=== PATIENT | female | born 1960 | race Caucasian/White ===

== ENCOUNTER 2021-08-19 09:02 | Inpatient (IN) | payer OTHER ==
[2021-08-19] MEDS ORDERED: NITROGLYCERIN SL TABS 0.4 MG TAB SUBLINGUAL STA (09:16)
[2021-08-19] MEDS ORDERED: ASPIRIN 81 MG PO STA (09:16)
[2021-08-19] MEDS ORDERED: SODIUM CHLORIDE 0.9% 500 ML 500 ML IV STA (09:16)
[2021-08-19] MEDS ORDERED: HEPARIN SODIUM 1,000 UN/ML (10ML VL) IV ONE ×2 (09:20→09:49)
--- NOTE | 2021-08-19 09:20 | ED ---
General Adult HPI - General Chief complaint: Chest Pain Stated complaint: Chest Pain,SOB Time Seen by Provider: 08/19/21 09:02 Source: patient, RN notes reviewed, old records reviewed Mode of arrival: ambulatory Limitations: no limitations - History of Present Illness Initial comments: This is a 61-year-old female who presents emergency Department complaining of chest pain for the last hour to an hour and a half. Patient states the pain radiates to both of her arms. Patient denies any diaphoretic episodes. Patient states she is somewhat short of breath. Patient denies any recent fever chills or cough. Patient denies lightheadedness or dizziness. Patient denies headache patient denies numbness weakness. Patient's abdominal pain. Patient denies nausea vomiting diarrhea. Patient denies ever having similar symptoms. - Related Data Allergies Allergy/AdvReac Type Severity Reaction Status Date / Time codeine Allergy Anaphylaxis Verified 08/19/21 09:07 morphine Allergy Rash/Hives Verified 08/19/21 09:07 Penicillins Allergy Anaphylaxis Verified 08/19/21 09:07 Review of Systems ROS Statement: Those systems with pertinent positive or pertinent negative responses have been documented in the HPI. ROS Other: All systems not noted in ROS Statement are negative. Past Medical History Past Medical History: No Reported History History of Any Multi-Drug Resistant Organisms: None Reported Past Surgical History: Hysterectomy Past Psychological History: No Psychological Hx Reported Smoking Status: Current every day smoker Past Alcohol Use History: Daily Past Drug Use History: None Reported General Exam - General Exam Comments Initial Comments: GENERAL: Patient is well-developed and well-nourished. Patient is nontoxic and well- hydrated and is in mild distress. ENT: Neck is soft and supple. No significant lymphadenopathy is noted. Oropharynx is clear. Moist mucous membranes. Neck has full range of motion without eliciting any pain. EYES: The sclera were anicteric and conjunctiva were pink and moist. Extraocular movements were intact and pupils were equal round and reactive to light. Eyelids were unremarkable. PULMONARY: Unlabored respirations. Good breath sounds bilaterally. No audible rales rhonchi or wheezing was noted. CARDIOVASCULAR: There is a regular rate and rhythm without any murmurs gallops or rubs. ABDOMEN: Soft and nontender with normal bowel sounds. SKIN: Skin is clear with no lesions or rashes and otherwise unremarkable. NEUROLOGIC: Patient is alert and oriented x3. Cranial nerves II through XII are grossly intact. Motor and sensory are also intact. Normal speech, volume and content. Symmetrical smile. MUSCULOSKELETAL: Normal extremities with adequate strength and full range of motion. LYMPHATICS: No significant lymphadenopathy is noted PSYCHIATRIC: Normal psychiatric evaluation. Limitations: no limitations Course Vital Signs 08/19/21 09:05 Temperature 97.5 F L Pulse Rate 95 Respiratory 20 Rate Blood Pressure 146/85 O2 Sat by Pulse 99 Oximetry Medical Decision Making - Medical Decision Making EKG shows sinus tachycardia at 100 bpm AZ interval 250 QRS is 89 QT interval 3:30 QTC is 395. Patient's EKG shows ST segment elevation II, III, and F aVF and ST segment depression 1 aVL as well as V2 and V3. STEMI was called overhead and I spoke with Dr. Reis I gave the patient nitroglycerin and aspirin and ordered a heparin bolus. I spoke with [facility] agreed to admit the patient admitted the patient I wrote basic orders. Critical Care Time Critical Care Time: Yes Total Critical Care Time: 30 Disposition Clinical Impression: ST elevation myocardial infarction (STEMI) Disposition: ADMITTED IP TO THIS HOSP Referrals: None,Stated [Primary Care Provider] - 1-2 days Time of Disposition: :
[2021-08-19] MEDS ORDERED: HEPARIN SODIUM 1,000 UN/ML (10ML VL) ONE (09:27)
--- NOTE | 2021-08-19 09:37 | XR ---
EXAMINATION TYPE: XR chest 1V portable DATE OF EXAM: 08/19/2021 COMPARISON: NONE HISTORY: Chest pain. TECHNIQUE: Single AP portable frontal upright view of the chest is obtained. FINDINGS: Mild reticular interstitial prominence bilaterally. There is no suspicious focal air space opacity, pleural effusion, or pneumothorax seen. Mild to moderate biapical pleural/parenchymal scar ring. The cardiac silhouette size is within normal limits. Overlying EKG leads are present. The oss eous structures are somewhat demineralized. IMPRESSION: Chronic changes without acute pulmonary process.
[2021-08-19 09:39] LABS: Basophils % (A) 0 %; Eosinophils # (A) 0.1 k/uL (0-0.7); Eosinophils % (A) 1 %; HCT 47.5 % (34.0-46.0); HGB 15.4 gm/dL (11.4-16.0); Lymphocytes # (A) 1.3 k/uL (1.0-4.8); Lymphocytes % (A) 8 %; MCH 32.7 pg (25.0-35.0); MCHC 32.5 g/dL (31.0-37.0); MCV 100.4 fL (80.0-100.0); Mean Platelet Volume 8.4; Monocytes # (A) 0.4 k/uL (0-1.0); Monocytes % (A) 2 %; Neutrophils # (A) 15.2 k/uL (1.3-7.7); Neutrophils % (A) 88 %; Platelet Count 387 k/uL (150-450); RBC 4.73 m/uL (3.80-5.40); RDW 12.6 % (11.5-15.5); WBC 17.3 k/uL (3.8-10.6)
[2021-08-19 09:41] LABS: ALT 18 U/L (4-34); AST 21 U/L (14-36); African American GFR (CKD) >90 (>60 ml/min/1.73 sqM); Albumin 4.4 g/dL (3.5-5.0); Alkaline Phosphatase 104 U/L (38-126); Anion Gap 12 mmol/L; Blood Urea Nitrogen 7 mg/dL (7-17); Calcium 9.2 mg/dL (8.4-10.2); Carbon Dioxide 21 mmol/L (22-30); Chloride 106 mmol/L (98-107); Glucose 174 mg/dL (74-99); Magnesium 1.8 mg/dL (1.6-2.3); Non-African American GFR(CKD) 89 (>60 ml/min/1.73 sqM); Potassium 4.2 mmol/L (3.5-5.1); Sodium 139 mmol/L (137-145); Total Bilirubin 0.3 mg/dL (0.2-1.3)
[2021-08-19] MEDS ORDERED: SODIUM CHLORIDE 0.9% 1,000 ML IV ONE (09:42)
[2021-08-19] MEDS ORDERED: MIDAZOLAM 2 MG/2 ML VIAL IV ONE (09:43)
[2021-08-19] MEDS ORDERED: VERAPAMIL SYRINGE (5 MG/10 ML) INTRAARTER ONE (09:44)
[2021-08-19] MEDS ORDERED: LIDOCAINE 1% INJ 10MG/ML (5 ML VIAL-PF) SQ ONE (09:44)
[2021-08-19 09:46] LABS: Prothrombin Time 10.5 sec (9.0-12.0)
[2021-08-19] MEDS ORDERED: CLOPIDOGREL 75 MG TAB ONE (09:49)
[2021-08-19] MEDS ORDERED: CLOPIDOGREL 75 MG TAB PO ONE (09:50)
[2021-08-19] MEDS ORDERED: fentaNYL (PF) 50 MCG/ML 2 ML AMP ONE (09:55)
[2021-08-19] MEDS ORDERED: fentaNYL (PF) 50 MCG/ML 2 ML AMP IV ONE (09:56)
[2021-08-19 09:59] LABS: Partial Thromboplastin Time 21.8 sec (22.0-30.0)
[2021-08-19] MEDS ORDERED: NITROGLYCERIN 1000MCG/10ML SYRINGE INTRACORON ONE (10:00)
[2021-08-19] MEDS ORDERED: METOPROLOL TARTRATE 5 MG/5 ML VIAL IVP ONE (10:03)
[2021-08-19] MEDS: METOPROLOL TARTRATE 5 MG/5 ML VIAL IVP ONE ×2 (10:04→10:11)
[2021-08-19] MEDS ORDERED: IOPAMIDOL-370 100ML BTL INJ ONE (10:10)
[2021-08-19] MEDS ORDERED: MAG HYDROX/AL HYDROX/SIMETH 30 ML CUP PO PRN (10:23)
[2021-08-19] MEDS ORDERED: RX INFO: IV CONTRAST WAS GIVEN 1 EACH MISC MISCELLANE PRN (10:23)
[2021-08-19] MEDS ORDERED: ATROPINE SULFATE 0.1 MG/ML 10ML SYRINGE IV PRN (10:23)
[2021-08-19] MEDS ORDERED: ZOLPIDEM 5 MG TAB PO PRN (10:23)
[2021-08-19] MEDS ORDERED: NITROGLYCERIN SL TABS 0.4 MG TAB SUBLINGUAL PRN (10:23)
[2021-08-19 10:35] LABS: Glucose,Whole Blood 102 mg/dL (70-110)
[2021-08-19] MEDS: SODIUM CHLORIDE 0.9% 1,000 ML in EMPTY BAG 1 BAG IV SCH ×2 (11:01→23:50)
--- NOTE | 2021-08-19 12:33 | CA ---
Transthoracic Echo Report Name: Janice Sue Age: 61 Gender: F : 1960 Exam Date: 08/19/2021 11:05 Exam Location: [facility] Ht (in): 61 Wt (lb): 115 Ordering Physician: Lacie Reis MD ([id number]) Attending/Referring Phys: [employer] Farzaneh Tapia RDCS Procedure CPT: Indications: Acute Inf STEMI RCA PCI Cardiac Hx: smoker Technical Quality: Good Contrast 1: Total Dose (mL): Contrast 2: Total Dose (mL): MEASUREMENTS (Male / Female) Normal Values 2D ECHO LV Diastolic Diameter PLAX 4.2 cm 4.2 - 5.9 / 3.9 - 5.3 cm LV Systolic Diameter PLAX 3.2 cm IVS Diastolic Thickness 0.9 cm 0.6 - 1.0 / 0.6 - 0.9 cm LVPW Diastolic Thickness 0.9 cm 0.6 - 1.0 / 0.6 - 0.9 cm LV Relative Wall Thickness 0.4 M-MODE Aortic Root Diameter MM 2.9 cm LA Systolic Diameter MM 1.5 cm LA Ao Ratio MM 0.5 MV E Point Septal Separation 1.4 cm AV Cusp Separation MM 1.7 cm DOPPLER AV Peak Velocity 106.0 cm/s AV Peak Gradient 4.5 mmHg MV Area PHT 3.6 cm??? MR Peak Velocity 210.7 cm/s MR Peak Gradient 17.8 mmHg Mitral E Point Velocity 62.1 cm/s Mitral A Point Velocity 54.0 cm/s Mitral E to A Ratio 1.1 MV Deceleration Time 213.6 ms TR Peak Velocity 135.3 cm/s TR Peak Gradient 7.3 mmHg Right Ventricular Systolic Press 12.3 mmHg FINDINGS Left Ventricle Left ventricular ejection fraction is estimated at 40-45 %. There is inferior and inferolateral hypokinesis. Left ventricular cavity size normal. Left ventricular wall thickness normal. Right Ventricle The right ventricle is normal in size and function. Right Atrium The right atrium is normal in size. Left Atrium The left atrium is normal in size. Mitral Valve Structurally normal mitral valve without significant stenosis or prolapse. There is mild mitral regurgitation. Aortic Valve Structurally normal aortic valve without significant sclerosis or stenosis. There is no aortic regurgitation. Tricuspid Valve Structurally normal tricuspid valve without significant stenosis. Pulmonary artery systolic pressure is normal. Mild tricuspid regurgitation. Pulmonic Valve Structurally normal pulmonic valve without significant stenosis. There is no pulmonic regurgitation. Pericardium Normal pericardium without effusion. Aorta Normal aortic root dimension. CONCLUSIONS 1. Moderately impaired left ventricle systolic function with segmental wall motion abnormality consistent with CAD 2. Mild mitral and tricuspid regurgitation 3. No pericardial effusion. Previewed by: Dr. Jayleen Mcadams MD (Electronically Signed) Final Date: 19 August 2021 12:32
[2021-08-19] MEDS: NICOTINE 21MG/24HR PATCH TRANSDERM SCH (13:00)
--- NOTE | 2021-08-19 19:04 | CONS ---
CONSULTATION This is a 61-year-old lady who smokes more than one and a half to two packs a day, came into the emergency room complaining of chest pressure. She had significant inferolateral ST elevation. She was diaphoretic, also. Pain started about two hours prior to arrival. She was hemodynamically stable. Her pain was classic for acute TX with ST elevation involving the inferior leads. I saw the patient and advised immediate cardiac catheterization, possible PCI. She complained of some lightheadedness, also. Last couple of days she has been having nondescript chest pressure which she seems to have ignored. She is hemodynamically stable but complains of chest pain. She was given nitroglycerin. Blood pressure is about 130 systolic. She is tachycardic. She will be taken to the candlemaking laborer promptly. PAST MEDICAL HISTORY: Remarkable for hysterectomy. No prescription medications. Does not have any previous history of diabetes, hypertension, hyperlipidemia. Patient smokes nearly two packs a day. No family history of CAD. PHYSICAL EXAMINATION: On examination, blood pressure is 130/80, pulse rate is about 110 per minute, regular. HEENT unremarkable. Fundus was not examined by me. Neck is supple. No JVD. I do not hear a carotid bruit. Heart exam reveals S1, S2 heard normally. No significant rub, murmur or gallop. Lungs reveal bilateral diminished air entry. Abdomen is soft, nontender. Lower extremities reveal normal pulses, no edema. Central nervous system grossly within normal limits. EKG revealed sinus mechanism with inferolateral ST elevation with reciprocal ST depression. IMPRESSION: 1. Acute inferior ST-elevation myocardial infarction. 2. Smoking and chronic obstructive pulmonary disease. RECOMMENDATIONS: I am recommending prompt cardiac cath and PCI and proceeded to the candlemaking laborer expeditiously. MMODL / IJN: [id number] /
--- NOTE | 2021-08-19 19:17 | CC ---
CARDIAC CATHETERIZATION REPORT DATE OF SERVICE: 08/19/2021. PROCEDURE: 1. Left heart catheterization and coronary angiography. 2. Percutaneous transluminal coronary angioplasty and stenting of a proximal RCA stenosis in the setting of acute inferior ST-elevation myocardial infarction with reperfusion accomplished in 52 minutes. Moderate conscious sedation time was 25 minutes. Patient was administered Versed. Oxygenation, hemodynamics and EKG were monitored closely. CLINICAL INFORMATION: Mrs. Janice Sue is a 61-year-old lady who came to the hospital with chest pain. She has history of smoking and had an inferior ST elevation. She was advised prompt cardiac catheterization. PROCEDURE NOTE: Under local anesthesia and strict aseptic precautions, a 6-Grenadian introducer was placed in the right radial artery. I started the procedure with a right Sarika type guide catheter, performed PCI of RCA, then performed coronary angiography. The same right catheter was used to check LV pressure, but LV gram was not performed. The patient tolerated procedure well. She received 600 mg of Plavix and also received a total of 4600 units of heparin, and the ACT was done 290. The sheath was taken out and TR band applied as per protocol and she was sent to the room in stable condition. CARDIAC CATHETERIZATION FINDINGS: RIGHT CORONARY ARTERY: Dominant vessel, has a proximal lesion of about 70% and at the junction of proximal middle one third there is a 95% lesion with thrombus and then the caliber improves and the blood flow is somewhat sluggish distally. It is a dominant vessel which gives off PDA and PLV that supplies a sizable amount of myocardium. The proximal RCA therefore is culprit lesion of 95% with thrombus. LEFT MAIN CORONARY ARTERY: This is a short patent vessel free of significant disease that immediately bifurcates into LAD and circumflex. Left main is free of significant disease. LEFT ANTERIOR DESCENDING CORONARY ARTERY: Good-caliber vessel extends along the anterior wall, gives off septal and diagonal branches. It gives off a good-sized diagonal branch in the mid portion that supplies a fair amount of myocardium. LAD after the giving of the diagonal branch becomes smaller, and the distal one fourth has diffuse disease of nearly 60% to 70%, but the vessel also tapers off. The proximal and mid LAD is free of significant disease, gives off good- sized diagonal branches. LEFT POSTERIOR CIRCUMFLEX CORONARY ARTERY: This is a nondominant vessel, fair in caliber, fair distribution. Minor irregularities of about 30% to 40%. No significant disease. Left ventriculogram was not performed. I checked LV pressures. The LV end-diastolic pressure was 11 mmHg without any gradient across aortic valve. FINAL IMPRESSION: This patient has a 95% proximal/mid RCA lesion which is a dominant vessel. Left main is free of significant disease. Distal LAD has diffuse disease. Circumflex is free of significant disease. Filling pressures are normal and no gradient across aortic valve. RECOMMENDATIONS: I advised PCI of RCA that was performed immediately. PERCUTANEOUS CORONARY INTERVENTION PROCEDURE DETAILS: I used a standard right Sarika catheter and a run-through wire. Predilatation was performed with a 3.0 caliber 20 mm Trek balloon. I then deployed a 23 mm long 3.5 caliber Xience stent at 12 atmospheres. Patient had chest pain and inferior ST elevation. Excellent angiographic result was achieved without complication. Results were discussed with the patient and his family and he was sent to the ICU in a stable condition. MMRODNEY / EDAN: [id number] / MTDRoberto
[2021-08-19] MEDS: METOPROLOL TARTRATE 25 MG TAB PO SCH (20:08)
[2021-08-19] MEDS: ATORVASTATIN 80 MG TAB PO SCH (20:08)
[2021-08-19] MEDS: HEPARIN SODIUM,PORCINE/PF 5,000 UNIT/0.5 ML SYRINGE SQ SCH (20:08)
--- NOTE | 2021-08-19 20:24 | P.HPIM ---
History of Present Illness H&P Date: 08/19/21 Chief Complaint: chest pain Patient is a 61-year-old female with a known history of ongoing nicotine addiction, daily alcohol use 3-4 beers daily presents to ER with the complaints of epigastric pain. Patient has been having epigastric pain for the past 3 to 5 days and she has been using antacids [id number] which seem to improve her symptoms but today her pain started again about 1and 1/2-hour prior to arrival to the ER which was not relieving and made her to call the EMS. Patient felt left upper extremity pain at the shoulder and was diaphoretic. Was also short of breath. No nausea or vomiting. No complaints of cough or sputum production. No fever no chills. Denied any recent illnesses. No dizziness or lightheadedness. No complaints of exertional dyspnea. Patient was noted to have inferior lateral SC with ST elevation in the [address] segment depression in aVL, V2 and V3. Patient was immediately taken to cardiac catheterization. She was given nitroglycerin sublingual and aspirin and heparin bolus in the ER. Patient was transferred to MICU postprocedure. Laboratory showed WBC 17.2 hemoglobin 15.4 and platelets 387 Sodium 139 potassium 4.2 chloride 106 bicarb is 21 BUN 17 creatinine 0.74 blood sugar 174 Troponin 0.012 and 18.1 liver enzymes are not elevated. Review of Systems Constitutional: Patient denies any fever or chills . No generalized weakness or weight loss. Abdomen: Patient denied nausea vomiting and diarrhea and abdominal pain. Cardiovascular: Patient denies any chest pain or short of breath no palpitations. Respiratory: patient denied any cough is from production. No shortness of breath Neurologic: Patient denied any numbness or tingling headache. Musculoskeletal: Patient denies any complaints of joint swelling or deformity. Skin: Negative Psychiatric: Negative Endocrine: No heat or cold intolerance. No recent weight gain. Genitourinary: No dysuria or hematuria. All other 14 point ROS negative except the above Past Medical History Past Medical History: No Reported History History of Any Multi-Drug Resistant Organisms: None Reported Past Surgical History: No Surgical Hx Reported, Hysterectomy Past Anesthesia/Blood Transfusion Reactions: No Reported Reaction Past Psychological History: No Psychological Hx Reported Smoking Status: Current every day smoker Past Alcohol Use History: Daily Additional Past Alcohol Use History / Comment(s): "3 beers or so every evening" Past Drug Use History: None Reported Additional Drug Use History / Comment(s): 1 pack/day since 1976 Medications and Allergies Home Medications Medication Instructions Recorded Confirmed Type Fluticasone Nasal [place] [Flonase 2 spray EA NOSTRIL DAILY 08/19/21 08/19/21 History Nasal [place]] Levocetirizine Dihydrochloride 5 mg PO DAILY 08/19/21 08/19/21 History [Xyzal] Allergies Allergy/AdvReac Type Severity Reaction Status Date / Time codeine Allergy Anaphylaxis Verified 08/19/21 09:43 morphine Allergy Rash/Hives Verified 08/19/21 09:43 Penicillins Allergy Anaphylaxis Verified 08/19/21 09:43 Physical Exam Vitals: Vital Signs Temp Pulse Resp BP Pulse Ox FiO2 08/19/21 11:00 98.5 F 81 14 132/82 96 98 08/19/21 10:40 87 21 140/83 98 08/19/21 09:25 94 18 126/74 100 08/19/21 09:20 94 18 130/87 99 08/19/21 09:15 98 18 125/84 99 08/19/21 09:10 96 20 133/81 100 08/19/21 09:05 97.5 F L 95 20 146/85 99 Intake and Output 08/18/21 08/19/21 08/19/21 22:59 06:59 14:59 Intake Total 400 Balance 400 Intake: IV 300 Oral 100 Other: Weight 52.163 kg PHYSICAL EXAMINATION: Patient is lying in the bed comfortably, no acute distress, awake alert and oriented.. HEENT: Normocephalic. Neck is supple. Pupils reactive. Nostrils clear. Oral cavity is moist. Neck reveals no JVD, carotid bruits, or thyromegaly. CHEST EXAMINATION: Trachea is central. Symmetrical expansion. Lung stewart clear to auscultation and percussion. CARDIAC: Normal S1, S2 with no gallops. No murmurs ABDOMEN: Soft. Bowel sounds normal. No organomegaly. No abdominal bruits. Extremities: reveal no edema. No clubbing or cyanosis Neurologically awake, alert, oriented x3 with well-coordinated movements. No focal deficits noted Skin: No rash or skin lesions. Psychiatric: Coperative. Nonsuicidal Musculoskeletal: No joint swelling or deformity. Normal range of motion. Results CBC & Chem 7: 08/19/21 09:10 08/19/21 09:10 Labs: Abnormal Lab Results - Last 24 Hours (Table) 08/19/21 08/19/21 08/19/21 Range/Units 09:10 09:10 09:10 WBC 17.3 H (3.8-10.6) k/uL Hct 47.5 H (34.0-46.0) % MCV 100.4 H (80.0-100.0) fL Neutrophils # 15.2 H (1.3-7.7) k/uL APTT 21.8 L (22.0-30.0) sec Carbon Dioxide 21 L (22-30) mmol/L Glucose 174 H (74-99) mg/dL Thrombosis Risk Factor Assmnt - DVT/VTE Prophylaxis DVT/VTE Prophylaxis: Pharmacologic Prophylaxis ordered - Choose All That Apply Any of the Below Risk Factors Present?: No Other Risk Factors: No Thrombosis Risk Factor Assessment Level: Very Low Risk Assessment and Plan Assessment: Acute inferior wall SC status postcardiac catheterization and stent placement Ongoing nicotine reduction with possible underlying COPD Daily alcohol use 3 to 4 beers Leukocytosis likely reactive. Follow-up repeat CBC tomorrow. No other signs of infection. DVT prophylaxis with heparin subcu Plan: Patient is status post cardiac catheterization and stent placement. Continue with aspirin, Plavix and atorvastatin. Started on metoprolol and lisinopril. Cardiology is on board. Continue with telemetry monitoring and follow-up closely in the ICU. Time with Patient: Greater than 30
[2021-08-20 06:11] LABS: Basophils % (A) 1 %; Eosinophils # (A) 0.1 k/uL (0-0.7); Eosinophils % (A) 1 %; HCT 39.5 % (34.0-46.0); HGB 12.5 gm/dL (11.4-16.0); Lymphocytes % (A) 15 %; MCHC 31.7 g/dL (31.0-37.0); Mean Platelet Volume 8.4; Monocytes # (A) 0.4 k/uL (0-1.0); Monocytes % (A) 6 %; Neutrophils # (A) 5.3 k/uL (1.3-7.7); Neutrophils % (A) 76 %; Platelet Count 281 k/uL (150-450); RBC 3.91 m/uL (3.80-5.40); RDW 12.4 % (11.5-15.5); WBC 6.9 k/uL (3.8-10.6)
[2021-08-20 06:25] LABS: African American GFR (CKD) >90 (>60 ml/min/1.73 sqM); Anion Gap 3 mmol/L; Blood Urea Nitrogen 4 mg/dL (7-17); Calcium 8.8 mg/dL (8.4-10.2); Carbon Dioxide 23 mmol/L (22-30); Chloride 111 mmol/L (98-107); Glucose 94 mg/dL (74-99); Non-African American GFR(CKD) >90 (>60 ml/min/1.73 sqM); Potassium 4.6 mmol/L (3.5-5.1); Sodium 137 mmol/L (137-145)
[2021-08-20] MEDS: SODIUM CHLORIDE 0.9% 1,000 ML in EMPTY BAG 1 BAG IV SCH (06:45)
[2021-08-20] MEDS ORDERED: ONDANSETRON 4 MG/2 ML VIAL IVP PRN (07:38)
[2021-08-20] MEDS: ASPIRIN 81 MG PO SCH (08:34)
[2021-08-20] MEDS: CLOPIDOGREL 75 MG TAB PO SCH (08:34)
[2021-08-20] MEDS: lisinopriL 5 MG TAB PO SCH (08:34)
[2021-08-20] MEDS: METOPROLOL TARTRATE 25 MG TAB PO SCH (08:34)
[2021-08-20] MEDS: HEPARIN SODIUM,PORCINE/PF 5,000 UNIT/0.5 ML SYRINGE SQ SCH ×2 (08:34→21:39)
[2021-08-20] MEDS: NICOTINE 21MG/24HR PATCH TRANSDERM SCH (08:34)
[2021-08-20] MEDS ORDERED: METOPROLOL TARTRATE 25 MG TAB PO STA (10:36)
[2021-08-20] MEDS: METOPROLOL TARTRATE 50 MG TAB PO SCH ×2 (10:36→21:39)
--- NOTE | 2021-08-20 11:51 | P.PN ---
Subjective Progress Note Date: 08/20/21 This is Cody Jeffrey NP, I'm dictating on behalf of Dr. Lopez's H&P and A&P. Patient was interviewed and examined. Patient is a pleasant 61-year-old female who initially presented to the hospital with STEMI. [facility] cardiac catheterization and today reports she's had no chest pain and no breathing issues. She is doing well from a cardiac standpoint, he may be transferred out of the ICU. GENERAL: Well-appearing, well-nourished and in no acute distress. NECK: Supple without JVD or thyromegaly. LUNGS: Breath sounds clear to auscultation bilaterally. Respiration equal and unlabored. No wheezes, rales or rhonchi. HEART: Regular rate and rhythm without murmurs, rubs or gallops. S1 and S2 heard. EXTREMITIES: Normal range of motion, no edema. No clubbing or cyanosis. Peripheral pulses intact and strong. VITALS: Temp 98.0, pulse 74, respirations 14, blood pressure 133/71, O2 saturation 95% on room air TELEMETRY: Normal sinus rhythm LABS: White count 6.9, hemoglobin 12.5, sodium 137, potassium 4.6, B1 4, creatinine 0.66, calcium 8.8, troponin today 6.570, trended down from previous. IMPRESSION: 1. Acute inferior ST elevation LA 2. COPD 3. Smoker PLAN: Continue current medications as ordered Patient may be transferred out of the ICU Increase metoprolol to 50 mg twice a day Further recommendations based on patient's clinical course Objective - Vital Signs Vital signs: Vital Signs Temp 98.0 F 08/20/21 11:01 Pulse 74 08/20/21 11:01 Resp 14 08/20/21 11:01 BP 133/71 08/20/21 11:01 Pulse Ox 95 08/20/21 11:01 FiO2 98 08/19/21 11:00 Intake & Output 08/19/21 08/20/21 08/20/21 18:59 06:59 18:59 Intake Total 1125 900 75 Output Total 800 Balance 325 900 75 Weight 52.163 kg 54 kg Intake: IV 300 825 75 Sodium Chloride 0.9% 1, 825 75 000 ml In Empty Bag 1 bag @ 75 mls/hr IV .[id number] REPLACED BY [facility] Rx#:[id number] Intake, IV Titration 525 75 Amount Sodium Chloride 0.9% 1, 525 75 000 ml In Empty Bag 1 bag @ 75 mls/hr IV .[id number] REPLACED BY [facility] Rx#:[id number] Oral 300 Output: Urine 800 Other: Voiding Method Toilet Toilet # Voids 1 0 1 - Labs CBC & Chem 7: 08/20/21 05:39 08/20/21 05:39 Labs: Abnormal Lab Results - Last 24 Hours (Table) 08/19/21 08/19/21 08/20/21 Range/Units 14:02 19:41 05:39 MCV (80.0-100.0) fL Chloride (98-107) mmol/L BUN (7-17) mg/dL Troponin I 18.100 H* 18.300 H* 6.570 H* (0.000-0.034) ng/mL 08/20/21 08/20/21 Range/Units 05:39 05:39 MCV 101.0 H (80.0-100.0) fL Chloride 111 H (98-107) mmol/L BUN 4 L (7-17) mg/dL Troponin I (0.000-0.034) ng/mL
[2021-08-20 12:56] VITALS: BMI 22.4
[2021-08-20] MEDS ORDERED: ACETAMINOPHEN TAB 325 MG TAB PO PRN (17:22)
[2021-08-20] MEDS: ATORVASTATIN 80 MG TAB PO SCH (21:39)
--- NOTE | 2021-08-20 22:09 | P.PN ---
Subjective Progress Note Date: 08/20/21 Patient is a 61-year-old female with a known history of ongoing nicotine addiction, daily alcohol use 3-4 beers daily presents to ER with the complaints of epigastric pain. Patient has been having epigastric pain for the past 3 to 5 days and she has been using antacids [id number] which seem to improve her symptoms but today her pain started again about 1and 1/2-hour prior to arrival to the ER which was not relieving and made her to call the EMS. Patient felt left upper extremity pain at the shoulder and was diaphoretic. Was also short of breath. No nausea or vomiting. No complaints of cough or sputum production. No fever no chills. Denied any recent illnesses. No dizziness or lighthe adedness. No complaints of exertional dyspnea. Patient was noted to have inferior lateral PA with ST elevation in the [address] segment depression in aVL, V2 and V3. Patient was immediately taken to cardiac catheterization. She was given nitroglycerin sublingual and aspirin and heparin bolus in the ER. Patient was transferred to MICU postprocedure. Laboratory showed WBC 17.2 hemoglobin 15.4 and platelets 387 Sodium 139 potassium 4.2 chloride 106 bicarb is 21 BUN 17 creatinine 0.74 blood sugar 174 Troponin 0.012 and 18.1 liver enzymes are not elevated. 08/20/2021 Patient is currently lying in the bed comfortably. Awake alert and oriented x3. Denied any complaints of chest pain or tightness. No shortness of breath. Blood pressure was 144/90 and pulse 98 respiration 22 and pulse ox 97% on room air this morning. Metoprolol dose was increased. Lab data showed WBC 6.9 hemoglobin 12.5 and platelets 281 Sodium 137 potassium 4.6 chloride 111 bicarb is 23 BUN 14 creatinine 0.66. Patient is being transferred to medical floor today. Current medications reviewed. Objective - Vital Signs Vital signs: Vital Signs Temp 98.0 F 08/20/21 11:01 Pulse 74 08/20/21 11:01 Resp 14 08/20/21 11:01 BP 133/71 08/20/21 11:01 Pulse Ox 95 08/20/21 11:01 FiO2 98 08/19/21 11:00 Intake & Output 08/19/21 08/20/21 08/20/21 18:59 06:59 18:59 Intake Total 1125 900 75 Output Total 800 Balance 325 900 75 Weight 52.163 kg 54 kg 54 kg Intake: IV 300 825 75 Sodium Chloride 0.9% 1, 825 75 000 ml In Empty Bag 1 bag @ 75 mls/hr IV .[id number] [facility] Rx#:[id number] Intake, IV Titration 525 75 Amount Sodium Chloride 0.9% 1, 525 75 000 ml In Empty Bag 1 bag @ 75 mls/hr IV .[id number] [facility] Rx#:[id number] Oral 300 Output: Urine 800 Other: Voiding Method Toilet Toilet # Voids 1 0 1 - Exam PHYSICAL EXAMINATION: Patient is lying in the bed comfortably, no acute distress, awake alert and oriented.. HEENT: Normocephalic. Neck is supple. Pupils reactive. Nostrils clear. Oral cavity is moist. Neck reveals no JVD, carotid bruits, or thyromegaly. CHEST EXAMINATION: Trachea is central. Symmetrical expansion. Lung stewart clear to auscultation and percussion. CARDIAC: Normal S1, S2 with no gallops. No murmurs ABDOMEN: Soft. Bowel sounds normal. No organomegaly. No abdominal bruits. Extremities: reveal no edema. No clubbing or cyanosis Neurologically awake, alert, oriented x3 with well-coordinated movements. No focal deficits noted Skin: No rash or skin lesions. Psychiatric: Coperative. Nonsuicidal Musculoskeletal: No joint swelling or deformity. Normal range of motion. - Labs CBC & Chem 7: 08/20/21 05:39 08/20/21 05:39 Labs: Abnormal Lab Results - Last 24 Hours (Table) 08/19/21 08/19/21 08/20/21 Range/Units 14:02 19:41 05:39 MCV (80.0-100.0) fL Chloride (98-107) mmol/L BUN (7-17) mg/dL Troponin I 18.100 H* 18.300 H* 6.570 H* (0.000-0.034) ng/mL 08/20/21 08/20/21 Range/Units 05:39 05:39 MCV 101.0 H (80.0-100.0) fL Chloride 111 H (98-107) mmol/L BUN 4 L (7-17) mg/dL Troponin I (0.000-0.034) ng/mL Assessment and Plan Assessment: Acute inferior wall PA status postcardiac catheterization and stent placement Ongoing nicotine reduction with possible underlying COPD Daily alcohol use 3 to 4 beers Leukocytosis likely reactive. Follow-up repeat CBC tomorrow. No other signs of infection. DVT prophylaxis with heparin subcu Plan: Patient is status post cardiac catheterization and stent placement. Continue with aspirin, Plavix and atorvastatin. Started on metoprolol and lisinopril. Cardiology is on board. Metoprolol dose increased. Patient is being transferred to medical floor today. Time with Patient: Greater than 30
[2021-08-21 07:51] VITALS: RESP 20
[2021-08-21] MEDS: ASPIRIN 81 MG PO SCH (08:18)
[2021-08-21] MEDS: METOPROLOL TARTRATE 50 MG TAB PO SCH (08:18)
[2021-08-21] MEDS: CLOPIDOGREL 75 MG TAB PO SCH (08:18)
[2021-08-21] MEDS: lisinopriL 5 MG TAB PO SCH (08:18)
[2021-08-21] MEDS: HEPARIN SODIUM,PORCINE/PF 5,000 UNIT/0.5 ML SYRINGE SQ SCH (08:19)
[2021-08-21] MEDS: NICOTINE 21MG/24HR PATCH TRANSDERM SCH (08:19)
[2021-08-21 11:29] VITALS: BP 116/72; PULSE 82; TEMP 97.7
--- NOTE | 2021-08-21 12:34 | P.PN ---
Subjective Progress Note Date: 08/21/21 The patient is a 61-year-old female who is currently admitted to the hospital with ST elevated myocardial infarction, who underwent stenting of the RCA with Dr. YISEL Reis on 08/19/2021. The patient tolerated her procedure well and medications have been maximized. She states she has been ambulating around her room with no shortness of breath or chest discomfort. She states she feels well and endorses a good energy level. She does have bruising along her right arm and procedure site. No hematoma. GENERAL: Well-appearing, well-nourished and in no acute distress. NECK: Supple without JVD or thyromegaly. LUNGS: Breath sounds clear to auscultation bilaterally. Respiration equal and unlabored. No wheezes, rales or rhonchi. HEART: Regular rate and rhythm without murmurs, rubs or gallops. S1 and S2 heard. EXTREMITIES: Normal range of motion, no edema. No clubbing or cyanosis. Peripheral pulses intact and strong. Bruising noted at procedure site VITALS: Blood pressure 116/72, pulse 82, respiratory rate 20, temp 97.7F, SpO2 98% on room air TELEMETRY: Sinus rhythm overnight. No significant ectopy. IMPRESSION: Acute inferior ST elevation myocardial infarction Status post stenting of the proximal RCA Current smoker History of COPD PLAN: No changes in her current medication regimen The patient may be discharged from the cardiac standpoint Follow-up with primary wax ball molder Dr. YISEL Reis in one week I am dictating on behalf of Dr Moy Lopez's history/physical and assessment/plan. Objective - Vital Signs Vital signs: Vital Signs Temp 97.7 F 08/21/21 11:28 Pulse 82 08/21/21 11:28 Resp 20 08/21/21 11:28 BP 116/72 08/21/21 11:28 Pulse Ox 98 08/21/21 11:28 FiO2 98 08/19/21 11:00 Intake & Output 08/20/21 08/21/21 08/21/21 18:59 06:59 18:59 Intake Total 75 300 Output Total 400 Balance 75 -400 300 Weight 54 kg Intake: IV 75 Sodium Chloride 0.9% 1, 75 000 ml In Empty Bag 1 bag @ 75 mls/hr IV .[id number] [facility] Rx#:[id number] Intake, IV Titration 0 Amount Sodium Chloride 0.9% 1, 0 000 ml In Empty Bag 1 bag @ 75 mls/hr IV .[id number] [facility] Rx#:[id number] Oral 300 Output: Urine 400 Other: Voiding Method Toilet Toilet # Voids 1 1 1 - Labs CBC & Chem 7: 08/20/21 05:39 08/20/21 05:39
== END 2021-08-21 14:48 | disposition home or self-care (01) | DRG 247 ==
LOC: EC 09:02 → 2SICU 09:23 → 3SCARD 08-20 10:50
PROVIDERS: ADMIT Hospitalist; ATTEND Hospitalist
PROC: B2111ZZ Fluoroscopy of Multiple Coronary Arteries using Low Osmolar Contrast (ICD-10-PCS; principal; 2021-08-19 13:55)
PROC: 4A023N7 Measurement of Cardiac Sampling and Pressure, Left Heart, Percutaneous Approach (ICD-10-PCS; principal; 2021-08-19 13:55)
PROC: 027034Z Dilation of Coronary Artery, One Artery with Drug-eluting Intraluminal Device, Percutaneous Approach (ICD-10-PCS; principal; 2021-08-19 13:55)
DX: I21.19 ST elevation (STEMI) myocardial infarction involving other coronary artery of inferior wall (principal); F17.210 Nicotine dependence, cigarettes, uncomplicated; I25.10 Atherosclerotic heart disease of native coronary artery without angina pectoris; J44.9 Chronic obstructive pulmonary disease, unspecified; D72.828 Other elevated white blood cell count; Z88.5 Allergy status to narcotic agent; Z88.0 Allergy status to penicillin; Z28.311 Partially vaccinated for COVID-19; Z28.21 Immunization not carried out because of patient refusal
CPT/HCPCS: 36415; 71045; 80048; 80053; 83735; 84484; 85025; 85610; 85730; 93005; 93306; 93458; 99285

== ENCOUNTER 2021-10-07 15:17 | Emergency (ER) | payer OTHER ==
[2021-10-07 15:51] VITALS: BP 150/39; PULSE 94; RESP 18; TEMP 97.5
--- NOTE | 2021-10-07 16:18 | XR ---
EXAMINATION TYPE: XR chest 2V DATE OF EXAM: 10/07/2021 COMPARISON: Chest x-ray August 19, 2021 HISTORY: Congestion. TECHNIQUE: Frontal and lateral views of the chest are obtained. FINDINGS: There r chronic emphysematous changes identified. There is suspicious 1.5 cm left lung nod ule over the posterior sixth rib which was obscured by overlying EKG leads on prior study. The cardi ac silhouette size is stable and within normal limits. Old healed fracture of the posterolateral righ t seventh rib noted. IMPRESSION: Chronic emphysematous change with moderate biapical parenchymal scarring. No acute pulmonary process. Suspect left upper lobe nodule. Follow-up chest CT is advised.
--- NOTE | 2021-10-07 18:26 | ED ---
SOB HPI - General Chief Complaint: Shortness of Breath Stated Complaint: Needs Xray-irregular labs Time Seen by Provider: 10/07/21 18:26 Source: patient Mode of arrival: ambulatory Limitations: no limitations - History of Present Illness Initial Comments: 61-year-old female past history of [place] presents emergency departments the cardiology office. Patient had a STEMI in August. Has been following with the cardiology office after her [place]. Today the patient had a routine echo. She was told that she had a fluid possibly around her heart or lungs and needed to come to the emergency room and 4 x-ray. I did review the patient's prescription which reports that the patient needed an outpatient x-ray with results sent to Dr. Reis. Patient was under the impression that she needed to come to the hospital right away. She admits that she has had exertional shortness of breath however this started before she had her heart attack. States it has been mildly better since her catheterization. She is a smoker. Denies history of COPD or asthma. No fevers, chills or cough. She denies any chest pain. No other alleviating, precipitating modifying factors - Related Data Home Medications Medication Instructions Recorded Confirmed Fluticasone Nasal [place] [Flonase 2 spray EA NOSTRIL DAILY 08/19/21 08/19/21 Nasal [place]] Previous Rx's Medication Instructions Recorded Aspirin 81 mg PO DAILY #30 tab 08/21/21 Atorvastatin [Lipitor] 80 mg PO HS #30 tab 08/21/21 Clopidogrel [Plavix] 75 mg PO DAILY #30 tab 08/21/21 Metoprolol Tartrate [Lopressor] 50 mg PO BID #60 tab 08/21/21 Nitroglycerin Sl Tabs [Nitrostat] 0.4 mg SUBLINGUAL Q5M PRN #30 tab 08/21/21 lisinopriL [Zestril] 5 mg PO DAILY #30 tab 08/21/21 Allergies Allergy/AdvReac Type Severity Reaction Status Date / Time codeine Allergy Anaphylaxis Verified 10/07/21 15:51 morphine Allergy Rash/Hives Verified 10/07/21 15:51 Penicillins Allergy Anaphylaxis Verified 10/07/21 15:51 Review of Systems ROS Statement: Those systems with pertinent positive or pertinent negative responses have been documented in the HPI. ROS Other: All systems not noted in ROS Statement are negative. Past Medical History Past Medical History: No Reported History History of Any Multi-Drug Resistant Organisms: None Reported Past Surgical History: No Surgical Hx Reported, Hysterectomy Past Anesthesia/Blood Transfusion Reactions: No Reported Reaction Past Psychological History: No Psychological Hx Reported Smoking Status: Current every day smoker Past Alcohol Use History: Daily Past Drug Use History: None Reported General Exam Limitations: no limitations General appearance: alert, in no apparent distress Head exam: Present: atraumatic, normocephalic, normal inspection Eye exam: Present: normal appearance, PERRL, EOMI. Absent: scleral icterus, conjunctival injection, periorbital swelling ENT exam: Present: normal exam, mucous membranes moist Neck exam: Present: normal inspection. Absent: tenderness, meningismus, lymphadenopathy Respiratory exam: Present: normal lung sounds bilaterally. Absent: respiratory distress, wheezes, rales, rhonchi, stridor Cardiovascular Exam: Present: regular rate, normal rhythm, normal heart sounds. Absent: systolic murmur, diastolic murmur, rubs, gallop, clicks GI/Abdominal exam: Present: soft, normal bowel sounds. Absent: distended, tenderness, guarding, rebound, rigid Extremities exam: Present: normal inspection, full ROM, normal capillary refill. Absent: tenderness, pedal edema, joint swelling, calf tenderness Back exam: Present: normal inspection Neurological exam: Present: alert, oriented X3, CN II-XII intact Psychiatric exam: Present: normal affect, normal mood Skin exam: Present: warm, dry, intact, normal color. Absent: rash Course Vital Signs 10/07/21 15:45 Temperature 97.5 F L Pulse Rate 94 Respiratory 18 Rate Blood Pressure 150/39 O2 Sat by Pulse 97 Oximetry Medical Decision Making - Medical Decision Making Upon arrival patient's was taken for x-ray from the emergency department. X-ray fails to demonstrate an acute process. There is chronic emphysematous change with moderate biapical parenchymal scarring. Left upper lobe nodule. I discussed these results with the patient. Did recommend CT of her chest as she does have a pulmonary nodule. Patient does allow me to perform this procedure which demonstrates a calcified granuloma of the left upper lobe. Small left lower lobe reticular infiltrates. Emphysema and mild pulmonary fibrosis with a normal heart with no pericardial effusion. I did complete an ultrasound at bedside of the patient's heart which demonstrates no pericardial effusion. These results are discussed the patient. She is eager to be discharged. I instructed that she needs to follow-up with her cardiology office within 2-4 days. The studies performed at the hospital will be available for the nursing service administrator to interpret. Return to the emergency room for any new or worsening symptoms. Patient was agreeable and discharged home in stable condition - EKG Data EKG Comments: EKG demonstrates sinus rhythm with a rate of 91. MO interval 138. QRS 75. QTC of 395. ST depression lead 3 [address]VF[address] No acute ST segment elevations Disposition Clinical Impression: Lung nodule, Dyspnea, Emphysema lung Disposition: HOME SELF-CARE Condition: Stable Instructions (If sedation given, give patient instructions): Emphysema (ED), Pulmonary Nodules (ED) Additional Instructions: Please follow-up up with your primary care doctor in 2-4 days. Follow up with Dr. Reis in regards to your Echo findings. Return for any new or worsening symptoms Is patient prescribed a controlled substance at d/c from ED?: No Referrals: Rell Arreola DO [Primary Care Provider] - 1-2 days Time of Disposition: 20:28
--- NOTE | 2021-10-07 19:50 | CT ---
EXAMINATION TYPE: CT chest wo con DATE OF EXAM: 10/07/2021 COMPARISON: None HISTORY: lung nodule, pericardial effusion. SOB CT DLP: 202 mGycm Automated exposure control for dose reduction was used. Images obtained from the thoracic inlet through the diaphragm with no contrast. There is pulmonary hyperinflation with flattening of the diaphragm. There is bullous pulmonary emphys sylwia. There is a 1.5 cm irregular nodular density that contains significant calcium in the posterior s egment of the left upper lobe near the major fissure. There is some mild reticular 1.5 cm infiltrate left paraspinal left lower lobe in the superior segment. There is no pleural effusion. Heart size is normal. No pericardial effusion. There are no hilar masses. No mediastinal adenopathy. The thoracic spine is intact. No compression fr acture. The sternum is intact. Upper abdominal soft tissues are intact. IMPRESSION: Left upper lobe calcifying nodule consistent with granuloma. Small left lower lobe reticular paraspin al infiltrate likely inflammatory or scarring. I see no suspicious pulmonary mass. Emphysema and mild pulmonary fibrosis. Normal heart.
== END 2021-10-07 20:49 | disposition home or self-care (01) ==
LOC: EC 15:17
DX: J43.9 Emphysema, unspecified (principal); R91.1 Solitary pulmonary nodule; F17.200 Nicotine dependence, unspecified, uncomplicated; Z88.5 Allergy status to narcotic agent; Z88.6 Allergy status to analgesic agent; Z88.0 Allergy status to penicillin
CPT/HCPCS: 71046; 71250; 99285

== ENCOUNTER → 2021-11-05 | Outpatient (CLI) | payer OTHER ==
--- NOTE | 2021-11-06 05:28 | MR ---
EXAMINATION TYPE: MR iac wo/w con DATE OF EXAM: 11/05/2021 COMPARISON: None HISTORY: Left ear, throat, and jaw pain, headaches. CONTRAST: Standard multiplanar, multisequence MRI departmental protocol images were obtained without contrast a nd with 4.5 mL intravenous Gadavist gadolinium contrast. Multiplanar multi echo imaging of the brain and posterior fossa performed without and subsequently wi th the IV contrast. Ventricles have fairly normal size. There is no mass effect nor midline shift. No sign of intracrania l hemorrhage. Diffusion images show no sign of an acute infarct. There are a few scattered white freddy er small high signal foci on the T2 and FLAIR images in both cerebral hemispheres. Total numbers prox imally 10 and these measure up to 4 mm. The brainstem is intact. No evidence of a posterior fossa mas s. The internal auditory canals appear normal. The acoustic nerve and vestibular nerve appear normal. Th e mastoid sinuses show normal signal pattern without evidence of inflammation. No evidence of cerebel lopontine angle mass. Corpus callosum appears normal. Sella turcica appears normal. No evidence of orbital mass. The contra st images show no pathologic enhancement. IMPRESSION: Negative MR scan of the brain and posterior fossa. I do not see a cause for left side ear pain.
== END | disposition home or self-care (01) ==
LOC: RADMRIMAIN 08:46
PROVIDERS: ATTEND Otolaryngology
DX: H92.02 Otalgia, left ear (principal)
CPT/HCPCS: 70553; A9585

== ENCOUNTER 2021-11-14 07:01 | Emergency (ER) | payer OTHER ==
[2021-11-14] MEDS ORDERED: KETOROLAC 15 MG/ML 1 ML VIAL IVP STA (07:42)
[2021-11-14] MEDS ORDERED: ONDANSETRON 4 MG/2 ML VIAL IVP STA (07:42)
[2021-11-14] MEDS ORDERED: SODIUM CHLORIDE 0.9% 1,000 ML IV ONE (07:42)
--- NOTE | 2021-11-14 08:19 | ED ---
General Adult HPI - General Chief complaint: Weakness Stated complaint: Headache, vomiting Time Seen by Provider: 11/14/21 07:08 Source: patient, RN notes reviewed, old records reviewed Mode of arrival: wheelchair Limitations: no limitations - History of Present Illness Initial comments: 61-year-old female presented for evaluation of headache. Patient has had multiple symptoms including headache, nausea, weight loss. She's had sore throat and difficulty swallowing. She scheduled for multiple outpatient tests including evaluation by ENT for the difficulty swallowing. She is a current smoker and has a prior history of EtOH. She states the headache has been present for about 6 months. She's had a 20 pound unintentional weight loss. No chest pain. No abdominal pain. Headache is both occipital and frontal. - Related Data Home Medications Medication Instructions Recorded Confirmed Fluticasone Nasal [place] [Flonase 2 spray EA NOSTRIL DAILY 08/19/21 08/19/21 Nasal [place]] Previous Rx's Medication Instructions Recorded Aspirin 81 mg PO DAILY #30 tab 08/21/21 Atorvastatin [Lipitor] 80 mg PO HS #30 tab 08/21/21 Clopidogrel [Plavix] 75 mg PO DAILY #30 tab 08/21/21 Metoprolol Tartrate [Lopressor] 50 mg PO BID #60 tab 08/21/21 Nitroglycerin Sl Tabs [Nitrostat] 0.4 mg SUBLINGUAL Q5M PRN #30 tab 08/21/21 lisinopriL [Zestril] 5 mg PO DAILY #30 tab 08/21/21 HYDROcodone/APAP 5-325MG [[place] 1 tab PO Q6HR PRN #12 tab 11/14/21 5-325] Ibuprofen [Motrin] 600 mg PO Q8HR PRN #24 tab 11/14/21 Ondansetron Odt [Zofran Odt] 4 mg PO Q8HR PRN #10 tab 11/14/21 Allergies Allergy/AdvReac Type Severity Reaction Status Date / Time codeine Allergy Anaphylaxis Verified 11/14/21 07:05 morphine Allergy Rash/Hives Verified 11/14/21 07:05 Penicillins Allergy Anaphylaxis Verified 11/14/21 07:05 Review of Systems ROS Statement: Those systems with pertinent positive or pertinent negative responses have been documented in the HPI. ROS Other: All systems not noted in ROS Statement are negative. Past Medical History Past Medical History: No Reported History History of Any Multi-Drug Resistant Organisms: None Reported Past Surgical History: No Surgical Hx Reported, Hysterectomy Past Anesthesia/Blood Transfusion Reactions: No Reported Reaction Past Psychological History: No Psychological Hx Reported Smoking Status: Current every day smoker Past Alcohol Use History: Daily Past Drug Use History: None Reported General Exam Limitations: no limitations General appearance: alert, in no apparent distress Head exam: Present: atraumatic, normocephalic Eye exam: Present: normal appearance, PERRL ENT exam: Present: mucous membranes dry Neck exam: Present: lymphadenopathy Respiratory exam: Present: normal lung sounds bilaterally. Absent: respiratory distress, wheezes Cardiovascular Exam: Present: normal rhythm, tachycardia GI/Abdominal exam: Present: soft. Absent: distended, tenderness, guarding Extremities exam: Present: normal inspection Neurological exam: Present: alert, oriented X3, CN II-XII intact. Absent: motor sensory deficit Skin exam: Present: warm, dry, intact Course Vital Signs 11/14/21 11/14/21 07:05 09:47 Temperature 98.1 F 98.2 F Pulse Rate 113 H 100 Respiratory 16 18 Rate Blood Pressure 123/77 147/76 O2 Sat by Pulse 94 L 97 Oximetry EKG Findings - EKG Comments: EKG Findings:: EKG: Sinus rhythm, low voltage, tremor artifact no ST segment elevation, rate of 97, [place] interval 141, QRS duration 81, QTC 411. Medical Decision Making - Medical Decision Making 61-year-old female presented with chronic headache and sore throat. Patient is currently receiving extensive workup for symptoms including neurology, primary care, and ENT. I did have concern for soft tissue mass given her symptoms, with weight loss. She has some lymphadenopathy on exam. CT soft tissue neck was ordered as well as CT brain. These studies were ordered without contrast because there is currently a contrast shortage. Patient had soft tissue mass in the left parapharyngeal space. There is no stridor on exam. Patient's given IV fluid. She has a thrombus cytosis, mild transaminitis, otherwise relatively stable laboratory testing. I did discuss case with Dr. Foster who is familiar with the patient. He has further workup scheduled for this patient. She will return with worsening or changing symptoms. - Lab Data Result diagrams: 11/14/21 08:10 11/14/21 08:10 Lab Results 11/14/21 11/14/21 Range/Units 08:10 08:10 WBC 10.4 (3.8-10.6) k/uL RBC 4.25 (3.80-5.40) m/uL Hgb 13.5 (11.4-16.0) gm/dL Hct 42.5 (34.0-46.0) % MCV 100.0 (80.0-100.0) fL MCH 31.8 (25.0-35.0) pg MCHC 31.8 (31.0-37.0) g/dL RDW 13.3 (11.5-15.5) % Plt Count 490 H (150-450) k/uL MPV 8.7 Neutrophils % 87 % Lymphocytes % 6 % Monocytes % 4 % Eosinophils % 1 % Basophils % 0 % Neutrophils # 9.1 H (1.3-7.7) k/uL Lymphocytes # 0.6 L (1.0-4.8) k/uL Monocytes # 0.5 (0-1.0) k/uL Eosinophils # 0.1 (0-0.7) k/uL Basophils # 0.0 (0-0.2) k/uL Hypochromasia Slight Sodium 134 L (137-145) mmol/L Potassium 4.6 (3.5-5.1) mmol/L Chloride 96 L (98-107) mmol/L Carbon Dioxide 22 (22-30) mmol/L Anion Gap 16 mmol/L BUN 6 L (7-17) mg/dL Creatinine 0.47 L (0.52-1.04) mg/dL Est GFR (CKD-EPI)AfAm >90 (>60 ml/min/1.73 sqM) Est GFR (CKD-EPI)NonAf >90 (>60 ml/min/1.73 sqM) Glucose 88 (74-99) mg/dL Calcium 9.1 (8.4-10.2) mg/dL Magnesium 1.8 (1.6-2.3) mg/dL Total Bilirubin 0.6 (0.2-1.3) mg/dL AST 60 H (14-36) U/L ALT 67 H (4-34) U/L Alkaline Phosphatase 516 H (38-126) U/L Total Protein 6.5 (6.3-8.2) g/dL Albumin 3.8 (3.5-5.0) g/dL Disposition Clinical Impression: Headache, Parapharyngeal space mass Disposition: HOME SELF-CARE Condition: Fair Instructions (If sedation given, give patient instructions): Acute Headache (DC), Soft Tissue Mass (ED) Additional Instructions: Please follow up closely with Dr. Foster. Please return with worsening or changing symptoms. Prescriptions: Ibuprofen [Motrin] 600 mg PO Q8HR PRN #24 tab PRN Reason: Pain HYDROcodone/APAP 5-325MG [[place] 5-325] 1 tab PO Q6HR PRN #12 tab PRN Reason: Pain Ondansetron Odt [Zofran Odt] 4 mg PO Q8HR PRN #10 tab PRN Reason: Vomiting Is patient prescribed a controlled substance at d/c from ED?: No Referrals: Rell Arreola DO [Primary Care Provider] - 1-2 days Aly Moise MD [STAFF PHYSICIAN] - 1-2 days Time of Disposition: 09:54
--- NOTE | 2021-11-14 08:50 | CT ---
EXAMINATION TYPE: CT brain wo con DATE OF EXAM: 11/14/2021 COMPARISON: None INDICATION: Headache, left side neck pain DLP: 1055.6 mGycm, Automated exposure control for dose reduction was used. CONTRAST: None CT of the brain is performed utilizing 3 mm thick sections through the posterior fossa and 3 mm thick sections through the remaining calvarium. Study is performed within 24 hours of arrival to the hosp ital. No abnormal hyperdensity is present to suggest an acute intracranial hemorrhage. No mass lesion is evident. No acute infarcts are evident. Ventricles and sulci are mildly prominent for the patient age. Paranasal sinuses and mastoid air cells within the [id number] are clear. IMPRESSIONS: 1. Minimal age related atrophy.
--- NOTE | 2021-11-14 08:58 | CT ---
EXAMINATION TYPE: CT soft tissue neck wo con DATE OF EXAM: 11/14/2021 COMPARISON: None HISTORY: Headache, left side neck pain CT DLP: 171 mGycm Automated exposure control for dose reduction was used. Contrast: None Technique: Axial images 3 mm thick sections. Reconstructed images in the coronal and sagittal planes. FINDINGS: There is some fullness on the left torus tubarius and effacement of some fossa Rosenmuller. Direct vi sualization is recommended. Cooker Soda spaces appear normal. There is fullness through the left parapharyngeal space. This measur es approximately 3.4 x 2.1 cm. Additional workup with contrast is recommended. The right parapharynge al space has a normal appearance Submandibular glands appear normal. Submental space is normal. Parotid glands appear symmetrical temp oromandibular junctions appear normal. Enlarged lymphadenopathy is not identified. IMPRESSION: 1. SOFT TISSUE MASS LEFT PARAPHARYNGEAL SPACE WITH EFFACEMENT OF THE LEFT FOSSA OF ROSENMULLER. ADDIT IONAL WORKUP WITH CONTRAST IS RECOMMENDED FOR BETTER DELINEATION.
[2021-11-14 09:05] LABS: Basophils % (A) 0 %; Eosinophils # (A) 0.1 k/uL (0-0.7); Eosinophils % (A) 1 %; HCT 42.5 % (34.0-46.0); HGB 13.5 gm/dL (11.4-16.0); Hypochromasia Slight; Lymphocytes # (A) 0.6 k/uL (1.0-4.8); Lymphocytes % (A) 6 %; MCH 31.8 pg (25.0-35.0); MCHC 31.8 g/dL (31.0-37.0); Mean Platelet Volume 8.7; Monocytes # (A) 0.5 k/uL (0-1.0); Monocytes % (A) 4 %; Neutrophils # (A) 9.1 k/uL (1.3-7.7); Neutrophils % (A) 87 %; Platelet Count 490 k/uL (150-450); RBC 4.25 m/uL (3.80-5.40); RDW 13.3 % (11.5-15.5); WBC 10.4 k/uL (3.8-10.6)
[2021-11-14 09:22] LABS: ALT 67 U/L (4-34); African American GFR (CKD) >90 (>60 ml/min/1.73 sqM); Albumin 3.8 g/dL (3.5-5.0); Anion Gap 16 mmol/L; Blood Urea Nitrogen 6 mg/dL (7-17); Calcium 9.1 mg/dL (8.4-10.2); Carbon Dioxide 22 mmol/L (22-30); Chloride 96 mmol/L (98-107); Glucose 88 mg/dL (74-99); Non-African American GFR(CKD) >90 (>60 ml/min/1.73 sqM); Sodium 134 mmol/L (137-145); Total Bilirubin 0.6 mg/dL (0.2-1.3); Total Protein 6.5 g/dL (6.3-8.2)
[2021-11-14 09:24] LABS: AST 60 U/L (14-36); Alkaline Phosphatase 516 U/L (38-126); Magnesium 1.8 mg/dL (1.6-2.3); Potassium 4.6 mmol/L (3.5-5.1)
[2021-11-14 09:48] VITALS: BP 147/76; PULSE 100; RESP 18; TEMP 98.2
== END 2021-11-14 10:31 | disposition home or self-care (01) ==
LOC: EC 07:01
DX: J39.0 Retropharyngeal and parapharyngeal abscess (principal); Z88.0 Allergy status to penicillin; Z88.6 Allergy status to analgesic agent; Z88.5 Allergy status to narcotic agent; F17.200 Nicotine dependence, unspecified, uncomplicated
CPT/HCPCS: 36415; 93005; 80053; 83735; 85025; 70490; 70450; 99284; 96374; 96375; 96361; J2405; J1885

== ENCOUNTER 2021-12-14 08:35 | Day surgery (SDC) | payer OTHER ==
[2021-12-08 15:23] VITALS: BMI 18.2
[~2021-12-14 08:35] MED LIST: CLINDAMYCIN 450 MG in DEXTROSE 5% IN WATER 50 ML IVPB PRN; DEXAMETHASONE SOD PHOSPHATE 4 MG/ML 1 ML VIAL IV ONE; DEXAMETHASONE SOD PHOSPHATE 4 MG/ML 1 ML VIAL IV PRN; FAMOTIDINE 20 MG/2 ML VIAL IV PRN; HYDROmorphone 0.5 MG/0.5 ML SYRINGE IVP PRN; LACTATED RINGERS 1,000 ML IV SCH; LIDOCAINE 1% (10MG/ML) FOR IV START INTRADERMA PRN; ONDANSETRON 4 MG/2 ML VIAL IVP ONE; ONDANSETRON 4 MG/2 ML VIAL IVP PRN
[2021-12-14] MEDS ORDERED: LACTATED RINGERS 1,000 ML IV ONE ×2 (09:20→11:01)
[2021-12-14] MEDS ORDERED: SUCCINYLCHOLINE CHLORIDE 200 MG/10 ML VIAL IV ONE (10:10)
[2021-12-14] MEDS ORDERED: PROPOFOL 10 MG/ML 20 ML VIAL IV ONE (10:10)
[2021-12-14] MEDS ORDERED: fentaNYL (PF) 50 MCG/ML 2 ML AMP ONE (10:10)
[2021-12-14] MEDS ORDERED: NEOSTIGMINE 1 MG/ML 10 ML VIAL ONE (10:10)
[2021-12-14] MEDS ORDERED: LIDOCAINE 2% INJ 20 MG/ML (2 ML VIAL) ONE (10:10)
[2021-12-14] MEDS ORDERED: ROCURONIUM 10 MG/ML (5 ML VIAL) IV ONE (10:10)
[2021-12-14] MEDS ORDERED: MIDAZOLAM 2 MG/2 ML VIAL ONE (10:10)
[2021-12-14] MEDS ORDERED: LIDOCAINE 4% LTA KIT (4 ML) TOPICAL ONE (10:10)
[2021-12-14] MEDS ORDERED: HYDROmorphone (PF) 1 MG/ML ONE (10:10)
[2021-12-14] MEDS ORDERED: GLYCOPYRROLATE 0.2 MG/ML 2 ML VIAL ONE (10:10)
[2021-12-14] MEDS ORDERED: PHENYLEPHRINE-0.9% NACL SYG 1,000 MCG/10 ML SYRINGE ONE (10:10)
--- NOTE | 2021-12-14 11:05 | P.OP ---
Date of Procedure: 12/14/21 Preoperative Diagnosis: Left lateral hypopharynx/base of tongue lesion Postoperative Diagnosis: Left tonsil mass Procedure(s) Performed: Flexible bronchoscopy Rigid esophagoscopy Direct laryngoscopy and direct laryngoscopy with biopsy left tonsil mass Anesthesia: JOSE Surgeon: Aly Moise Estimated Blood Loss (ml): 1 Pathology: other (Left lateral hypopharynx) Condition: stable Disposition: PACU Indications for Procedure: This 61-year-old white female who presented with left otalgia and was to have left hypopharynx/basal tongue lesion Operative Findings: Approximately 3 cm submucosal left tonsil mass which diffusely involved the left tonsil submucosally and was firm and fixed to the deep tissues Description of Procedure: The patient was brought operative suite and placed in a supine position. The patient underwent induction of general anesthesia with oral endotracheal intubation without difficulty. The patient was prepped and draped in usual aseptic fashion. Direct palpation of the oropharynx revealed the above-noted findings with a firm fixed mass in the left tonsillar fossa. Tooth guard was placed and rigid esophagoscopy was performed down to 35 cm from the upper incisors at the GE junction and then was withdrawn with no trauma noted. Flexible bronchoscopy was then performed around the endotracheal tube evaluating the distal trachea primary and down to the secondary bronchi without abnormalities noted. The bronchoscope was withdrawn. Direct laryngoscopy was performed with systematic evaluation of the base of tongue vallecula both piriform sinuses and post cricoid area. These areas all appeared unremarkable and the laryngoscope was withdrawn. The McIvor mouth gag was then placed for visualization of the oropharynx. The left tonsillar mass was readily palpated although again with submucosal. There were incision was made at the superior anterior left anterior tonsillar pillar to dissecting down to the mass which was then visualized and palpated and multiple biopsies taken and sent for permanent section. The hemostasis was then gained with suction cautery and was excellent. The patient was then allowed to emerge from general anesthesia having tolerated procedure well was extubated in the operating suite and transferred to postop recovery area in satisfactory condition.
[2021-12-14 11:13] VITALS: TEMP 97
[2021-12-14] MEDS ORDERED: oxyCODONE-APAP 7.5-325MG 1 EACH TAB ONE (12:39)
[2021-12-14 13:58] VITALS: BP 136/82; PULSE 85; RESP 17
== END 2021-12-14 14:00 | disposition home or self-care (01) ==
LOC: OR 08:35
PROVIDERS: ATTEND Otolaryngology
DX: J38.4 Edema of larynx (principal); K14.9 Disease of tongue, unspecified
CPT/HCPCS: 31535; J2250; J0330; J1100; J2710; J3010; J1170; J2370; J2704; J2001

== ENCOUNTER 2022-02-06 04:48 | Emergency (ER) | payer OTHER ==
[2022-02-06 05:05] VITALS: RESP 18
[2022-02-06] MEDS ORDERED: ONDANSETRON ODT 8 MG TAB.RAPDIS PO STA (05:06)
[2022-02-06] MEDS ORDERED: SODIUM CHLORIDE 0.9% 1,000 ML IV STA (05:06)
--- NOTE | 2022-02-06 05:15 | ED ---
Abdominal Pain HPI - General Source: patient Mode of arrival: wheelchair <Luis Frances - Last Filed: 02/06/22 06:52> <Raymond Henry - Last Filed: 02/06/22 13:23> - General Chief Complaint: Abdominal Pain Stated Complaint: Constipation, Possible Bowel Blockage Time Seen by Provider: 02/06/22 05:07 - Related Data Home Medications Medication Instructions Recorded Confirmed HYDROmorphone [Dilaudid] 4 mg PO Q4H PRN 02/02/22 02/06/22 Ondansetron Odt [Zofran Odt] 4 mg PO Q8H PRN 02/02/22 02/06/22 Previous Rx's Medication Instructions Recorded Aspirin 81 mg PO DAILY #30 tab 08/21/21 Atorvastatin [Lipitor] 80 mg PO HS #30 tab 08/21/21 Clopidogrel [Plavix] 75 mg PO DAILY #30 tab 08/21/21 Metoprolol Tartrate [Lopressor] 50 mg PO BID #60 tab 08/21/21 lisinopriL [Zestril] 5 mg PO DAILY #30 tab 08/21/21 Allergies Allergy/AdvReac Type Severity Reaction Status Date / Time morphine Allergy Itching Verified 02/06/22 07:53 Penicillins AdvReac Severe nausea/vomi Verified 02/06/22 07:53 ting codeine AdvReac Nausea & Verified 02/06/22 07:53 Vomiting & Diarrhea Review of Systems ROS Other: All systems not noted in ROS Statement are negative. <Luis Frances - Last Filed: 02/06/22 06:52> ROS Other: All systems not noted in ROS Statement are negative. <Raymond Henry - Last Filed: 02/06/22 13:23> ROS Statement: Those systems with pertinent positive or pertinent negative responses have been documented in the HPI. Past Medical History Past Medical History: Coronary Artery Disease (CAD), Cancer, Hyperlipidemia, Hypertension, Myocardial Infarction ([place]) Additional Past Medical History / Comment(s): hx stomach ulcer, tonsil cancer Last Myocardial Infarction Date:: 08/19/21 History of Any Multi-Drug Resistant Organisms: None Reported Past Surgical History: Heart Catheterization With Stent, Hysterectomy, Tubal Ligation Additional Past Surgical History / Comment(s): egd Past Anesthesia/Blood Transfusion Reactions: No Reported Reaction Date of Last Stent Placement:: 08/19/21 Past Psychological History: No Psychological Hx Reported Smoking Status: Current every day smoker Past Alcohol Use History: None Reported Past Drug Use History: Marijuana - Past Family History Mother Family Medical History: Cancer Additional Family Medical History / Comment(s): lung cancer Sister(s) Family Medical History: Cancer Additional Family Medical History / Comment(s): breast cancer <Luis Frances - Last Filed: 02/06/22 06:52> Course <Luis Frances - Last Filed: 02/06/22 06:52> Vital Signs 02/06/22 04:59 Temperature 97.8 F Pulse Rate 129 H Respiratory 18 Rate Blood Pressure 127/71 O2 Sat by Pulse 92 L Oximetry - Reevaluation(s) Reevaluation #4: 02/06/22 06:53 Differential Abdominal Pain Women: Appendicitis, Cholecystitis, diverticulosis, ischemic bowel, pancreatitis, hepatitis, UTI, gastroenteritis, AAA, incarcerated hernia, bowel obstruction, constipation, inflammatory bowel, hepatitis, peptic ulcer disease, splenic infarction, perforated viscus, vulvitis, ovarian torsion, PID, kidney stone, placenta abruption, this is not meant to be an all-inclusive list ( Luis Frances) Reevaluation #5: 02/06/22 06:53 Was pt. sent in by a medical professional or institution? @ -[by , PA, WIPING RAG WASHER, urgent care, hospital, or detention] Did you speak to anyone other than the patient for history? @ -[EMS, parent, family, police, friend?] Did you review nursing and triage notes? @ -[agree or disagree, why?] Were old charts reviewed? @ -[outside hosp., previous admissions, EMS record, old EKG, old radiological studies, urgent care reports/EKGs, detention records?] Differential Diagnosis? @ -[chest pain, altered mental status abdominal pain women, abdominal pain men, vaginal bleeding, weakness, fever, dyspnea, syncope, headache, dizziness, GI bleed, back pain, seizure] EKG interpreted by me (3pts min.)? @ -[none] X-rays interpreted by me (1pt min.)? @ -[none] CT interpreted by me (1pt min.)? @ -[none] U/S interpreted by me (1pt. min.)? @ -[none] What testing was considered but not performed? (CT, X-rays, U/S, labs)? Why? @ [CT, X-rays, U/S, labs? Why?] What meds were considered but not given? Why? @ -[none] Did you discuss the management of the patient with other professionals? @ -[professionals i.e. Dr, PA, WIPING RAG WASHER, Lab, RT, Psych Nurse, Radiation / Chemistry Technician, Fuel Yard Operator, Teacher, Acoustic Sensor Operator, caser shoe parts? Give summary] Did you reconcile home meds? @ -[none] Was smoking cessation discussed for >3mins.? @ -[none] Was critical care preformed (if so, how long)? @ -[none] Were there social determinants of health that impacted care today? How? (Homelessness, low income, unemployed, alcoholism, drug addiction, transportation, low edu. Level, literacy, decrease access to med. care, residential, rehab)? @ -[Homelessness, low income, unemployed, alcoholism, drug addiction, transportation, low edu. Level, literacy, decrease access to med. care, residential, rehab?] Was there de-escalation of care discussed even if they declined? (Discuss DNR or withdrawal of care, Hospice)? @ -[Discuss DNR or withdrawal of care, Hospice?] What co-morbidities impacted this encounter? (DM, HTN, Smoking, COPD, CAD, Cancer, CVA, Hep., AIDS, mental health diagnosis, sleep apnea, morbid obesity)? @ -[DM, HTN, Smoking, COPD, CAD, Cancer, CVA, Hep., AIDS, mental health diagnosis, sleep apnea, morbid obesity?] Was patient admitted / discharged? @ -[hospital course] Undiagnosed new problem with uncertain prognosis? @ -[none] Drug Therapy requiring intensive monitoring for toxicity (Heparin, Nitro, Insulin, Cardizem)? @ -[none] Were any procedures done? @ -[none] Diagnosis/symptom? @ -[default] Acute, or Chronic, or Acute on Chronic? @ -[default] Uncomplicated (without systemic symptoms) or Complicated (systemic symptoms)? @ -[default] Side effects of treatment? @ -[none] Exacerbation, Progression, or Severe Exacerbation] @ -[no] Poses a threat to life or bodily function? @ -[no] (Luis Frances) Medical Decision Making - Lab Data Result diagrams: 02/06/22 05:20 02/06/22 05:20 <Luis Frances - Last Filed: 02/06/22 06:52> - Lab Data Result diagrams: 02/06/22 05:20 02/06/22 05:20 <Raymond Henry - Last Filed: 02/06/22 13:23> - Medical Decision Making Patient care sign out to me by Dr. Brown. Patient has history of cancer. She takes Dilaudid. Patient likely having opiate related constipation. Computed tomography scan of the abdomen was signed out to me by previous physician showing fecal stasis and fecal impaction. Multiple enemas were attempted with no resolution of symptoms. Patient agreed to [place] disimpaction. Large hard stool was removed manually. Patient placed on the commode and had good bowel movement. Patient again observed in emergency department after procedure. She was reevaluated at 1:30 PM finally stable medical condition. Patient is agreeable to discharge. She is given some GoLYTELY to go home with. Her have a bowel movement. Advised follow-up with primary care doctor. Return precautions discussed. (Raymond Henry) - Lab Data Lab Results 02/06/22 02/06/22 02/06/22 Range/Units 05:20 05:20 05:20 WBC 16.6 H (3.8-10.6) k/uL RBC 4.00 (3.80-5.40) m/uL Hgb 12.3 (11.4-16.0) gm/dL Hct 38.3 (34.0-46.0) % MCV 95.7 (80.0-100.0) fL MCH 30.8 (25.0-35.0) pg MCHC 32.2 (31.0-37.0) g/dL RDW 12.7 (11.5-15.5) % Plt Count 708 H (150-450) k/uL MPV 8.7 Neutrophils % 82 % Lymphocytes % 8 % Monocytes % 6 % Eosinophils % 2 % Basophils % 0 % Neutrophils # 13.6 H (1.3-7.7) k/uL Lymphocytes # 1.3 (1.0-4.8) k/uL Monocytes # 1.0 (0-1.0) k/uL Eosinophils # 0.3 (0-0.7) k/uL Basophils # 0.0 (0-0.2) k/uL Hypochromasia Slight PT 9.8 (9.0-12.0) sec INR 0.9 (<1.2) APTT 22.5 (22.0-30.0) sec Sodium 139 (137-145) mmol/L Potassium 4.0 (3.5-5.1) mmol/L Chloride 100 (98-107) mmol/L Carbon Dioxide 29 (22-30) mmol/L Anion Gap 10 mmol/L BUN 8 (7-17) mg/dL Creatinine 0.36 L (0.52-1.04) mg/dL Est GFR (CKD-EPI)AfAm >90 (>60 ml/min/1.73 sqM) Est GFR (CKD-EPI)NonAf >90 (>60 ml/min/1.73 sqM) Glucose 124 H (74-99) mg/dL Lactic Ac Sepsis Rflx Plasma Lactic Acid Sammy (0.7-2.0) mmol/L Calcium 9.8 (8.4-10.2) mg/dL Total Bilirubin 0.6 (0.2-1.3) mg/dL AST 30 (14-36) U/L ALT 18 (4-34) U/L Alkaline Phosphatase 114 (38-126) U/L Total Protein 6.9 (6.3-8.2) g/dL Albumin 3.9 (3.5-5.0) g/dL Amylase 56 (30-110) U/L Lipase 198 (23-300) U/L 02/06/22 02/06/22 02/06/22 Range/Units 05:20 06:06 08:45 WBC (3.8-10.6) k/uL RBC (3.80-5.40) m/uL Hgb (11.4-16.0) gm/dL Hct (34.0-46.0) % MCV (80.0-100.0) fL MCH (25.0-35.0) pg MCHC (31.0-37.0) g/dL RDW (11.5-15.5) % Plt Count (150-450) k/uL MPV Neutrophils % % Lymphocytes % % Monocytes % % Eosinophils % % Basophils % % Neutrophils # (1.3-7.7) k/uL Lymphocytes # (1.0-4.8) k/uL Monocytes # (0-1.0) k/uL Eosinophils # (0-0.7) k/uL Basophils # (0-0.2) k/uL Hypochromasia PT (9.0-12.0) sec INR (<1.2) APTT (22.0-30.0) sec Sodium (137-145) mmol/L Potassium (3.5-5.1) mmol/L Chloride (98-107) mmol/L Carbon Dioxide (22-30) mmol/L Anion Gap mmol/L BUN (7-17) mg/dL Creatinine (0.52-1.04) mg/dL Est GFR (CKD-EPI)AfAm (>60 ml/min/1.73 sqM) Est GFR (CKD-EPI)NonAf (>60 ml/min/1.73 sqM) Glucose (74-99) mg/dL Lactic Ac Sepsis Rflx Y Plasma Lactic Acid Sammy 3.0 H* 0.7 (0.7-2.0) mmol/L Calcium (8.4-10.2) mg/dL Total Bilirubin (0.2-1.3) mg/dL AST (14-36) U/L ALT (4-34) U/L Alkaline Phosphatase (38-126) U/L Total Protein (6.3-8.2) g/dL Albumin (3.5-5.0) g/dL Amylase (30-110) U/L Lipase (23-300) U/L Disposition <Luis Frances - Last Filed: 02/06/22 06:52> Is patient prescribed a controlled substance at d/c from ED?: No Time of Disposition: 13:23 <Raymond Henry - Last Filed: 02/06/22 13:23> Clinical Impression: Constipation Disposition: HOME SELF-CARE Condition: Good Instructions (If sedation given, give patient instructions): Constipation (ED) Referrals: Rell Arreola DO [Primary Care Provider] - 1-2 days
[2022-02-06 05:34] LABS: Basophils % (A) 0 %; Eosinophils # (A) 0.3 k/uL (0-0.7); Eosinophils % (A) 2 %; HCT 38.3 % (34.0-46.0); HGB 12.3 gm/dL (11.4-16.0); Hypochromasia Slight; Lymphocytes # (A) 1.3 k/uL (1.0-4.8); Lymphocytes % (A) 8 %; MCH 30.8 pg (25.0-35.0); MCHC 32.2 g/dL (31.0-37.0); MCV 95.7 fL (80.0-100.0); Mean Platelet Volume 8.7; Monocytes % (A) 6 %; Neutrophils # (A) 13.6 k/uL (1.3-7.7); Neutrophils % (A) 82 %; Platelet Count 708 k/uL (150-450); RDW 12.7 % (11.5-15.5); WBC 16.6 k/uL (3.8-10.6)
[2022-02-06 05:50] LABS: ALT 18 U/L (4-34); AST 30 U/L (14-36); African American GFR (CKD) >90 (>60 ml/min/1.73 sqM); Albumin 3.9 g/dL (3.5-5.0); Alkaline Phosphatase 114 U/L (38-126); Amylase 56 U/L (30-110); Anion Gap 10 mmol/L; Blood Urea Nitrogen 8 mg/dL (7-17); Calcium 9.8 mg/dL (8.4-10.2); Carbon Dioxide 29 mmol/L (22-30); Chloride 100 mmol/L (98-107); Glucose 124 mg/dL (74-99); Lipase 198 U/L (23-300); Non-African American GFR(CKD) >90 (>60 ml/min/1.73 sqM); Sodium 139 mmol/L (137-145); Total Bilirubin 0.6 mg/dL (0.2-1.3); Total Protein 6.9 g/dL (6.3-8.2)
[2022-02-06 05:54] LABS: INR 0.9 (<1.2); Partial Thromboplastin Time 22.5 sec (22.0-30.0); Prothrombin Time 9.8 sec (9.0-12.0)
[2022-02-06] MEDS ORDERED: HYDROmorphone 0.5 MG/0.5 ML SYRINGE IVP STA (05:55)
--- NOTE | 2022-02-06 07:44 | CT ---
EXAMINATION TYPE: CT abdomen pelvis wo con DATE OF EXAM: 02/06/2022 HISTORY: Abdominal pain, constipation, possible bowel blockage CT DLP: 234 mGycm. Automated Exposure Control for Dose Reduction was Utilized. TECHNIQUE: CT scan of the abdomen and pelvis is performed without oral or IV contrast. COMPARISON: NONE FINDINGS: Within the limitations of a non-contrast study, the following observations are made. LUNG BASES: There is 3 mm peripheral right lower lung nodule axial image 6. LIVER/GB: Gallbladder has distended margins. Intraluminal hyperdense material could reflect gallbladd er sludge. No surrounding fluid or fat stranding. Common bile duct is minimally dilated to upper limi ts of normal. Perhaps mild left-sided intrahepatic delivery dilatation. Near 1.0 cm hypodense lesion right hepatic lobe axial image 19 favored benign thin-walled cyst. Similar lesion seen left hepatic d ome on axial image 9. PANCREAS: No significant abnormality is seen. SPLEEN: No significant abnormality is seen. ADRENALS: No significant abnormality is seen. KIDNEYS: No renal stones or hydronephrosis is seen bilaterally. Mild to moderate bladder distention w ithout intraluminal calculus BOWEL: Moderate to severe rectal fecal stasis or impaction otherwise no suspicious small or large bow el dilatation. Normal-appearing appendix incidentally noted. GENITAL ORGANS: Uterus surgically absent or markedly atrophic. Small to moderate amount of free fluid in the pelvis including the presacral space LYMPH NODES: No greater than 1cm abdominal or pelvic lymph nodes are appreciated. OSSEOUS STRUCTURES: No significant abnormality is seen. OTHER: Mild calcified plaque of the aorta extends into branch vessels. IMPRESSION: 1. Moderate to severe rectal fecal stasis or impaction. Overall no bowel obstruction noted. Nonspecif ic [id number] pelvic ill-defined fluid may be on basis of rectal fecal stasis. 2. Possible gallbladder sludge and prominent gallbladder, no convincing CT evidence for acute cholecy stitis. Correlate clinically.
--- NOTE | 2022-02-06 07:52 | CT ---
EXAMINATION TYPE: CT soft tissue neck wo/w con DATE OF EXAM: 02/06/2022 6:50 AM COMPARISON: Prior CT neck November 14, 2021 HISTORY: Cancer in neck CT DLP: 529.1 mGycm Automated exposure control for dose reduction was used. CONTRAST: CT scan of the neck is performed without and with IV Contrast, patient injected with 80 mL of Isovue 300. Axial images are obtained, coronal and sagittal reformatted images are reviewed. FINDINGS: Airway: Moderate to advanced emphysematous change of the visualized upper lungs is redemonstrated. Th ere are benign calcified nodules are granulomas in the bilateral upper lobes with [id number] sc attered scarring in the upper lungs redemonstrated. Parotid/submandibular glands: Asymmetric slightly elongated appearance to right submandibular gland redemonstrated presumed normal variant. Carotid/Vascular Structures: There is complete occlusion of the left internal carotid artery shortly after its origin near axial image 68 on current study. Current study does not include up to level of [place]. Osseous Structures: Slight scoliotic curvature redemonstrated Other: There is new dependent fluid in the right maxillary sinus and to lesser degree in the right sp henoid sinus. No moderate eccentric mucosal thickening in the anterior and inferior right maxillary s inus. Improved appearance of the large left soft tissue mass or neoplasm at the level of the oral pharyngea l airway with more lobulated appearance and now some air patency seen on axial image 64. Persistent a bnormal soft tissue remains present measuring roughly 2.7 x 1.2 cm axial image 64 near site of caroti d occlusion. IMPRESSION: Improvement in size of the left parapharyngeal space mass or neoplasm consistent with par tial positive treatment response is present. There is complete occlusion of the left internal carotid artery noted near this level however. There is new right acute maxillary and to lesser degree is rig ht-sided sphenoid sinusitis.
[2022-02-06] MEDS ORDERED: HYDROmorphone 1 MG/ML 1 ML SYRINGE IVP STA (09:26)
[2022-02-06] MEDS ORDERED: PEG 3350 (236 GM/BTL) + LYTES 4,000 ML BOTTLE PO ONE (13:21)
[2022-02-06 14:40] VITALS: BP 122/81; PULSE 76; TEMP 97.8
== END 2022-02-06 14:11 | disposition home or self-care (01) ==
LOC: EC 04:48
DX: K59.00 Constipation, unspecified (principal); I10 Essential (primary) hypertension; I25.10 Atherosclerotic heart disease of native coronary artery without angina pectoris; I25.2 Old myocardial infarction; F12.90 Cannabis use, unspecified, uncomplicated; F17.200 Nicotine dependence, unspecified, uncomplicated; Z88.0 Allergy status to penicillin; Z88.5 Allergy status to narcotic agent; Z79.899 Other long term (current) drug therapy
CPT/HCPCS: 99285; 96374; 96361; 36415; 80053; 82150; 83605; 83690; 85025; 85610; 85730; 70492; 74176; 96376; J1170 ×2; Q9967

== ENCOUNTER → 2022-02-17 | Outpatient (CLI) | payer OTHER ==
--- NOTE | 2022-02-19 12:10 | PE ---
EXAMINATION TYPE: PET CT fusion skull to thigh DATE OF EXAM: 02/17/2022 CLINICAL INDICATION:Female, 61 years old with history of C09.8; TECHNIQUE: Following the intravenous administration of 10.95 mCi of F-18 FDG, whole body images are performed from the skull base to the midthigh. Images are reviewed on the computer in the coronal, a xial, and sagittal planes. Reconstructed rotating images are created on independent workstation and reviewed on the computer. A non-contrast CT is performed in conjunction with the PET scan. Glucose level 108 mg/dL COMPARISON: CT 02/06/2022, PET/CT None, FINDINGS: Mediastinal SUV mean is 1.3. Hepatic parenchyma SUV mean is 204. SKULL BASE AND NECK: Left pharyngeal FDG activity max SUV 13.6 that extends superiorly towards the left temporal bone near the styloid process. This FDG activity does lie in a air-filled pocket that extends into the para-Ph aryngeal pharyngeal space laterally. Evaluation somewhat limited given lack of IV contrast. CHEST, MEDIASTINUM, AND HILAR REGION: No suspicious radiotracer activity. ABDOMEN AND PELVIS: No suspicious radiotracer activity. OSSEOUS STRUCTURES: No suspicious radiotracer activity. OTHER CT: Atherosclerosis of the arterial vasculature. Mild paranasal sinus disease. Large stool saadia en throughout the colon and bowel. No obstructive uropathy. Trace pericardial effusion. Atheroscleros is of the coronary arteries. Scattered pulmonary nodular densities some with calcification present,11 no suspicious FDG activity identified. IMPRESSION: Suspected treatment changes to the left oropharynx and left spaces of the neck with increased FDG act ivity lining the cavity gambino consistent with malignancy. No evidence for distant metastatic disease.
== END | disposition home or self-care (01) ==
LOC: RADPETMAIN 12:26
PROVIDERS: ATTEND Radiology Radiation Oncology
DX: C09.8 Malignant neoplasm of overlapping sites of tonsil (principal)
CPT/HCPCS: 78815; A9552

== ENCOUNTER 2022-02-28 12:16 | Day surgery (SDC) | payer OTHER ==
[~2022-02-28 12:16] MED LIST changes: +ACETAMINOPHEN TAB 500 MG TAB PO PRN; -CLINDAMYCIN 450 MG in DEXTROSE 5% IN WATER 50 ML IVPB PRN; -DEXAMETHASONE SOD PHOSPHATE 4 MG/ML 1 ML VIAL IV ONE; -DEXAMETHASONE SOD PHOSPHATE 4 MG/ML 1 ML VIAL IV PRN; -FAMOTIDINE 20 MG/2 ML VIAL IV PRN; +HEPARIN SODIUM,PORCINE/PF 5,000 UNIT/0.5 ML SYRINGE SQ PRN; -HYDROmorphone 0.5 MG/0.5 ML SYRINGE IVP PRN; -LACTATED RINGERS 1,000 ML IV SCH; -LIDOCAINE 1% (10MG/ML) FOR IV START INTRADERMA PRN; -ONDANSETRON 4 MG/2 ML VIAL IVP ONE; -ONDANSETRON 4 MG/2 ML VIAL IVP PRN; +Pre Op ABX Message 1 EACH MISC MISCELLANE ONE
[2022-02-28 12:54] VITALS: TEMP 97.3
[2022-02-28] MEDS ORDERED: LACTATED RINGERS 1,000 ML IV ONE (13:00)
[2022-02-28] MEDS ORDERED: ONDANSETRON 4 MG/2 ML VIAL IVP ONE ×2 (13:00→15:39)
[2022-02-28] MEDS ORDERED: HEPARIN SODIUM,PORCINE 5,000 UNIT/ML 1 ML VIAL SQ ONE (13:00)
--- NOTE | 2022-02-28 13:06 | P.GSHP ---
History of Present Illness H&P Date: 02/28/22 Chief Complaint: Tonsillar cancer 61-year-old female here today for Port-A-Cath placement and PEG tube placement. Patient initiating treatment with chemoradiation this . Patient with progressive weight loss. Some difficulty swallowing. Past Medical History Past Medical History: Coronary Artery Disease (CAD), Cancer, Hyperlipidemia, Hypertension, Myocardial Infarction ([place]) Additional Past Medical History / Comment(s): hx stomach ulcer, tonsil cancer Last Myocardial Infarction Date:: 08/19/21 History of Any Multi-Drug Resistant Organisms: None Reported Past Surgical History: Heart Catheterization With Stent, Hysterectomy, Tubal Ligation Additional Past Surgical History / Comment(s): egd Past Anesthesia/Blood Transfusion Reactions: No Reported Reaction Date of Last Stent Placement:: 08/19/21 Smoking Status: Current every day smoker - Past Family History Mother Family Medical History: Cancer Additional Family Medical History / Comment(s): lung cancer Sister(s) Family Medical History: Cancer Additional Family Medical History / Comment(s): breast cancer Medications and Allergies Home Medications Medication Instructions Recorded Confirmed Type Aspirin 81 mg PO DAILY #30 tab 08/21/21 02/28/22 Rx Atorvastatin [Lipitor] 80 mg PO HS #30 tab 08/21/21 02/28/22 Rx Clopidogrel [Plavix] 75 mg PO DAILY #30 tab 08/21/21 02/28/22 Rx HYDROmorphone [Dilaudid] 4 mg PO Q4H PRN 02/02/22 02/28/22 History Ondansetron Odt [Zofran Odt] 4 mg PO Q8H PRN 02/02/22 02/28/22 History Morphine Sulfate [Morphine Sulfate 15 mg PO BID PRN 02/23/22 02/28/22 History ER] Metoprolol Tartrate [Lopressor] 50 mg PO BID 02/28/22 02/28/22 History Allergies Allergy/AdvReac Type Severity Reaction Status Date / Time morphine Allergy Itching Verified 02/28/22 12:45 Penicillins AdvReac Severe nausea/vomi Verified 02/28/22 12:45 ting codeine AdvReac Nausea & Verified 02/28/22 12:45 Vomiting & Diarrhea Surgical - Exam Vital Signs Temp Pulse Resp BP Pulse Ox 97.3 F L 110 H 15 153/88 97 02/28/22 12:52 02/28/22 12:52 02/28/22 12:52 02/28/22 12:52 02/28/22 12:52 Physical exam: General: Somewhat malnourished appearing HEENT: Normocephalic, sclerae nonicteric Abdomen: Nontender, nondistended Extremities: No edema Neuro: Alert and oriented Assessment and Plan (1) Head and neck cancer Narrative/Plan: Will proceed with Port-A-Cath placement and EGD with PEG tube placement at this time. Risks of bleeding, infection, bowel injury, leak, abscess, DVT, pneumothorax, catheter malfunction, anesthesia related complications were discussed. The patient understands and wishes to proceed. Current Visit: Yes Status: Acute Code(s): C76.0 - MALIGNANT NEOPLASM OF HEAD, FACE AND NECK SNOMED Code(s): 682343798
[2022-02-28] MEDS ORDERED: ONDANSETRON 4 MG/2 ML VIAL ONE (13:11)
[2022-02-28] MEDS ORDERED: LIDOCAINE 1% INJ 10MG/ML (10 ML MDV) SQ ONE ×2 (13:59→14:39)
[2022-02-28] MEDS ORDERED: PHENYLEPHRINE-0.9% NACL SYG 1,000 MCG/10 ML SYRINGE ONE (14:15)
[2022-02-28] MEDS ORDERED: SUCCINYLCHOLINE CHLORIDE 200 MG/10 ML VIAL IV ONE (14:15)
[2022-02-28] MEDS ORDERED: MIDAZOLAM 2 MG/2 ML VIAL ONE (14:15)
[2022-02-28] MEDS ORDERED: LIDOCAINE 2% INJ 20 MG/ML (2 ML VIAL) ONE (14:15)
[2022-02-28] MEDS ORDERED: fentaNYL (PF) 50 MCG/ML 2 ML AMP ONE (14:15)
[2022-02-28] MEDS ORDERED: PROPOFOL 10 MG/ML 20 ML VIAL IV ONE (14:15)
[2022-02-28] MEDS ORDERED: NALOXONE 0.4 MG/ML 1 ML VIAL IV PRN (15:29)
[2022-02-28] MEDS ORDERED: HYDROmorphone 1 MG/ML 1 ML SYRINGE IVP PRN (15:29)
--- NOTE | 2022-02-28 15:33 | P.OP ---
Date of Procedure: 02/28/22 Procedure(s) Performed: PREOPERATIVE DIAGNOSIS: Tonsillar cancer POSTOPERATIVE DIAGNOSIS: Same PROCEDURE: Port-A-Cath placement with fluoroscopic and ultrasound guidance, EGD with PEG tube placement SURGEON: Martin EBL: Minimal ANESTHESIA: Gen. COMPLICATIONS: None OPERATIVE PROCEDURE: Patient was brought and placed on the operative table in the supine position. The patient was placed under general per anesthesia that time. The chest and neck were prepped and draped in usual sterile fashion. The ultrasound probe was used to identify the location of the right internal jugular vein. The skin was localized with lidocaine. The Seldinger needle was advanced into the IJ under ultrasound guidance. The wire was advanced through the needle under fluoroscopic guidance into the superior vena cava. A port pocket was created in the right infraclavicular location. The catheter was tunneled from the wire entrance site to the port pocket. The port was then connected to the catheter. The dilator introducer was threaded over the guidewire. The guidewire and dilator were then removed. The catheter was advanced through the introducer and introducer was then removed. The tip was seen to be in the right atrial junction via fluoroscopy. A picture of the radiograph showing the tip at the radial digital junction was taken. Port was flushed with both saline and a Hep-Lock solution. There was good flow both in and out of the port. The port was sutured in underlying tissues using 3-0 silk sutures. The subcutaneous tissues were reapproximated using 3-0 Vicryl sutures and the skin at both locations using 4-0 Monocryl sutures. Skin glue and sterile dressings then applied. The eye the Olympus gastroscope was inserted into the oropharynx and passed under direct visualization to the region of the duodenum. No obstruction was seen. The pylorus was widely patent. The stomach was carefully inspected. The stomach was fully insufflated with air. The abdominal wall was inspected. The light was seen shining through the abdominal wall in the left upper quadrant. This site was chosen for PEG tube placement. The area was prepped in the usual sterile fashion. This area was then localized with lidocaine. No air was evident when aspirating while advancing the localizing needle into the stomach until the stomach was reached. A small vertical incision was made using the scalpel. The Seldinger needle was advanced into the lumen of the stomach the wire was advanced. The wire was grasped with an endoscopic snare. The wire was pulled through the oropharynx. The catheter was then threaded over the guidewire and the guidewire and catheter were pulled anteriorly until the hub of the PEG tube catheter was seated against the anterior wall the stomach. The circular bolster was applied and tightened down. The endoscope was then readvanced into the stomach. There was no evidence of any bleeding and there was appropriate tightness on the bolster. The catheter was cut appropriately. The dual port feeding adapter was applied. DISPOSITION: Stable to recovery room
[2022-02-28] MEDS ORDERED: fentaNYL (PF) 50 MCG/ML 2 ML AMP IV PRN (15:39)
[2022-02-28] MEDS ORDERED: SCOPOLAMINE 1 MG/72 HR PATCH TRANSDERM ONE (15:39)
[2022-02-28] MEDS ORDERED: LACTATED RINGERS 1,000 ML IV SCH (15:39)
[2022-02-28] MEDS ORDERED: MIDAZOLAM 2 MG/2 ML VIAL IV PRN (15:39)
[2022-02-28] MEDS ORDERED: DEXAMETHASONE SOD PHOSPHATE 4 MG/ML 1 ML VIAL IV ONE (15:39)
[2022-02-28] MEDS ORDERED: HYDROmorphone 0.5 MG/0.5 ML SYRINGE IVP ONE ×2 (15:49→16:26)
--- NOTE | 2022-02-28 16:00 | FL ---
EXAMINATION TYPE: FL guided central line placement DATE OF EXAM: 02/28/2022 FLUOROSCOPY Fluoroscopy time of 1 seconds was used during Port-A-Cath placement. 1 image/s document/s the proced ure.
--- NOTE | 2022-02-28 16:33 | XR ---
EXAMINATION TYPE: XR chest 1V confirm line [facility] DATE OF EXAM: 02/28/2022 4:07 PM COMPARISON: Chest radiographs from 10/07/2021 TECHNIQUE: XR chest 1V confirm line [facility] Portable AP radiograph of the chest. CLINICAL INDICATION:Female, 61 years old with history of Check line placement; FINDINGS: Lungs/Pleura: There is flattening of the diaphragm with increased lucency of the lungs. No evidence o f pneumothorax, pleural effusion or focal consolidation. Pulmonary vascularity: Unremarkable. Heart/mediastinum: Cardiomediastinal silhouette is unremarkable. Musculoskeletal: No acute osseous pathology. Lines/Tubes: [id number] projecting over the right hemithorax with distal tip projecting over the superior vena cava. IMPRESSION: 1. Right [id number] with tip in the superior vena cava cavoatrial junction 2. No acute cardiopulmonary disease process. 3. COPD changes.
[2022-02-28 16:53] VITALS: RESP 16
[2022-02-28 17:12] VITALS: BP 140/80; PULSE 87
== END 2022-02-28 17:27 | disposition home or self-care (01) ==
LOC: ORWHC2ENDO 12:16
PROVIDERS: ATTEND Surgery
DX: C09.9 Malignant neoplasm of tonsil, unspecified (principal); C76.0 Malignant neoplasm of head, face and neck; I25.10 Atherosclerotic heart disease of native coronary artery without angina pectoris; I25.2 Old myocardial infarction; I10 Essential (primary) hypertension; E78.5 Hyperlipidemia, unspecified; Z87.19 Personal history of other diseases of the digestive system; Z95.5 Presence of coronary angioplasty implant and graft; Z98.51 Tubal ligation status; Z98.890 Other specified postprocedural states; F17.200 Nicotine dependence, unspecified, uncomplicated; F12.20 Cannabis dependence, uncomplicated; Z80.1 Family history of malignant neoplasm of trachea, bronchus and lung; Z80.3 Family history of malignant neoplasm of breast; Z79.83 Long term (current) use of bisphosphonates; Z79.82 Long term (current) use of aspirin; Z79.02 Long term (current) use of antithrombotics/antiplatelets; Z79.811 Long term (current) use of aromatase inhibitors; Z79.891 Long term (current) use of opiate analgesic; Z88.0 Allergy status to penicillin; Z88.5 Allergy status to narcotic agent
CPT/HCPCS: 36561; 43246; 76937; 77001; J1644; J0690; J2405; J1642; J2001; J1170

== ENCOUNTER → 2022-06-30 | Outpatient (CLI) | payer OTHER ==
--- NOTE | 2022-07-01 20:53 | PE ---
EXAMINATION TYPE: PET CT fusion skull to thigh DATE OF EXAM: 06/30/2022 CLINICAL INDICATION:Female, 62 years old with history of C09.8; TECHNIQUE: Following the intravenous administration of 10.04 mCi of F-18 FDG, whole body images are performed from the skull base to the midthigh. Images are reviewed on the computer in the coronal, axial, and sagittal planes. Reconstructed rotating images are created on independent workstation and reviewed on the computer. A non-contrast CT is performed in conjunction with the PET scan. Glucose level 102 mg/dL COMPARISON: CT 02/06/2022, PET/CT 02/17/2022, FINDINGS: Mediastinal SUV mean is 1.2. Hepatic parenchyma SUV mean is 1.5. SKULL BASE AND NECK: * Left pharyngeal FDG activity max SUV 11.1, previously 13.6 that extends superiorly towards the lef t temporal bone near the styloid process. This FDG activity does lie in a air-filled pocket that exte nds into the para-Pharyngeal space laterally. Evaluation somewhat limited given lack of IV contrast. * There is a new area along the right mucosa max SUV 7.4 not seen on prior the level of the oral pha rynx. * Additionally there is mild extension more inferiorly max SUV 6.8. * FDG activity now seen extending inferiorly in the surgical bed into the superior mediastinum felt to be extending along the common carotid artery. Max SUV 7.1. * FDG activity is seen around the tracheostomy cannula max SUV 5.3. CHEST, MEDIASTINUM, AND HILAR REGION: No suspicious radiotracer activity. Calcification along the lef t major fissure has ordered a minimum parenchyma next SUV 0.4 ABDOMEN AND PELVIS: * Mild PEG tube FDG activity suggestive of inflammation. * Focal abnormal FDG activity within the right posterior back muscles max SUV 5.6. Not seen on prior . Corresponds with OSSEOUS STRUCTURES: No suspicious radiotracer activity. OTHER CT: Atherosclerosis of the arterial vasculature. PEG tube with tip in appropriate position. Tra cheostomy cannula terminating above the vale. Mild paranasal sinus disease. Large stool burden thro ughout the colon and bowel. No obstructive uropathy. Trace pericardial effusion. Atherosclerosis of t he coronary arteries. Scattered pulmonary nodular densities some with calcification present,11 no cynthia picious FDG activity identified. IMPRESSION: 1. Overall the areas of FDG activity have slightly increased lung mucosa with persistent posttreatme nt changes with extensive FDG avid tissue lining the previous surgery cavity. Overall metabolic activ ity has decreased slightly lining the surgical bed. There is a new area of slightly right of midline in the oropharynx mucosa as well as an area more inferior medially concerning for progression. 2. FDG activity along the left carotid system into the superior mediastinum/aortic arch. Correlate f or vasculitis. 3. Mild inflammation around the tracheostomy cannula and PEG tube. 4. Indeterminate single focus of FDG activity within the right iliocostalis muscle at the level of t he right kidney. Attention on follow-up imaging.
== END | disposition home or self-care (01) ==
LOC: RADPETMAIN 11:43
PROVIDERS: ATTEND Otolaryngology
DX: C09.8 Malignant neoplasm of overlapping sites of tonsil (principal)
CPT/HCPCS: 78815; A9552

== ENCOUNTER → 2022-07-05 | Outpatient (CLI) | payer OTHER ==
--- NOTE | 2022-07-07 10:46 | MR ---
EXAMINATION TYPE: MR neck wo/w con DATE OF EXAM: 07/05/2022 COMPARISON: 06/30/2022 PET scan HISTORY: Tonsil Cancer CONTRAST: Performed utilizing 4.5 mL intravenous Gadavist gadolinium contrast. TECHNIQUE: Multiplanar, multiecho imaging on a 3.0 Iliana magnet is performed through the neck. FINDINGS: Left vocal cord appears flattened compared to the right. Correlate for left vocal cord paralysis. There is mild fullness within the fossa of Rosenmuller on the left compared to the right. This area d oes not appear abnormal on the PET scan. Torus tubarius appear symmetrical. The car changer spaces nic ear normal. Postsurgical changes in the left tonsillar pillar. In the posterior lateral cavity wall there is some slight increased signal on T2-weighted sequences. This area may correspond with the PET/CT. A discre te abnormality on the T1 weighted sequence is not identified. There is diffuse enhancement throughout the postsurgical site on the T1 postcontrast imaging without a discrete abnormality. Hyperintensity just posterior to the surgical cavity which appears similar in signal does not have a corresponding a marci of increased signal on PET. This second area potentially could be a thrombosed left jugular vein. There is some soft tissue density which is nearly isointense with muscle left inferior tonsillar pill ar (deep to the sternocleidomastoid muscle. This area corresponds to hyperintensity on PET/CT. This may be contiguous with the small posterolateral area of uptake discussed above in the postsurgical be d. There is some soft tissue fullness in the pretracheal space which appears to be just posterior to the expected region of the uvula. This may be within the posterior right soft palate. This area measure s 1.3 cm AP by 1.1 cm transverse and appears to correspond to the focal area of uptake on the PET/CT. Example image series 601 image 31. This area is hypointense on T1 and T2-weighted sequences but may have some diffuse enhancement within the periphery. Note is made of the hypointensity within the posterior left upper lung field. This appears to correla te with a large calcification left upper lung field. Series 501 image 3. Tracheostomy site is identified. There is likely fluid within the bilateral mastoid air cells. Correlate for chronic bilateral mastoid itis. IMPRESSIONS: 1. Recurrence suspected at the inferior surgical margin of the left tonsillar pillar. This may have s ome extension into the right prevertebral space near the level of the soft palate. Soft tissue on MRI appears to correspond to the PET CT areas of uptake.
== END | disposition home or self-care (01) ==
LOC: RADMRIMAIN 20:45
PROVIDERS: ATTEND Otolaryngology
DX: C09.9 Malignant neoplasm of tonsil, unspecified (principal)
CPT/HCPCS: 70543; A9585

== ENCOUNTER 2022-08-15 00:43 | Observation (INO) | payer OTHER ==
[2022-08-15] MEDS ORDERED: TRANEXAMIC 1,000 MG/100ML-NACL 1,000 MG in SALINE 1 100ML.BAG IV STA (00:57)
[2022-08-15] MEDS ORDERED: SODIUM CHLORIDE 0.9% 1,000 ML IV STA (00:57)
[2022-08-15] MEDS ORDERED: ONDANSETRON 4 MG/2 ML VIAL IVP STA (00:58)
[2022-08-15 01:09] LABS: Anisocytosis Slight; Basophils % (A) 0 %; Eosinophils # (A) 0.2 k/uL (0-0.7); Eosinophils % (A) 2 %; HCT 40.3 % (34.0-46.0); HGB 12.2 gm/dL (11.4-16.0); Hypochromasia Moderate; Lymphocytes # (A) 1.4 k/uL (1.0-4.8); Lymphocytes % (A) 13 %; MCH 25.3 pg (25.0-35.0); MCHC 30.2 g/dL (31.0-37.0); MCV 83.8 fL (80.0-100.0); Mean Platelet Volume 8.2; Monocytes # (A) 0.6 k/uL (0-1.0); Monocytes % (A) 6 %; Neutrophils # (A) 8.3 k/uL (1.3-7.7); Neutrophils % (A) 76 %; Platelet Count 512 k/uL (150-450); RBC 4.81 m/uL (3.80-5.40); RDW 16.9 % (11.5-15.5); WBC 10.9 k/uL (3.8-10.6)
[2022-08-15] MEDS ORDERED: METOCLOPRAMIDE 5 MG/ML 2 ML VIAL IVP STA (01:16)
[2022-08-15 01:21] LABS: ALT 22 U/L (4-34); AST 25 U/L (14-36); African American GFR (CKD) >90 (>60 ml/min/1.73 sqM); Albumin 4.1 g/dL (3.5-5.0); Alkaline Phosphatase 112 U/L (38-126); Anion Gap 18 mmol/L; Blood Urea Nitrogen 21 mg/dL (7-17); Calcium 9.8 mg/dL (8.4-10.2); Carbon Dioxide 27 mmol/L (22-30); Chloride 92 mmol/L (98-107); Glucose 112 mg/dL (74-99); Non-African American GFR(CKD) >90 (>60 ml/min/1.73 sqM); Potassium 4.5 mmol/L (3.5-5.1); Sodium 137 mmol/L (137-145); Total Bilirubin 0.3 mg/dL (0.2-1.3); Total Protein 7.4 g/dL (6.3-8.2)
[2022-08-15 01:28] LABS: INR 0.9 (<1.2); Partial Thromboplastin Time 22.1 sec (22.0-30.0); Prothrombin Time 9.5 sec (9.0-12.0)
[2022-08-15] MEDS ORDERED: NALOXONE 0.4 MG/ML 1 ML VIAL IV PRN (02:57)
--- NOTE | 2022-08-15 02:57 | ED ---
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 Was evaluated earlier today at [facility] where ENT saw her, and CT imaging was done. ENT did a bronchoscopy via trach and showed no obvious source of bleed. They believe bleed was from the granulation tissue on the inferior aspect of the stoma. Silver nitrate was applied and bleeding stopped. Patient originally presented earlier today because bleeding was ongoing for 4 days. It got worse today which is why she presented. She is on aspirin and Plavix. CT angiogram revealed no obvious source of bleed or findings other than the known left ICA occlusion. She was discharged home but returns here this evening due to recurrence of the bleed. Is receiving cancer treatment with Dr. Camejo. Presents over concern for bleeding from her trach site. Denies shortness of breath. He endorses coughing some blood. Versus bleeding from the inferior aspect of the trach site. Denies chest pain or abdominal pain. Endorses mild nausea. - Related Data Home Medications Medication Instructions Recorded Confirmed HYDROmorphone [Dilaudid] 4 mg PO Q4H PRN 02/02/22 04/03/22 Morphine Sulfate [Morphine Sulfate 15 mg PO BID PRN 02/23/22 04/03/22 ER] Metoprolol Tartrate [Lopressor] 50 mg PO BID 02/28/22 04/03/22 Atorvastatin [Lipitor] 80 mg PO HS 04/03/22 04/03/22 Fluconazole [Diflucan] 100 mg PO DAILY PRN 04/03/22 04/03/22 Ondansetron Odt [Zofran Odt] 8 mg PO TID PRN 04/03/22 04/03/22 Previous Rx's Medication Instructions Recorded Aspirin 81 mg PO DAILY #30 tab 08/21/21 Clopidogrel [Plavix] 75 mg PO DAILY #30 tab 08/21/21 Allergies Allergy/AdvReac Type Severity Reaction Status Date / Time morphine Allergy Itching Verified 04/03/22 12:22 Penicillins AdvReac Severe nausea/vomi Verified 04/03/22 12:22 ting codeine AdvReac Nausea & Verified 04/03/22 12:22 Vomiting & Diarrhea Review of Systems ROS Statement: Those systems with pertinent positive or pertinent negative responses have been documented in the HPI. Review of Systems: CONST: Denies fever EYES: Denies blurry vision ENT: Endorses trach site bleeding C/V: Denies Chest pain RESP: Denies shortness of breath GI: Denies abdominal pain : Denies dysuria SKIN: Denies rash. MSK: Denies joint pain. NEURO: Denies headache ROS Other: All systems not noted in ROS Statement are negative. Past Medical History Past Medical History: Coronary Artery Disease (CAD), Cancer, Hyperlipidemia, Hypertension, Myocardial Infarction ([place]) Additional Past Medical History / Comment(s): hx stomach ulcer, tonsil cancer Last Myocardial Infarction Date:: 08/19/21 History of Any Multi-Drug Resistant Organisms: None Reported Past Surgical History: Heart Catheterization With Stent, Hysterectomy, Tubal Ligation Additional Past Surgical History / Comment(s): egd Past Anesthesia/Blood Transfusion Reactions: No Reported Reaction Date of Last Stent Placement:: 08/19/21 Past Psychological History: No Psychological Hx Reported Smoking Status: Current every day smoker Past Alcohol Use History: Unable to Obtain Past Drug Use History: Unable to Obtain - Past Family History Mother Family Medical History: Cancer Additional Family Medical History / Comment(s): lung cancer Sister(s) Family Medical History: Cancer Additional Family Medical History / Comment(s): breast cancer General Exam - General Exam Comments Initial Comments: General: Appears in mild to moderate distress. HEAD: Normal with no signs of head trauma. EYES: PERRLA, EOMI, conjunctiva normal, no discharge. ENT: Hard of hearing. Bleeding from the inferior aspect of the trach site. Appears to be admitted granulation tissue on the inferior aspect of this tracheostomy stoma. There is some blood inside the tube but I do believe this is all secondary to bleeding at the stoma. No intraoral bleeding. No epistaxis. Still tolerating secretions. No hypoxia. RESPIRATORY: Clear breath sounds bilaterally. No wheezes, rales, or rhonchi. No hypoxia. C/V: Tachycardic with regular rhythm. S1 and S2 auscultated. Peripheral pulses 2+ intact throughout. ABD: Abd is soft, nontender, nondistended. PEG tube in place. EXT: Normal range of motion, no obvious deformity SKIN: No rashes or lesions observed on exposed skin. NEURO: Alert and oriented 4. Limitations: no limitations Course Vital Signs 08/15/22 08/15/22 08/15/22 00:49 01:53 04:48 Pulse Rate 134 H 107 H Respiratory 26 H 16 18 Rate Blood Pressure 128/105 144/81 O2 Sat by Pulse 95 91 L 95 Oximetry Medical Decision Making - Medical Decision Making Was pt. sent in by a medical professional or institution (, [place], [employer], urgent care, hospital, or long term...) When possible be specific @ -No Did you speak to anyone other than the patient for history (EMS, parent, family, police, friend...)? What history was obtained from this source @ -Spoke with patient's who aided in patient's history as the patient does have a difficult time speaking secondary to trach. This documentation was placed on the patient's chart. Did you review nursing and triage notes (agree or disagree)? Why? @ -I reviewed and agree with nursing and triage notes Were old charts reviewed (outside hosp., previous admission, EMS record, old EKG, old radiological studies, urgent care reports/EKG's, long term records)? Report findings @ -Viewed ENT note as well as CT angiogram of the chest read from [facility] which were faxed over. Differential Diagnosis (chest pain, altered mental status, abdominal pain women, abdominal pain men, vaginal bleeding, weakness, fever, dyspnea, syncope, headache, dizziness, GI bleed, back pain, seizure, CVA, palpatations, mental health, musculoskeletal)? @ -Tracheostomy bleeding, trach site complication, hemoptysis, this list is not all inclusive. EKG interpreted by me (3pts min.). @ -As above X-rays interpreted by me (1pt min.). @ -Chest x-ray shows no obvious acute cardiopulmonary process. Trach appears in place. CT interpreted by me (1pt min.). @ -None done U/S interpreted by me (1pt. min.). @ -None done What testing was considered but not performed or refused? (CT, X-rays, U/S, labs)? Why? @ -None What meds were considered but not given or refused? Why? @ -None Did you discuss the management of the patient with other professionals (professionals i.e. , ALIYA, [employer], lab, RT, psych nurse, oncology social work, websphere commerce developer, teacher, natural resource officer, manager case)? Give summary @ -I spoke with the admitting team Elissa of [facility] who accepted the patient. I spoke with [employer] Jonatan of pulmonology who agreed to consult and will evaluate the patient. I spoke with Dr. Miner and [facility] who evaluated the patient earlier today with the resident who was able to tell me their workup and what they found and was able to fax the over the ENT report as well as the CT angiogram read. Final discharge was that the bleeding was likely from the regulation tissue on the inferior aspect of the stoma Was smoking cessation discussed for >3mins.? @ -No Was critical care preformed (if so, how long)? @ -Yes, 42 minutes. Were there social determinants of health that impacted care today? How? (Homelessness, low income, unemployed, alcoholism, drug addiction, transportation, low edu. Level, literacy, decrease access to med. care, residential, rehab)? @ -No Was there de-escalation of care discussed even if they declined (Discuss DNR or withdrawal of care, Hospice)? DNR status @ -No What co-morbidities impacted this encounter? (DM, HTN, Smoking, COPD, CAD, Cancer, CVA, ARF, Chemo, Hep., AIDS, mental health diagnosis, sleep apnea, morbid obesity)? @ -Tracheostomy, head and neck cancer Was patient admitted / discharged? Hospital course, mention meds given and route, prescriptions, significant lab abnormalities, going to OR and other pertinent info. @ -Based on the patient's presentation physical exam, presents as a reevaluation for tracheostomy site bleeding. Appears to be bleeding from the stoma. I immediately applied silver nitrate cautery to the site and bleeding did improve. Gradually patient's hemoptysis improved as well. We suctioned trach. Vital signs within acceptable limits and she is tolerant secretions. She was nauseous and was given antibiotics. Given IV TXA due to the bleeding as well as 1 L fluid bolus. We did obtain basic labs which revealed a normal hemoglobin. Coags are within except for limits. Otherwise unremarkable. Vital signs within acceptable limits. I was able to obtain a peripheral [facility] after speaking with the ER physician that took care of her down there, Dr. miner. I reevaluated the patient, and she is feeling improved. Hemoptysis is stopped. She will be admitted to the hospital as this is the second visit for identical complaints for further monitoring. She was in agreement with this plan. I spoke with the admitting team, Jenae OWENS accepted the patient. I also notified [employer] Jonatan of pulmonology consult and he was in agreement with the plan. Undiagnosed new problem with uncertain prognosis? @ -No Drug Therapy requiring intensive monitoring for toxicity (Heparin, Nitro, Insulin, Cardizem)? @ -No Were any procedures done? @ -No Diagnosis/symptom? @ -Tracheostomy complication, tracheostomy bleed Acute, or Chronic, or Acute on Chronic? @ -Acute Uncomplicated (without systemic symptoms) or Complicated (systemic symptoms)? @ -Complicated Side effects of treatment? @ -No Exacerbation, Progression, or Severe Exacerbation? @ -No Poses a threat to life or bodily function? How? (Chest pain, [place], [place], pneumonia, PE, COPD, DKA, ARF, appy, cholecystitis, CVA, Diverticulitis, Homicidal, Suicidal, threat to staff... and all critical care pts) @ -Yes - Lab Data Result diagrams: 08/15/22 00:58 08/15/22 00:58 Lab Results 08/15/22 08/15/22 08/15/22 Range/Units 00:53 00:58 00:58 WBC 10.9 H (3.8-10.6) k/uL RBC 4.81 (3.80-5.40) m/uL Hgb 12.2 (11.4-16.0) gm/dL Hct 40.3 (34.0-46.0) % MCV 83.8 (80.0-100.0) fL MCH 25.3 (25.0-35.0) pg MCHC 30.2 L (31.0-37.0) g/dL RDW 16.9 H (11.5-15.5) % Plt Count 512 H (150-450) k/uL MPV 8.2 Neutrophils % 76 % Lymphocytes % 13 % Monocytes % 6 % Eosinophils % 2 % Basophils % 0 % Neutrophils # 8.3 H (1.3-7.7) k/uL Lymphocytes # 1.4 (1.0-4.8) k/uL Monocytes # 0.6 (0-1.0) k/uL Eosinophils # 0.2 (0-0.7) k/uL Basophils # 0.0 (0-0.2) k/uL Hypochromasia Moderate Anisocytosis Slight PT 9.5 (9.0-12.0) sec INR 0.9 (<1.2) APTT 22.1 (22.0-30.0) sec Sodium (137-145) mmol/L Potassium (3.5-5.1) mmol/L Chloride (98-107) mmol/L Carbon Dioxide (22-30) mmol/L Anion Gap mmol/L BUN (7-17) mg/dL Creatinine (0.52-1.04) mg/dL Est GFR (CKD-EPI)AfAm (>60 ml/min/1.73 sqM) Est GFR (CKD-EPI)NonAf (>60 ml/min/1.73 sqM) Glucose (74-99) mg/dL Calcium (8.4-10.2) mg/dL Total Bilirubin (0.2-1.3) mg/dL AST (14-36) U/L ALT (4-34) U/L Alkaline Phosphatase (38-126) U/L Total Protein (6.3-8.2) g/dL Albumin (3.5-5.0) g/dL Blood Type A Positive Blood Type Recheck A Pos Bld Type Recheck Status No Antibody Screen NEGATIVE Spec Expiration Date 08/18/2022235208/15/22 Range/Units 00:58 WBC (3.8-10.6) k/uL RBC (3.80-5.40) m/uL Hgb (11.4-16.0) gm/dL Hct (34.0-46.0) % MCV (80.0-100.0) fL MCH (25.0-35.0) pg MCHC (31.0-37.0) g/dL RDW (11.5-15.5) % Plt Count (150-450) k/uL MPV Neutrophils % % Lymphocytes % % Monocytes % % Eosinophils % % Basophils % % Neutrophils # (1.3-7.7) k/uL Lymphocytes # (1.0-4.8) k/uL Monocytes # (0-1.0) k/uL Eosinophils # (0-0.7) k/uL Basophils # (0-0.2) k/uL Hypochromasia Anisocytosis PT (9.0-12.0) sec INR (<1.2) APTT (22.0-30.0) sec Sodium 137 (137-145) mmol/L Potassium 4.5 (3.5-5.1) mmol/L Chloride 92 L (98-107) mmol/L Carbon Dioxide 27 (22-30) mmol/L Anion Gap 18 mmol/L BUN 21 H (7-17) mg/dL Creatinine 0.44 L (0.52-1.04) mg/dL Est GFR (CKD-EPI)AfAm >90 (>60 ml/min/1.73 sqM) Est GFR (CKD-EPI)NonAf >90 (>60 ml/min/1.73 sqM) Glucose 112 H (74-99) mg/dL Calcium 9.8 (8.4-10.2) mg/dL Total Bilirubin 0.3 (0.2-1.3) mg/dL AST 25 (14-36) U/L ALT 22 (4-34) U/L Alkaline Phosphatase 112 (38-126) U/L Total Protein 7.4 (6.3-8.2) g/dL Albumin 4.1 (3.5-5.0) g/dL Blood Type Blood Type Recheck Bld Type Recheck Status Antibody Screen Spec Expiration Date - EKG Data -: EKG Interpreted by Me EKG Comments: 12-lead Electrocardiogram Interpretation Note EKG was reviewed and interpreted by myself. 12-lead ECG performed at 0103 is interpreted by me as revealing sinus tachycardia at a rate of 123 beats per minute. [place] is normal. [place] intervals 83 ms, QRS duration is 62 ms, QTc is 3 did 57 ms.. There were no ST or T wave abnormalities to suggest myocardial ischemia or injury. R wave progression across the precordium was satisfactory. By my interpretation this EKG is non-diagnostic for acute ischemia. Disposition Clinical Impression: Tracheostomy hemorrhage, Tracheostomy complication Disposition: ADMITTED IP TO THIS [facility] Condition: Serious Time of Disposition: 02:42
[2022-08-15] MEDS: SODIUM CHLORIDE 0.9% 1,000 ML IV SCH ×2 (03:18→16:17)
--- NOTE | 2022-08-15 05:17 | XR ---
EXAM: XR Chest, 1 View CLINICAL HISTORY: ITS.REASON XR Reason: dyspnea TECHNIQUE: Frontal view of the chest. COMPARISON: 02/28/2022 FINDINGS: Lungs: No consolidation. No overt edema. Pleural space: No pleural effusion. No pneumothorax. Heart: Unremarkable. No cardiomegaly. Tubes, lines and devices: Port-A-Cath in place. Tracheostomy cannula is appropriately positioned. IMPRESSION: No acute findings in the chest.
--- NOTE | 2022-08-15 07:58 | P.CNPUL ---
History of Present Illness Consult date: 08/15/22 Requesting physician: Yoel Ray Reason for consult: other (Tracheostomy site bleeding) Chief complaint: Tracheostomy site bleeding, worsening over the last 24 hours. History of present illness: I am seeing this patient in new consultation today 08/15/2022 for acute bleeding of the tracheostomy. 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 Patient's oncologist Dr. Camejo. Her established ENT is Dr. Morton. The patient has undergone chemo and radiation treatments. Currently on Opdivo q 2 weeks, and was suppose to receive a treatment today. The patient reports tracheostomy site bleeding starting approximately 4 days ago. Patient was reportedly evaluated yesterday during the day by her established ENT at [facility]. Patient did undergo laryngoscopy at outside facility, no active bleeding found. Patient also had tracheostomy tube exchange at that time. It was believed that the bleeding was from the stoma site, and controlled with silver nitrate cautery. The patient was sent home, and according to the patient's , the bleeding significantly worsened. Patient presents to the emergency room early this morning reporting significantly worsening tracheostomy site bleeding and hemoptysis. In the emergency department, topical silver nitrate cautery was applied. A dose of TXA was also given. There was successful hemostasis. The patient is on aspirin and Plavix on an outpatient basis. Patient is currently lying in bed, on a 2 L nasal cannula, in no acute distress. No significant hemoptysis or bleeding on my evaluation. There is dried blood around the tracheostomy site gauze. Chest x-ray showed no cardiopulmonary process. CBC shows a WBC count of of 10.9, hemoglobin 12.2, hematocrit 40.3, platelets 512. Coagulation profile was normal. BMP was unremarkable. Normal s mp is infusing at 75 mL per hour. Vital signs are stable. Patient is to be admitted to the cardiac stepdown unit once bed available. Review of Systems REVIEW OF SYSTEMS: CONSTITUTIONAL: Admits weight loss since cancer diagnosis. EYES: Denies change in vision. EARS, NOSE, MOUTH, THROAT: Denies headaches, denies sore throat. CARDIOVASCULAR: Denies chest pain, palpitations or syncopal episodes. RESPIRATORY: Denies shortness of breath, cough, congestion. Admits hemoptysis.. GASTROINTESTINAL: Denies change in appetite, abdominal pain, nausea and vomiting, or diarrhea GENITOURINARY: Denies hematuria, denies infections. MUSKULOSKELETAL: Denies pain, denies swelling. INTEGUMENTARY: Denies rash, denies eczema. NEUROLOGICAL: Denies recent memory loss, no recent seizure activity. PSYCHIATRIC: Denies anxiety, denies depression. HEMATOLOGIC/LYMPHATIC: Denies anemia, denies enlarged lymph node Past Medical History Past Medical History: Coronary Artery Disease (CAD), Cancer, Hyperlipidemia, Hypertension, Myocardial Infarction ([place]) Additional Past Medical History / Comment(s): hx stomach ulcer, tonsil cancer Last Myocardial Infarction Date:: 08/19/21 History of Any Multi-Drug Resistant Organisms: None Reported Past Surgical History: Heart Catheterization With Stent, Hysterectomy, Tubal L igation Additional Past Surgical History / Comment(s): egd Past Anesthesia/Blood Transfusion Reactions: No Reported Reaction Date of Last Stent Placement:: 08/19/21 Past Psychological History: No Psychological Hx Reported Smoking Status: Current every day smoker Past Alcohol Use History: Unable to Obtain Past Drug Use History: Unable to Obtain - Past Family History Mother Family Medical History: Cancer Additional Family Medical History / Comment(s): lung cancer Sister(s) Family Medical History: Cancer Additional Family Medical History / Comment(s): breast cancer Medications and Allergies Home Medications Medication Instructions Recorded Confirmed Type Ondansetron Odt [Zofran Odt] 8 mg PO TID PRN 04/03/22 08/15/22 History Metoprolol Succinate [Kapspargo 100 mg PEG/G-TUBE DAILY 08/15/22 08/15/22 History Sprinkle] Morphine 20mg/5ml 10 - 20 mg PEG/G-TUBE Q3H PRN 08/15/22 08/15/22 History fentaNYL 100MCG/HR PATCH 1 patch TRANSDERM Q72H 08/15/22 08/15/22 History [Duragesic 100MCG/HR] Allergies Allergy/AdvReac Type Severity Reaction Status Date / Time morphine Allergy Itching Verified 08/15/22 07:46 Penicillins AdvReac Severe nausea/vomi Verified 08/15/22 07:46 ting codeine AdvReac Nausea & Verified 08/15/22 07:46 Vomiting & Diarrhea Physical Exam Vitals: Vital Signs Pulse Resp BP Pulse Ox 08/15/22 04:48 18 95 08/15/22 01:53 107 H 16 144/81 91 L 08/15/22 00:49 134 H 26 H 128/105 95 Intake and Output 08/14/22 08/14/22 08/15/22 14:59 22:59 06:59 Other: Weight 40.823 kg GENERAL EXAM: Alert, 62-year-old white female, comfortable in no apparent distress. HEAD: Normocephalic and atraumatic EYES: Normal reaction of pupils, equal size. NOSE: Clear with pink turbinates. No epistaxis. OROPHARYX: without obvious bleeding NECK: There is a tracheostomy, no current active stomal bleeding. There is old blood at the inferior stomal site. CHEST: No chest wall deformity. LUNGS: Equal air entry with no crackles, wheeze, rhonchi or dullness. On 2 L/m nasal cannula but has tracheostomy. No conversational dyspnea or accessory muscle use.. CVS: S1 and S2 normal with no audible murmur, regular rhythm. No extra heart sounds ABDOMEN: PEG tube in place. No hepatosplenomegaly, active bowel sounds, no guarding or rigidity. SPINE: No scoliosis or deformity SKIN: No rashes CENTRAL NERVOUS SYSTEM: No focal deficits, tone is normal in all 4 extremities. EXTREMITIES: There is no peripheral edema, clubbing, or cyanosis. Peripheral pulses are intact. Results - Laboratory Findings CBC and BMP: 08/15/22 00:58 08/15/22 00:58 PT/INR, D-dimer PT 9.5 sec (9.0-12.0) 08/15/22 00:58 INR 0.9 (<1.2) 08/15/22 00:58 Abnormal lab findings: Abnormal Labs 08/15/22 07 00:58 00:58 WBC 10.9 H MCHC 30.2 L RDW 16.9 H Plt Count 512 H Neutrophils # 8.3 H Chloride 92 L BUN 21 H Creatinine 0.44 L Glucose 112 H - Diagnostic Findings Chest x-ray: image reviewed Assessment and Plan Assessment: Acute bleeding likely from the tracheostomy stoma site, status post cautery with silver nitrate. Patient was also given a dose of TXA. No current active bleeding on my evaluation. Patient did undergo laryngoscopy at outside facility yesterday, no active bleeding found. Patient also had tracheostomy tube exchange at that time. It was believed that the bleeding was from the stoma site, and controlled with silver nitrate cautery at that time Acute hypoxemic respiratory failure, secondary to above History of tonsillar squamous cell carcinoma status post tracheostomy and PEG tube insertion. Recent PET scan on 06/30/2022 showed several areas of slightly increased FDG activity. There was a new area slightly right of midline in the oropharynx mucosa as well as an area more inferior/medial concerning for progression. Currently on Opdivo teatments. History of left carotid artery erosion in March, Benign essential hypertension Hyperlipidemia Coronary artery disease with prior PCI and stenting Chronic nicotine dependence Plan: Patient's medications, labs, chest x-ray reviewed Patient was treated with silver nitrate cautery and a dose of TXA No active bleeding on my evaluation Switch patient to be humidified trach collar Consult oncology We will continue to follow I have personally seen and examined the patient, performed the documentation and the assessment and plan as written. Number of minutes spent on the visit:20 This is a joint evaluation that was done along with practitioner. This evaluation was done in more than 30 minutes. The patient was seen and examined. The patient has no active bleeding from her tracheostomy site. The patient is a IV tracheostomy tube in place. She had difficulties with speech. She is able to communicate. She is having increased respiratory secretions and the patient will have sputum sample from Gram stain and culture. No fever. No chills. No respiratory distress. She is receiving enteral feeding for nutritional support. We'll continue to follow. No need for antibiotic coverage. Chest x-ray was clear. Will monitor this patient in the hospital for another 24 hours for any bleeding complications. Time with Patient: Greater than 30
[2022-08-15] MEDS: ONDANSETRON 4 MG/2 ML VIAL IVP PRN ×2 (08:50→18:46)
[2022-08-15] MEDS: MORPHINE SULFATE 2 MG/ML SYRINGE IVP PRN ×4 (08:56→23:00)
--- NOTE | 2022-08-15 13:21 | P.HPIM ---
History of Present Illness H&P Date: 08/15/22 History of present illness; patient is 62-year-old lady with past medical history significant for tonsillar squamous cell carcinoma of the left carotid artery erosion, status post tracheostomy and PEG tube placement who presented The ER because of bleeding from the trach site. Patient initially went to [facility], with similar complaint at which time ENT evaluated her and CT imaging was done, ENT also did laryngoscopy via trach there was no obvious source of bleed, they think it was most likely bleeding from the granulation tissue of the trach site. Patient was discharged later in the day patient started having again bleeding from that site, and was brought back to the ER. ER physician talked to the ER physician at [facility], reports were faxed to our facility. ER physician and did cautery to the site and bleeding improved. Patient was admitted to internal medicine service for further evaluation Blood work done in the ER showed WBC 10.9, hemoglobin 12.2 platelet count 512, sodium 137, potassium 4.5, BUN 21, creatinine 0.44 Patient was admitted to medicine service REVIEW OF SYSTEMS: CONSTITUTIONAL: No fever, no malaise, no fatigue. HEENT: No recent visual problems or hearing problems. Denied any sore throat. CARDIOVASCULAR: No chest pain, orthopnea, PND, no palpitations, no syncope. PULMONARY: No shortness of breath, no cough, no hemoptysis. GASTROINTESTINAL: No diarrhea, no nausea, no vomiting, no abdominal pain. NEUROLOGICAL: No headaches, no weakness, no numbness. HEMATOLOGICAL: Denies any bleeding or petechiae. GENITOURINARY: Denies any burning micturition, frequency, or urgency. MUSCULOSKELETAL/RHEUMATOLOGICAL: Denies any joint pain, swelling, or any muscle pain. ENDOCRINE: Denies any polyuria or polydipsia. The rest of the 14-point review of systems is negative. PHYSICAL EXAMINATION: GENERAL: The patient is alert and oriented x3, not in any acute distress. Well developed, well nourished. HEENT: Pupils are round and equally reacting to light. EOMI. No scleral icterus. No conjunctival pallor. Normocephalic, atraumatic. No pharyngeal erythema. No thyromegaly. Trach collar seen CARDIOVASCULAR: S1 and S2 present. No murmurs, rubs, or gallops. PULMONARY: Chest is clear to auscultation, no wheezing or crackles. ABDOMEN: Soft, nontender, nondistended, normoactive bowel sounds. No palpable organomegaly. PEG tube seen MUSCULOSKELETAL: No joint swelling or deformity. EXTREMITIES: No cyanosis, clubbing, or pedal edema. NEUROLOGICAL: Gross neurological examination did not reveal any focal deficits. SKIN: No rashes. Assessment and plan Hemoptysis Bleeding from the trach site Acute hypoxemic respiratory failure, secondary to above History of tonsillar squamous cell carcinoma status post tracheostomy and PEG tube insertion. History of left carotid artery erosion in March, Benign essential hypertension Hyperlipidemia Coronary artery disease with prior PCI and stenting Chronic nicotine dependence Monitor vital signs Monitor CBC Monitor CMP Continue trach care Continue oxygen supplementation Aggressive bronchopulmonary hygiene Continue IV fluids Continue antiemetics Resume home meds Start tube feeding Hold aspirin and Plavix for now Consult hematology oncology Consult pulmonary Past Medical History Past Medical History: Coronary Artery Disease (CAD), Cancer, Hyperlipidemia, Hypertension, Myocardial Infarction ([place]) Additional Past Medical History / Comment(s): hx stomach ulcer, tonsil cancer Last Myocardial Infarction Date:: 08/19/21 History of Any Multi-Drug Resistant Organisms: None Reported Past Surgical History: Heart Catheterization With Stent, Hysterectomy, Tubal Ligation Additional Past Surgical History / Comment(s): egd Past Anesthesia/Blood Transfusion Reactions: No Reported Reaction Date of Last Stent Placement:: 08/19/21 Past Psychological History: No Psychological Hx Reported Smoking Status: Current every day smoker Past Alcohol Use History: Unable to Obtain Past Drug Use History: Unable to Obtain - Past Family History Mother Family Medical History: Cancer Additional Family Medical History / Comment(s): lung cancer Sister(s) Family Medical History: Cancer Additional Family Medical History / Comment(s): breast cancer Medications and Allergies Home Medications Medication Instructions Recorded Confirmed Type Ondansetron Odt [Zofran Odt] 8 mg PO TID PRN 04/03/22 08/15/22 History Metoprolol Succinate [Kapspargo 100 mg PEG/G-TUBE DAILY 08/15/22 08/15/22 History Sprinkle] Morphine 20mg/5ml 10 - 20 mg PEG/G-TUBE Q3H PRN 08/15/22 08/15/22 History fentaNYL 100MCG/HR PATCH 1 patch TRANSDERM Q72H 08/15/22 08/15/22 History [Duragesic 100MCG/HR] Allergies Allergy/AdvReac Type Severity Reaction Status Date / Time morphine Allergy Itching Verified 08/15/22 07:46 Penicillins AdvReac Severe nausea/vomi Verified 08/15/22 07:46 ting codeine AdvReac Nausea & Verified 08/15/22 07:46 Vomiting & Diarrhea Physical Exam Vitals: Vital Signs Pulse Resp BP Pulse Ox FiO2 08/15/22 09:28 95 28 08/15/22 08:53 104 H 18 143/98 93 L 08/15/22 04:48 18 95 08/15/22 01:53 107 H 16 144/81 91 L 08/15/22 00:49 134 H 26 H 128/105 95 Intake and Output 08/14/22 08/15/22 08/15/22 22:59 06:59 14:59 Other: Weight 40.823 kg Results CBC & Chem 7: 08/15/22 00:58 08/15/22 00:58 Labs: Abnormal Lab Results - Last 24 Hours (Table) 08/15/22 08/15/22 Range/Units 00:58 00:58 WBC 10.9 H (3.8-10.6) k/uL MCHC 30.2 L (31.0-37.0) g/dL RDW 16.9 H (11.5-15.5) % Plt Count 512 H (150-450) k/uL Neutrophils # 8.3 H (1.3-7.7) k/uL Chloride 92 L (98-107) mmol/L BUN 21 H (7-17) mg/dL Creatinine 0.44 L (0.52-1.04) mg/dL Glucose 112 H (74-99) mg/dL
--- NOTE | 2022-08-15 13:33 | P.CONS ---
History of Present Illness - Reason for Consult Consult date: 08/15/22 hx tonsillar cancer Requesting physician: Yoel Ray - Chief Complaint trach complication - History of Present Illness Patient is a 62 year old female with a significant history of squamous cell tonsillar cancer. She is a patient of Dr. Camejo. She received concurrent chemo/RT and completed 5 cycles of cisplatin in 03/2022, but unfortunately had subsequent left carotid artery erosion in March,, and is s/p tracheostomy and PEG tube. Patient follows with [facility]. Patient is s/p completion of cycle 2 of Opdivo on 08/01, and was scheduled today for cycle 3. Patient presented to the ER with bleeding from her tracheostomy. The patient reports bleeding from the tracheostomy site began 4 days ago. Patient reports she was evaluated yesterday by ENT. Patient had laryngoscopy at outside facility, and no active bleeding was found, and had tracheostomy tube exchange at that time. states that the bleeding was thought to be from the stoma site, and was treated with silver nitrate cautery with control in bleeding. However, the bleeding began to worsen and she was experiencing hemoptysis causing the patient to present to the ER for further evaluation. In the emergency department, topical silver nitrate cautery was applied and was given TXA. Bleeding has since resolved. Patient is on aspirin and Plavix, but per has not taken in 2 days. Chest x-ray revealed no acute cardiopulmonary processes. Pulmonology following. Hemoglobin stable, 12.2. Platelets 512,000. Review of Systems 10 point ROS is negative except as stated in the HPI Past Medical History Past Medical History: Coronary Artery Disease (CAD), Cancer, Hyperlipidemia, Hypertension, Myocardial Infarction ([place]) Additional Past Medical History / Comment(s): hx stomach ulcer, tonsil cancer Last Myocardial Infarction Date:: 08/19/21 History of Any Multi-Drug Resistant Organisms: None Reported Past Surgical History: Heart Catheterization With Stent, Hysterectomy, Tubal Ligation Additional Past Surgical History / Comment(s): egd Past Anesthesia/Blood Transfusion Reactions: No Reported Reaction Date of Last Stent Placement:: 08/19/21 Past Psychological History: No Psychological Hx Reported Smoking Status: Current every day smoker Past Alcohol Use History: Unable to Obtain Past Drug Use History: Unable to Obtain - Past Family History Mother Family Medical History: Cancer Additional Family Medical History / Comment(s): lung cancer Sister(s) Family Medical History: Cancer Additional Family Medical History / Comment(s): breast cancer Medications and Allergies Home Medications Medication Instructions Recorded Confirmed Type Ondansetron Odt [Zofran Odt] 8 mg PO TID PRN 04/03/22 08/15/22 History Metoprolol Succinate [Kapspargo 100 mg PEG/G-TUBE DAILY 08/15/22 08/15/22 History Sprinkle] Morphine 20mg/5ml 10 - 20 mg PEG/G-TUBE Q3H PRN 08/15/22 08/15/22 History fentaNYL 100MCG/HR PATCH 1 patch TRANSDERM Q72H 08/15/22 08/15/22 History [Duragesic 100MCG/HR] Allergies Allergy/AdvReac Type Severity Reaction Status Date / Time morphine Allergy Itching Verified 08/15/22 07:46 Penicillins AdvReac Severe nausea/vomi Verified 08/15/22 07:46 ting codeine AdvReac Nausea & Verified 08/15/22 07:46 Vomiting & Diarrhea Physical Exam Vitals: Vital Signs Pulse Resp BP Pulse Ox 08/15/22 04:48 18 95 08/15/22 01:53 107 H 16 144/81 91 L 08/15/22 00:49 134 H 26 H 128/105 95 Intake and Output 08/14/22 08/15/22 08/15/22 22:59 06:59 14:59 Other: Weight 40.823 kg - Constitutional General appearance: no acute distress, thin - EENT Eyes: anicteric sclerae, EOMI ENT: hearing grossly normal - Neck tracheostomy present, no active bleeding - Respiratory Respiratory: bilateral: CTA - Cardiovascular Rhythm: regular Heart sounds: normal: S1, S2 Abnormal Heart Sounds: no systolic murmur, no diastolic murmur, no rub, no S3 Gallop, no S4 Gallop, no click, no other - Gastrointestinal General gastrointestinal: soft, no tenderness - Integumentary Integumentary: no cyanotic - Musculoskeletal Musculoskeletal: generalized weakness - Psychiatric Psychiatric: A&O x's 3 Results CBC & Chem 7: 08/15/22 00:58 08/15/22 00:58 Labs: Abnormal Lab Results - Last 24 Hours (Table) 08/15/22 08/15/22 Range/Units 00:58 00:58 WBC 10.9 H (3.8-10.6) k/uL MCHC 30.2 L (31.0-37.0) g/dL RDW 16.9 H (11.5-15.5) % Plt Count 512 H (150-450) k/uL Neutrophils # 8.3 H (1.3-7.7) k/uL Chloride 92 L (98-107) mmol/L BUN 21 H (7-17) mg/dL Creatinine 0.44 L (0.52-1.04) mg/dL Glucose 112 H (74-99) mg/dL Chest x-ray: report reviewed Assessment and Plan (1) Tracheostomy complication Current Visit: Yes Status: Acute Priority: High Code(s): J95.00 - UNSPECIFIED TRACHEOSTOMY COMPLICATION SNOMED Code(s): 29156076 (2) Head and neck cancer Current Visit: Yes Status: Acute Priority: High Code(s): C76.0 - MALIGNANT NEOPLASM OF HEAD, FACE AND NECK SNOMED Code(s): 816200591 Plan: Squamous cell tonsillar cancer: -History of squamous cell tonsillar cancer. She received concurrent chemo/RT and completed 5 cycles of cisplatin in 03/2022, but unfortunately had subsequent left carotid artery erosion in March,, and is s/p tracheostomy and PEG tube. Patient follows with [facility]. Patient is s/p completion of cycle 2 of Opdivo on 08/01, and was scheduled today for cycle 3. -Will reschedule cycle 3 later this week/next week once patient actually recovers -Discussed plan with patient and and both are agreeable. Tracheostomy bleeding: -Patient reports she was evaluated yesterday by ENT. Patient had laryngoscopy at outside facility, and no active bleeding was found, and had tracheostomy tube exchange at that time. states that the bleeding was thought to be from the stoma site, and was treated with silver nitrate cautery with control in bleeding. However, the bleeding began to worsen. Treated with silver nitrate cautery in the ED and was given TXA with resolution of bleeding. -Aspirin and plavix held -Chest x-ray revealed no acute cardiopulmonary processes. Hemoglobin stable, 12.2. Platelets 512,000. -If bleeding returns, can give unit of platelets or DDAVP attests: I performed H&P and developed impression and plan of care for patie nt, discussed with dictator. I agree with dictated note, documented as a scribe
[2022-08-15 21:35] VITALS: RESP 16
[2022-08-16] MEDS: MORPHINE SULFATE 2 MG/ML SYRINGE IVP PRN ×3 (03:14→14:26)
[2022-08-16] MEDS: SODIUM CHLORIDE 0.9% 1,000 ML IV SCH (07:51)
[2022-08-16] MEDS ORDERED: METOPROLOL SUCCINATE 100 MG PEG/G-TUBE SCH (09:00)
[2022-08-16] MEDS: ONDANSETRON 4 MG/2 ML VIAL IVP PRN (09:45)
[2022-08-16 11:06] LABS: Basophils # (A) 0.04 X 10*3/uL (0.00-0.10); Basophils % (A) 0.6 %; Eosinophils # (A) 0.05 X 10*3/uL (0.04-0.35); Eosinophils % (A) 0.7 %; HCT 34.8 % (37.2-46.3); HGB 10.2 d/dL (12.0-15.0); Lymphocytes # (A) 0.77 X 10*3/uL (0.90-5.00); Lymphocytes % (A) 10.6 %; MCH 24.5 pg (27.0-32.0); MCHC 29.3 d/dL (32.0-37.0); MCV 83.7 FL (80.0-97.0); Mean Platelet Volume 10.7 FL (9.5-12.2); Monocytes # (A) 0.59 X 10*3/uL (0.20-1.00); Monocytes % (A) 8.1 %; NRBC Per 100 WBC 0 X 10*3/uL (0.00-0.01); Neutrophils # (A) 5.78 X 10*3/uL (1.80-7.70); Neutrophils % (A) 79.6 %; Platelet Count 433 X 10*3/uL (140-440); RBC 4.16 X 10*6/uL (4.10-5.20); WBC 7.26 X 10*3/uL (4.50-10.00)
[2022-08-16 11:17] LABS: Blood Urea Nitrogen 13.8 mg/dL (9.0-27.0); Calcium 9.1 mg/dL (8.7-10.3); Chloride 103 mmol/L (96-109); Glucose 90 mg/dL (70-110); Potassium 3.7 mmol/L (3.5-5.5); Sodium 138 mmol/L (135-145)
[2022-08-16 11:24] VITALS: BMI 16.9
[2022-08-16 12:36] VITALS: BP 128/81; PULSE 109; TEMP 98.5
--- NOTE | 2022-08-16 13:48 | P.PN ---
Subjective Progress Note Date: 08/16/22 Principal diagnosis: trach bleeding At today's visit patient is resting comfortably in bed. Patient denies shortness of breath and pain. She reports that she is just feeling fatigued and worn down today. No recurrence of bleeding from tracheostomy. Objective - Vital Signs Vital signs: Vital Signs Temp 98.5 F 08/16/22 12:17 Pulse 109 H 08/16/22 12:17 Resp 16 08/16/22 12:17 BP 128/81 08/16/22 12:17 Pulse Ox 98 08/16/22 12:17 FiO2 28 08/16/22 11:23 Intake & Output 08/15/22 08/16/22 08/16/22 18:59 06:59 18:59 Weight 40.823 kg 40.823 kg Other: Voiding Method Toilet Toilet # Voids 1 - Constitutional General appearance: Present: no acute distress, thin - EENT Eyes: Present: anicteric sclerae, EOMI ENT: Present: hearing grossly normal - Neck Details: tracheostomy present. No bleeding noted - Respiratory Details: breathing even and unlabored - Cardiovascular Details: skin warm and dry - Integumentary Integumentary: Absent: cyanotic - Neurologic Neurologic Comment(s): grossly intact - Musculoskeletal Musculoskeletal: Present: generalized weakness - Psychiatric Psychiatric: Present: A&O x's 3, appropriate affect, intact judgment & insight - Labs CBC & Chem 7: 08/16/22 06:30 08/16/22 06:30 Labs: Abnormal Lab Results - Last 24 Hours (Table) 08/16/22 08/16/22 Range/Units 06:30 06:30 Hgb 10.2 L (12.0-15.0) d/dL Hct 34.8 L (37.2-46.3) % MCH 24.5 L (27.0-32.0) pg MCHC 29.3 L (32.0-37.0) d/dL RDW 18.0 H (11.5-14.5) % Lymphocytes # 0.77 L (0.90-5.00) X 10*3/uL Creatinine 0.5 L (0.6-1.5) mg/dL BUN/Creatinine Ratio 27.60 H (12.00-20.00) Ratio Microbiology - Last 24 Hours (Table) 08/15/22 12:00 Gram Stain - Preliminary Sputum Assessment and Plan (1) Tracheostomy complication Current Visit: Yes Status: Acute Priority: High Code(s): J95.00 - UNSPECIFIED TRACHEOSTOMY COMPLICATION SNOMED Code(s): 41770403 (2) Head and neck cancer Current Visit: Yes Status: Acute Priority: High Code(s): C76.0 - MALIGNANT NEOPLASM OF HEAD, FACE AND NECK SNOMED Code(s): 213664486 Plan: Squamous cell tonsillar cancer: -History of squamous cell tonsillar cancer. She received concurrent chemo/RT and completed 5 cycles of cisplatin in 03/2022, but unfortunately had subsequent left carotid artery erosion in March,, and is s/p tracheostomy and PEG tube. Patient follows with [facility]. Patient is s/p completion of cycle 2 of Opdivo on 08/01, and was scheduled on 08/15/22 for cycle 3. -Will reschedule cycle 3 later this week/next week once patient actually r ecovers -Discussed plan with patient and and both are agreeable. Tracheostomy bleeding: -Patient reports she was evaluated by ENT prior to admission. Patient had laryngoscopy at outside facility, and no active bleeding was found, and had tracheostomy tube exchange at that time. states that the bleeding was thought to be from the stoma site, and was treated with silver nitrate cautery with control in bleeding. However, the bleeding began to worsen. Treated with silver nitrate cautery in the ED and was given TXA with resolution of bleeding. No recurrence of bleeding since. -Aspirin and plavix held -Chest x-ray revealed no acute cardiopulmonary processes. Hemoglobin stable, 1 2.2. Platelets 512,000. -If bleeding returns, can give unit of platelets or DDAVP
--- NOTE | 2022-08-16 13:52 | P.DS ---
Providers Date of admission: 08/15/22 02:57 Expected date of discharge: 08/16/22 Attending physician: Billy Montana Consults: 08/15/22 02:16 Consult Physician Routine Consulting Provider: Gilbert Becker Consult Reason/Comments: bleeding trach site Do you want consulting provider notified?: Yes 08/15/22 02:57 Consult Physician Routine Consulting Provider: Samira Camejo Consult Reason/Comments: head and neck cancer Do you want consulting provider notified?: Yes Primary care physician: Rell Arreola [facility] Course: Discharge diagnoses; Hemoptysis Bleeding from the trach site Acute hypoxemic respiratory failure, secondary to above 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 [place] with similar complaint at which time ENT evaluated her and CT imaging was done, ENT also did laryngoscopy via trach there was no obvious source of bleed, they think it was most likely bleeding from the granulation tissue of the trach site. Patient was discharged later in the day patient started having again bleeding from that site, and was brought back to the ER. ER physician talked to the ER physician at [facility], reports were faxed to our facility. ER physician and did cautery to the site and bleeding improved. Patient was admitted to internal medicine service for further evaluation Blood work done in the ER showed WBC 10.9, hemoglobin 12.2 platelet count 512, sodium 137, potassium 4.5, BUN 21, creatinine 0.44 Patient was admitted to medicine service 08/16. Patient seen and examined. Patient was seen by hematology oncology and pulmonary, please refer to the progress notes and consult notes for details asse ssment and plan. No further episodes of bleeding from trach site. Currently medically stable for discharge PHYSICAL EXAMINATION: GENERAL: The patient is alert and oriented x3, not in any acute distress. Chronically ill-looking HEENT: Pupils are round and equally reacting to light. EOMI. No scleral icterus. No conjunctival pallor. Normocephalic, atraumatic. No pharyngeal erythema. No thyromegaly. Trach collar seen CARDIOVASCULAR: S1 and S2 present. No murmurs, rubs, or gallops. PULMONARY: Chest is clear to auscultation, no wheezing or crackles. ABDOMEN: Soft, nontender, nondistended, normoactive bowel sounds. No palpable organomegaly. PEG tube seen MUSCULOSKELETAL: No joint swelling or deformity. EXTREMITIES: No cyanosis, clubbing, or pedal edema. NEUROLOGICAL: Gross neurological examination did not reveal any focal deficits. SKIN: No rashes. Patient Condition at Discharge: Serious Plan - Discharge Summary Discharge Rx Participant: No New Discharge Prescriptions: Continue fentaNYL 100MCG/HR PATCH [Duragesic 100MCG/HR] 1 patch TRANSDERM Q72H Ondansetron Odt [Zofran ODT] 8 mg PO TID PRN PRN Reason: Nausea Metoprolol Succinate [Kapspargo Sprinkle] 100 mg PEG/G-TUBE DAILY Morphine 20mg/5ml 10 - 20 mg PEG/G-TUBE Q3H PRN PRN Reason: Pain Discharge Medication List Ondansetron Odt [Zofran ODT] 8 mg PO TID PRN 04/03/22 [History] Metoprolol Succinate [Kapspargo Sprinkle] 100 mg PEG/G-TUBE DAILY 08/15/22 [History] Morphine 20mg/5ml 10 - 20 mg PEG/G-TUBE Q3H PRN 08/15/22 [History] fentaNYL 100MCG/HR PATCH [Duragesic 100MCG/HR] 1 patch TRANSDERM Q72H 08/15/22 [History] Follow up Appointment(s)/Referral(s): Rell Arreola DO [Primary Care Provider] - 1-2 days Samira Camejo MD [STAFF PHYSICIAN] - 1 Week Discharge Disposition: HOME SELF-CARE
--- NOTE | 2022-08-16 15:52 | P.PN ---
Subjective Progress Note Date: 08/16/22 I am seeing this patient in new consultation today 08/15/2022 for acute bleeding of the tracheostomy. Patient is a 62-year-old white female past medical history significant for tonsillar squamous cell carcinoma diagnosed at [facility]. Left carotid artery erosion back in March,, status post tracheostomy and PEG tube. Patient's oncologist Dr. Camejo. Her established ENT is Dr. Morton. The patient has undergone chemo and radiation treatments. Currently on Opdivo q 2 weeks, and was suppose to receive a treatment today. The patient reports tracheostomy site bleeding starting approximately 4 days ago. Patient was reportedly evaluated yesterday during the day by her established ENT at [facility]. Patient did undergo laryngoscopy at outside facility, no active bleeding found. Patient also had tracheostomy tube exchange at that time. It was believed that the bleeding was from the stoma site, and controlled with silver nitrate cautery. The patient was sent home, and according to the patient's , the bleeding significantly worsened. Patient presents to the emergency room early this morning reporting significantly worsening tracheostomy site bleeding and hemoptysis. In the emergency department, topical silver nitrate cautery was applied. A dose of TXA was also given. There was successful hemostasis. The patient is on aspirin and Plavix on an outpatient basis. Chaka cook is currently lying in bed, on a 2 L nasal cannula, in no acute distress. No significant hemoptysis or bleeding on my evaluation. There is dried blood around the tracheostomy site gauze. Chest x-ray showed no cardiopulmonary process. CBC shows a WBC count of of 10.9, hemoglobin 12.2, hematocrit 40.3, platelets 512. Coagulation profile was normal. BMP was unremarkable. Normal saline is infusing at 75 mL per hour. Vital signs are stable. Patient is to be admitted to the cardiac stepdown unit once bed available. On today's evaluation of 08/16/2022, the patient is doing well. No further episodes of bleeding. The respiratory secretions are scant and the cultures were sent and the results are still pending. The preliminary Cultures are negative. No fever. No chills.. The labs from today shows a WBC count 7.2 with a hemoglobin of 10.2 and a platelet count of 433. Normal coagulation profile. BUN is at 30 with a creatinine of 0.5 and a sodium level is at 138. The patient continues to receive enteral feeding for nutritional support. She is nothing by mouth. Objective - Vital Signs Vital signs: Vital Signs Temp 98.5 F 08/16/22 12:17 Pulse 109 H 08/16/22 12:17 Resp 16 08/16/22 12:17 BP 128/81 08/16/22 12:17 Pulse Ox 98 08/16/22 12:17 FiO2 28 08/16/22 11:23 Intake & Output 08/15/22 08/16/22 08/16/22 18:59 06:59 18:59 Weight 40.823 kg 40.823 kg Other: Voiding Method Toilet Toilet # Voids 1 - Exam GENERAL EXAM: Alert, 62-year-old white female, comfortable in no apparent distress. HEAD: Normocephalic and atraumatic EYES: Normal reaction of pupils, equal size. NOSE: Clear with pink turbinates. No epistaxis. OROPHARYX: without obvious bleeding NECK: There is a tracheostomy, no current active stomal bleeding. There is old blood at the inferior stomal site. CHEST: No chest wall deformity. LUNGS: Equal air entry with no crackles, wheeze, rhonchi or dullness. On 2 L/m nasal cannula but has tracheostomy. No conversational dyspnea or accessory muscle use.. CVS: S1 and S2 normal with no audible murmur, regular rhythm. No extra heart sounds ABDOMEN: PEG tube in place. No hepatosplenomegaly, active bowel sounds, no guarding or rigidity. SPINE: No scoliosis or deformity SKIN: No rashes CENTRAL NERVOUS SYSTEM: No focal deficits, tone is normal in all 4 extremities. EXTREMITIES: There is no peripheral edema, clubbing, or cyanosis. Peripheral pulses are intact. - Labs CBC & Chem 7: 08/16/22 06:30 08/16/22 06:30 Labs: Abnormal Lab Results - Last 24 Hours (Table) 08/16/22 08/16/22 Range/Units 06:30 06:30 Hgb 10.2 L (12.0-15.0) d/dL Hct 34.8 L (37.2-46.3) % MCH 24.5 L (27.0-32.0) pg MCHC 29.3 L (32.0-37.0) d/dL RDW 18.0 H (11.5-14.5) % Lymphocytes # 0.77 L (0.90-5.00) X 10*3/uL Creatinine 0.5 L (0.6-1.5) mg/dL BUN/Creatinine Ratio 27.60 H (12.00-20.00) Ratio Microbiology - Last 24 Hours (Table) 08/15/22 12:00 Gram Stain - Preliminary Sputum Assessment and Plan Assessment: Acute bleeding likely from the tracheostomy stoma site, status post cautery with silver nitrate. Patient was also given a dose of TXA. No current active bleeding on my evaluation. Patient did undergo laryngoscopy at outside facility yesterday, no active bleeding found. Patient also had tracheostomy tube exchange at that time. It was believed that the bleeding was from the stoma site, and controlled with silver nitrate cautery at that time . The bleeding has subsided and no bleeding for the past 24 hours at least. This could be induced by trauma from repeated suctioning. No clear indication for pneumonia or underlying tracheal bronchitis. Sputum was sent for cultures and is also still pending. Likely negative. 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 Recent PET scan on 06/30/2022 showed several areas of slightly increased FDG activity. There was a new area slightly right of midline in the oropharynx mucosa as well as an area more inferior/medial concerning for progression. Currently on Opdivo teatments. 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 Sputum has been sent for cultures No need for antibiotics at this point in time Chest x-ray was clear. Possible discharge today
== END 2022-08-16 15:40 | disposition home or self-care (01) ==
LOC: EC 00:43 → 3SCARD 02:57 → INTOOBSV 02:57 → 5NMEDONC 12:26
PROVIDERS: ADMIT Hospitalist; ATTEND Hospitalist
DX: R04.2 Hemoptysis (principal); J95.01 Hemorrhage from tracheostomy stoma; J96.01 Acute respiratory failure with hypoxia; Z87.898 Personal history of other specified conditions; Z96.89 Presence of other specified functional implants; I10 Essential (primary) hypertension; E78.5 Hyperlipidemia, unspecified; I25.10 Atherosclerotic heart disease of native coronary artery without angina pectoris; Z95.5 Presence of coronary angioplasty implant and graft; F17.200 Nicotine dependence, unspecified, uncomplicated; Z85.89 Personal history of malignant neoplasm of other organs and systems; Z87.11 Personal history of peptic ulcer disease; I25.2 Old myocardial infarction; Z90.710 Acquired absence of both cervix and uterus; Z98.51 Tubal ligation status; Z98.890 Other specified postprocedural states; Z80.1 Family history of malignant neoplasm of trachea, bronchus and lung; Z80.3 Family history of malignant neoplasm of breast; Z92.21 Personal history of antineoplastic chemotherapy; Z92.3 Personal history of irradiation; Z79.891 Long term (current) use of opiate analgesic; Z79.02 Long term (current) use of antithrombotics/antiplatelets; Z79.82 Long term (current) use of aspirin; Z79.899 Other long term (current) drug therapy; Z88.5 Allergy status to narcotic agent; Z88.0 Allergy status to penicillin
CPT/HCPCS: 96376 ×3; 96361 ×3; 96374; 96375; 99285; 36415; 93005; 86900; 86901; 80053; 80048; 85025 ×2; 85610; 85730; 86850; 87070; 87205; 71045; G0378; J2765; J2405 ×2; J2270 ×2

== ENCOUNTER 2022-08-18 22:53 | Emergency (ER) | payer OTHER ==
[2022-08-19 00:23] LABS: Anisocytosis Slight; Basophils % (A) 0 %; Eosinophils # (A) 0.2 k/uL (0-0.7); Eosinophils % (A) 3 %; HCT 34.1 % (34.0-46.0); HGB 10.4 gm/dL (11.4-16.0); Hypochromasia Moderate; Lymphocytes # (A) 0.7 k/uL (1.0-4.8); Lymphocytes % (A) 12 %; MCH 25.8 pg (25.0-35.0); MCHC 30.6 g/dL (31.0-37.0); MCV 84.3 fL (80.0-100.0); Monocytes # (A) 0.4 k/uL (0-1.0); Monocytes % (A) 8 %; Neutrophils # (A) 4.3 k/uL (1.3-7.7); Neutrophils % (A) 74 %; Platelet Count 372 k/uL (150-450); RBC 4.05 m/uL (3.80-5.40); RDW 16.9 % (11.5-15.5); WBC 5.8 k/uL (3.8-10.6)
[2022-08-19 00:34] LABS: ALT 17 U/L (4-34); AST 18 U/L (14-36); African American GFR (CKD) >90 (>60 ml/min/1.73 sqM); Albumin 3.2 g/dL (3.5-5.0); Alkaline Phosphatase 84 U/L (38-126); Anion Gap 6 mmol/L; Blood Urea Nitrogen 19 mg/dL (7-17); Calcium 8.8 mg/dL (8.4-10.2); Carbon Dioxide 29 mmol/L (22-30); Chloride 100 mmol/L (98-107); Glucose 104 mg/dL (74-99); Non-African American GFR(CKD) >90 (>60 ml/min/1.73 sqM); Potassium 3.8 mmol/L (3.5-5.1); Sodium 135 mmol/L (137-145); Total Bilirubin 0.2 mg/dL (0.2-1.3); Total Protein 6.1 g/dL (6.3-8.2)
[2022-08-19 00:48] LABS: INR 0.9 (<1.2); Partial Thromboplastin Time 23.2 sec (22.0-30.0); Prothrombin Time 9.9 sec (9.0-12.0)
[2022-08-19] MEDS ORDERED: MORPHINE SULFATE 4 MG/ML SYRINGE IVP STA (00:49)
--- NOTE | 2022-08-19 00:59 | ED ---
General Adult HPI - General Chief complaint: ENT Stated complaint: Bleeding around trach Time Seen by Provider: 08/18/22 22:58 Source: family Mode of arrival: wheelchair Limitations: physical limitation - History of Present Illness Initial comments: 62-year-old female past medical history of hypertension, hyperlipidemia, tonsillar cancer who presents to the emergency department reporting bleeding from her trach site. Patient was here recently for similar. It was found that the patient does have some granulation tissue that bleeds. is concerned because the patient's previous tonsillar cancer had eroded into her carotid and she had a major bleed in March which required coiling. Tonight the states that he saw some pink tinged sputum coming from the patient's trach and immediately brought her in for evaluation. Silver nitrate was used on the to stop the bleed and she was hospitalized overnight. Patient denies any chest pain or shortness of breath. No fevers. Denies any trauma or aggressive suctioning. No other alleviating, precipitating or modifying factors - Related Data Home Medications Medication Instructions Recorded Confirmed Ondansetron Odt [Zofran ODT] 8 mg PO TID PRN 04/03/22 08/15/22 Metoprolol Succinate [Kapspargo 100 mg PEG/G-TUBE DAILY 08/15/22 08/15/22 Sprinkle] Morphine 20mg/5ml 10 - 20 mg PEG/G-TUBE Q3H PRN 08/15/22 08/15/22 fentaNYL 100MCG/HR PATCH 1 patch TRANSDERM Q72H 08/15/22 08/15/22 [Duragesic 100MCG/HR] Allergies Allergy/AdvReac Type Severity Reaction Status Date / Time Penicillins AdvReac Severe nausea/vomi Verified 08/18/22 22:57 ting codeine AdvReac Nausea & Verified 08/18/22 22:57 Vomiting & Diarrhea Review of Systems ROS Statement: Those systems with pertinent positive or pertinent negative responses have been documented in the HPI. ROS Other: All systems not noted in ROS Statement are negative. Past Medical History Past Medical History: Coronary Artery Disease (CAD), Cancer, Hyperlipidemia, Hypertension, Myocardial Infarction ([place]) Additional Past Medical History / Comment(s): hx stomach ulcer, tonsil cancer Last Myocardial Infarction Date:: 08/19/21 History of Any Multi-Drug Resistant Organisms: None Reported Past Surgical History: Heart Catheterization With Stent, Hysterectomy, Tubal Ligation Additional Past Surgical History / Comment(s): egd Past Anesthesia/Blood Transfusion Reactions: No Reported Reaction Date of Last Stent Placement:: 08/19/21 Past Psychological History: No Psychological Hx Reported Smoking Status: Current every day smoker Past Alcohol Use History: Unable to Obtain Past Drug Use History: Unable to Obtain - Past Family History Mother Family Medical History: Cancer Additional Family Medical History / Comment(s): lung cancer Sister(s) Family Medical History: Cancer Additional Family Medical History / Comment(s): breast cancer General Exam Limitations: physical limitation General appearance: alert, in no apparent distress Head exam: Present: atraumatic, normocephalic, normal inspection Eye exam: Present: normal appearance, PERRL, EOMI. Absent: scleral icterus, conjunctival injection, periorbital swelling ENT exam: Present: normal exam, mucous membranes moist Neck exam: Present: other (Trach in place. Some drainage around the site of the trach. No bleeding. Some granulation tissue present. There is mild pink tinged sputum within the trach itself). Absent: tenderness, meningismus, lymphadenopathy Respiratory exam: Present: normal lung sounds bilaterally. Absent: respiratory distress, wheezes, rales, rhonchi, stridor Cardiovascular Exam: Present: regular rate, normal rhythm, normal heart sounds. Absent: systolic murmur, diastolic murmur, rubs, gallop, clicks GI/Abdominal exam: Present: soft, normal bowel sounds. Absent: distended, tenderness, guarding, rebound, rigid Extremities exam: Present: normal inspection, full ROM, normal capillary refill. Absent: tenderness, pedal edema, joint swelling, calf tenderness Back exam: Present: normal inspection Neurological exam: Present: alert, oriented X3, CN II-XII intact Psychiatric exam: Present: normal affect, normal mood Skin exam: Present: warm, dry, intact, normal color. Absent: rash Course Vital Signs 08/18/22 08/18/22 08/19/22 22:55 23:28 01:19 Temperature 97.8 F 98.1 F Pulse Rate 93 78 Respiratory 18 16 Rate Blood Pressure 123/83 121/72 O2 Sat by Pulse 99 95 Oximetry Fraction of 21 Inspired Oxygen (FIO2) Medical Decision Making - Medical Decision Making Was pt. sent in by a medical professional or institution (Dr., PA, PAPER REELER, urgent care, hospital, or [place] health care facility...) When possible be specific @ -No Did you speak to anyone other than the patient for history (EMS, parent, family, police, friend...)? What history was obtained from this source @ -I spoke with the patient's Did you review nursing and triage notes (agree or disagree)? Why? @ -I reviewed and agree with nursing and triage notes Were old charts reviewed (outside hosp., previous admission, EMS record, old EKG, old radiological studies, urgent care reports/EKG's, [place] health care facility records)? Report findings @ -Patient's ER report and discharge summary from the and was reviewed Differential Diagnosis (chest pain, altered mental status, abdominal pain women, abdominal pain men, vaginal bleeding, weakness, fever, dyspnea, syncope, headache, dizziness, GI bleed, back pain, seizure, CVA, palpatations, mental health, musculoskeletal)? @ -Hemoptysis, hematemesis, tonsillar bleed, granulation tissue bleed or trauma EKG interpreted by me (3pts min.). @ -Not completed X-rays interpreted by me (1pt min.). @ -Yes and demonstrates no acute process CT interpreted by me (1pt min.). @ -None done U/S interpreted by me (1pt. min.). @ -None done What testing was considered but not performed or refused? (CT, X-rays, U/S, labs)? Why? @ -None What meds were considered but not given or refused? Why? @ -None Did you discuss the management of the patient with other professionals (professionals i.e. ALIYA Burns, PAPER REELER, lab, RT, psych nurse, social services aide, recruiting manager, teacher, environmental conservation officer, supervisor case loading)? Give summary @ -No Was smoking cessation discussed for >3mins.? @ -No Was critical care preformed (if so, how long)? @ -No Were there social determinants of health that impacted care today? How? (Homelessness, low income, unemployed, alcoholism, drug addiction, transportation, low edu. Level, literacy, decrease access to med. care, fci, rehab)? @ -No Was there de-escalation of care discussed even if they declined (Discuss DNR or withdrawal of care, Hospice)? DNR status @ -No What co-morbidities impacted this encounter? (DM, HTN, Smoking, COPD, CAD, Cancer, CVA, ARF, Chemo, Hep., AIDS, mental health diagnosis, sleep apnea, morbid obesity)? @ -Tonsillar cancer status post trach and PEG Was patient admitted / discharged? Hospital course, mention meds given and route, prescriptions, significant lab abnormalities, going to OR and other pertinent info. @ -Upon arrival patient was placed into room 1. A thorough history and physical exam was performed. Trach is suction and there is only a small amount of pink tinged bleeding. There is no visible bleeding around the trach site. Laboratory studies were conducted. Hemoglobin is stable. I did offer admission for observation however patient wants to go home at this time. They are instructed to call the ENT in the morning. Return for any new or worsening symptoms. Patient was agreeable and discharged in stable condition Undiagnosed new problem with uncertain prognosis? @ -No Drug Therapy requiring intensive monitoring for toxicity (Heparin, Nitro, Insulin, Cardizem)? @ -No Were any procedures done? @ -No Diagnosis/symptom? @ -Acute hemoptysis Acute, or Chronic, or Acute on Chronic? @ -Acute, recurrent Uncomplicated (without systemic symptoms) or Complicated (systemic symptoms)? @ -Complicated Side effects of treatment? @ -No Exacerbation, Progression, or Severe Exacerbation? @ -No Poses a threat to life or bodily function? How? (Chest pain, [place], [place], pneumonia, PE, COPD, DKA, ARF, appy, cholecystitis, CVA, Diverticulitis, Homicidal, Suicidal, threat to staff... and all critical care pts) @ -Yes patient has suffered from previous tonsillar bleed - Lab Data Result diagrams: 08/18/22 23:17 08/18/22 23:17 Lab Results 08/18/22 08/18/22 08/18/22 Range/Units 23:17 23:17 23:22 WBC 5.8 (3.8-10.6) k/uL RBC 4.05 (3.80-5.40) m/uL Hgb 10.4 L (11.4-16.0) gm/dL Hct 34.1 (34.0-46.0) % MCV 84.3 (80.0-100.0) fL MCH 25.8 (25.0-35.0) pg MCHC 30.6 L (31.0-37.0) g/dL RDW 16.9 H (11.5-15.5) % Plt Count 372 (150-450) k/uL MPV 8.0 Neutrophils % 74 % Lymphocytes % 12 % Monocytes % 8 % Eosinophils % 3 % Basophils % 0 % Neutrophils # 4.3 (1.3-7.7) k/uL Lymphocytes # 0.7 L (1.0-4.8) k/uL Monocytes # 0.4 (0-1.0) k/uL Eosinophils # 0.2 (0-0.7) k/uL Basophils # 0.0 (0-0.2) k/uL Hypochromasia Moderate Anisocytosis Slight PT 9.9 (9.0-12.0) sec INR 0.9 (<1.2) APTT 23.2 (22.0-30.0) sec Sodium 135 L (137-145) mmol/L Potassium 3.8 (3.5-5.1) mmol/L Chloride 100 (98-107) mmol/L Carbon Dioxide 29 (22-30) mmol/L Anion Gap 6 mmol/L BUN 19 H (7-17) mg/dL Creatinine 0.41 L (0.52-1.04) mg/dL Est GFR (CKD-EPI)AfAm >90 (>60 ml/min/1.73 sqM) Est GFR (CKD-EPI)NonAf >90 (>60 ml/min/1.73 sqM) Glucose 104 H (74-99) mg/dL Calcium 8.8 (8.4-10.2) mg/dL Total Bilirubin 0.2 (0.2-1.3) mg/dL AST 18 (14-36) U/L ALT 17 (4-34) U/L Alkaline Phosphatase 84 (38-126) U/L Total Protein 6.1 L (6.3-8.2) g/dL Albumin 3.2 L (3.5-5.0) g/dL Disposition Clinical Impression: Head and neck cancer, Tracheostomy complication Disposition: HOME SELF-CARE Condition: Stable Instructions (If sedation given, give patient instructions): Tracheostomy Care (ED) Additional Instructions: Please call the ENT in the morning. Return should you have any new or worsening symptoms Is patient prescribed a controlled substance at d/c from ED?: No Referrals: Rell Arreola DO [Primary Care Provider] - 1-2 days Yoel Morton MD [REFERRING] - 1-2 days Time of Disposition: 00:59
[2022-08-19 01:34] VITALS: BP 121/72; PULSE 78; RESP 16; TEMP 98.1
--- NOTE | 2022-08-19 04:37 | XR ---
EXAMINATION TYPE: XR chest 2V DATE OF EXAM: 08/19/2022 12:15 AM COMPARISON: Chest radiographs from 08/15/2022 TECHNIQUE: XR chest 2V Frontal and lateral views of the chest. CLINICAL INDICATION:Female, 62 years old with history of Cough/pain; FINDINGS: Lungs/Pleura: There is no evidence of pleural effusion, focal consolidation, or pneumothorax. Left m idlung opacity similar prior. Pulmonary vascularity: Unremarkable. Heart/mediastinum: Cardiomediastinal silhouette is unremarkable. Musculoskeletal: No acute osseous pathology. Other findings: None Lines/Tubes: [id number] projecting over the right hemithorax with distal tip at the cavoatrial junction. Tracheostomy cannula terminates over the trachea. IMPRESSION: 1. No acute cardiopulmonary disease/process. 2. Stable support line and tube.
== END 2022-08-19 01:34 | disposition home or self-care (01) ==
LOC: EC 22:53
DX: C76.0 Malignant neoplasm of head, face and neck (principal); J95.00 Unspecified tracheostomy complication; I25.10 Atherosclerotic heart disease of native coronary artery without angina pectoris; I10 Essential (primary) hypertension; I25.2 Old myocardial infarction; F17.200 Nicotine dependence, unspecified, uncomplicated; Z79.899 Other long term (current) drug therapy; Z88.0 Allergy status to penicillin; Z88.5 Allergy status to narcotic agent
CPT/HCPCS: 36415; 80053; 85025; 85610; 85730; 71046; 99284; 96374; J2270

== ENCOUNTER → 2022-09-15 | Outpatient (CLI) | payer OTHER ==
[2022-09-15 15:26] LABS: African American GFR (CKD) >90 (>60 ml/min/1.73 sqM); Blood Urea Nitrogen 23 mg/dL (7-17); Non-African American GFR(CKD) >90 (>60 ml/min/1.73 sqM)
--- NOTE | 2022-09-15 16:21 | CT ---
EXAMINATION TYPE: CT abdomen pelvis w con DATE OF EXAM: 09/15/2022 COMPARISON: PET/CT dated 06/30/[address] abdomen pelvis 02/06/2022 HISTORY: Recent UTI 2wks ago. On going RT side flank pain. R/O mets. CT DLP: 343.1 mGycm CONTRAST: CT scan of the abdomen and pelvis is performed without Oral Contrast and with IV Contrast, patient in jected with 100 ml mL of Isovue 300. FINDINGS: LUNG BASES-: No visible nodule. No infiltrate. LIVER/GB: No calcified gallstones. Stable 7 mm cyst left hepatic lobe lateral segment. Additional c yst segment 5. Biliary tree is of normal caliber. PANCREAS: No inflammation. No distinct mass. SPLEEN: No splenic enlargement. No lesion seen. ADRENALS: No nodule. No thickening. KIDNEYS/BLADDER: No hydronephrosis. No nephrolithiasis. No distinct renal mass. Urinary bladder g rossly unremarkable. BOWEL: Normal appendix. Normal bowel caliber. No inflammation. Gastrostomy tube is noted to be in p lace. GENITAL ORGANS: Hysterectomy changes noted. LYMPH NODES: No greater than 1cm abdominal or pelvic lymph nodes are appreciated. AORTA: No significant abnormality. OSSEOUS STRUCTURES: No significant abnormality is seen. OTHER: Right Sided posterior paraspinal musculature demonstrates an enhancing mass measuring 3.7 cm c ompatible with metastatic lesion. This is located at the L1-2 level. IMPRESSION: 1. Intramuscular mass measuring 3.7 cm compatible with metastatic lesion at the right posterior mauro eduardo musculature measuring 3.7 cm. Mass is located at the L1-2 level. No associated bony destruction at this time. There is associated pleural thickening at the right lung base.
== END | disposition home or self-care (01) ==
LOC: RADCTMAIN 14:26
PROVIDERS: ATTEND Internal Medicine Hematology & Oncology
DX: Z03.89 Encounter for observation for other suspected diseases and conditions ruled out (principal); C76.0 Malignant neoplasm of head, face and neck; J92.9 Pleural plaque without asbestos; R91.8 Other nonspecific abnormal finding of lung field
CPT/HCPCS: 82565; 84520; 74177; 36415; Q9967

== ENCOUNTER 2022-11-25 16:58 | Emergency (ER) | payer OTHER ==
[2022-11-25 17:10] VITALS: BP 155/90; PULSE 118; RESP 18; TEMP 98
--- NOTE | 2022-11-25 17:18 | ED ---
SOB HPI - General Chief Complaint: Shortness of Breath Stated Complaint: RAFAELA Time Seen by Provider: 11/25/22 17:17 Source: patient, RN notes reviewed, old records reviewed Mode of arrival: ambulatory Limitations: no limitations - History of Present Illness Initial Comments: This is a 62-year-old female to the emergency department for evaluation. Emmanuelle perry presents today for evaluation regards to shortness of breath persistent shortness breath patient feels like she is having a significant amount of difficulty catching her breath at times. Symptoms for a few days now. No significant sick contacts or travel history. Patient does have tracheostomy does have prior ER visits for similar symptoms. No recent fevers. No chills no other complaints MD Complaint: shortness of breath, cough, chest pain -: days(s) Severity: moderate Severity scale (1-10): 4 Quality: aching Consistency: constant Improves With: nothing Worsens With: nothing Context: recent URI, recent illness Associated Symptoms: cough, sputum production Treatments Prior to Arrival: none - Related Data Home Medications Medication Instructions Recorded Confirmed Ondansetron Odt [Zofran ODT] 8 mg PO QID PRN 04/03/22 11/25/22 Metoprolol Succinate [Kapspargo 100 mg PEG/G-TUBE DAILY@1000 08/15/22 11/25/22 Sprinkle] Morphine 20mg/5ml 16 mg PEG/G-TUBE Q4H 08/15/22 11/25/22 Clopidogrel [Plavix] 75 mg PEG/G-TUBE DAILY@1000 11/16/22 11/25/22 OLANZapine [ZyPREXA] 5 mg PO DAILY@1600 11/16/22 11/25/22 Prochlorperazine [Compazine] 5 - 10 mg PO QID 11/16/22 11/25/22 Aspirin 81 mg PEG/G-TUBE DAILY@1000 11/25/22 11/25/22 Chlorhexidine Gluconate [Peridex] 15 ml PO BID 11/25/22 11/25/22 Nystatin [Nystatin Oral Susp] 500,000 unit PO QID 11/25/22 11/25/22 fentaNYL 75MCG/HR PATCH [Duragesic 1 patch TRANSDERM Q3D@1800 11/25/22 11/25/22 75MCG/HR] Allergies Allergy/AdvReac Type Severity Reaction Status Date / Time Penicillins AdvReac Severe nausea/vomi Verified 11/25/22 20:40 ting codeine AdvReac Nausea & Verified 11/25/22 20:40 Vomiting & Diarrhea Review of Systems ROS Statement: Those systems with pertinent positive or pertinent negative responses have been documented in the HPI. ROS Other: All systems not noted in ROS Statement are negative. Past Medical History Past Medical History: Coronary Artery Disease (CAD), Cancer, Hyperlipidemia, Hypertension, Myocardial Infarction (SC) Additional Past Medical History / Comment(s): hx stomach ulcer, tonsil cancer Last Myocardial Infarction Date:: 08/19/21 History of Any Multi-Drug Resistant Organisms: None Reported Past Surgical History: Heart Catheterization With Stent, Hysterectomy, Tubal Ligation Additional Past Surgical History / Comment(s): egd, Trach Past Anesthesia/Blood Transfusion Reactions: No Reported Reaction Date of Last Stent Placement:: 08/19/21 Past Psychological History: No Psychological Hx Reported Smoking Status: Former smoker Past Alcohol Use History: None Reported Past Drug Use History: None Reported - Past Family History Mother Family Medical History: Cancer Additional Family Medical History / Comment(s): lung cancer Sister(s) Family Medical History: Cancer Additional Family Medical History / Comment(s): breast cancer General Exam Limitations: no limitations General appearance: alert, in no apparent distress, anxious Head exam: Present: atraumatic, normocephalic, normal inspection Eye exam: Present: normal appearance, PERRL, EOMI. Absent: scleral icterus, conjunctival injection, periorbital swelling ENT exam: Present: normal exam, mucous membranes moist Neck exam: Present: normal inspection. Absent: tenderness, meningismus, lymphadenopathy Respiratory exam: Present: normal lung sounds bilaterally. Absent: respiratory distress, wheezes, rales, rhonchi, stridor Cardiovascular Exam: Present: normal rhythm, tachycardia, normal heart sounds. Absent: systolic murmur, diastolic murmur, rubs, gallop, clicks GI/Abdominal exam: Present: soft, normal bowel sounds. Absent: distended, tenderness, guarding, rebound, rigid Extremities exam: Present: normal inspection, full ROM, normal capillary refill. Absent: tenderness, pedal edema, joint swelling, calf tenderness Back exam: Present: normal inspection Neurological exam: Present: alert, oriented X3, CN II-XII intact Psychiatric exam: Present: normal affect, normal mood Skin exam: Present: warm, dry, intact, normal color. Absent: rash Course Vital Signs 11/25/22 17:02 Temperature 98 F Pulse Rate 118 H Respiratory 18 Rate Blood Pressure 155/90 O2 Sat by Pulse 97 Oximetry - Reevaluation(s) Reevaluation #1: 11/25/22 20:07 Medical records reviewed Reevaluation #2: 11/25/22 20:07 Significant change in symptoms here in the ER patient is in no distress Reevaluation #3: 11/25/22 20:07 Patient informed of results and questions answered Reevaluation #4: 11/25/22 20:07 Was pt. sent in by a medical professional or institution (, ALIYA, LEAD INJECTION MOLD TECHNICIAN, urgent care, hospital, or longterm...) When possible be specific @ -no Did you speak to anyone other than the patient for history (EMS, parent, family, police, friend...)? What history was obtained from this source @ -no Did you review nursing and triage notes (agree or disagree)? Why? @ -agree Are old charts reviewed (outside hosp., previous admission, EMS record, old EKG, old radiological studies, urgent care reports/EKG's, longterm records)? Report findings @ -yes Differential Diagnosis (chest pain, altered mental status, abdominal pain women, abdominal pain men, vaginal bleeding, weakness, fever, dyspnea, syncope, headache, dizziness, GI bleed, back pain, seizure, CVA, palpatations, mental health, musculoskeletal)? @ -prior EKG interpreted by me (3pts min.). @ -yes X-rays interpreted by me (1pt min.). @ -yes CT interpreted by me (1pt min.). @ -no U/S interpreted by me (1pt. min.). @ -no What testing was considered but not performed or refused? (CT, X-rays, U/S, labs)? Why? @ -none What meds were considered but not given or refused? Why? @ -none Did you discuss the management of the patient with other professionals (professionals i.e. ALIYA Burns, LEAD INJECTION MOLD TECHNICIAN, lab, RT, psych nurse, high school social studies tutor, fixed interest dealer, teacher, immigration services officer, child welfare caseworker)? Give summary @ -no Was smoking cessation discussed for >3mins.? @ -no Was critical care preformed (if so, how long)? @ -no Were there social determinants of health that impacted care today? How? (Homelessness, low income, unemployed, alcoholism, drug addiction, transportation, low edu. Level, literacy, decrease access to med. care, snf, rehab)? @ -none Was there de-escalation of care discussed even if they declined (Discuss DNR or withdrawal of care, Hospice)? DNR status @ -no What co-morbidities impacted this encounter? (DM, HTN, Smoking, COPD, CAD, Cancer, CVA, ARF, Chemo, Hep., AIDS, mental health diagnosis, sleep apnea, morbid obesity)? @ -none Was patient admitted / discharged? Hospital course, mention meds given and route, prescriptions, significant lab abnormalities, going to OR and other pertinent info. @ - 62 female to the emergency department for evaluation of acute on chronic shortness of breath dyspnea. Patient has no current chest pain here in the ER no travel history no sick contacts no other complaints patient feels improved here in the ER and can be discharged Discharge Undiagnosed new problem with uncertain prognosis? @ -no Drug Therapy requiring intensive monitoring for toxicity (Heparin, Nitro, Insulin, Cardizem)? @ -no Were any procedures done? @ -no Diagnosis/symptom? @ -Dyspnea and shortness of breath Acute, or Chronic, or Acute on Chronic? @ -Acute Uncomplicated (without systemic symptoms) or Complicated (systemic symptoms)? @ -Complicated Side effects of treatment? @ -no Exacerbation, Progression, or Severe Exacerbation? @ -exacerbation Poses a threat to life or bodily function? How? (Chest pain, USA, SC, pneumonia, PE, COPD, DKA, ARF, appy, cholecystitis, CVA, Diverticulitis, Homicidal, Suicidal, threat to staff... and all critical care pts) @ -no Reevaluation #5: 11/25/22 20:07 Differential Dyspnea: Coronary syndrome, arrhythmia, tamponade, asthma, COPD, pulmonary embolism, pneumonia, pneumothorax, pulmonary effusion, anaphylaxis, diabetic ketoacidosis, flailed chest, pulmonary contusion, diaphragmatic rupture, anemia, neuromusc ular, this is not meant to be an all-inclusive list. Medical Decision Making - Medical Decision Making 62 female to the emergency department for evaluation of acute on chronic shortness of breath dyspnea. Patient has no current chest pain here in the ER no travel history no sick contacts no other complaints patient feels improved here in the ER and can be discharged - Lab Data Result diagrams: 11/25/22 19:35 11/25/22 19:35 Lab Results 11/25/22 11/25/22 11/25/22 Range/Units 19:35 19:35 19:35 WBC 2.9 L (3.8-10.6) k/uL RBC 3.95 (3.80-5.40) m/uL Hgb 10.9 L (11.4-16.0) gm/dL Hct 33.3 L (34.0-46.0) % MCV 84.3 (80.0-100.0) fL MCH 27.6 (25.0-35.0) pg MCHC 32.7 (31.0-37.0) g/dL RDW 14.3 (11.5-15.5) % Plt Count 282 (150-450) k/uL MPV 9.6 Neutrophils % 70 % Lymphocytes % 14 % Monocytes % 10 % Eosinophils % 2 % Basophils % 0 % Neutrophils # 2.1 (1.3-7.7) k/uL Lymphocytes # 0.4 L (1.0-4.8) k/uL Monocytes # 0.3 (0-1.0) k/uL Eosinophils # 0.1 (0-0.7) k/uL Basophils # 0.0 (0-0.2) k/uL PT 9.5 L (10.0-12.5) sec INR 0.8 (<1.2) APTT 20.1 L (22.0-30.0) sec Sodium 136 L (137-145) mmol/L Potassium 4.6 (3.5-5.1) mmol/L Chloride 99 (98-107) mmol/L Carbon Dioxide 27 (22-30) mmol/L Anion Gap 10 mmol/L BUN 23 H (7-17) mg/dL Creatinine 0.47 L (0.52-1.04) mg/dL Est GFR (CKD-EPI)AfAm >90 (>60 ml/min/1.73 sqM) Est GFR (CKD-EPI)NonAf >90 (>60 ml/min/1.73 sqM) Glucose 108 H (74-99) mg/dL Calcium 9.3 (8.4-10.2) mg/dL Magnesium 1.9 (1.6-2.3) mg/dL Total Bilirubin 0.1 L (0.2-1.3) mg/dL AST 24 (14-36) U/L ALT 19 (4-34) U/L Alkaline Phosphatase 108 (38-126) U/L Troponin I (0.000-0.034) ng/mL NT-Pro-B Natriuret Pep 161 pg/mL Total Protein 6.6 (6.3-8.2) g/dL Albumin 3.6 (3.5-5.0) g/dL 11/25/22 Range/Units 19:35 WBC (3.8-10.6) k/uL RBC (3.80-5.40) m/uL Hgb (11.4-16.0) gm/dL Hct (34.0-46.0) % MCV (80.0-100.0) fL MCH (25.0-35.0) pg MCHC (31.0-37.0) g/dL RDW (11.5-15.5) % Plt Count (150-450) k/uL MPV Neutrophils % % Lymphocytes % % Monocytes % % Eosinophils % % Basophils % % Neutrophils # (1.3-7.7) k/uL Lymphocytes # (1.0-4.8) k/uL Monocytes # (0-1.0) k/uL Eosinophils # (0-0.7) k/uL Basophils # (0-0.2) k/uL PT (10.0-12.5) sec INR (<1.2) APTT (22.0-30.0) sec Sodium (137-145) mmol/L Potassium (3.5-5.1) mmol/L Chloride (98-107) mmol/L Carbon Dioxide (22-30) mmol/L Anion Gap mmol/L BUN (7-17) mg/dL Creatinine (0.52-1.04) mg/dL Est GFR (CKD-EPI)AfAm (>60 ml/min/1.73 sqM) Est GFR (CKD-EPI)NonAf (>60 ml/min/1.73 sqM) Glucose (74-99) mg/dL Calcium (8.4-10.2) mg/dL Magnesium (1.6-2.3) mg/dL Total Bilirubin (0.2-1.3) mg/dL AST (14-36) U/L ALT (4-34) U/L Alkaline Phosphatase (38-126) U/L Troponin I <0.012 (0.000-0.034) ng/mL NT-Pro-B Natriuret Pep pg/mL Total Protein (6.3-8.2) g/dL Albumin (3.5-5.0) g/dL - EKG Data -: EKG Interpreted by Me (EKG is sinus tachycardia 100 IL 127 QRS 87 QTC 388) - Radiology Data Radiology results: report reviewed (Chest x-rays negative for acute disease), image reviewed Disposition Clinical Impression: Dyspnea Disposition: HOME SELF-CARE Condition: Good Instructions (If sedation given, give patient instructions): Dyspnea (ED), Bronchospasm (ED) Is patient prescribed a controlled substance at d/c from ED?: No Referrals: Rell Arreola DO [Primary Care Provider] - 1-2 days Time of Disposition: 20:30
--- NOTE | 2022-11-25 18:22 | XR ---
EXAMINATION TYPE: XR chest 1V portable DATE OF EXAM: 11/25/2022 6:16 PM CLINICAL INDICATION:Female, 62 years old with history of sob; [facility] COMPARISON: 08/20/2019 TECHNIQUE: XR chest 1V portable Frontal view of the chest. FINDINGS: Lungs/Pleura: 16 mm left upper lung nodule unchanged. There is flattening of the diaphragm with incre ased lucency of the lungs. No evidence of pneumothorax, pleural effusion or focal consolidation. Pulmonary vascularity: Unremarkable. Heart/mediastinum: Cardiomediastinal silhouette is unremarkable. Musculoskeletal: No acute osseous pathology. Other findings: None Lines/Tubes: Tracheostomy cannula tip projecting over the trachea. [id number] projecting over the right hemithorax with distal tip at the cavoatrial junction. IMPRESSION: No evidence for acute process. Left upper lung nodular opacity measuring 16 mm similar to prior in 08/19/2022. COPD changes.
[2022-11-25 20:00] LABS: ALT 19 U/L (4-34); AST 24 U/L (14-36); African American GFR (CKD) >90 (>60 ml/min/1.73 sqM); Albumin 3.6 g/dL (3.5-5.0); Alkaline Phosphatase 108 U/L (38-126); Anion Gap 10 mmol/L; Blood Urea Nitrogen 23 mg/dL (7-17); Calcium 9.3 mg/dL (8.4-10.2); Carbon Dioxide 27 mmol/L (22-30); Chloride 99 mmol/L (98-107); Glucose 108 mg/dL (74-99); Magnesium 1.9 mg/dL (1.6-2.3); Non-African American GFR(CKD) >90 (>60 ml/min/1.73 sqM); Potassium 4.6 mmol/L (3.5-5.1); Sodium 136 mmol/L (137-145); Total Bilirubin 0.1 mg/dL (0.2-1.3); Total Protein 6.6 g/dL (6.3-8.2)
[2022-11-25 20:06] LABS: INR 0.8 (<1.2); Prothrombin Time 9.5 sec (10.0-12.5)
[2022-11-25 20:08] LABS: NT-Pro-B-Type Natriuretic Pept 161 pg/mL
[2022-11-25 20:09] LABS: Partial Thromboplastin Time 20.1 sec (22.0-30.0)
[2022-11-25 20:28] LABS: Basophils % (A) 0 %; Eosinophils # (A) 0.1 k/uL (0-0.7); Eosinophils % (A) 2 %; HCT 33.3 % (34.0-46.0); HGB 10.9 gm/dL (11.4-16.0); Lymphocytes # (A) 0.4 k/uL (1.0-4.8); Lymphocytes % (A) 14 %; MCH 27.6 pg (25.0-35.0); MCHC 32.7 g/dL (31.0-37.0); MCV 84.3 fL (80.0-100.0); Mean Platelet Volume 9.6; Monocytes # (A) 0.3 k/uL (0-1.0); Monocytes % (A) 10 %; Neutrophils # (A) 2.1 k/uL (1.3-7.7); Neutrophils % (A) 70 %; Platelet Count 282 k/uL (150-450); RBC 3.95 m/uL (3.80-5.40); RDW 14.3 % (11.5-15.5); WBC 2.9 k/uL (3.8-10.6)
== END 2022-11-25 20:53 | disposition home or self-care (01) ==
LOC: EC 16:58
DX: R06.00 Dyspnea, unspecified (principal); I25.10 Atherosclerotic heart disease of native coronary artery without angina pectoris; I10 Essential (primary) hypertension; I25.2 Old myocardial infarction; Z79.82 Long term (current) use of aspirin; Z79.02 Long term (current) use of antithrombotics/antiplatelets; Z79.899 Other long term (current) drug therapy; Z87.891 Personal history of nicotine dependence; Z88.0 Allergy status to penicillin; Z88.5 Allergy status to narcotic agent
CPT/HCPCS: 36415; 71045; 80053; 83735; 83880; 84484; 85025; 85610; 85730; 99285

== ENCOUNTER 2022-12-10 04:28 | Observation (INO) | payer OTHER ==
[2022-12-10] MEDS ORDERED: SODIUM CHLORIDE 0.9% 500 ML 500 ML IV STA (04:50)
[2022-12-10] MEDS ORDERED: HYDROmorphone 0.5 MG/0.5 ML SYRINGE IVP STA (04:50)
--- NOTE | 2022-12-10 04:55 | ED ---
SOB HPI - General Chief Complaint: Shortness of Breath Stated Complaint: SOB Time Seen by Provider: 12/10/22 04:35 Source: patient, RN notes reviewed, old records reviewed Mode of arrival: ambulatory Limitations: no limitations - History of Present Illness Initial Comments: This is a 65-year-old female DF for evaluation. Patient Dese for evaluation of tracheostomy. Patient is here for shortness of breath which is a recurrent issue for this patient. She has persistent cough and congestion here in the ER patient denies fever or chest pain MD Complaint: shortness of breath, cough -: days(s) Severity: moderate Severity scale (1-10): 4 Quality: dull Consistency: constant Improves With: nothing Worsens With: nothing Known History Of: COPD Context: recent URI Associated Symptoms: denies other symptoms Treatments Prior to Arrival: none - Related Data Home Medications Medication Instructions Recorded Confirmed Ondansetron Odt [Zofran ODT] 8 mg PO QID PRN 04/03/22 12/07/22 Metoprolol Succinate [Kapspargo 100 mg PEG/G-TUBE DAILY@1000 08/15/22 12/07/22 Sprinkle] Morphine 20mg/5ml 16 mg PEG/G-TUBE Q4H 08/15/22 12/07/22 Clopidogrel [Plavix] 75 mg PEG/G-TUBE DAILY@1000 11/16/22 12/07/22 OLANZapine [ZyPREXA] 5 mg PO DAILY@1600 11/16/22 12/07/22 Prochlorperazine [Compazine] 5 - 10 mg PO QID 11/16/22 12/07/22 Aspirin 81 mg PEG/G-TUBE DAILY@1000 11/25/22 12/07/22 Chlorhexidine Gluconate [Peridex] 15 ml PO BID 11/25/22 12/07/22 Nystatin [Nystatin Oral Susp] 500,000 unit PO QID 11/25/22 12/07/22 fentaNYL 75MCG/HR PATCH [Duragesic 1 patch TRANSDERM Q3D@1800 11/25/22 12/07/22 75MCG/HR] Allergies Allergy/AdvReac Type Severity Reaction Status Date / Time Penicillins AdvReac Severe nausea/vomi Verified 12/10/22 04:42 ting codeine AdvReac Nausea & Verified 12/10/22 04:42 Vomiting & Diarrhea Review of Systems ROS Statement: Those systems with pertinent positive or pertinent negative responses have been documented in the HPI. ROS Other: All systems not noted in ROS Statement are negative. Past Medical History Past Medical History: Coronary Artery Disease (CAD), Cancer, Hyperlipidemia, Hypertension, Myocardial Infarction (MT) Additional Past Medical History / Comment(s): hx stomach ulcer, tonsil cancer Last Myocardial Infarction Date:: 08/19/21 History of Any Multi-Drug Resistant Organisms: None Reported Past Surgical History: Heart Catheterization With Stent, Hysterectomy, Tubal Ligation Additional Past Surgical History / Comment(s): egd, Trach, peg tube Past Anesthesia/Blood Transfusion Reactions: No Reported Reaction Date of Last Stent Placement:: 08/19/21 Past Psychological History: No Psychological Hx Reported Smoking Status: Former smoker Past Alcohol Use History: None Reported Past Drug Use History: None Reported - Past Family History Mother Family Medical History: Cancer Additional Family Medical History / Comment(s): lung cancer Sister(s) Family Medical History: Cancer Additional Family Medical History / Comment(s): breast cancer General Exam Limitations: no limitations General appearance: alert, in no apparent distress Head exam: Present: atraumatic, normocephalic, normal inspection Eye exam: Present: normal appearance, PERRL, EOMI. Absent: scleral icterus, con junctival injection, periorbital swelling ENT exam: Present: normal exam, mucous membranes moist Neck exam: Present: normal inspection. Absent: tenderness, meningismus, lymphadenopathy Respiratory exam: Present: normal lung sounds bilaterally. Absent: respiratory distress, wheezes, rales, rhonchi, stridor Cardiovascular Exam: Present: regular rate, normal rhythm, normal heart sounds. Absent: systolic murmur, diastolic murmur, rubs, gallop, clicks GI/Abdominal exam: Present: soft, normal bowel sounds. Absent: distended, tenderness, guarding, rebound, rigid Extremities exam: Present: normal inspection, full ROM, normal capillary refill. Absent: tenderness, pedal edema, joint swelling, calf tenderness Back exam: Present: normal inspection Neurological exam: Present: alert, oriented X3, CN II-XII intact Psychiatric exam: Present: normal affect, normal mood Skin exam: Present: warm, dry, intact, normal color. Absent: rash Course Vital Signs 12/10/22 12/10/2223 04:39 04:44 05:00 Temperature 97.7 F Pulse Rate 121 H 117 H Respiratory 16 18 16 Rate Blood Pressure 150/90 150/90 O2 Sat by Pulse 95 94 L Oximetry 12/10/22 06:00 Temperature Pulse Rate 106 H Respiratory 18 Rate Blood Pressure 123/75 O2 Sat by Pulse 94 L Oximetry - Reevaluation(s) Reevaluation #1: 12/10/22 05:23 Records reviewed Reevaluation #2: 12/10/22 06:17 Patient has no improvement in symptoms Reevaluation #3: 12/10/22 06:17 Patient informed results questions answered Reevaluation #4: 12/10/22 05:23 Was pt. sent in by a medical professional or institution (ALIYA Burns, JOINERY MACHINIST, urgent care, hospital, or alf...) When possible be specific @ -no Did you speak to anyone other than the patient for history (EMS, parent, family, police, friend...)? What history was obtained from this source @ -no Did you review nursing and triage notes (agree or disagree)? Why? @ -agree Are old charts reviewed (outside hosp., previous admission, EMS record, old EKG, old radiological studies, urgent care reports/EKG's, alf records)? Report findings @ -yes Differential Diagnosis (chest pain, altered mental status, abdominal pain women, abdominal pain men, vaginal bleeding, weakness, fever, dyspnea, syncope, headache, dizziness, GI bleed, back pain, seizure, CVA, palpatations, mental health, musculoskeletal)? @ -prior EKG interpreted by me (3pts min.). @ -yes X-rays interpreted by me (1pt min.). @ -yes CT interpreted by me (1pt min.). @ -no U/S interpreted by me (1pt. min.). @ -no What testing was considered but not performed or refused? (CT, X-rays, U/S, labs)? Why? @ -none What meds were considered but not given or refused? Why? @ -none Did you discuss the management of the patient with other professionals (pr ofessionals i.e. ALIYA Burns, JOINERY MACHINIST, lab, RT, psych nurse, social science manager, ergonomics technician, teacher, chief diversity officer, correctional case records supervisor)? Give summary @ -no Was smoking cessation discussed for >3mins.? @ -no Was critical care preformed (if so, how long)? @ -no Were there social determinants of health that impacted care today? How? (Homelessness, low income, unemployed, alcoholism, drug addiction, transportation, low edu. Level, literacy, decrease access to med. care, snf, rehab)? @ -none Was there de-escalation of care discussed even if they declined (Discuss DNR or withdrawal of care, Hospice)? DNR status @ -no What co-morbidities impacted this encounter? (DM, HTN, Smoking, COPD, CAD, Cancer, CVA, ARF, Chemo, Hep., AIDS, mental health diagnosis, sleep apnea, morbid obesity)? @ -none Was patient admitted / discharged? Hospital course, mention meds given and route, prescriptions, significant lab abnormalities, going to OR and other pertinent info. @ - Undiagnosed new problem with uncertain prognosis? @ -no Drug Therapy requiring intensive monitoring for toxicity (Heparin, Nitro, Insulin, Cardizem)? @ -no Were any procedures done? @ -no Diagnosis/symptom? @ - Acute, or Chronic, or Acute on Chronic? @ -Acute Uncomplicated (without systemic symptoms) or Complicated (systemic symptoms)? @ -Complicated Side effects of treatment? @ -no Exacerbation, Progression, or Severe Exacerbation? @ -exacerbation Poses a threat to life or bodily function? How? (Chest pain, USA, MT, pneumonia, PE, COPD, DKA, ARF, appy, cholecystitis, CVA, Diverticulitis, Homicidal, Suicidal, threat to staff... and all critical care pts) @ -yes Reevaluation #5: 12/10/22 05:23 Differential Dyspnea: Coronary syndrome, arrhythmia, tamponade, asthma, COPD, pulmonary embolism, pneumonia, pneumothorax, pulmonary effusion, anaphylaxis, diabetic ketoacidosis, flailed chest, pulmonary contusion, diaphragmatic rupture, anemia, neuromuscular, this is not meant to be an all-inclusive list. - Consultations Consultation #1: Spoke with [facility] we'll admit this patient Medical Decision Making - Medical Decision Making 62 female to the emergency department for evaluation of severe shortness of breath. Patient has known complications of cancer with tracheostomy. Patient has persistent shortness of breath here in the ER low symptoms are persistent, patient will be admitted for further evaluation management if she has multiple ER visits for similar complaints without confounding diagnosis or improvement - Lab Data Result diagrams: 12/10/22 04:52 12/10/22 04:52 Lab Results 12/10/22 12/10/22 12/10/22 Range/Units 04:52 04:52 04:52 WBC 8.0 (3.8-10.6) k/uL RBC 4.27 (3.80-5.40) m/uL Hgb 11.9 (11.4-16.0) gm/dL Hct 37.3 (34.0-46.0) % MCV 87.3 (80.0-100.0) fL MCH 27.9 (25.0-35.0) pg MCHC 32.0 (31.0-37.0) g/dL RDW 16.7 H (11.5-15.5) % Plt Count 348 (150-450) k/uL MPV 7.9 Neutrophils % 94 % Lymphocytes % 3 % Monocytes % 2 % Eosinophils % 1 % Basophils % 0 % Neutrophils # 7.5 (1.3-7.7) k/uL Lymphocytes # 0.3 L (1.0-4.8) k/uL Monocytes # 0.2 (0-1.0) k/uL Eosinophils # 0.1 (0-0.7) k/uL Basophils # 0.0 (0-0.2) k/uL Hypochromasia Slight Anisocytosis Slight Sodium 135 L (137-145) mmol/L Potassium 4.3 (3.5-5.1) mmol/L Chloride 100 (98-107) mmol/L Carbon Dioxide 24 (22-30) mmol/L Anion Gap 11 mmol/L BUN 20 H (7-17) mg/dL Creatinine 0.41 L (0.52-1.04) mg/dL Est GFR (CKD-EPI)AfAm >90 (>60 ml/min/1.73 sqM) Est GFR (CKD-EPI)NonAf >90 (>60 ml/min/1.73 sqM) Glucose 116 H (74-99) mg/dL Calcium 9.2 (8.4-10.2) mg/dL Magnesium 1.9 (1.6-2.3) mg/dL Total Bilirubin 0.6 (0.2-1.3) mg/dL AST 39 H (14-36) U/L ALT 24 (4-34) U/L Alkaline Phosphatase 88 (38-126) U/L Troponin I <0.012 (0.000-0.034) ng/mL NT-Pro-B Natriuret Pep 116 pg/mL Total Protein 7.0 (6.3-8.2) g/dL Albumin 3.8 (3.5-5.0) g/dL - EKG Data -: EKG Interpreted by Me (EKG is sinus tachycardia 103 MO 109 QRS 77 QTC 410) - Radiology Data Radiology results: report reviewed (Chest x-rays negative for acute disease), image reviewed Disposition Clinical Impression: Tracheostomy complication, Dyspnea Disposition: ADMITTED IP TO THIS [facility] Condition: Fair Is patient prescribed a controlled substance at d/c from ED?: No Referrals: Rell Arreola DO [Primary Care Provider] - 1-2 days Time of Disposition: 06:15
[2022-12-10 05:02] LABS: Anisocytosis Slight; Basophils % (A) 0 %; Eosinophils # (A) 0.1 k/uL (0-0.7); Eosinophils % (A) 1 %; HCT 37.3 % (34.0-46.0); HGB 11.9 gm/dL (11.4-16.0); Hypochromasia Slight; Lymphocytes # (A) 0.3 k/uL (1.0-4.8); Lymphocytes % (A) 3 %; MCH 27.9 pg (25.0-35.0); MCV 87.3 fL (80.0-100.0); Mean Platelet Volume 7.9; Monocytes # (A) 0.2 k/uL (0-1.0); Monocytes % (A) 2 %; Neutrophils # (A) 7.5 k/uL (1.3-7.7); Neutrophils % (A) 94 %; Platelet Count 348 k/uL (150-450); RBC 4.27 m/uL (3.80-5.40); RDW 16.7 % (11.5-15.5)
[2022-12-10 05:11] LABS: ALT 24 U/L (4-34); African American GFR (CKD) >90 (>60 ml/min/1.73 sqM); Anion Gap 11 mmol/L; Blood Urea Nitrogen 20 mg/dL (7-17); Calcium 9.2 mg/dL (8.4-10.2); Carbon Dioxide 24 mmol/L (22-30); Chloride 100 mmol/L (98-107); Glucose 116 mg/dL (74-99); Non-African American GFR(CKD) >90 (>60 ml/min/1.73 sqM); Sodium 135 mmol/L (137-145)
[2022-12-10 05:14] LABS: AST 39 U/L (14-36); Albumin 3.8 g/dL (3.5-5.0); Alkaline Phosphatase 88 U/L (38-126); Magnesium 1.9 mg/dL (1.6-2.3); Potassium 4.3 mmol/L (3.5-5.1); Total Bilirubin 0.6 mg/dL (0.2-1.3)
[2022-12-10 05:18] LABS: NT-Pro-B-Type Natriuretic Pept 116 pg/mL
--- NOTE | 2022-12-10 05:41 | XR ---
EXAMINATION TYPE: XR chest 1V portable DATE OF EXAM: 12/10/2022 COMPARISON: Chest x-ray November 25, 2022 HISTORY: Shortness of breath TECHNIQUE: Single frontal view of the chest is obtained. FINDINGS: Stable right internal jugular Mediport catheter. Stable tracheostomy tube. Background chron ic emphysematous changes redemonstrated with stable near 1.5 cm left upper to midlung pulmonary nodul e. There is no new suspicious focal air space opacity, pleural effusion, or pneumothorax seen. The c ardiac silhouette size is stable and within normal limits. The osseous structures are intact. IMPRESSION: Chronic changes without new acute pulmonary process.
[2022-12-10] MEDS ORDERED: NALOXONE 0.4 MG/ML 1 ML VIAL IV PRN (06:14)
[2022-12-10] MEDS ORDERED: LORazepam 2 MG/ML INJ IV PRN (06:14)
[2022-12-10] MEDS ORDERED: HYDROmorphone 0.5 MG/0.5 ML SYRINGE IVP PRN (06:14)
[2022-12-10] MEDS: SODIUM CHLORIDE 0.9% 1,000 ML IV SCH ×2 (06:34→21:24)
[2022-12-10] MEDS ORDERED: IPRATROPIUM-ALBUTEROL 3 ML NEB INHALATION PRN (07:55)
[2022-12-10] MEDS ORDERED: ONDANSETRON ODT 8 MG TAB.RAPDIS PO PRN (08:24)
--- NOTE | 2022-12-10 08:24 | P.HPIM ---
History of Present Illness 65-year-old female came in because of shortness of breath and green sputum production from the tracheostomy site patient has a tracheostomy and a PEG tube in place acute site area appears to be clean take SB site appears to be clean as well patient is presently not requiring on she although she is still feeling short of breath does have history of COPD. Patient does haven't have any fever or leukocytosis chest x-ray did not show any pneumonia REVIEW OF SYSTEMS: CONSTITUTIONAL: No fever, no malaise, no fatigue. HEENT: No recent visual problems or hearing problems. Denied any sore throat. CARDIOVASCULAR: No chest pain, orthopnea, PND, no palpitations, no syncope. PULMONARY: no hemoptysis. GASTROINTESTINAL: No diarrhea, no nausea, no vomiting, no abdominal pain. NEUROLOGICAL: No headaches, no weakness, no numbness. HEMATOLOGICAL: Denies any bleeding or petechiae. GENITOURINARY: Denies any burning micturition, frequency, or urgency. MUSCULOSKELETAL/RHEUMATOLOGICAL: Denies any joint pain, swelling, or any muscle pain. ENDOCRINE: Denies any polyuria or polydipsia. The rest of the 14-point review of systems is negative. PHYSICAL EXAMINATION: GENERAL: The patient is alert and oriented x3, not in any acute distress. Well developed, well nourished. HEENT: Pupils are round and equally reacting to light. EOMI. No scleral icterus. No conjunctival pallor. Normocephalic, atraumatic. No pharyngeal erythema. No thyromegaly. CARDIOVASCULAR: S1 and S2 present. No murmurs, rubs, or gallops. PULMONARY: Chest is clear to auscultation, no wheezing or crackles. Mildly diminished air entry thin built female with tracheostomy and PEG tube both sides appear to be clean ABDOMEN: Soft, nontender, nondistended, normoactive bowel sounds. No palpable organomegaly. MUSCULOSKELETAL: No joint swelling or deformity. EXTREMITIES: No cyanosis, clubbing, or pedal edema. NEUROLOGICAL: Gross neurological examination did not reveal any focal deficits. SKIN: No rashes. Assessment and plan -Shortness of breath and sputum production: Probably secondary to bronchitis patient has the Pseudomonas in the past, patient was started on cefepime patient is ALLERGIC to penicillins which is rash as per the patient. -COPD with acute exacerbation significant improved since she received steroids patient's steroids will be switched to solution via PEG tube -Coronary artery disease with stents in the past -hyperlipidemia -Hypertension Once medications are verified will order the medications were available mentioned chronic medical problems - DVT prophylaxis: Past Medical History Past Medical History: Coronary Artery Disease (CAD), Cancer, Hyperlipidemia, Hypertension, Myocardial Infarction ([place]) Additional Past Medical History / Comment(s): hx stomach ulcer, tonsil cancer Last Myocardial Infarction Date:: 08/19/21 History of Any Multi-Drug Resistant Organisms: None Reported Past Surgical History: Heart Catheterization With Stent, Hysterectomy, Tubal Ligation Additional Past Surgical History / Comment(s): egd, Trach, peg tube Past Anesthesia/Blood Transfusion Reactions: No Reported Reaction Date of Last Stent Placement:: 08/19/21 Past Psychological History: No Psychological Hx Reported Smoking Status: Former smoker Past Alcohol Use History: None Reported Past Drug Use History: None Reported - Past Family History Mother Family Medical History: Cancer Additional Family Medical History / Comment(s): lung cancer Sister(s) Family Medical History: Cancer Additional Family Medical History / Comment(s): breast cancer Medications and Allergies Home Medications Medication Instructions Recorded Confirmed Type Ondansetron Odt [Zofran ODT] 8 mg PO QID PRN 04/03/22 12/07/22 History Metoprolol Succinate [Kapspargo 100 mg PEG/G-TUBE DAILY@1000 08/15/22 12/07/22 History Sprinkle] Morphine 20mg/5ml 16 mg PEG/G-TUBE Q4H 08/15/22 12/07/22 History Clopidogrel [Plavix] 75 mg PEG/G-TUBE DAILY@1000 11/16/22 12/07/22 History OLANZapine [ZyPREXA] 5 mg PO DAILY@1600 11/16/22 12/07/22 History Prochlorperazine [Compazine] 5 - 10 mg PO QID 11/16/22 12/07/22 History Aspirin 81 mg PEG/G-TUBE DAILY@1000 11/25/22 12/07/22 History Chlorhexidine Gluconate [Peridex] 15 ml PO BID 11/25/22 12/07/22 History Nystatin [Nystatin Oral Susp] 500,000 unit PO QID 11/25/22 12/07/22 History fentaNYL 75MCG/HR PATCH [Duragesic 1 patch TRANSDERM Q3D@1800 11/25/22 12/07/22 History 75MCG/HR] Allergies Allergy/AdvReac Type Severity Reaction Status Date / Time Penicillins AdvReac Severe nausea/vomi Verified 12/10/22 04:42 ting codeine AdvReac Nausea & Verified 12/10/22 04:42 Vomiting & Diarrhea Physical Exam Vitals: Vital Signs Temp Pulse Resp BP Pulse Ox 12/10/22 08:12 105 H 20 131/93 99 12/10/22 06:38 106 H 16 129/87 95 12/10/22 06:00 106 H 18 123/75 94 L 12/10/22 05:00 117 H 16 150/90 94 L 12/10/22 04:44 18 12/10/22 04:39 97.7 F 121 H 16 150/90 95 Intake and Output 12/09/22 12/10/22 12/10/22 23:59 06:59 14:59 Other: Weight Results CBC & Chem 7: 12/10/22 04:52 12/10/22 04:52 Labs: Abnormal Lab Results - Last 24 Hours (Table) 12/10/22 12/10/22 Range/Units 04:52 04:52 RDW 16.7 H (11.5-15.5) % Lymphocytes # 0.3 L (1.0-4.8) k/uL Sodium 135 L (137-145) mmol/L BUN 20 H (7-17) mg/dL Creatinine 0.41 L (0.52-1.04) mg/dL Glucose 116 H (74-99) mg/dL AST 39 H (14-36) U/L
--- NOTE | 2022-12-10 08:35 | P.DS ---
Providers Date of admission: 12/10/22 06:14 Attending physician: Billy Montana Consults: 12/10/22 06:14 Consult Physician Routine Consulting Provider: Ara Welch Consult Reason/Comments: dyspnea Do you want consulting provider notified?: Yes Primary care physician: [facility] [place] Course: History of Present Illness 65-year-old female came in because of shortness of breath and green sputum production from the tracheostomy site patient has a tracheostomy and a PEG tube in place acute site area appears to be clean take SB site appears to be clean as well patient is presently not requiring on she although she is still feeling short of breath does have history of COPD. Patient does haven't have any fever or leukocytosis chest x-ray did not show any pneumonia PHYSICAL EXAMINATION: GENERAL: The patient is alert and oriented x3, not in any acute distress. Well developed, well nourished. HEENT: Pupils are round and equally reacting to light. EOMI. No scleral icterus. No conjunctival pallor. Normocephalic, atraumatic. No pharyngeal erythema. No thyromegaly. CARDIOVASCULAR: S1 and S2 present. No murmurs, rubs, or gallops. PULMONARY: Chest is clear to auscultation, no wheezing or crackles. Mildly diminished air entry thin built female with tracheostomy and PEG tube both sides appear to be clean ABDOMEN: Soft, nontender, nondistended, normoactive bowel sounds. No palpable organomegaly. MUSCULOSKELETAL: No joint swelling or deformity. EXTREMITIES: No cyanosis, clubbing, or pedal edema. NEUROLOGICAL: Gross neurological examination did not reveal any focal deficits. SKIN: No rashes. Assessment and plan -Shortness of breath and sputum production: Probably secondary to bronchitis patient has the Pseudomonas in the past, patient will be discharged on Cipro via PEG tube for about 5 days and patient will follow-up with the PCP and gill net stringer as an outpatient and cultures can be followed up as an outpatient. The sputum cultures will be followed as outpatient -COPD with acute exacerbation significant improved since she received steroids patient's steroids will be switched to solution via PEG tube -Coronary artery disease with stents in the past -hyperlipidemia -Hypertension Once medications are verified will order the medications were available mentioned chronic medical problems - DVT prophylaxis: Patient Condition at Discharge: Fair Plan - Discharge Summary New Discharge Prescriptions: New prednisoLONE ORAL 15MG/5ML JEFFRY [Prelone] 30 mg PO DAILY #100 ml Ipratropium-Albuterol Nebulize [Duoneb 0.5 mg-3 mg/3 ml Soln] 3 ml INHALATION RT-Q2H PRN #90 dose PRN Reason: Shortness Of Breath Or Wheezing Formoterol Fumarate [Perforomist] 20 mcg INHALATION RT-BID #100 ml Ciprofloxacin Oral Susp [Cipro Susp] 750 mg PO BID #60 ml Budesonide [Pulmicort] 1 mg INHALATION RT-BID #100 ml Continue Prochlorperazine [Compazine] 5 - 10 mg PO QID OLANZapine [ZyPREXA] 5 mg PO DAILY@1600 Aspirin 81 mg PEG/G-TUBE DAILY@1000 Chlorhexidine Gluconate [Peridex] 15 ml PO BID Ondansetron Odt [Zofran ODT] 8 mg PO QID PRN PRN Reason: Nausea Metoprolol Succinate [Kapspargo Sprinkle] 100 mg PEG/G-TUBE DAILY@1000 Morphine 20mg/5ml 16 mg PEG/G-TUBE Q4H Clopidogrel [Plavix] 75 mg PEG/G-TUBE DAILY@1000 Nystatin [Nystatin Oral Susp] 500,000 unit PO QID fentaNYL 75MCG/HR PATCH [Duragesic 75MCG/HR] 1 patch TRANSDERM Q3D@1800 Discharge Medication List Ondansetron Odt [Zofran ODT] 8 mg PO QID PRN 04/03/22 [History] Metoprolol Succinate [Kapspargo Sprinkle] 100 mg PEG/G-TUBE DAILY@1000 08/15/22 [History] Morphine 20mg/5ml 16 mg PEG/G-TUBE Q4H 08/15/22 [History] Clopidogrel [Plavix] 75 mg PEG/G-TUBE DAILY@1000 11/16/22 [History] OLANZapine [ZyPREXA] 5 mg PO DAILY@1600 11/16/22 [History] Prochlorperazine [Compazine] 5 - 10 mg PO QID 11/16/22 [History] Aspirin 81 mg PEG/G-TUBE DAILY@1000 11/25/22 [History] Chlorhexidine Gluconate [Peridex] 15 ml PO BID 11/25/22 [History] Nystatin [Nystatin Oral Susp] 500,000 unit PO QID 11/25/22 [History] fentaNYL 75MCG/HR PATCH [Duragesic 75MCG/HR] 1 patch TRANSDERM Q3D@1800 11/25/22 [History] Budesonide [Pulmicort] 1 mg INHALATION RT-BID #100 ml 12/10/22 [Rx] Ciprofloxacin Oral Susp [Cipro Susp] 750 mg PO BID #60 ml 12/10/22 [Rx] Formoterol Fumarate [Perforomist] 20 mcg INHALATION RT-BID #100 ml 12/10/22 [Rx] Ipratropium-Albuterol Nebulize [Duoneb 0.5 mg-3 mg/3 ml Soln] 3 ml INHALATION RT-Q2H PRN #90 dose 12/10/22 [Rx] prednisoLONE ORAL 15MG/5ML JEFFRY [Prelone] 30 mg PO DAILY #100 ml 12/10/22 [Rx] Follow up Appointment(s)/Referral(s): Ara Welch MD [STAFF PHYSICIAN] - 1 Week Rell Arreola DO [Primary Care Provider] - 3 Days Discharge Disposition: HOME SELF-CARE
[2022-12-10] MEDS ORDERED: CEFEPIME 2 GM in SODIUM CHLORIDE 0.9% 100 ML IVPB SCH (09:00)
[2022-12-10] MEDS: IPRATROPIUM-ALBUTEROL 3 ML NEB INHALATION SCH ×4 (09:12→19:13)
[2022-12-10] MEDS: FORMOTEROL FUMARATE 20 MCG/2 ML NEBU INHALATION SCH ×2 (09:12→19:13)
[2022-12-10] MEDS: MORPHINE ORAL SOLN 10 MG/5 ML CUP PEG/G-TUBE SCH ×4 (09:14→19:55)
[2022-12-10] MEDS: CLOPIDOGREL 75 MG TAB PEG/G-TUBE SCH ×2 (09:16→09:31)
[2022-12-10] MEDS: ASPIRIN 81 MG PEG/G-TUBE SCH ×2 (09:16→09:31)
[2022-12-10] MEDS: METOPROLOL TARTRATE 50 MG TAB PEG/G-TUBE SCH ×3 (09:16→21:28)
[2022-12-10] MEDS: BUDESONIDE 1 MG/2 ML NEBU INHALATION SCH ×2 (09:30→19:13)
[2022-12-10] MEDS: NYSTATIN 100,000 UNIT/ML SUSP 500,000 UNIT/5 ML CUP PO SCH ×4 (10:53→21:28)
[2022-12-10] MEDS: CHLORHEXIDINE GLUCONATE 15 ML CUP MUCOUS MEM SCH ×2 (10:53→21:28)
[2022-12-10] MEDS: prednisoLONE ORAL SOLUTION 15MG/5ML CUP PO SCH (10:54)
[2022-12-10] MEDS: ONDANSETRON 4 MG/2 ML VIAL IVP PRN (11:00)
--- NOTE | 2022-12-10 11:16 | CT ---
EXAMINATION TYPE: CT angio chest CT DLP: 171.5 mGycm, Automated exposure control for dose reduction was used. DATE OF EXAM: 12/10/2022 8:41 AM COMPARISON: Chest radiograph from earlier same day. CLINICAL INDICATION:Female, 62 years old with history of Hypoxemia; Hypoxemia TECHNIQUE/CONTRAST: CTA scan of the thorax is performed without and with IV Contrast, patient injected with 100 ml mL of Isovue 370, MIP images are created and reviewed these are created on a separate workstation.. FINDINGS: Pulmonary Artery: There is no evidence for a filling defect within the pulmonary vasculature to sugge st acute pulmonary embolism. The pulmonary artery is of normal size. Lungs/Pleura: Mild/moderate bilateral centrilobular emphysematous changes. Scattered areas of parench ymal scarring and a few small calcified lung nodules consistent with remote granulomatous disease. A larger nodule along the left major fissure measures 17.5 x 11 mm, image 48 series 406 with coarse semaj tral calcification, also compatible with calcified granuloma. Other scattered 3-4 mm nodules are too small to characterize. In the superior segment of the left lower lobe, there is a small patch of grou ndglass attenuation measuring up to 13.5 mm on image 51. No confluent consolidation or lung mass evid ent. Airway: Central airways are patent. Tracheostomy tube in place. Heart: Heart appears normal in size without significant pericardial effusion. There are probably some coronary arterial calcifications on the right. Right chest Mediport with catheter tip in the SVC. Vasculature: Mild mixed atherosclerotic disease of the aorta, without evidence of dissection flap or aneurysm. Mediastinum: No gross evidence of lymphadenopathy. Suspect small sliding hiatal hernia. Musculoskeletal: No acute osseous normality. Mild chronic/degenerative changes. Soft Tissues: No acute abnormality. Heterogeneously dense breast tissue noted bilaterally. Lower neck: No significant findings. Upper Abdomen: No significant/acute findings. Mild thickening and nodularity of the adrenals, can be seen with hyperplasia and/or adenomatoid change. PEG tube in place terminating in the distal gastric body. A small right hepatic lobe hypodensity measuring 0.8 cm image 161, not fully characterized but most likely cyst or hemangioma in the absence of a cancer history.. IMPRESSION: 1. No evidence of pulmonary arterial embolus. 2. Mild/moderate bilateral centrilobular pulmonary emphysematous changes. 3. Scattered areas of parenchymal scarring, and calcified lung nodules consistent with remote granul omatous disease. Other scattered 3-4 mm nodules are too small to characterize. 4. Small patch of groundglass attenuation in the left lower lobe, nonspecific. This may reflect sequ julio of infectious/inflammatory process, with neoplasm not excluded. 5. Mild mixed atherosclerotic disease of the aorta, without evidence of dissection flap or aneurysm. RECOMMENDATION: Follow up CT chest in about 3-6 months
[2022-12-10] MEDS ORDERED: methylPREDNISolone SOD SUCCI 125 MG/2 ML VIAL IV SCH (12:00)
--- NOTE | 2022-12-10 12:42 | P.CNPUL ---
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 Patient's oncologist Dr. Camejo. Her established ENT is Dr. Morton. The patient has undergone chemo and radiation treatments. Currently on Opdivo q 2 weeks. She presented here to the emergency room this morning for complaints of shortness of breath that started last night. No cough or congestion. No hemoptysis. No fever chills. No sick contacts. Chest x-ray revealed chronic changes but no acute pulmonary process. A stable 1.5 cm nodule in the left upper to mid lung. White count 8.0. Hemoglobin 11.9. Platelets 348. Sodium 135. Potassium 4.3. Bicarb 24. BUN 20. Creatinine 0.41. Glucose 116. Influenza screen negative. RSV screen negative. COVID-[address] angiogram revealed no evidence of pulmonary embolism. There is mild to moderate bilateral centrilobular pulmonary emphysematous changes. Scattered area of parenchymal scarring and calcified lung nodules consistent with remote granulomatous disease. Other scattered 3-4 mm nodules are too small to characterize. Small patchy groundglass attenuation left upper lobe. Nonspecific. However neoplasm is not excluded. She is seen today in consultation in the emergency department. She is currently sitting up on a stretcher. Awake and alert in no acute distress. O2 saturations up to 100% on room air. She's afebrile. Hemodynamically stable. Review of Systems REVIEW OF SYSTEMS: CONSTITUTIONAL: Denies any recent significant weight loss or weight gain. EYES: Denies change in vision. EARS, NOSE, MOUTH, THROAT: Denies headaches, denies sore throat. CARDIOVASCULAR: Denies chest pain, palpitations or syncopal episodes. RESPIRATORY: Positive for shortness of breath, no cough, congestion or hemop tysis. GASTROINTESTINAL: Denies change in appetite, denies abdominal pain GENITOURINARY: Denies hematuria, denies infections. MUSKULOSKELETAL: Denies pain, denies swelling. INTEGUMENTARY: Denies rash, denies eczema. NEUROLOGICAL: Denies recent memory loss, no recent seizure activity. PSYCHIATRIC: Denies anxiety, denies depression. HEMATOLOGIC/LYMPHATIC: Denies anemia, denies enlarged lymph nodes. Past Medical History Past Medical History: Coronary Artery Disease (CAD), Cancer, Hyperlipidemia, Hypertension, Myocardial Infarction ([place]) Additional Past Medical History / Comment(s): hx stomach ulcer, tonsil cancer Last Myocardial Infarction Date:: 08/19/21 History of Any Multi-Drug Resistant Organisms: None Reported Past Surgical History: Heart Catheterization With Stent, Hysterectomy, Tubal Ligation Additional Past Surgical History / Comment(s): egd, Trach, peg tube Past Anesthesia/Blood Transfusion Reactions: No Reported Reaction Date of Last Stent Placement:: 08/19/21 Past Psychological History: No Psychological Hx Reported Smoking Status: Former smoker Past Alcohol Use History: None Reported Past Drug Use History: None Reported - Past Family History Mother Family Medical History: Cancer Additional Family Medical History / Comment(s): lung cancer Sister(s) Family Medical History: Cancer Additional Family Medical History / Comment(s): breast cancer Medications and Allergies Home Medications Medication Instructions Recorded Confirmed Type Ondansetron Odt [Zofran ODT] 8 mg PO QID PRN 04/03/22 12/07/22 History Metoprolol Succinate [Kapspargo 100 mg PEG/G-TUBE DAILY@1000 08/15/22 12/07/22 History Sprinkle] Morphine 20mg/5ml 16 mg PEG/G-TUBE Q4H 08/15/22 12/07/22 History Clopidogrel [Plavix] 75 mg PEG/G-TUBE DAILY@1000 11/16/22 12/07/22 History OLANZapine [ZyPREXA] 5 mg PO DAILY@1600 11/16/22 12/07/22 History Prochlorperazine [Compazine] 5 - 10 mg PO QID 11/16/22 12/07/22 History Aspirin 81 mg PEG/G-TUBE DAILY@1000 11/25/22 12/07/22 History Chlorhexidine Gluconate [Peridex] 15 ml PO BID 11/25/22 12/07/22 History Nystatin [Nystatin Oral Susp] 500,000 unit PO QID 11/25/22 12/07/22 History fentaNYL 75MCG/HR PATCH [Duragesic 1 patch TRANSDERM Q3D@1800 11/25/22 12/07/22 History 75MCG/HR] Budesonide [Pulmicort] 1 mg INHALATION RT-BID #100 ml 12/10/22 Rx Ciprofloxacin Oral Susp [Cipro 750 mg PO BID #60 ml 12/10/22 Rx Susp] Formoterol Fumarate [Perforomist] 20 mcg INHALATION RT-BID #100 ml 12/10/22 Rx Ipratropium-Albuterol Nebulize 3 ml INHALATION RT-Q2H PRN #90 dose 12/10/22 Rx [Duoneb 0.5 mg-3 mg/3 ml Soln] prednisoLONE ORAL 15MG/5ML JEFFRY 30 mg PO DAILY #100 ml 12/10/22 Rx [Prelone] Allergies Allergy/AdvReac Type Severity Reaction Status Date / Time Penicillins AdvReac Severe nausea/vomi Verified 12/10/22 04:42 ting codeine AdvReac Nausea & Verified 12/10/22 04:42 Vomiting & Diarrhea Physical Exam Vitals: Vital Signs Temp Pulse Resp BP Pulse Ox 12/10/22 12:23 112 H 12/10/22 12:07 98.6 F 105 H 18 128/76 100 12/10/22 12:02 106 H 12/10/22 10:40 115 H 18 114/70 93 L 12/10/22 09:42 101 H 12/10/22 09:38 108 H 18 145/81 100 12/10/22 09:17 101 H 100 12/10/22 08:12 105 H 20 131/93 99 12/10/22 06:38 106 H 16 129/87 95 12/10/22 06:00 106 H 18 123/75 94 L 12/10/22 05:00 117 H 16 150/90 94 L 12/10/22 04:44 18 12/10/22 04:39 97.7 F 121 H 16 150/90 95 Intake and Output 12/09/22 12/10/22 12/10/22 23:59 06:59 14:59 Other: Weight GENERAL EXAM: Alert, 62-year-old female, on room air, comfortable in no apparent distress. HEAD: Normocephalic and atraumatic EYES: Normal reaction of pupils, equal size. NOSE: Clear with pink turbinates. No epistaxis. OROPHARYX: without obvious bleeding NECK: There is a tracheostomy secured in place, no current stomal bleeding. CHEST: No chest wall deformity. LUNGS: Equal air entry with no crackles, wheeze, rhonchi or dullness. No accessory muscle use. CVS: S1 and S2 normal with no audible murmur, regular rhythm. No extra heart sounds ABDOMEN: PEG tube in place. No hepatosplenomegaly, active bowel sounds, no g uarding or rigidity. SPINE: No scoliosis or deformity SKIN: No rashes CENTRAL NERVOUS SYSTEM: No focal deficits, tone is normal in all 4 extremities. EXTREMITIES: There is no peripheral edema, clubbing, or cyanosis. Peripheral pulses are intact. Results - Laboratory Findings CBC and BMP: 12/10/22 04:52 12/10/22 04:52 Abnormal lab findings: Abnormal Labs 12/10/22 12/10/22 04:52 04:52 RDW 16.7 H Lymphocytes # 0.3 L Sodium 135 L BUN 20 H Creatinine 0.41 L Glucose 116 H AST 39 H - Diagnostic Findings Chest x-ray: image reviewed CT scan - chest: image reviewed Assessment and Plan Assessment: Acute mild exacerbation of chronic obstructive pulmonary disease. Chest x-ray revealed no acute process. Influenza screen, RSV screen, COVID-19 screen all negative. 100% O2 saturations on room air History of tonsillar squamous cell carcinoma status post tracheostomy and PEG tube insertion. PET scan on 06/30/2022 showed several areas of slightly increased FDG activity. There was a new area slightly right of midline in the oropharynx mucosa as well as an area more inferior/medial concerning for progression. Currently on Opdivo teatments. History of left carotid artery erosion in March, Benign essential hypertension Hyperlipidemia Coronary artery disease with prior PCI and stenting Chronic nicotine dependence Plan: The patient was seen and evaluated CT angiogram, chest x-ray, labs and medications reviewed Initiate DuoNeb inhalations, Pulmicort and Perforomist inhalations, steroids No acute pulmonary process, stable and on room air Educated regarding the importance of complete smoking cessation NicoDerm patch will be offered To follow up closely in our office post discharge I have personally seen and examined the patient, performed the documentation and the assessment and plan as written. Number of minutes spent on the visit: 20.
[2022-12-10] MEDS ORDERED: OLANZapine 5 MG TAB PO SCH (16:00)
[2022-12-10] MEDS: CEFEPIME 2 GM in SODIUM CHLORIDE 0.9% 100 ML IVPB SCH (19:55)
[2022-12-11] MEDS: MORPHINE ORAL SOLN 10 MG/5 ML CUP PEG/G-TUBE SCH ×4 (00:20→12:58)
[2022-12-11] MEDS: CEFEPIME 2 GM in SODIUM CHLORIDE 0.9% 100 ML IVPB SCH ×2 (03:48→13:42)
[2022-12-11] MEDS: SODIUM CHLORIDE 0.9% 1,000 ML IV SCH (05:56)
[2022-12-11] MEDS: IPRATROPIUM-ALBUTEROL 3 ML NEB INHALATION SCH ×3 (09:00→16:31)
[2022-12-11] MEDS: BUDESONIDE 1 MG/2 ML NEBU INHALATION SCH (09:00)
[2022-12-11] MEDS: FORMOTEROL FUMARATE 20 MCG/2 ML NEBU INHALATION SCH (09:00)
[2022-12-11] MEDS: NYSTATIN 100,000 UNIT/ML SUSP 500,000 UNIT/5 ML CUP PO SCH ×2 (09:21→12:59)
[2022-12-11] MEDS: CHLORHEXIDINE GLUCONATE 15 ML CUP MUCOUS MEM SCH (09:21)
[2022-12-11] MEDS: METOPROLOL TARTRATE 50 MG TAB PEG/G-TUBE SCH ×2 (09:22→09:44)
[2022-12-11] MEDS: ONDANSETRON 4 MG/2 ML VIAL IVP PRN (09:34)
[2022-12-11] MEDS: prednisoLONE ORAL SOLUTION 15MG/5ML CUP PO SCH (09:34)
[2022-12-11] MEDS: CLOPIDOGREL 75 MG TAB PEG/G-TUBE SCH (09:41)
[2022-12-11] MEDS: ASPIRIN 81 MG PEG/G-TUBE SCH (09:42)
--- NOTE | 2022-12-11 12:09 | P.PN ---
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 Patient's oncologist Dr. Camejo. Her established ENT is Dr. Morton. The patient has undergone chemo and radiation treatments. Currently on Opdivo q 2 weeks. She presented here to the emergency room this morning for complaints of shortness of breath that started last night. No cough or congestion. No hemoptysis. No fever chills. No sick contacts. Chest x-ray revealed chronic changes but no acute pulmonary process. A stable 1.5 cm nodule in the left upper to mid lung. White count 8.0. Hemoglobin 11.9. Platelets 348. Sodium 135. Potassium 4.3. Bicarb 24. BUN 20. Creatinine 0.41. Glucose 116. Influenza screen negative. RSV screen negative. COVID-[address] angiogram revealed no evidence of pulmonary embolism. There is mild to moderate bilateral centrilobular pulmonary emphysematous changes. Scattered area of parenchymal scarring and calcified lung nodules consistent with remote granulomatous disease. Other scattered 3-4 mm nodules are too small to characterize. Small patchy groundglass attenuation left upper lobe. Nonspecific. However neoplasm is not excluded. She is seen today in consultation in the emergency department. She is currently sitting up on a stretcher. Awake and alert in no acute distress. O2 saturations up to 100% on room air. She's afebrile. Hemodynamically stable. The patient is seen today 12/11/2022 in follow-up on the regular medical floor. She is currently sitting up in bed. Awake and alert in no acute distress. She is maintaining O2 saturations in the 90s on 28% trach collar. She's afebrile. Hemodynamically stable. Sputum culture is pending. She is currently on cefepime. Continue DuoNeb inhalations, Pulmicort and Perforomist inhalations, prednisone. Normal saline at 75 ML's per hour. Objective - Vital Signs Vital signs: Vital Signs Temp 98.1 F 12/11/22 07:10 Pulse 108 H 12/11/22 09:23 Resp 14 12/11/22 07:10 BP 128/75 12/11/22 07:10 Pulse Ox 97 12/11/22 07:10 FiO2 58 12/11/22 09:00 Intake & Output 12/10/22 12/11/22 12/11/22 18:59 06:59 18:59 Intake Total 0 Balance 0 Weight 46 kg Intake: Oral 0 Other: Voiding Method Toilet Toilet # Voids 2 - Exam GENERAL EXAM: Alert, pleasant 62-year-old female, on 28% FiO2 via trach collar, comfortable in no apparent distress. HEAD: Normocephalic and atraumatic EYES: Normal reaction of pupils, equal size. NOSE: Clear with pink turbinates. No epistaxis. OROPHARYX: without obvious bleeding NECK: There is a tracheostomy secured in place, no current stomal bleeding. CHEST: No chest wall deformity. LUNGS: Equal air entry with no crackles, wheeze, rhonchi or dullness. No accessory muscle use. CVS: S1 and S2 normal with no audible murmur, regular rhythm. No extra heart sounds ABDOMEN: PEG tube in place. No hepatosplenomegaly, active bowel sounds, no guarding or rigidity. SPINE: No scoliosis or deformity SKIN: No rashes CENTRAL NERVOUS SYSTEM: No focal deficits, tone is normal in all 4 extremities. EXTREMITIES: There is no peripheral edema, clubbing, or cyanosis. Peripheral pulses are intact. - Labs CBC & Chem 7: 12/10/22 04:52 12/10/22 04:52 Labs: Microbiology - Last 24 Hours (Table) 12/10/22 09:20 Gram Stain - Preliminary Sputum Assessment and Plan Assessment: Acute mild exacerbation of chronic obstructive pulmonary disease. Chest x-ray revealed no acute process. Influenza screen, RSV screen, COVID-19 screen all negative. On 28% FiO2 via trach collar History of tonsillar squamous cell carcinoma status post tracheostomy and PEG tube insertion. PET scan on 06/30/2022 showed several areas of slightly incre ased FDG activity. There was a new area slightly right of midline in the oropharynx mucosa as well as an area more inferior/medial concerning for progression. Currently on Opdivo teatments. History of left carotid artery erosion in March, Benign essential hypertension Hyperlipidemia Coronary artery disease with prior PCI and stenting Chronic nicotine dependence Plan: The patient was seen and evaluated Medications reviewed She communicates mostly with writing We'll give her a trial with a speaking valve Educated regarding the importance of complete smoking cessation This patient was seen independently by the nurse practitioner I have personally seen and examined the patient, performed the documentation and the assessment and plan as written. Number of minutes spent on the visit: 24.
[2022-12-11 12:32] LABS: Basophils # (A) 0.01 X 10*3/uL (0.00-0.10); Basophils % (A) 0.1 %; Eosinophils # (A) 0.01 X 10*3/uL (0.04-0.35); Eosinophils % (A) 0.1 %; HCT 30.8 % (37.2-46.3); HGB 9.3 d/dL (12.0-15.0); Lymphocytes # (A) 0.24 X 10*3/uL (0.90-5.00); Lymphocytes % (A) 2.6 %; MCH 27.3 pg (27.0-32.0); MCHC 30.2 d/dL (32.0-37.0); MCV 90.3 FL (80.0-97.0); Mean Platelet Volume 11.1 FL (9.5-12.2); Monocytes # (A) 0.13 X 10*3/uL (0.20-1.00); Monocytes % (A) 1.4 %; NRBC Per 100 WBC 0 X 10*3/uL (0.00-0.01); Neutrophils # (A) 8.89 X 10*3/uL (1.80-7.70); Neutrophils % (A) 95.5 %; Platelet Count 285 X 10*3/uL (140-440); RBC 3.41 X 10*6/uL (4.10-5.20); RDW 18.1 % (11.5-14.5); WBC 9.31 X 10*3/uL (4.50-10.00)
[2022-12-11 12:47] LABS: Albumin 3.7 d/dL (3.8-4.9); Albumin/Globulin Ratio 1.61 Ratio (1.60-3.17); Blood Urea Nitrogen 14.8 mg/dL (9.0-27.0); Calcium 9.1 mg/dL (8.7-10.3); Carbon Dioxide 23.9 mmol/L (21.6-31.8); Chloride 103 mmol/L (96-109); Globulin 2.3 d/dL (1.6-3.3); Glucose 103 mg/dL (70-110); Magnesium 1.9 mg/dL (1.5-2.4); Phosphorus 2.5 mg/dL (2.4-5.1); Potassium 3.8 mmol/L (3.5-5.5); Sodium 138 mmol/L (135-145)
[2022-12-11 12:48] LABS: ALT 14 U/L (8-44); AST 18 U/L (13-35); Alkaline Phosphatase 90 U/L (41-126); Total Bilirubin 0.7 mg/dL (0.3-1.2)
[2022-12-11] MEDS ORDERED: PROCHLORPERAZINE 5 MG TAB PO SCH (13:05)
[2022-12-11 13:43] VITALS: BP 108/71; PULSE 91; RESP 17; TEMP 98.5
[2022-12-11 14:06] VITALS: BMI 19.1
--- NOTE | 2022-12-14 06:12 | P.DS ---
Providers Date of admission: 12/10/22 06:14 Expected date of discharge: 12/11/22 Attending physician: Billy Montana Consults: 12/10/22 06:14 Consult Physician Routine Consulting Provider: Ara Welch Consult Reason/Comments: dyspnea Do you want consulting provider notified?: Yes Primary care physician: Rell Arreola [facility] Course: Final diagnosis -Shortness of breath and sputum production: Probably secondary to bronchitis patient has the Pseudomonas in the past, patient will be discharged on Cipro via PEG tube for about 5 days and patient will follow-up with the PCP and res habilitation assistant as an outpatient and cultures can be followed up as an outpatient. The sputum cultures will be followed as outpatient -COPD with acute exacerbation -Coronary artery disease with stents in the past -hyperlipidemia -Hypertension -DVT prophylaxis Discharge disposition Patient is being discharged in a stable condition with guarded prognosis to home. Patient will follow-up with Dr. Arreola in the outpatient setting upon discharge. Patient is to continue with oral prednisone elixir along with Cipro elixir and close outpatient follow-up with oncology and pulmonary as scheduled. Total time taken is greater than 35 minutes. Hospital course 65-year-old female came in because of shortness of breath and green sputum production from the tracheostomy site patient has a tracheostomy and a PEG tube in place acute site area appears to be clean take SB site appears to be clean as well patient is presently not requiring on she although she is still feeling short of breath does have history of COPD. Patient does haven't have any fever or leukocytosis chest x-ray did not show any pneumonia Currently no reports of chest pain, worsening shortness of breath, or palpitations. Patient is afebrile. No reports of nausea or vomiting and patient is tolerating tube feed diet. Patient will be discharged home today. PHYSICAL EXAMINATION: GENERAL: The patient is alert and oriented x3, not in any acute distress. Well developed, well nourished. HEENT: Pupils are round and equally reacting to light. EOMI. No scleral icterus. No conjunctival pallor. Normocephalic, atraumatic. No pharyngeal erythema. No thyromegaly. CARDIOVASCULAR: S1 and S2 present. No murmurs, rubs, or gallops. PULMONARY: Chest is clear to auscultation, no wheezing or crackles. Mildly diminished air entry thin built female with tracheostomy and PEG tube both sides appear to be clean ABDOMEN: Soft, nontender, nondistended, normoactive bowel sounds. No palpable organomegaly. MUSCULOSKELETAL: No joint swelling or deformity. EXTREMITIES: No cyanosis, clubbing, or pedal edema. NEUROLOGICAL: Gross neurological examination did not reveal any focal deficits. SKIN: No rashes. Please refer to medication reconciliation sheet for a list of medications. The impression and plan of care has been dictated by Jenae Tony, Nurse Practitioner as directed. Dr. Mino MD I have performed a history and examination and MDM of this patient, discussed the same with the dictator, and agree with the dictator's assessment and plan as written ,documented as a scribe. Based on total visit time, I have performed more than 50% of the visit. Patient Condition at Discharge: Fair Plan - Discharge Summary Discharge Rx Participant: No New Discharge Prescriptions: New prednisoLONE ORAL 15MG/5ML JEFFRY [Prelone] 30 mg PO DAILY #100 ml Ipratropium-Albuterol Nebulize [Duoneb 0.5 mg-3 mg/3 ml Soln] 3 ml INHALATION RT-Q2H PRN #90 dose PRN Reason: Shortness Of Breath Or Wheezing Formoterol Fumarate [Perforomist] 20 mcg INHALATION RT-BID #100 ml Ciprofloxacin Oral Susp [Cipro Susp] 750 mg PO BID #60 ml Budesonide [Pulmicort] 1 mg INHALATION RT-BID #100 ml Nystatin 100,000 Unit/ml Susp [Mycostatin Oral Susp] 500,000 unit PO QID 5 Days #100 ml Continue Prochlorperazine [Compazine] 5 - 10 mg PO QID OLANZapine [ZyPREXA] 5 mg PO DAILY@1600 Aspirin 81 mg PEG/G-TUBE DAILY@1000 Ondansetron Odt [Zofran ODT] 8 mg PO QID PRN PRN Reason: Nausea Metoprolol Succinate [Kapspargo Sprinkle] 100 mg PEG/G-TUBE DAILY@1000 Morphine 20mg/5ml 16 mg PEG/G-TUBE Q4H Clopidogrel [Plavix] 75 mg PEG/G-TUBE DAILY@1000 fentaNYL 75MCG/HR PATCH [Duragesic 75MCG/HR] 1 patch TRANSDERM Q3D@1800 Discharge Medication List Ondansetron Odt [Zofran ODT] 8 mg PO QID PRN 04/03/22 [History] Metoprolol Succinate [Kapspargo Sprinkle] 100 mg PEG/G-TUBE DAILY@1000 08/15/22 [History] Morphine 20mg/5ml 16 mg PEG/G-TUBE Q4H 08/15/22 [History] Clopidogrel [Plavix] 75 mg PEG/G-TUBE DAILY@1000 11/16/22 [History] OLANZapine [ZyPREXA] 5 mg PO DAILY@1600 11/16/22 [History] Prochlorperazine [Compazine] 5 - 10 mg PO QID 11/16/22 [History] Aspirin 81 mg PEG/G-TUBE DAILY@1000 11/25/22 [History] fentaNYL 75MCG/HR PATCH [Duragesic 75MCG/HR] 1 patch TRANSDERM Q3D@1800 11/25/22 [History] Budesonide [Pulmicort] 1 mg INHALATION RT-BID #100 ml 12/10/22 [Rx] Ciprofloxacin Oral Susp [Cipro Susp] 750 mg PO BID #60 ml 12/10/22 [Rx] Formoterol Fumarate [Perforomist] 20 mcg INHALATION RT-BID #100 ml 12/10/22 [Rx] Ipratropium-Albuterol Nebulize [Duoneb 0.5 mg-3 mg/3 ml Soln] 3 ml INHALATION RT-Q2H PRN #90 dose 12/10/22 [Rx] prednisoLONE ORAL 15MG/5ML JEFFRY [Prelone] 30 mg PO DAILY #100 ml 12/10/22 [Rx] Nystatin 100,000 Unit/ml Susp [Mycostatin Oral Susp] 500,000 unit PO QID 5 Days #100 ml 12/11/22 [Rx] Follow up Appointment(s)/Referral(s): Ara Welch MD [STAFF PHYSICIAN] - 1 Week (please call the office to schedule a follow up appointment) Rell Arreola DO [Primary Care Provider] - 12/18/22 1:00 pm (appointment with Cynthia LEWIS) Patient Instructions/Handouts: Shortness of Breath (DC) Activity/Diet/Wound Care/Special Instructions: Activity Limited until follow-up Follow-up with primary care provider on discharge Follow-up with pulmonary outpatient Follow-up oncology outpatient Discharge Disposition: HOME SELF-CARE
== END 2022-12-11 16:39 | disposition home or self-care (01) ==
LOC: EC 04:28 → 6NMEDSUR 06:14 → 5NMEDONC 07:49
PROVIDERS: ADMIT Hospitalist; ATTEND Hospitalist
DX: J95.00 Unspecified tracheostomy complication (principal); J44.1 Chronic obstructive pulmonary disease with (acute) exacerbation; I25.10 Atherosclerotic heart disease of native coronary artery without angina pectoris; E78.5 Hyperlipidemia, unspecified; I10 Essential (primary) hypertension; I25.2 Old myocardial infarction; F17.200 Nicotine dependence, unspecified, uncomplicated; Z20.822 Contact with and (suspected) exposure to COVID-19; Z85.818 Personal history of malignant neoplasm of other sites of lip, oral cavity, and pharynx; Z95.5 Presence of coronary angioplasty implant and graft; Z79.899 Other long term (current) drug therapy; Z79.02 Long term (current) use of antithrombotics/antiplatelets; Z79.82 Long term (current) use of aspirin; Z88.0 Allergy status to penicillin; Z88.5 Allergy status to narcotic agent
CPT/HCPCS: 96376; 96361; 96366 ×3; 96375 ×2; 96365; 99285; 36415; 94640 ×4; 93005; 83880; 80053 ×2; 83735 ×2; 84100; 84484; 85025 ×2; 87040; 87070; 87205; 84145; 87636; 71045; 71275; G0378 ×2; J2060; J2405 ×2; J0692 ×2; J7510 ×2; J1170; Q9967

== ENCOUNTER → 2023-01-25 | Outpatient (CLI) | payer OTHER ==
--- NOTE | 2023-01-26 20:39 | PE ---
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 Images are reviewed on the computer in the coronal, ax ial, and sagittal planes. Reconstructed rotating images are created on independent workstation and r eviewed on the computer. A non-contrast CT is performed in conjunction with the PET scan. Glucose l evel 93 mg/dL CT DLP: 213.69 mGycm, Automated exposure control for dose reduction was used. COMPARISON: CT 12/10/2022., PET/CT 10/13/2022, FINDINGS: Mediastinal SUV mean is 2.0. Hepatic parenchyma SUV mean is 2.6. SKULL BASE AND NECK: * Decrease in metabolic activity along the mucosa in the surgical bed posteriorly within the left la teral recess max SUV 7.3, previously 10.3, 11.1, 13.6 . * Posteriorly max SUV 4.1, previously 15.2, 7.4. * Focal uptake in the posterior larynx the level of focal cords in the right vocal cords max SUV 5.0 the right vocal cord and posterior soft tissues 7.5, previously 4.1. * FDG activity is seen around the tracheostomy cannula max SUV 4.6, previously 8.1, 5.3. CHEST, MEDIASTINUM, AND HILAR REGION: * Scarring along the left major fissure max SUV 1.4, previously 0.7 with calcification present sugge sting active granulomatous change. This area measures 17 x 10 mm similar prior. * There is scattered pulmonary nodules are present throughout the lungs which are not significantly changed from prior. There is groundglass opacity in the superior segment of the left lower lobe which is also not significantly changed. * Patchy uptake within the right mid lung is new from prior. Max SUV 3.1 ABDOMEN AND PELVIS: * Mild PEG tube FDG activity suggestive of inflammation. OSSEOUS STRUCTURES AND MUSCULOSKELETAL STRUCTURES: Focus of activity within the right iliocostalis mu scle of the back on prior has increased in size measuring 1.9 x 1.3 cm previously 3.3 x 4.2 cm max KOCH V 3.2, previously 13.4, 5.6. OTHER CT: Atherosclerosis of the arterial vasculature. PEG tube with tip in appropriate position. Tra cheostomy cannula terminating above the vale. Mild paranasal sinus disease. Large stool burden thro ughout the colon and bowel. No obstructive uropathy. Trace pericardial effusion. Atherosclerosis of t he coronary arteries. Scattered pulmonary nodular densities some with calcification present, no suspi cious FDG activity identified. IMPRESSION: 1. Positive response to therapy with decreasing FDG activity along the mucosa. Increased metabolic a ctivity at the level of vocal cords could be physiologic. There is concern consider direct visualizat ion. Attention on follow-up imaging. 2. Decrease in right iliocostalis muscle lesion in both size and metabolic activity compatible with positive response. 3. Mild inflammation around the tracheostomy cannula and PEG tube. 4. Patchy uptake within the right middle lobe correlate for infectious/inflammatory process.
== END | disposition home or self-care (01) ==
LOC: RADPETMAIN 11:05
PROVIDERS: ATTEND Internal Medicine Hematology & Oncology
DX: C76.0 Malignant neoplasm of head, face and neck (principal)
CPT/HCPCS: 78815; A9552

== ENCOUNTER → 2023-02-22 | Outpatient (CLI) | payer BC, OTHER ==
[2023-02-22 10:24] LABS: African American GFR (CKD) >90 (>60 ml/min/1.73 sqM); Blood Urea Nitrogen 19 mg/dL (7-17); Non-African American GFR(CKD) >90 (>60 ml/min/1.73 sqM)
--- NOTE | 2023-02-22 11:17 | CT ---
EXAMINATION TYPE: CT angio chest DATE OF EXAM: 02/22/2023 COMPARISON: CTA chest December 10, 2022 HISTORY: Abnormal coagulation profile, elevated d-dimer, hx throat ca. stat hold and call CT DLP: 275 mGycm. Automated Exposure Control for Dose Reduction was Utilized. CONTRAST: CTA scan of the thorax is performed with IV Contrast, patient injected with 100 mL of Isovue 370, pul monary embolism protocol. MIP Images are created on CT scanner and reviewed. FINDINGS: LUNGS: There is at least moderate underlying emphysematous change redemonstrated. Scattered small nod ules and/or nodular scarring bilaterally is redemonstrated. Fairly stable posterior 1.8 x 1.1 cm left upper lobe pulmonary nodule axial image 48 is redemonstrated. More focal consolidation and/or atelec tasis in the posterior aspect of the right lower lobe axial image 84 is noted on current study. New a reas of focal groundglass opacity in the anterior right mid lung and right lower lung along with left lung base are identified. No pleural effusion or pneumothorax seen bilaterally. MEDIASTINUM: There is satisfactory enhancement of the pulmonary artery and its branches, there is no CT evidence for pulmonary embolism. Some enhancement of the aorta without aneurysm or dissection. Th ere are no greater than 1 cm hilar or mediastinal lymph nodes. No cardiomegaly or pericardial effus ion is seen. Coronary artery desiccation and/or stents are present. OTHER: There is PEG tube redemonstrated. IMPRESSION: 1. No CT evidence for acute pulmonary embolism. 2. Moderate emphysematous change with scattered areas of nodularity and/or nodular scarring redemonst rated. No significant change from most recent prior CT. 3. Increasing groundglass opacities in the lower lungs more prominent in the right lung base concerni ng for developing acute infectious process. Correlate clinically.
== END | disposition home or self-care (01) ==
LOC: RADCTMAIN 09:40
PROVIDERS: ATTEND Family Medicine
DX: J43.9 Emphysema, unspecified (principal); R91.8 Other nonspecific abnormal finding of lung field; R79.1 Abnormal coagulation profile
CPT/HCPCS: 82565; 84520; 71275; 36415; Q9967

== ENCOUNTER 2023-03-22 03:51 | Inpatient (IN) | payer BC ==
--- NOTE | 2023-03-22 04:21 | ED ---
General Adult HPI - General Chief complaint: Shortness of Breath Stated complaint: SOB Time Seen by Provider: 03/22/23 03:54 Source: patient, RN notes reviewed, old records reviewed Mode of arrival: ambulatory Limitations: no limitations - History of Present Illness Initial comments: Patient is a 62-year-old female who is trach dependent with a history of head and neck cancer presents emergency department complaining of difficulty in breathing. This is a chronic issue for the patient. States it was somewhat worse this evening with which is why she presents for evaluation. States she cannot breathe. Patient's is very reliable and helps her with trach suctioning. Oxygen saturations have been approximately 94 to 95% at home. Patient has been having intermittent nausea and vomiting including vomit coming through the trach site. Patient is PEG tube dependent. She denies any chest pain, abdominal pain. Denies any diarrhea. No known sick contacts. Presents for further evaluation at this time. All symptoms appear to be chronic. - Related Data Home Medications Medication Instructions Recorded Confirmed Ondansetron Odt [Zofran ODT] 8 mg PO QID PRN 04/03/22 03/01/23 Metoprolol Succinate [Kapspargo 100 mg PEG/G-TUBE DAILY@1000 08/15/22 03/01/23 Sprinkle] Morphine 20mg/5ml 16 mg PEG/G-TUBE Q4H 08/15/22 03/01/23 Clopidogrel [Plavix] 75 mg PEG/G-TUBE DAILY@1000 11/16/22 03/01/23 OLANZapine [ZyPREXA] 5 mg PO DAILY@1600 11/16/22 03/01/23 Prochlorperazine [Compazine] 5 - 10 mg PO QID 11/16/22 03/01/23 Aspirin 81 mg PEG/G-TUBE DAILY@1000 11/25/22 03/01/23 fentaNYL 75MCG/HR PATCH [Duragesic 1 patch TRANSDERM Q3D@1800 11/25/22 03/01/23 75MCG/HR] Previous Rx's Medication Instructions Recorded Budesonide [Pulmicort] 1 mg INHALATION RT-BID #100 ml 12/10/22 Formoterol Fumarate [Perforomist] 20 mcg INHALATION RT-BID #100 ml 12/10/22 Ipratropium-Albuterol Nebulize 3 ml INHALATION RT-Q2H PRN #90 dose 12/10/22 [Duoneb 0.5 mg-3 mg/3 ml Soln] Nystatin 100,000 Unit/ml Susp 500,000 unit PO QID 5 Days #100 ml 12/11/22 [Mycostatin Oral Susp] Allergies Allergy/AdvReac Type Severity Reaction Status Date / Time Penicillins AdvReac Severe nausea/vomi Verified 03/22/23 04:02 ting codeine AdvReac Nausea & Verified 03/22/23 04:02 Vomiting & Diarrhea Review of Systems ROS Statement: Those systems with pertinent positive or pertinent negative responses have been documented in the HPI. Review of Systems: CONST: Denies fever EYES: Denies blurry vision ENT: Denies nasal congestion C/V: Denies Chest pain RESP: Endorses shortness of breath GI: Denies abdominal pain : Denies dysuria SKIN: Denies rash. MSK: Denies joint pain. NEURO: Denies headache ROS Other: All systems not noted in ROS Statement are negative. Past Medical History Past Medical History: Coronary Artery Disease (CAD), Cancer, Hyperlipidemia, Hypertension, Myocardial Infarction ([place]) Additional Past Medical History / Comment(s): hx stomach ulcer, tonsil cancer Last Myocardial Infarction Date:: 08/19/21 History of Any Multi-Drug Resistant Organisms: None Reported Past Surgical History: Heart Catheterization With Stent, Hysterectomy, Tubal Ligation Additional Past Surgical History / Comment(s): egd, Trach Past Anesthesia/Blood Transfusion Reactions: No Reported Reaction Date of Last Stent Placement:: 08/19/21 Past Psychological History: No Psychological Hx Reported Smoking Status: Former smoker Past Alcohol Use History: None Reported Past Drug Use History: None Reported - Past Family History Mother Family Medical History: Cancer Additional Family Medical History / Comment(s): lung cancer Sister(s) Family Medical History: Cancer Additional Family Medical History / Comment(s): breast cancer General Exam - General Exam Comments Initial Comments: General: Appears in no acute distress. HEAD: Normal with no signs of head trauma. EYES: PERRLA, EOMI, conjunctiva normal, no discharge. ENT: Hearing grossly intact, normal oropharynx. RESPIRATORY: Coarse breath sounds bilaterally. Patient is currently suctioning her trach site. Mild hypoxia on room air via trach at 90%. Patient is on humidified oxygen at home via trach. C/V: Regular rate and rhythm. S1 and S2 auscultated, no edema, peripheral pulses 2+ and intact throughout ABD: Abd is soft, nontender, nondistended EXT: Normal range of motion, no obvious deformity SKIN: No rashes or lesions observed on exposed skin. NEURO: Alert and oriented x 4. Limitations: no limitations Course Vital Signs 03/22/23 03/22/23 03/22/23 04:01 04:26 04:36 Pulse Rate 101 H 112 H 115 H Respiratory 22 Rate Blood Pressure 154/93 O2 Sat by Pulse 90 L Oximetry Fraction of 28 Inspired Oxygen (FIO2) 03/22/23 03/22/23 03/22/23 04:48 05:10 05:40 Pulse Rate 95 92 91 Respiratory 20 18 16 Rate Blood Pressure 148/106 145/104 149/79 O2 Sat by Pulse 93 L 94 L 92 L Oximetry Fraction of Inspired Oxygen (FIO2) Medical Decision Making - Medical Decision Making Was pt. sent in by a medical professional or institution (, PA, LATEXER, urgent care, hospital, or skilled nursing...) When possible be specific @ -No Did you speak to anyone other than the patient for history (EMS, parent, family, police, friend...)? What history was obtained from this source @ -Patient's provides patient's medical history. Did you review nursing and triage notes (agree or disagree)? Why? @ -I reviewed and agree with nursing and triage notes Were old charts reviewed (outside hosp., previous admission, EMS record, old EKG, old radiological studies, urgent care reports/EKG's, skilled nursing records)? Report findings @ -Old charts reviewed Differential Diagnosis (chest pain, altered mental status, abdominal pain women, abdominal pain men, vaginal bleeding, weakness, fever, dyspnea, syncope, headache, dizziness, GI bleed, back pain, seizure, CVA, palpatations, mental hea lth, musculoskeletal)? @ -Differential Dyspnea: Coronary syndrome, arrhythmia, tamponade, asthma, COPD, pulmonary embolism, pneumonia, pneumothorax, pulmonary effusion, anaphylaxis, diabetic ketoacidosis, flailed chest, pulmonary contusion, diaphragmatic rupture, anemia, neuromuscular, this is not meant to be an all-inclusive list. EKG interpreted by me (3pts min.). @ -As above X-rays interpreted by me (1pt min.). @ -Chest x-ray reveals no obvious acute cardiopulmonary process. CT interpreted by me (1pt min.). @ -None done U/S interpreted by me (1pt. min.). @ -None done What testing was considered but not performed or refused? (CT, X-rays, U/S, labs)? Why? @ -Considered workup for PE however patient has felt like this for multiple weeks, and recently had CT PE less than a month ago with no evidence of PE on that study What meds were considered but not given or refused? Why? @ -None Did you discuss the management of the patient with other professionals (professionals i.e. DrArnaud, PA, LATEXER, lab, RT, psych nurse, sexual assault social worker, activity aid, teacher, information technology officer, family service caseworker)? Give summary @ - I did speak with Jonatan STOKES of pulmonology who accepted the consult and states he will evaluate the patient. I also spoke with the admitting team, DIVYA Doan of [facility] who accepted the admission. Was smoking cessation discussed for >3mins.? @ -No Was critical care preformed (if so, how long)? @ -No Were there social determinants of health that impacted care today? How? (Homelessness, low income, unemployed, alcoholism, drug addiction, transportation, low edu. Level, literacy, decrease access to med. care, long term, rehab)? @ -No Was there de-escalation of care discussed even if they declined (Discuss DNR or withdrawal of care, Hospice)? DNR status @ -No What co-morbidities impacted this encounter? (DM, HTN, Smoking, COPD, CAD, Cancer, CVA, ARF, Chemo, Hep., AIDS, mental health diagnosis, sleep apnea, morbid obesity)? @ -Trach dependent, PEG tube dependent, cancer Was patient admitted / discharged? Hospital course, mention meds given and route, prescriptions, significant lab abnormalities, going to OR and other pertinent info. @ -Based on the patient's presentation and physical exam, presents with dyspnea as well as emesis through the trach site. This has been ongoing for weeks to months. Slightly worsening today. Was mildly hypoxic on room air via trach. Will continue to suction as well as apply normal home humidified air. She was in agreement this plan. Vital signs other than the mild hypoxia are within acceptable limits. We will obtain chest x-ray as well as screening pulmonary labs. She will be symptomatically treated with IV fluids, Zofran, as well as a DuoNeb breathing treatment. EKG shows no signs of acute ischemia.Chest x-ray reveals no obvious acute cardiopulmonary process. Laboratory studies are remarkable for no significant acute abnormality. Patient is anemic at 11.3. This is chronic. Viral swabs are negative. On reevaluation, patient states she feels unchanged however vital signs remained stable. I did recommend admission for pulmonology evaluation and they were in agreement this plan. I did speak with Jonatan STOKES of pulmonology who accepted the consult and states he will evaluate the patient. I also spoke with the admitting team, DIVYA Doan of [facility] who accepted the admission. Family was in agreement this plan. Undiagnosed new problem with uncertain prognosis? @ -No Drug Therapy requiring intensive monitoring for toxicity (Heparin, Nitro, Insulin, Cardizem)? @ -No Were any procedures done? @ -No Diagnosis/symptom? @ -Dyspnea, trach dependent Acute, or Chronic, or Acute on Chronic? @ -Acute Uncomplicated (without systemic symptoms) or Complicated (systemic symptoms)? @ -Complicated Side effects of treatment? @ -None Exacerbation, Progression, or Severe Exacerbation] @ -No Poses a threat to life or bodily function? @ -Yes - Lab Data Result diagrams: 03/22/23 04:15 03/22/23 04:15 Lab Results 03/22/23 03/22/23 03/22/23 Range/Units 04:15 04:15 04:15 WBC 7.0 (3.8-10.6) k/uL RBC 3.81 (3.80-5.40) m/uL Hgb 11.3 L (11.4-16.0) gm/dL Hct 34.9 (34.0-46.0) % MCV 91.7 (80.0-100.0) fL MCH 29.8 (25.0-35.0) pg MCHC 32.4 (31.0-37.0) g/dL RDW 17.2 H (11.5-15.5) % Plt Count 312 (150-450) k/uL MPV 8.8 Neutrophils % (Manual) 59 % Band Neuts % (Manual) 21 % Lymphocytes % (Manual) 7 % Monocytes % (Manual) 14 % Neutrophils # (Manual) 5.60 (1.3-7.7) k/uL Lymphocytes # (Manual) 0.49 L (1.0-4.8) k/uL Monocytes # (Manual) 0.98 (0-1.0) k/uL Nucleated RBCs 0 (0-0) /100 WBC Manual Slide Review Performed Toxic Granulation Present Hypochromasia Moderate Anisocytosis Slight PT 10.0 (10.0-12.5) sec INR 0.9 (<1.2) APTT 21.8 L (22.0-30.0) sec Sodium 136 L (137-145) mmol/L Potassium 4.7 (3.5-5.1) mmol/L Chloride 103 (98-107) mmol/L Carbon Dioxide 23 (22-30) mmol/L Anion Gap 10 mmol/L BUN 17 (7-17) mg/dL Creatinine 0.44 L (0.52-1.04) mg/dL Est GFR (CKD-EPI)AfAm >90 (>60 ml/min/1.73 sqM) Est GFR (CKD-EPI)NonAf >90 (>60 ml/min/1.73 sqM) Glucose 105 H (74-99) mg/dL Calcium 9.3 (8.4-10.2) mg/dL Magnesium 1.9 (1.6-2.3) mg/dL Total Bilirubin 0.7 (0.2-1.3) mg/dL AST 60 H (14-36) U/L ALT 18 (4-34) U/L Alkaline Phosphatase 98 (38-126) U/L NT-Pro-B Natriuret Pep 242 pg/mL Total Protein 7.3 (6.3-8.2) g/dL Albumin 3.9 (3.5-5.0) g/dL Influenza Type A (PCR) (Not Detectd) Influenza Type B (PCR) (Not Detectd) RSV (PCR) (Not Detectd) SARS-CoV-2 (PCR) (Not Detectd) 03/22/23 Range/Units 04:15 WBC (3.8-10.6) k/uL RBC (3.80-5.40) m/uL Hgb (11.4-16.0) gm/dL Hct (34.0-46.0) % MCV (80.0-100.0) fL MCH (25.0-35.0) pg MCHC (31.0-37.0) g/dL RDW (11.5-15.5) % Plt Count (150-450) k/uL MPV Neutrophils % (Manual) % Band Neuts % (Manual) % Lymphocytes % (Manual) % Monocytes % (Manual) % Neutrophils # (Manual) (1.3-7.7) k/uL Lymphocytes # (Manual) (1.0-4.8) k/uL Monocytes # (Manual) (0-1.0) k/uL Nucleated RBCs (0-0) /100 WBC Manual Slide Review Toxic Granulation Hypochromasia Anisocytosis PT (10.0-12.5) sec INR (<1.2) APTT (22.0-30.0) sec Sodium (137-145) mmol/L Potassium (3.5-5.1) mmol/L Chloride (98-107) mmol/L Carbon Dioxide (22-30) mmol/L Anion Gap mmol/L BUN (7-17) mg/dL Creatinine (0.52-1.04) mg/dL Est GFR (CKD-EPI)AfAm (>60 ml/min/1.73 sqM) Est GFR (CKD-EPI)NonAf (>60 ml/min/1.73 sqM) Glucose (74-99) mg/dL Calcium (8.4-10.2) mg/dL Magnesium (1.6-2.3) mg/dL Total Bilirubin (0.2-1.3) mg/dL AST (14-36) U/L ALT (4-34) U/L Alkaline Phosphatase (38-126) U/L NT-Pro-B Natriuret Pep pg/mL Total Protein (6.3-8.2) g/dL Albumin (3.5-5.0) g/dL Influenza Type A (PCR) Not Detected (Not Detectd) Influenza Type B (PCR) Not Detected (Not Detectd) RSV (PCR) Not Detected (Not Detectd) SARS-CoV-2 (PCR) Not Detected (Not Detectd) - EKG Data -: EKG Interpreted by Me EKG Comments: 12-lead Electrocardiogram Interpretation Note EKG was reviewed and interpreted by myself. 12-lead ECG performed at 0408 is interpreted by me as revealing normal sinus rhythm at a rate of 92 beats per minute. [place] is normal. [place] interval is 125 ms, QRS duration is 90 ms, QTc is 408 ms.. There were no ST or T wave abnormalities to suggest myocardial ischemia or injury. R wave progression across the precordium was satisfactory. By my interpretation this EKG is non-diagnostic for acute ischemia. Disposition Clinical Impression: Dyspnea, Tracheostomy dependent Disposition: ADMITTED IP TO THIS HOSP Condition: Stable Referrals: Rell Arreola DO [Primary Care Provider] - 1-2 days Time of Disposition: 06:38
[2023-03-22] MEDS: ONDANSETRON 4 MG/2 ML VIAL IVP STA (04:24)
[2023-03-22] MEDS: SODIUM CHLORIDE 0.9% 1,000 ML IV STA (04:24)
[2023-03-22] MEDS: IPRATROPIUM-ALBUTEROL 3 ML NEB INHALATION STA (04:26)
[2023-03-22 04:58] LABS: Anisocytosis Slight; HCT 34.9 % (34.0-46.0); HGB 11.3 gm/dL (11.4-16.0); Hypochromasia Moderate; MCH 29.8 pg (25.0-35.0); MCHC 32.4 g/dL (31.0-37.0); MCV 91.7 fL (80.0-100.0); Mean Platelet Volume 8.8; Platelet Count 312 k/uL (150-450); RBC 3.81 m/uL (3.80-5.40); RDW 17.2 % (11.5-15.5)
[2023-03-22 05:08] LABS: INR 0.9 (<1.2)
[2023-03-22 05:14] LABS: ALT 18 U/L (4-34); AST 60 U/L (14-36); African American GFR (CKD) >90 (>60 ml/min/1.73 sqM); Albumin 3.9 g/dL (3.5-5.0); Alkaline Phosphatase 98 U/L (38-126); Anion Gap 10 mmol/L; Blood Urea Nitrogen 17 mg/dL (7-17); Calcium 9.3 mg/dL (8.4-10.2); Carbon Dioxide 23 mmol/L (22-30); Chloride 103 mmol/L (98-107); Glucose 105 mg/dL (74-99); Magnesium 1.9 mg/dL (1.6-2.3); Non-African American GFR(CKD) >90 (>60 ml/min/1.73 sqM); Sodium 136 mmol/L (137-145); Total Bilirubin 0.7 mg/dL (0.2-1.3); Total Protein 7.3 g/dL (6.3-8.2)
[2023-03-22 05:21] LABS: NT-Pro-B-Type Natriuretic Pept 242 pg/mL
[2023-03-22 05:37] LABS: Partial Thromboplastin Time 21.8 sec (22.0-30.0)
[2023-03-22 05:46] LABS: Band Neutrophils % 21 %; Lymphocytes # (M) 0.49 k/uL (1.0-4.8); Monocytes # (M) 0.98 k/uL (0-1.0); Neutrophils % (M) 59 %; Nucleated Red Blood Cells 0 /100 WBC (0-0); Total Cells Counted 200; Toxic Granulation Present
[2023-03-22 06:21] LABS: Potassium 4.7 mmol/L (3.5-5.1)
[2023-03-22] MEDS ORDERED: ONDANSETRON 4 MG/2 ML VIAL IVP PRN (06:29)
[2023-03-22] MEDS ORDERED: NALOXONE 0.4 MG/ML 1 ML VIAL IV PRN (06:29)
--- NOTE | 2023-03-22 07:25 | XR ---
EXAMINATION TYPE: XR chest 1V DATE OF EXAM: 03/22/2023 COMPARISON: 12/10/2022 HISTORY: 62 year-old female shortness of breath, difficulty breathing TECHNIQUE: Single frontal view of the chest is obtained. FINDINGS: Right anterior chest wall injection port with catheter tip in the mid SVC level. Heart upp er limits of normal in size. Biapical pleural parenchymal scarring. Hyperinflation. Underlying emphys ematous changes. Focal 2 cm opacity remains at the left upper lobe. Old healed right-sided rib fractu re deformity. No consolidation or pleural effusion. Tracheostomy cannula. IMPRESSION: COPD with moderate emphysema and biapical pleural parenchymal scarring. Findings of prio r granulomatous disease particularly in the left upper lobe. No definite acute process.
[2023-03-22] MEDS: IPRATROPIUM-ALBUTEROL 3 ML NEB INHALATION PRN (08:06)
[2023-03-22] MEDS: BUDESONIDE 1 MG/2 ML NEBU INHALATION SCH (08:06)
[2023-03-22] MEDS: FORMOTEROL FUMARATE 20 MCG/2 ML NEBU INHALATION SCH (08:06)
[2023-03-22] MEDS ORDERED: CHLORHEXIDINE GLUCONATE 15 ML CUP MUCOUS MEM PRN (09:04)
[2023-03-22] MEDS ORDERED: ONDANSETRON ODT 8 MG TAB.RAPDIS PO PRN (09:04)
[2023-03-22] MEDS: LEVOFLOXACIN 500MG-D5W PMX 500 MG in DEXTROSE/WATER 1 100ML.BAG IVPB SCH (09:15)
[2023-03-22] MEDS: MORPHINE ORAL SOLN 10 MG/5 ML CUP PEG/G-TUBE SCH (09:18)
[2023-03-22] MEDS: METOPROLOL SUCCINATE 100 MG PEG/G-TUBE SCH (09:19)
[2023-03-22] MEDS: CLOPIDOGREL 75 MG TAB PEG/G-TUBE SCH (11:09)
[2023-03-22] MEDS: ASPIRIN 81 MG PEG/G-TUBE SCH (11:09)
--- NOTE | 2023-03-22 12:32 | CT ---
EXAMINATION TYPE: CT angio chest DATE OF EXAM: 03/22/2023 12:19 PM COMPARISON: 02/22/2023. HISTORY: Pulmonary embolism. CT DLP: 327.9 mGycm Automated exposure control for dose reduction was used. CONTRAST: CTA scan of the thorax is performed without and with IV Contrast, patient injected with 100 ml mL of Isovue 370, pulmonary embolism protocol. . FINDINGS: CHEST WALL: Right-sided Mediport remains unchanged. Mediastinum and Pina: There is no axillary, mediastinal or hilar lymphadenopathy. Pleural and Pericardial spaces: There are no pleural or pericardial effusions. Upper Abdomen: Percutaneous gastrostomy tube is seen within the stomach. The visualized upper abdomen otherwise appears unremarkable. Cardiovascular: The thoracic aorta is normal in size without evidence of aneurysm or dissection. Pulmonary Artery: There are no filling defects in the pulmonary arteries. Lung Parenchyma and Airways: There is severe diffuse centrilobular emphysema. There are a few scatter ed calcified and noncalcified nodules seen throughout the lungs bilaterally which are predominantly u nchanged. There is some tree-in-bud areas of nodularity seen within the right middle and right upper lobe as well as bronchial wall thickening which is likely inflammatory or infectious. Similar finding s are seen within the right lower lobe as well as the left lower lobe. Bones: No fracture or aggressive osseous lesion. IMPRESSION: 1. No evidence of pulmonary embolism. 2. No evidence of thoracic aortic aneurysm or dissection. 3. Scattered tree-in-bud areas of nodularity as described above. Follow-up in 3 months is recommended . This is likely inflammatory or infectious and slightly more prominent than the previous examination . 4. Additional scattered pulmonary nodules are likely very similar to the previous examination and can be reassessed with a recommended follow-up. 5. Severe emphysema.
--- NOTE | 2023-03-22 12:50 | P.CNPUL ---
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 Recent PET scan from January 2023 revealed a positive response to therapy with decreasing FDG activity along the mucosa. She presented here to the emergency room early this morning with complaints of increasing shortness of breath. X-ray reveals evidence of COPD with moderate emphysema and biapical pleural-parenchymal scarring. Prior granulomatous disease in the left upper lobe noted. No acute pulmonary process. CT angiogram reveals no evidence of pulmonary embolism. White count 7.0. Hemoglobin 11.3. Platelets 312. Sodium 136. Potassium 4.7. Bicarb 23. BUN 17. Creatinine 0.88. Glucose 105. AST 60. ALT 18. Viral screen negative. She is seen today in the emergency department. Her is at the bedside. She denies any worsening shortness of breath now. No cough or congestion. She is maintaining good O2 saturations in the 90s on 28% FiO2 via trach collar. She has been initiated on DuoNeb ventilations, Pulmicort and Perforomist inhalations, empiric antibiotics in the form of Levaquin. Procalcitonin pending. Review of Systems REVIEW OF SYSTEMS: CONSTITUTIONAL: Denies any recent significant weight loss or weight gain. EYES: Denies change in vision. EARS, NOSE, MOUTH, THROAT: Denies headaches, denies sore throat. CARDIOVASCULAR: Denies chest pain, palpitations or syncopal episodes. RESPIRATORY: Positive for shortness of breath, cough, congestion no hemoptysis. GASTROINTESTINAL: Denies change in appetite, denies abdominal pain GENITOURINARY: Denies hematuria, denies infections. MUSKULOSKELETAL: Denies pain, denies swelling. INTEGUMENTARY: Denies rash, denies eczema. NEUROLOGICAL: Denies recent memory loss, no recent seizure activity. PSYCHIATRIC: Denies anxiety, denies depression. HEMATOLOGIC/LYMPHATIC: Denies anemia, denies enlarged lymph nodes. Past Medical History Past Medical History: Coronary Artery Disease (CAD), Cancer, Hyperlipidemia, Hyp ertension, Myocardial Infarction ([place]) Additional Past Medical History / Comment(s): hx stomach ulcer, tonsil cancer Last Myocardial Infarction Date:: 08/19/21 History of Any Multi-Drug Resistant Organisms: None Reported Past Surgical History: Heart Catheterization With Stent, Hysterectomy, Tubal Ligation Additional Past Surgical History / Comment(s): egd, Trach Past Anesthesia/Blood Transfusion Reactions: No Reported Reaction Date of Last Stent Placement:: 08/19/21 Past Psychological History: No Psychological Hx Reported Smoking Status: Former smoker Past Alcohol Use History: None Reported Past Drug Use History: None Reported - Past Family History Mother Family Medical History: Cancer Additional Family Medical History / Comment(s): lung cancer Sister(s) Family Medical History: Cancer Additional Family Medical History / Comment(s): breast cancer Medications and Allergies Home Medications Medication Instructions Recorded Confirmed Type Ondansetron Odt [Zofran ODT] 8 mg PO QID PRN 04/03/22 03/22/23 History Metoprolol Succinate [Kapspargo 100 mg PEG/G-TUBE DAILY@1000 08/15/22 03/22/23 History Sprinkle] Morphine 20mg/5ml 16 mg PEG/G-TUBE Q4H 08/15/22 03/22/23 History Clopidogrel [Plavix] 75 mg PEG/G-TUBE DAILY@1000 11/16/22 03/22/23 History Aspirin 81 mg PEG/G-TUBE DAILY@1000 11/25/22 03/22/23 History fentaNYL 75MCG/HR PATCH [Duragesic 1 patch TRANSDERM Q3D@1800 11/25/22 03/22/23 History 75MCG/HR] Ipratropium-Albuterol Nebulize 3 ml INHALATION RT-Q2H PRN #90 dose 12/10/22 03/22/23 Rx [Duoneb 0.5 mg-3 mg/3 ml Soln] Chlorhexidine Gluconate [Peridex] 15 ml PO BID PRN 03/22/23 03/22/23 History Allergies Allergy/AdvReac Type Severity Reaction Status Date / Time Penicillins AdvReac Severe nausea/vomi Verified 03/22/23 07:25 ting codeine AdvReac Nausea & Verified 03/22/23 07:25 Vomiting & Diarrhea Physical Exam Vitals: Vital Signs Temp Pulse Resp BP Pulse Ox FiO2 03/22/23 11:16 98.7 F 03/22/23 11:06 84 18 129/81 97 03/22/23 08:32 88 03/22/23 08:24 85 03/22/23 08:23 85 03/22/23 08:13 81 03/22/23 07:24 86 16 90 L 03/22/23 07:05 86 16 117/66 93 L 03/22/23 05:40 91 16 149/79 92 L 03/22/23 05:10 92 18 145/104 94 L 03/22/23 04:48 95 20 148/106 93 L 03/22/23 04:36 115 H 28 03/22/23 04:26 112 H 03/22/23 04:01 101 H 22 154/93 90 L Intake and Output 03/21/23 03/22/23 03/22/23 22:59 06:59 14:59 Other: Weight 54.431 kg GENERAL EXAM: Alert, pleasant 62-year-old female, on 28% FiO2 via trach collar, comfortable in no apparent distress. HEAD: Normocephalic. EYES: Normal reaction of pupils, equal size. NOSE: Clear with pink turbinates. THROAT: No erythema or exudates. NECK: Tracheostomy tube secured in place. No masses, no JVD. CHEST: No chest wall deformity. LUNGS: Equal air entry with no crackles, wheeze, rhonchi or dullness. CVS: S1 and S2 normal with no audible murmur, regular rhythm. ABDOMEN: PEG tube exit site clean and dry, no hepatosplenomegaly, normal bowel sounds, no guarding or rigidity. SPINE: No scoliosis or deformity SKIN: No rashes CENTRAL NERVOUS SYSTEM: No focal deficits, tone is normal in all 4 extremities. EXTREMITIES: There is no peripheral edema. No clubbing, no cyanosis. Periph eral pulses are intact. Results - Laboratory Findings CBC and BMP: 03/22/23 04:15 03/22/23 04:15 PT/INR, D-dimer PT 10.0 sec (10.0-12.5) 03/22/23 04:15 INR 0.9 (<1.2) 03/22/23 04:15 Abnormal lab findings: Abnormal Labs 03/22/23 03/22/23 03/22/23 04:15 04:15 04:15 Hgb 11.3 L RDW 17.2 H Lymphocytes # (Manual) 0.49 L APTT 21.8 L Sodium 136 L Creatinine 0.44 L Glucose 105 H AST 60 H - Diagnostic Findings Chest x-ray: image reviewed CT scan - chest: image reviewed Assessment and Plan Assessment: Acute on chronic hypoxemic respiratory failure secondary to COPD exacerbation. Viral screen negative. No evidence of pneumonia on x-ray. 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 History of hypertension Hyperlipidemia Coronary disease with previous stent placement History of chronic tobacco dependence Plan: The patient was seen and evaluated Chest x-ray, CT angiogram, labs and medications reviewed Initiate DuoNeb inhalations, Pulmicort and Perforomist inhalations Add Solu-Medrol Initiate Levaquin Obtain a procalcitonin Titrate the FiO2 as tolerated Continue with suctioning and trach care as indicated Resume patient's home tube feed schedule We will continue to follow and make further recommendations based on her cl inical status I have personally seen and examined the patient, performed the documentation and the assessment and plan as written. Number of minutes spent on the visit: 20.
[2023-03-22] MEDS: methylPREDNISolone SOD SUCCI 125 MG/2 ML VIAL IV SCH (13:14)
--- NOTE | 2023-03-22 13:53 | P.HPIM ---
History of Present Illness H&P Date: 03/22/23 This is a pleasant 62-year-old female who presented to the emergency department with difficulty in breathing. Patient has a PEG and a trach and her cares for her and she reported to him that he she felt she was drowning and was unable to breathe. Patient is PEG tube feeds dependent as well and has chronic nausea with vomiting and reports was concerned as they felt some vomit had come up from the tracheostomy site as well. Patient currently requiring 5 L via tracheostomy collar and patient reports she does not wear any oxygen at home. Patient does follow with Dr. Arreola as well as oncology in the outpatient setting with a past medical history of coronary artery disease,, tonsil cancer, hyperlipidemia, hypertension, myocardial infarction, former smoker with occasional marijuana use. Patient was admitted for shortness of breath with concerns of aspiration pneumonia with pulmonary as well as oncology on consultation. EKG showed sinus rhythm in the ER, chest x-ray showed COPD with moderate emphysema and biapical pleural parenchymal scarring findings of prior granulomatous disease in the left upper lobe which persists with no definite acute process noted. Labs revealed a normal white count of 7.0, hemoglobin was stable at 11.3, platelets are 312, sodium 136, potassium 4.7, creatinine 0.44, magnesium 1.9, AST 60, BNP 242 and viral testing including influenza, RSV, and COVID are all negative. REVIEW OF SYSTEMS: CONSTITUTIONAL: No fever, no malaise, no fatigue. HEENT: No recent visual problems or hearing problems. Denied any sore throat. CARDIOVASCULAR: No chest pain, orthopnea, PND, no palpitations, no syncope. PULMONARY: Reports of shortness of breath, with cough, no hemoptysis. GASTROINTESTINAL: No diarrhea, reports nausea, reports episodes of vomiting, no abdominal pain. NEUROLOGICAL: No headaches, no weakness, no numbness. HEMATOLOGICAL: Denies any bleeding or petechiae. GENITOURINARY: Denies any burning micturition, frequency, or urgency. MUSCULOSKELETAL/RHEUMATOLOGICAL: Denies any joint pain, swelling, or any muscle pain. ENDOCRINE: Denies any polyuria or polydipsia. The rest of the 14-point review of systems is negative. PHYSICAL EXAMINATION: GENERAL: The patient is alert and oriented x3, thin built, elderly appearing, ill-appearing. Well developed HEENT: Pupils are round and equally reacting to light. EOMI. No scleral icterus. No conjunctival pallor. Normocephalic, atraumatic. No pharyngeal erythema. No thyromegaly. CARDIOVASCULAR: S1 and S2 present. No murmurs, rubs, or gallops. PULMONARY: Diminished breath sounds bilaterally otherwise chest is clear to auscultation, no wheezing, there are faint crackles noted. ABDOMEN: Soft, nontender, nondistended, normoactive bowel sounds. No palpable organomegaly. MUSCULOSKELETAL: No joint swelling or deformity. EXTREMITIES: No cyanosis, clubbing, or pedal edema. NEUROLOGICAL: Gross neurological examination did not reveal any focal deficits. Diffusely weak SKIN: No rashes. 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 Patient is currently maintained on oxygen at 5 L with an FiO2 of 28% trach collar. Patient reports she does not wear any oxygen outpatient on a daily basis Procalcitonin ordered and pending and patient was started on antibiotics in the form of Levaquin Pulm medications reviewed and resumed Dietary consult to resume tube feedings Encouraged increase activity as tolerated Oncology consulted as well and pending The impression and plan of care has been dictated by Jenae Tony, Nurse Practitioner as directed. Dr. Mino MD I have performed a history and examination and MDM of this patient, discussed the same with the dictator, and agree with the dictator's assessment and plan as written ,documented as a scribe. Based on total visit time, I have performed more than 50% of the visit. Past Medical History Past Medical History: Coronary Artery Disease (CAD), Cancer, Hyperlipidemia, Hypertension, Myocardial Infarction ([place]) Additional Past Medical History / Comment(s): hx stomach ulcer, tonsil cancer Last Myocardial Infarction Date:: 08/19/21 History of Any Multi-Drug Resistant Organisms: None Reported Past Surgical History: Heart Catheterization With Stent, Hysterectomy, Tubal Ligation Additional Past Surgical History / Comment(s): egd, Trach Past Anesthesia/Blood Transfusion Reactions: No Reported Reaction Date of Last Stent Placement:: 08/19/21 Past Psychological History: No Psychological Hx Reported Smoking Status: Former smoker Past Alcohol Use History: None Reported Past Drug Use History: None Reported - Past Family History Mother Family Medical History: Cancer Additional Family Medical History / Comment(s): lung cancer Sister(s) Family Medical History: Cancer Additional Family Medical History / Comment(s): breast cancer Medications and Allergies Home Medications Medication Instructions Recorded Confirmed Type Ondansetron Odt [Zofran ODT] 8 mg PO QID PRN 04/03/22 03/22/23 History Metoprolol Succinate [Kapspargo 100 mg PEG/G-TUBE DAILY@1000 08/15/22 03/22/23 History Sprinkle] Morphine 20mg/5ml 16 mg PEG/G-TUBE Q4H 08/15/22 03/22/23 History Clopidogrel [Plavix] 75 mg PEG/G-TUBE DAILY@1000 11/16/22 03/22/23 History Aspirin 81 mg PEG/G-TUBE DAILY@1000 11/25/22 03/22/23 History fentaNYL 75MCG/HR PATCH [Duragesic 1 patch TRANSDERM Q3D@1800 11/25/22 03/22/23 History 75MCG/HR] Ipratropium-Albuterol Nebulize 3 ml INHALATION RT-Q2H PRN #90 dose 12/10/22 03/22/23 Rx [Duoneb 0.5 mg-3 mg/3 ml Soln] Chlorhexidine Gluconate [Peridex] 15 ml PO BID PRN 03/22/23 03/22/23 History Allergies Allergy/AdvReac Type Severity Reaction Status Date / Time Penicillins AdvReac Severe nausea/vomi Verified 03/22/23 07:25 ting codeine AdvReac Nausea & Verified 03/22/23 07:25 Vomiting & Diarrhea Physical Exam Vitals: Vital Signs Pulse Resp BP Pulse Ox FiO2 03/22/23 08:32 88 03/22/23 08:24 85 03/22/23 08:23 85 03/22/23 08:13 81 03/22/23 07:24 86 16 90 L 03/22/23 07:05 86 16 117/66 93 L 03/22/23 05:40 91 16 149/79 92 L 03/22/23 05:10 92 18 145/104 94 L 03/22/23 04:48 95 20 148/106 93 L 03/22/23 04:36 115 H 28 03/22/23 04:26 112 H 03/22/23 04:01 101 H 22 154/93 90 L Intake and Output 03/21/23 03/22/23 03/22/23 22:59 06:59 14:59 Other: Weight 54.431 kg Results CBC & Chem 7: 03/22/23 04:15 03/22/23 04:15 Labs: Abnormal Lab Results - Last 24 Hours (Table) 03/22/23 03/22/23 03/22/23 Range/Units 04:15 04:15 04:15 Hgb 11.3 L (11.4-16.0) gm/dL RDW 17.2 H (11.5-15.5) % Lymphocytes # (Manual) 0.49 L (1.0-4.8) k/uL APTT 21.8 L (22.0-30.0) sec Sodium 136 L (137-145) mmol/L Creatinine 0.44 L (0.52-1.04) mg/dL Glucose 105 H (74-99) mg/dL AST 60 H (14-36) U/L
--- NOTE | 2023-03-22 16:22 | P.CONS ---
History of Present Illness - Reason for Consult Consult date: 03/22/23 Hx head/neck carcinoma Requesting physician: Yoel Ray - Chief Complaint vomit through trach - History of Present Illness Mrs. Sue is a 62-year-old female patient of Dr. Camejo with a history of T4B N0M0 squamous cell tonsillar carcinoma. Patient was initially seen as a new consult February 2022. She received concurrent chemoradiation x 5 weeks, completing around March 30, 2022. 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 Unfortunately, she had biopsy-proven persistent disease diagnosed June 2022. She was started on immunotherapy in July 2022. In October 2022 patient had imaging consistent with recurrence of disease and was started on CarboTaxol. She had a PET scan in January showing an excellent response. She has now completed 6 cycles with normal plans for treatment right now, PET scan and follow-up in about 4 weeks. Patient is currently admitted with complaints of shortness of breath. reports patient states "feels like I am drowning". This has been going on for about 1 week, denies any increase in secretions. She is still experiencing some mild nausea from chemotherapy, she does occasionally vomit, reports daljit sis that comes out of the patient's nose, mouth and around her trach. No reports of any fevers, patient's difficulty in breathing does not feel any better since she has been admitted. Review of Systems Focused review of systems is negative except as stated in HPI Past Medical History Past Medical History: Coronary Artery Disease (CAD), Cancer, Hyperlipidemia, Hypertension, Myocardial Infarction ([place]) Additional Past Medical History / Comment(s): hx stomach ulcer, tonsil cancer Last Myocardial Infarction Date:: 08/19/21 History of Any Multi-Drug Resistant Organisms: None Reported Past Surgical History: Heart Catheterization With Stent, Hysterectomy, Tubal Ligation Additional Past Surgical History / Comment(s): egd, Trach Past Anesthesia/Blood Transfusion Reactions: No Reported Reaction Date of Last Stent Placement:: 08/19/21 Past Psychological History: No Psychological Hx Reported Smoking Status: Former smoker Past Alcohol Use History: None Reported Past Drug Use History: None Reported - Past Family History Mother Family Medical History: Cancer Additional Family Medical History / Comment(s): lung cancer Sister(s) Family Medical History: Cancer Additional Family Medical History / Comment(s): breast cancer Medications and Allergies Home Medications Medication Instructions Recorded Confirmed Type Ondansetron Odt [Zofran ODT] 8 mg PO QID PRN 04/03/22 03/22/23 History Metoprolol Succinate [Kapspargo 100 mg PEG/G-TUBE DAILY@1000 08/15/22 03/22/23 History Sprinkle] Morphine 20mg/5ml 16 mg PEG/G-TUBE Q4H 08/15/22 03/22/23 History Clopidogrel [Plavix] 75 mg PEG/G-TUBE DAILY@1000 11/16/22 03/22/23 History Aspirin 81 mg PEG/G-TUBE DAILY@1000 11/25/22 03/22/23 History fentaNYL 75MCG/HR PATCH [Duragesic 1 patch TRANSDERM Q3D@1800 11/25/22 03/22/23 History 75MCG/HR] Ipratropium-Albuterol Nebulize 3 ml INHALATION RT-Q2H PRN #90 dose 12/10/22 03/22/23 Rx [Duoneb 0.5 mg-3 mg/3 ml Soln] Chlorhexidine Gluconate [Peridex] 15 ml PO BID PRN 03/22/23 03/22/23 History Allergies Allergy/AdvReac Type Severity Reaction Status Date / Time Penicillins AdvReac Severe nausea/vomi Verified 03/22/23 07:25 ting codeine AdvReac Nausea & Verified 03/22/23 07:25 Vomiting & Diarrhea Physical Exam Vitals: Vital Signs Pulse Resp BP Pulse Ox FiO2 03/22/23 08:32 88 03/22/23 08:24 85 03/22/23 08:23 85 03/22/23 08:13 81 03/22/23 07:24 86 16 90 L 03/22/23 07:05 86 16 117/66 93 L 03/22/23 05:40 91 16 149/79 92 L 03/22/23 05:10 92 18 145/104 94 L 03/22/23 04:48 95 20 148/106 93 L 03/22/23 04:36 115 H 28 03/22/23 04:26 112 H 03/22/23 04:01 101 H 22 154/93 90 L Intake and Output 03/21/23 03/22/23 03/22/23 22:59 06:59 14:59 Other: Weight 54.431 kg - Constitutional General appearance: cooperative, mild distress, thin - EENT Eyes: anicteric sclerae, EOMI ENT: hearing grossly normal - Neck Trach in situ Neck: no lymphadenopathy - Respiratory Respiratory: bilateral: diminished - Cardiovascular Rhythm: regular Heart sounds: normal: S1, S2 Abnormal Heart Sounds: no systolic murmur, no diastolic murmur, no rub, no S3 Gallop, no S4 Gallop, no click, no other leg Peripheral Edema: bilateral: None - Gastrointestinal General gastrointestinal: no absent bowel sounds, no decreased bowel sounds, no distended, no hepatomegaly, no hyperactive bowel sounds, normal bowel sounds, no organomegaly, no rigid, no scaphoid, soft, no splenomegaly, no tenderness, no umbilical hernia, no ventral hernia - Neurologic Neurologic: CNII-XII intact (Grossly) - Musculoskeletal Musculoskeletal: generalized weakness - Psychiatric Psychiatric: A&O x's 3, appropriate affect, intact judgment & insight Results CBC & Chem 7: 03/22/23 04:15 03/22/23 04:15 Labs: Abnormal Lab Results - Last 24 Hours (Table) 03/22/23 03/22/23 03/22/23 Range/Units 04:15 04:15 04:15 Hgb 11.3 L (11.4-16.0) gm/dL RDW 17.2 H (11.5-15.5) % Lymphocytes # (Manual) 0.49 L (1.0-4.8) k/uL APTT 21.8 L (22.0-30.0) sec Sodium 136 L (137-145) mmol/L Creatinine 0.44 L (0.52-1.04) mg/dL Glucose 105 H (74-99) mg/dL AST 60 H (14-36) U/L Chest x-ray: report reviewed Assessment and Plan (1) Dyspnea Current Visit: Yes Status: Acute Priority: High Code(s): R06.00 - DYSPNEA, UNSPECIFIED SNOMED Code(s): 187261717 (2) Head and neck cancer Current Visit: No Status: Chronic Priority: Medium Code(s): C76.0 - MALIGNANT NEOPLASM OF HEAD, FACE AND NECK SNOMED Code(s): 757201437 Plan: Dyspnea -Patient is not reporting any improvements in her difficulty in breathing since admit -Pulmonary is consulted -Chest x-ray report reviewed- COPD with moderate emphysema and biapical pleural parenchymal scarring. Prior granulomatous disease, particularly in left upper lobe, no definite acute process. CTA ordered to rule out pulmonary embolism due to patient's complaints of "feeling like I am drowning" Head and neck malignancy -Patient is status post chemoradiation, immunotherapy at recurrence. 2nd recurrence in Sep 2022, now s/p 6 cycles of carbo/taxol 03/01/2023, Jan scan s howed excellent results. Has scan scheduled for next month and f/u with primary Onc. -CBC and CMP no significant chemotherapy induced cytopenias or electrolyte abnormalities Chemo-induced nausea -Patient is reporting some persistent nausea post chemo. Supportive medications have been ordered. Doctor attests: I performed a history and physical examination of this patient, developed impression and plan of care. Discussed with dictator. I agree with dictators note, documented as a scribe.
[2023-03-22] MEDS: PANTOPRAZOLE 40 MG/10 ML VIAL IVP SCH (22:15)
[2023-03-23] MEDS: LEVOFLOXACIN 500MG-D5W PMX 500 MG in DEXTROSE/WATER 1 100ML.BAG IVPB SCH (09:32)
[2023-03-23 11:07] LABS: Basophils # (A) 0.02 X 10*3/uL (0.00-0.10); Basophils % (A) 0.2 %; Eosinophils # (A) 0 X 10*3/uL (0.04-0.35); Eosinophils % (A) 0 %; HCT 35.1 % (37.2-46.3); HGB 10.5 g/dL (12.0-15.0); Lymphocytes # (A) 0.37 X 10*3/uL (0.90-5.00); Lymphocytes % (A) 4.3 %; MCH 28.9 pg (27.0-32.0); MCHC 29.9 g/dL (32.0-37.0); MCV 96.7 FL (80.0-97.0); Mean Platelet Volume 11.3 FL (9.5-12.2); Monocytes # (A) 0.18 X 10*3/uL (0.20-1.00); Monocytes % (A) 2.1 %; NRBC Per 100 WBC 0 X 10*3/uL (0.00-0.01); Neutrophils # (A) 8.06 X 10*3/uL (1.80-7.70); Neutrophils % (A) 92.8 %; Platelet Count 418 X 10*3/uL (140-440); RBC 3.63 X 10*6/uL (4.10-5.20); RDW 17.4 % (11.5-14.5); WBC 8.68 X 10*3/uL (4.50-10.00)
[2023-03-23 11:23] LABS: BUN/Creat Ratio 19.71 Ratio (12.00-20.00); Blood Urea Nitrogen 13.8 mg/dL (9.0-27.0); Calcium 9.8 mg/dL (8.7-10.3); Carbon Dioxide 21.6 mmol/L (21.6-31.8); Chloride 100 mmol/L (96-109); Glucose 124 mg/dL (70-110); Sodium 138 mmol/L (135-145)
[2023-03-23] MEDS: ACETAMINOPHEN ORAL SUSP 160 MG/5 ML CUP PO PRN (13:36)
--- NOTE | 2023-03-23 13:46 | P.PN ---
Subjective Progress Note Date: 03/23/23 This is a pleasant 62-year-old female patient with a history of coronary artery disease with previous stent placement, hypertension, hyperlipidemia, former smoker, tonsillar squamous cell carcinoma including left carotid artery erosion and subsequent tracheostomy placement and PEG tube placement. Recent PET scan from January 2023 revealed a positive response to therapy with decreasing FDG activity along the mucosa. She presented here to the emergency room early this morning with complaints of increasing shortness of breath. X-ray reveals evidence of COPD with moderate emphysema and biapical pleural-parenchymal scarring. Prior granulomatous disease in the left upper lobe noted. No acute pulmonary process. CT angiogram reveals no evidence of pulmonary embolism. White count 7.0. Hemoglobin 11.3. Platelets 312. Sodium 136. Potassium 4.7. Bicarb 23. BUN 17. Creatinine 0.88. Glucose 105. AST 60. ALT 18. Viral screen negative. She is seen today in the emergency department. Her is at the bedside. She denies any worsening shortness of breath now. No cough or congestion. She is maintaining good O2 saturations in the 90s on 28% FiO2 via trach collar. She has been initiated on DuoNeb ventilations, Pulmicort and Perforomist inhalations, empiric antibiotics in the form of Levaquin. Procalcitonin pending. The patient is seen today March 23, 2023 in follow-up on the regular medical floor. She is currently resting comfortably in bed. Awake and alert in no acu te distress. She is maintaining O2 saturations in the 90s on 28% FiO2 via trach collar. She is continued on PEG tube feedings for nutritional support. TwoCal HN at 30 mL/h which is goal. White count 8.6. Hemoglobin 10.5. Platelets 418. Sodium 138. Potassium 4.0. Bicarb 22. BUN 14. Creatinine 0.7. Glucose 124. She remains on DuoNeb ventilations, Pulmicort and performing scintillations, IV Solu-Medrol. Antibiotics in the form of Levaquin. Objective - Vital Signs Vital signs: Vital Signs Temp 98.3 F 03/23/23 07:19 Pulse 85 03/23/23 08:58 Resp 18 03/23/23 07:19 BP 117/70 03/23/23 07:19 Pulse Ox 96 03/23/23 07:19 FiO2 28 03/23/23 08:41 Intake & Output 03/22/23 03/23/23 03/23/23 18:59 06:59 18:59 Output Total 2 Balance -2 Weight 54.431 kg 54.431 kg Output: Urine 2 Other: # Voids 1 - Exam GENERAL EXAM: Alert, 62-year-old female, sitting in bed, on 28% FiO2 via trach collar, in no apparent distress. HEAD: Normocephalic. EYES: Normal reaction of pupils, equal size. NOSE: Clear with pink turbinates. THROAT: No erythema or exudates. NECK: Tracheostomy tube secured in place. No masses, no JVD. CHEST: No chest wall deformity. LUNGS: Equal air entry with bilateral end expiratory wheeze, few scattered rhonchi. CVS: S1 and S2 normal with no audible murmur, regular rhythm. ABDOMEN: PEG tube exit site clean and dry, no hepatosplenomegaly, normal bowel sounds, no guarding or rigidity. SPINE: No scoliosis or deformity SKIN: No rashes CENTRAL NERVOUS SYSTEM: No focal deficits, tone is normal in all 4 extremities. EXTREMITIES: There is no peripheral edema. No clubbing, no cyanosis. Peripheral pulses are intact. - Labs CBC & Chem 7: 03/23/23 06:41 03/23/23 06:41 Labs: Abnormal Lab Results - Last 24 Hours (Table) 03/23/23 03/23/23 Range/Units 06:41 06:41 RBC 3.63 L (4.10-5.20) X 10*6/uL Hgb 10.5 L (12.0-15.0) g/dL Hct 35.1 L (37.2-46.3) % MCHC 29.9 L (32.0-37.0) g/dL RDW 17.4 H (11.5-14.5) % Immature Gran # 0.05 H (0.00-0.04) X 10*3/uL Neutrophils # 8.06 H (1.80-7.70) X 10*3/uL Lymphocytes # 0.37 L (0.90-5.00) X 10*3/uL Monocytes # 0.18 L (0.20-1.00) X 10*3/uL Eosinophils # 0 L (0.04-0.35) X 10*3/uL Anion Gap 16.40 H (4.00-12.00) mmol/L Glucose 124 H (70-110) mg/dL Assessment and Plan Assessment: Acute on chronic hypoxemic respiratory failure secondary to COPD exacerbation. Viral screen negative. No evidence of pneumonia on x-ray. 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 Number of minutes spent on the visit: 10.
--- NOTE | 2023-03-23 14:24 | XR ---
Supine abdomen. DATE: 03/23/2023. COMPARISON: None available. CLINICAL HISTORY: Abdominal pain. IMPRESSION: The bowel gas pattern is nonobstructive. No abnormal mass effect or suspicious calcifications are seen. There appears to be a PEG tube in the left upper quadrant.
--- NOTE | 2023-03-23 14:54 | P.PN ---
Subjective Progress Note Date: 03/23/23 This is a pleasant 62-year-old female who presented to the emergency department with difficulty in breathing. Patient has a PEG and a trach and her cares for her and she reported to him that he she felt she was drowning and was unable to breathe. Patient is PEG tube feeds dependent as well and has chronic nausea with vomiting and reports was concerned as they felt some vomit had come up from the tracheostomy site as well. Patient currently requiring 5 L via tracheostomy collar and patient reports she does not wear any oxygen at home. Patient does follow with Dr. Arreola as well as oncology in the outpatient setting with a past medical history of coronary artery disease,, tonsil cancer, hyperlipidemia, hypertension, myocardial infarction, former smoker with occasional marijuana use. Patient was admitted for shortness of breath with concerns of aspiration pneumonia with pulmonary as well as oncology on consultation. EKG showed sinus rhythm in the ER, chest x-ray showed COPD with moderate emphysema and biapical pleural parenchymal scarring findings of prior granulomatous disease in the left upper lobe which persists with no definite acute process noted. Labs revealed a normal white count of 7.0, hemoglobin was stable at 11.3, platelets are 312, sodium 136, potassium 4.7, creatinine 0.44, magnesium 1.9, AST 60, BNP 242 and viral testing including influenza, RSV, and COVID are all negative. 03/23/2023 Patient is seen and evaluated in follow-up this morning with pulmonary and oncology following. Patient continues on a trach collar of 5 L and reports does not have any oxygen at the home. Will evaluate and assess for home O2 if needed. Patient continues on breathing treatments and dietary has also been consulted for tube feedings. Patient was reporting some mid epigastric abdominal pain that is pressure-like and constant and will obtain abdominal x- ray. Per at the bedside patient has chronic abdominal pain with nausea and vomiting with this PEG tube and is maintained on bolus tube feedings. Patient is afebrile and continued on antibiotics and will continue. Patient is getting some sputum from the tracheostomy and feels slightly improved from y esterday. Patient continues to report shortness of breath with minimal exertion. Review of systems: Constitutional: No reports of fatigue, fever, or chills Cardiovascular: No reports of chest pain or palpitations Respiratory: reports of continued shortness of breath, weak cough GI: reports of intermittent nausea, no recent vomiting, or diarrhea, reports abdominal discomfort above the umbilical area : No reports of dysuria or retention Neurovascular: reports of generalized weakness All medications have been reviewed PHYSICAL EXAMINATION: GENERAL: The patient is alert and oriented x3, thin built, elderly appearing, ill-appearing. Well developed HEENT: Pupils are round and equally reacting to light. EOMI. No scleral icterus. No conjunctival pallor. Normocephalic, atraumatic. No pharyngeal erythema. No thyromegaly. CARDIOVASCULAR: S1 and S2 present. No murmurs, rubs, or gallops. PULMONARY: Diminished breath sounds bilaterally otherwise chest is clear to auscultation, no wheezing, there are faint crackles noted. ABDOMEN: Soft, tender on light palpation near the umbilical area above the PEG tube, nondistended, normoactive bowel sounds. No palpable organomegaly. MUSCULOSKELETAL: No joint swelling or deformity. EXTREMITIES: No cyanosis, clubbing, or pedal edema. NEUROLOGICAL: Gross neurological examination did not reveal any focal deficits. Diffusely weak SKIN: No rashes. 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 Patient is currently maintained on oxygen at 5 L with an FiO2 of 28% trach collar. Patient reports she does not wear any oxygen outpatient on a daily basis. Will perform home O2 in the event patient will require oxygen on discharge Procalcitonin low and maintained on empiric antibiotics in the form of Levaquin Home medications reviewed and resumed Dietary consult to resume tube feedings. at the bedside reports she does bolus feeds including free water flushes Patient having some abdominal discomfort in the umbilical area that is tender on palpation and abdominal x-ray showing no acute process was done today Encouraged increase activity as tolerated Oncology following as well Per pulmonary, patient will require a few days of antibiotics and hospitalization and not quite ready for discharge at this time. High risk for readmissions The impression and plan of care has been dictated by Jenae Tony, Nurse Practitioner as directed. Dr. Mino MD I have performed a history and examination and MDM of this patient, discussed the same with the dictator, and agree with the dictator's assessment and plan as written ,documented as a scribe. Based on total visit time, I have performed more than 50% of the visit. Objective - Vital Signs Vital signs: Vital Signs Temp 98.3 F 03/23/23 07:19 Pulse 85 03/23/23 08:58 Resp 18 03/23/23 07:19 BP 117/70 03/23/23 07:19 Pulse Ox 96 03/23/23 07:19 FiO2 28 03/23/23 08:41 Intake & Output 03/22/23 03/23/23 03/23/23 18:59 06:59 18:59 Output Total 2 Balance -2 Weight 54.431 kg 54.431 kg Output: Urine 2 Other: # Voids 1 1 - Labs CBC & Chem 7: 03/23/23 06:41 03/23/23 06:41 Labs: Abnormal Lab Results - Last 24 Hours (Table) 03/23/23 03/23/23 Range/Units 06:41 06:41 RBC 3.63 L (4.10-5.20) X 10*6/uL Hgb 10.5 L (12.0-15.0) g/dL Hct 35.1 L (37.2-46.3) % MCHC 29.9 L (32.0-37.0) g/dL RDW 17.4 H (11.5-14.5) % Immature Gran # 0.05 H (0.00-0.04) X 10*3/uL Neutrophils # 8.06 H (1.80-7.70) X 10*3/uL Lymphocytes # 0.37 L (0.90-5.00) X 10*3/uL Monocytes # 0.18 L (0.20-1.00) X 10*3/uL Eosinophils # 0 L (0.04-0.35) X 10*3/uL Anion Gap 16.40 H (4.00-12.00) mmol/L Glucose 124 H (70-110) mg/dL
--- NOTE | 2023-03-23 18:51 | P.PN ---
Subjective Progress Note Date: 03/23/23 At today's visit patient is resting comfortably in bed, spouse at bedside. Patient is reporting some improvement in shortness of breath. SPO2 96% on trach collar, no respiratory distress noted. Reporting epigastric discomfort over the last day. Denies nausea vomiting diarrhea. PPI has been started. Objective - Vital Signs Vital signs: Vital Signs Temp 98.3 F 03/23/23 07:19 Pulse 85 03/23/23 08:58 Resp 18 03/23/23 07:19 BP 117/70 03/23/23 07:19 Pulse Ox 96 03/23/23 07:19 FiO2 28 03/23/23 08:41 Intake & Output 03/22/23 03/23/23 03/23/23 18:59 06:59 18:59 Output Total 2 Balance -2 Weight 54.431 kg 54.431 kg Output: Urine 2 Other: # Voids 1 1 - Constitutional General appearance: Present: average body habitus, no acute distress - EENT Eyes: Present: anicteric sclerae, EOMI ENT: Present: hearing grossly normal - Respiratory Details: breathing is even and unlabored - Cardiovascular Details: well perfused - Gastrointestinal General gastrointestinal: Present: soft, tenderness Localized gastrointestinal: tender: epigastric periumbilical - Integumentary Integumentary: Absent: cyanotic - Psychiatric Psychiatric: Present: A&O x's 3 - Labs CBC & Chem 7: 03/23/23 06:41 03/23/23 06:41 Labs: Abnormal Lab Results - Last 24 Hours (Table) 03/23/23 03/23/23 Range/Units 06:41 06:41 RBC 3.63 L (4.10-5.20) X 10*6/uL Hgb 10.5 L (12.0-15.0) g/dL Hct 35.1 L (37.2-46.3) % MCHC 29.9 L (32.0-37.0) g/dL RDW 17.4 H (11.5-14.5) % Immature Gran # 0.05 H (0.00-0.04) X 10*3/uL Neutrophils # 8.06 H (1.80-7.70) X 10*3/uL Lymphocytes # 0.37 L (0.90-5.00) X 10*3/uL Monocytes # 0.18 L (0.20-1.00) X 10*3/uL Eosinophils # 0 L (0.04-0.35) X 10*3/uL Anion Gap 16.40 H (4.00-12.00) mmol/L Glucose 124 H (70-110) mg/dL Assessment and Plan (1) Dyspnea Current Visit: Yes Status: Acute Priority: High Code(s): R06.00 - DYSPNEA, UNSPECIFIED SNOMED Code(s): 134441515 (2) Head and neck cancer Current Visit: Yes Status: Chronic Priority: High Code(s): C76.0 - MALIGNANT NEOPLASM OF HEAD, FACE AND NECK SNOMED Code(s): 880795235 Plan: Dyspnea -Reporting some mild improvement in breathing today. -Pulmonary following -Chest x-ray report reviewed- COPD with moderate emphysema and biapical pleural parenchymal scarring. Prior granulomatous disease, particularly in left upper lobe, no definite acute process. -CTA ordered to rule out pulmonary embolism due to patient's complaints of "feeling like I am drowning". Scan revealed no evidence for PE. No evidence for thoracic aortic aneurysm or dissection. Scattered tree-in-bud areas of nodularity, likely consistent with inflammatory infectious process. Additional scattered pulmonary nodules similar to previous study. With severe emphysema noted. Symptoms likely consistent with COPD exacerbation. Continues on steroids, abx and supportive medications. Defer to pulmonology for management Head and neck malignancy -Patient is status post chemoradiation, immunotherapy at recurrence. 2nd recurr ence in Sep 2022, now s/p 6 cycles of carbo/taxol 03/01/2023, Dec scan showed excellent results. Has scan scheduled for next month and f/u with primary Onc. -CBC and CMP no significant chemotherapy induced cytopenias or electrolyte abnormalities Chemo-induced nausea -Patient is reporting some persistent nausea post chemo. Supportive medications have been ordered. Doctor attests: I performed a history and physical examination of this patient, developed impression and plan of care. Discussed with dictator. I agree with dictators note, documented as a scribe.
[2023-03-24] MEDS: ONDANSETRON 4 MG/2 ML VIAL IVP PRN (10:01)
--- NOTE | 2023-03-24 14:08 | P.PN ---
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 Recent PET scan from January 2023 revealed a positive response to therapy with decreasing FDG activity along the mucosa. She presented here to the emergency room early this morning with complaints of increasing shortness of breath. X-ray reveals evidence of COPD with moderate emphysema and biapical pleural-parenchymal scarring. Prior granulomatous disease in the left upper lobe noted. No acute pulmonary process. CT angiogram reveals no evidence of pulmonary embolism. White count 7.0. Hemoglobin 11.3. Platelets 312. Sodium 136. Potassium 4.7. Bicarb 23. BUN 17. Creatinine 0.88. Glucose 105. AST 60. ALT 18. Viral screen negative. She is seen today in the emergency department. Her is at the bedside. She denies any worsening shortness of breath now. No cough or congestion. She is maintaining good O2 saturations in the 90s on 28% FiO2 via trach collar. She has been initiated on DuoNeb ventilations, Pulmicort and Perforomist inhalations, empiric antibiotics in the form of Levaquin. Procalcitonin pending. The patient is seen today March 23, 2023 in follow-up on the regular medical floor. She is currently resting comfortably in bed. Awake and alert in no acu te distress. She is maintaining O2 saturations in the 90s on 28% FiO2 via trach collar. She is continued on PEG tube feedings for nutritional support. TwoCal HN at 30 mL/h which is goal. White count 8.6. Hemoglobin 10.5. Platelets 418. Sodium 138. Potassium 4.0. Bicarb 22. BUN 14. Creatinine 0.7. Glucose 124. She remains on DuoNeb ventilations, Pulmicort and performing scintillations, IV Solu-Medrol. Antibiotics in the form of Levaquin. The patient is seen today March 24, 2023 in follow-up on the regular medical floor. She is awake and alert in no acute distress. Resting comfortably in bed. Still not feeling back to her baseline. She is maintaining O2 saturations in the 90s at 28% FiO2 via trach collar. Nourished via PEG tube with TwoCal HN at 30 mL/h which is goal. Abdominal x-ray revealed bowel gas pattern is nonobstructive. No abdominal mass effect or suspicious calcifications seen. PEG tube in place. She remains on DuoNeb ventilations, Pulmicort and performing scintillations, IV Solu-Medrol. Antibiotics in the form of Levaquin. Sputum culture pending. Objective - Vital Signs Vital signs: Vital Signs Temp 98.5 F 03/24/23 07:18 Pulse 83 03/24/23 08:40 Resp 16 03/24/23 08:15 BP 145/75 03/24/23 07:18 Pulse Ox 90 L 03/24/23 07:18 FiO2 28 03/24/23 08:25 Intake & Output 03/23/23 03/24/23 03/24/23 18:59 06:59 18:59 Weight 54.431 kg Other: # Voids 1 1 - Exam GENERAL EXAM: Alert, 62-year-old female, on 28% FiO2 via trach collar, in no apparent distress. HEAD: Normocephalic. EYES: Normal reaction of pupils, equal size. NOSE: Clear with pink turbinates. THROAT: No erythema or exudates. NECK: Tracheostomy tube secured in place. No masses, no JVD. CHEST: No chest wall deformity. LUNGS: Equal air entry with bilateral end expiratory wheeze, few scattered rhonchi. CVS: S1 and S2 normal with no audible murmur, regular rhythm. ABDOMEN: PEG tube exit site clean and dry, no hepatosplenomegaly, normal bowel sounds, no guarding or rigidity. SPINE: No scoliosis or deformity SKIN: No rashes CENTRAL NERVOUS SYSTEM: No focal deficits, tone is normal in all 4 extremities. EXTREMITIES: There is no peripheral edema. No clubbing, no cyanosis. Peripheral pulses are intact. - Labs CBC & Chem 7: 03/23/23 06:41 03/23/23 06:41 Labs: Microbiology - Last 24 Hours (Table) 03/22/23 09:15 Blood Culture - Preliminary Blood Assessment and Plan Assessment: Acute on chronic hypoxemic respiratory failure secondary to COPD exacerbation. Viral screen negative. No evidence of pneumonia on x-ray. 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 Number of minutes spent on the visit: 10.
--- NOTE | 2023-03-24 14:09 | P.PN ---
Subjective Progress Note Date: 03/24/23 This is a pleasant 62-year-old female who presented to the emergency department with difficulty in breathing. Patient has a PEG and a trach and her cares for her and she reported to him that he she felt she was drowning and was unable to breathe. Patient is PEG tube feeds dependent as well and has chronic nausea with vomiting and reports was concerned as they felt some vomit had come up from the tracheostomy site as well. Patient currently requiring 5 L via tracheostomy collar and patient reports she does not wear any oxygen at home. Patient does follow with Dr. Arreola as well as oncology in the outpatient setting with a past medical history of coronary artery disease,, tonsil cancer, hyperlipidemia, hypertension, myocardial infarction, former smoker with occasional marijuana use. Patient was admitted for shortness of breath with concerns of aspiration pneumonia with pulmonary as well as oncology on consultation. EKG showed sinus rhythm in the ER, chest x-ray showed COPD with m oderate emphysema and biapical pleural parenchymal scarring findings of prior granulomatous disease in the left upper lobe which persists with no definite acute process noted. Labs revealed a normal white count of 7.0, hemoglobin was stable at 11.3, platelets are 312, sodium 136, potassium 4.7, creatinine 0.44, magnesium 1.9, AST 60, BNP 242 and viral testing including influenza, RSV, and COVID are all negative. 03/23/2023 Patient is seen and evaluated in follow-up this morning with pulmonary and oncology following. Patient continues on a trach collar of 5 L and reports does not have any oxygen at the home. Will evaluate and assess for home O2 if needed. Patient continues on breathing treatments and dietary has also been consulted for tube feedings. Patient was reporting some mid epigastric abdominal pain that is pressure-like and constant and will obtain abdominal x- ray. Per at the bedside patient has chronic abdominal pain with nausea and vomiting with this PEG tube and is maintained on bolus tube feedings. Patient is afebrile and continued on antibiotics and will continue. Patient is getting some sputum from the tracheostomy and feels slightly improved from yest erday. Patient continues to report shortness of breath with minimal exertion. 03/24/2023 Patient evaluated today on the medical floor. She continues on a trach collar 5 L not using any oxygen at home. Patient continues to report feeling short of breath does not feel like she is back to baseline yet. Pulmonary following, remains on IV levofloxacin and IV Solu-Medrol. Continues on DuoNebs as needed as well as budesonide and formoterol. Currently is continued on continues with bolus tube feedings through the PEG tube. Had an abdominal x-ray done due to abdominal pain there is nonobstructive bowel gas pattern with no abnormal mass effect or suspicious calcifications. Patient is now currently denying abdominal pain. Review of systems: Constitutional: No reports of fatigue, fever, or chills Cardiovascular: No reports of chest pain or palpitations Respiratory: reports of continued shortness of breath, weak cough GI: reports of intermittent nausea, no recent vomiting, or diarrhea : No reports of dysuria or retention Neurovascular: reports of generalized weakness All medications have been reviewed PHYSICAL EXAMINATION: GENERAL: The patient is alert and oriented x3, thin built, elderly appearing, ill-appearing. Well developed HEENT: Pupils are round and equally reacting to light. EOMI. No scleral icterus. No conjunctival pallor. Normocephalic, atraumatic. No pharyngeal erythema. No thyromegaly. CARDIOVASCULAR: S1 and S2 present. No murmurs, rubs, or gallops. PULMONARY: Diminished breath sounds bilaterally otherwise chest is clear to auscultation, no wheezing, there are faint crackles noted. ABDOMEN: Soft, tender on light palpation near the umbilical area above the PEG tube, nondistended, normoactive bowel sounds. No palpable organomegaly. MUSCULOSKELETAL: No joint swelling or deformity. EXTREMITIES: No cyanosis, clubbing, or pedal edema. NEUROLOGICAL: Gross neurological examination did not reveal any focal deficits. Diffusely weak SKIN: No rashes. 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 Patient is currently maintained on oxygen at 5 L with an FiO2 of 28% trach collar. Patient reports she does not wear any oxygen outpatient on a daily basis. Will perform home O2 in the event patient will require oxygen on discharge Procalcitonin low and maintained on empiric antibiotics in the form of Levaquin Home medications reviewed and resumed Dietary consult to resume tube feedings. at the bedside reports she does bolus feeds including free water flushes Patient having some abdominal discomfort in the umbilical area that is tender on palpation and abdominal x-ray showing no acute process was done today Encouraged increase activity as tolerated Oncology following as well Per pulmonary, patient will require a few days of antibiotics and hospitalization and not quite ready for discharge at this time. High risk for readmissions The impression and plan of care has been dictated by Elissa Hair Nurse Practitioner as directed. Dr. Mino MD I have performed a history and physical examination and medical decision making of this patient, discussed the same with the dictator, and agree with the dictators assessment and plan as written, documented as a scribe. Based on total visit time, I have performed more than 50% of this visit. Objective - Vital Signs Vital signs: Vital Signs Temp 98.5 F 03/24/23 07:18 Pulse 83 03/24/23 08:40 Resp 16 03/24/23 07:18 BP 145/75 03/24/23 07:18 Pulse Ox 90 L 03/24/23 07:18 FiO2 28 03/24/23 08:25 Intake & Output 03/23/23 03/24/23 03/24/23 18:59 06:59 18:59 Weight 54.431 kg Other: # Voids 1 1 - Labs CBC & Chem 7: 03/23/23 06:41 03/23/23 06:41 Labs: Abnormal Lab Results - Last 24 Hours (Table) 03/23/23 03/23/23 Range/Units 06:41 06:41 RBC 3.63 L (4.10-5.20) X 10*6/uL Hgb 10.5 L (12.0-15.0) g/dL Hct 35.1 L (37.2-46.3) % MCHC 29.9 L (32.0-37.0) g/dL RDW 17.4 H (11.5-14.5) % Immature Gran # 0.05 H (0.00-0.04) X 10*3/uL Neutrophils # 8.06 H (1.80-7.70) X 10*3/uL Lymphocytes # 0.37 L (0.90-5.00) X 10*3/uL Monocytes # 0.18 L (0.20-1.00) X 10*3/uL Eosinophils # 0 L (0.04-0.35) X 10*3/uL Anion Gap 16.40 H (4.00-12.00) mmol/L Glucose 124 H (70-110) mg/dL Microbiology - Last 24 Hours (Table) 03/22/23 09:15 Blood Culture - Preliminary Blood Assessment and Plan Time with Patient: Less than 30
--- NOTE | 2023-03-25 14:35 | P.PN ---
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 Recent PET scan from January 2023 revealed a positive response to therapy with decreasing FDG activity along the mucosa. She presented here to the emergency room early this morning with complaints of increasing shortness of breath. X-ray reveals evidence of COPD with moderate emphysema and biapical pleural-parenchymal scarring. Prior granulomatous disease in the left upper lobe noted. No acute pulmonary process. CT angiogram reveals no evidence of pulmonary embolism. White count 7.0. Hemoglobin 11.3. Platelets 312. Sodium 136. Potassium 4.7. Bicarb 23. BUN 17. Creatinine 0.88. Glucose 105. AST 60. ALT 18. Viral screen negative. She is seen today in the emergency department. Her is at the bedside. She denies any worsening shortness of breath now. No cough or congestion. She is maintaining good O2 saturations in the 90s on 28% FiO2 via trach collar. She has been initiated on DuoNeb ventilations, Pulmicort and Perforomist inhalations, empiric antibiotics in the form of Levaquin. Procalcitonin pending. The patient is seen today March 23, 2023 in follow-up on the regular medical floor. She is currently resting comfortably in bed. Awake and alert in no acu te distress. She is maintaining O2 saturations in the 90s on 28% FiO2 via trach collar. She is continued on PEG tube feedings for nutritional support. TwoCal HN at 30 mL/h which is goal. White count 8.6. Hemoglobin 10.5. Platelets 418. Sodium 138. Potassium 4.0. Bicarb 22. BUN 14. Creatinine 0.7. Glucose 124. She remains on DuoNeb ventilations, Pulmicort and performing scintillations, IV Solu-Medrol. Antibiotics in the form of Levaquin. The patient is seen today March 24, 2023 in follow-up on the regular medical floor. She is awake and alert in no acute distress. Resting comfortably in bed. Still not feeling back to her baseline. She is maintaining O2 saturations in the 90s at 28% FiO2 via trach collar. Nourished via PEG tube with TwoCal HN at 30 mL/h which is goal. Abdominal x-ray revealed bowel gas pattern is nonobstructive. No abdominal mass effect or suspicious calcifications seen. PEG tube in place. She remains on DuoNeb ventilations, Pulmicort and performing scintillations, IV Solu-Medrol. Antibiotics in the form of Levaquin. Sputum culture pending. The patient is seen today March 25, 2023 in follow-up on the regular medical floor. She is currently resting fairly comfortably in bed. Awake and alert in no acute distress. She is still somewhat bronchospastic and wheezing. She has been slow to progress. She is continued on Pulmicort and Perforomist inhalations, DuoNeb inhalations, Solu-Medrol. Antibiotics in the form of Levaquin. Blood culture revealing no growth thus far. Sputum culture pending. She continues to be nourished with TwoCal HN at 30 MLS per hour which is her goal. Remains on trach collar at 28% FiO2 with O2 saturations in the 90s. Afebrile. Hemodynamically stable. Objective - Vital Signs Vital signs: Vital Signs Temp 98.1 F 03/25/23 13:25 Pulse 86 03/25/23 13:25 Resp 19 03/25/23 13:25 BP 109/68 03/25/23 13:25 Pulse Ox 93 L 03/25/23 13:25 FiO2 28 03/25/23 07:55 Intake & Output 03/24/23 03/25/23 03/25/23 18:59 06:59 18:59 Weight 46.7 kg Other: # Voids 1 - Exam GENERAL EXAM: Alert, 62-year-old female, resting in bed, on 28% FiO2 via trach collar, in no apparent distress. HEAD: Normocephalic. EYES: Normal reaction of pupils, equal size. NOSE: Clear with pink turbinates. THROAT: No erythema or exudates. NECK: Tracheostomy tube secured in place. No masses, no JVD. CHEST: No chest wall deformity. LUNGS: Equal air entry with bilateral end expiratory wheeze, few scattered rhonchi. CVS: S1 and S2 normal with no audible murmur, regular rhythm. ABDOMEN: PEG tube exit site clean and dry, no hepatosplenomegaly, normal bowel sounds, no guarding or rigidity. SPINE: No scoliosis or deformity SKIN: No rashes CENTRAL NERVOUS SYSTEM: No focal deficits, tone is normal in all 4 extremities. EXTREMITIES: There is no peripheral edema. No clubbing, no cyanosis. Peripheral pulses are intact. - Labs CBC & Chem 7: 03/23/23 06:41 03/23/23 06:41 Labs: Microbiology - Last 24 Hours (Table) 03/22/23 09:15 Blood Culture - Preliminary Blood Assessment and Plan Assessment: Acute on chronic hypoxemic respiratory failure secondary to COPD exacerbation. Viral screen negative. No evidence of pneumonia on x-ray. 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 History of hypertension Hyperlipidemia Coronary disease with previous stent placement History of chronic tobacco dependence Plan: The patient was seen and evaluated Medications reviewed Continue the current treatment plan If no improvement may need bronchoscopy Sputum sample pending We will continue to follow I have personally seen and examined the patient, performed the documentation and the assessment and plan as written. Number of minutes spent on the visit: 10.
--- NOTE | 2023-03-25 16:18 | P.PN ---
Subjective Progress Note Date: 03/25/23 This is a pleasant 62-year-old female who presented to the emergency department with difficulty in breathing. Patient has a PEG and a trach and her cares for her and she reported to him that he she felt she was drowning and was unable to breathe. Patient is PEG tube feeds dependent as well and has chronic nausea with vomiting and reports was concerned as they felt some vomit had come up from the tracheostomy site as well. Patient currently requiring 5 L via tracheostomy collar and patient reports she does not wear any oxygen at home. Patient does follow with Dr. Arreola as well as oncology in the outpatient setting with a past medical history of coronary artery disease,, tonsil cancer, hyperlipidemia, hypertension, myocardial infarction, former smoker with occasional marijuana use. Patient was admitted for shortness of breath with concerns of aspiration pneumonia with pulmonary as well as oncology on consultation. EKG showed sinus rhythm in the ER, chest x-ray showed COPD with m oderate emphysema and biapical pleural parenchymal scarring findings of prior granulomatous disease in the left upper lobe which persists with no definite acute process noted. Labs revealed a normal white count of 7.0, hemoglobin was stable at 11.3, platelets are 312, sodium 136, potassium 4.7, creatinine 0.44, magnesium 1.9, AST 60, BNP 242 and viral testing including influenza, RSV, and COVID are all negative. 03/23/2023 Patient is seen and evaluated in follow-up this morning with pulmonary and oncology following. Patient continues on a trach collar of 5 L and reports does not have any oxygen at the home. Will evaluate and assess for home O2 if needed. Patient continues on breathing treatments and dietary has also been consulted for tube feedings. Patient was reporting some mid epigastric abdominal pain that is pressure-like and constant and will obtain abdominal x- ray. Per at the bedside patient has chronic abdominal pain with nausea and vomiting with this PEG tube and is maintained on bolus tube feedings. Patient is afebrile and continued on antibiotics and will continue. Patient is getting some sputum from the tracheostomy and feels slightly improved from yest erday. Patient continues to report shortness of breath with minimal exertion. 03/24/2023 Patient evaluated today on the medical floor. She continues on a trach collar 5 L not using any oxygen at home. Patient continues to report feeling short of breath does not feel like she is back to baseline yet. Pulmonary following, remains on IV levofloxacin and IV Solu-Medrol. Continues on DuoNebs as needed as well as budesonide and formoterol. Currently is continued on continues with bolus tube feedings through the PEG tube. Had an abdominal x-ray done due to abdominal pain there is nonobstructive bowel gas pattern with no abnormal mass effect or suspicious calcifications. Patient is now currently denying abdominal pain. 03/25/2023 Patient is evaluated today resting in bed. She continues to report shortness of breath with significant scattered wheezing. She also has increased sputum p roduction and a thick tannish color in nature. A sputum culture has been taken and is currently pending. She remains on high-dose IV steroids as well as empiric coverage with IV levofloxacin. Further recommendations are pending sputum culture. Patient does report an improvement in the abdominal pain however has not had a bowel movement in a few days and is requesting a stool softener which has been added. Review of systems: Constitutional: No reports of fatigue, fever, or chills Cardiovascular: No reports of chest pain or palpitations Respiratory: reports of continued shortness of breath, weak cough GI: reports of intermittent nausea, no recent vomiting, or diarrhea : No reports of dysuria or retention Neurovascular: reports of generalized weakness All medications have been reviewed PHYSICAL EXAMINATION: GENERAL: The patient is alert and oriented x3, thin built, elderly appearing, ill-appearing. Well developed HEENT: Pupils are round and equally reacting to light. EOMI. No scleral icterus. No conjunctival pallor. Normocephalic, atraumatic. No pharyngeal erythema. No thyromegaly. CARDIOVASCULAR: S1 and S2 present. No murmurs, rubs, or gallops. PULMONARY: Diminished breath sounds bilaterally otherwise chest is clear to auscultation, no wheezing, there are faint crackles noted. ABDOMEN: Soft, tender on light palpation near the umbilical area above the PEG tube, nondistended, normoactive bowel sounds. No palpable organomegaly. MUSCULOSKELETAL: No joint swelling or deformity. EXTREMITIES: No cyanosis, clubbing, or pedal edema. NEUROLOGICAL: Gross neurological examination did not reveal any focal deficits. Diffusely weak SKIN: No rashes. 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 Patient is currently maintained on oxygen at 5 L with an FiO2 of 28% trach collar. Patient reports she does not wear any oxygen outpatient on a daily basis. Will perform home O2 in the event patient will require oxygen on discharge Procalcitonin low and maintained on empiric antibiotics in the form of Levaquin Home medications reviewed and resumed Bowel regimen has been added as patient has report of constipation. Dietary consult to resume tube feedings. at the bedside reports she does bolus feeds including free water flushes Patient having some abdominal discomfort in the umbilical area that is tender on palpation and abdominal x-ray showing no acute process was done today Encouraged increase activity as tolerated Oncology following as well Per pulmonary, patient will require a few days of antibiotics and hospitalization and not quite ready for discharge at this time. High risk for readmissions The impression and plan of care has been dictated by Elissa Hair, Nurse Practitioner as directed. Dr. Mino MD I have performed a history and physical examination and medical decision making of this patient, discussed the same with the dictator, and agree with the dictators assessment and plan as written, documented as a scribe. Based on total visit time, I have performed more than 50% of this visit. Objective - Vital Signs Vital signs: Vital Signs Temp 9.1 F L 03/25/23 00:30 Pulse 76 03/25/23 08:16 Resp 18 03/25/23 00:30 BP 128/62 03/25/23 00:30 Pulse Ox 92 L 03/25/23 07:55 FiO2 28 03/25/23 07:55 Intake & Output 03/24/23 03/25/23 03/25/23 18:59 06:59 18:59 Weight 46.7 kg Other: # Voids 1 - Labs CBC & Chem 7: 03/23/23 06:41 03/23/23 06:41 Labs: Microbiology - Last 24 Hours (Table) 03/22/23 09:15 Blood Culture - Preliminary Blood Assessment and Plan Time with Patient: Less than 30
[2023-03-25] MEDS: SENNOSIDES-DOCUSATE SODIUM 1 EACH TAB PO SCH (16:27)
[2023-03-26 09:13] LABS: Basophils # (A) 0.04 X 10*3/uL (0.00-0.10); Basophils % (A) 0.4 %; Eosinophils # (A) 0 X 10*3/uL (0.04-0.35); Eosinophils % (A) 0 %; HCT 35.6 % (37.2-46.3); HGB 10.9 g/dL (12.0-15.0); Lymphocytes # (A) 0.35 X 10*3/uL (0.90-5.00); Lymphocytes % (A) 3.1 %; MCH 28.4 pg (27.0-32.0); MCHC 30.6 g/dL (32.0-37.0); MCV 92.7 FL (80.0-97.0); Mean Platelet Volume 11.1 FL (9.5-12.2); Monocytes # (A) 0.62 X 10*3/uL (0.20-1.00); Monocytes % (A) 5.5 %; NRBC Per 100 WBC 0 X 10*3/uL (0.00-0.01); Neutrophils # (A) 9.89 X 10*3/uL (1.80-7.70); Neutrophils % (A) 87.6 %; Platelet Count 353 X 10*3/uL (140-440); RBC 3.84 X 10*6/uL (4.10-5.20); RDW 17.6 % (11.5-14.5); WBC 11.28 X 10*3/uL (4.50-10.00)
[2023-03-26 11:19] LABS: Blood Urea Nitrogen 25.3 mg/dL (9.0-27.0); Carbon Dioxide 22.8 mmol/L (21.6-31.8); Chloride 102 mmol/L (96-109); Glucose 134 mg/dL (70-110); Potassium 4.5 mmol/L (3.5-5.5); Sodium 138 mmol/L (135-145)
--- NOTE | 2023-03-26 13:31 | P.PN ---
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 Recent PET scan from January 2023 revealed a positive response to therapy with decreasing FDG activity along the mucosa. She presented here to the emergency room early this morning with complaints of increasing shortness of breath. X-ray reveals evidence of COPD with moderate emphysema and biapical pleural-parenchymal scarring. Prior granulomatous disease in the left upper lobe noted. No acute pulmonary process. CT angiogram reveals no evidence of pulmonary embolism. White count 7.0. Hemoglobin 11.3. Platelets 312. Sodium 136. Potassium 4.7. Bicarb 23. BUN 17. Creatinine 0.88. Glucose 105. AST 60. ALT 18. Viral screen negative. She is seen today in the emergency department. Her is at the bedside. She denies any worsening shortness of breath now. No cough or congestion. She is maintaining good O2 saturations in the 90s on 28% FiO2 via trach collar. She has been initiated on DuoNeb ventilations, Pulmicort and Perforomist inhalations, empiric antibiotics in the form of Levaquin. Procalcitonin pending. The patient is seen today March 23, 2023 in follow-up on the regular medical floor. She is currently resting comfortably in bed. Awake and alert in no acu te distress. She is maintaining O2 saturations in the 90s on 28% FiO2 via trach collar. She is continued on PEG tube feedings for nutritional support. TwoCal HN at 30 mL/h which is goal. White count 8.6. Hemoglobin 10.5. Platelets 418. Sodium 138. Potassium 4.0. Bicarb 22. BUN 14. Creatinine 0.7. Glucose 124. She remains on DuoNeb ventilations, Pulmicort and performing scintillations, IV Solu-Medrol. Antibiotics in the form of Levaquin. The patient is seen today March 24, 2023 in follow-up on the regular medical floor. She is awake and alert in no acute distress. Resting comfortably in bed. Still not feeling back to her baseline. She is maintaining O2 saturations in the 90s at 28% FiO2 via trach collar. Nourished via PEG tube with TwoCal HN at 30 mL/h which is goal. Abdominal x-ray revealed bowel gas pattern is nonobstructive. No abdominal mass effect or suspicious calcifications seen. PEG tube in place. She remains on DuoNeb ventilations, Pulmicort and performing scintillations, IV Solu-Medrol. Antibiotics in the form of Levaquin. Sputum culture pending. The patient is seen today March 25, 2023 in follow-up on the regular medical floor. She is currently resting fairly comfortably in bed. Awake and alert in no acute distress. She is still somewhat bronchospastic and wheezing. She has been slow to progress. She is continued on Pulmicort and Perforomist inhalations, DuoNeb inhalations, Solu-Medrol. Antibiotics in the form of Levaquin. Blood culture revealing no growth thus far. Sputum culture pending. She continues to be nourished with TwoCal HN at 30 MLS per hour which is her goal. Remains on trach collar at 28% FiO2 with O2 saturations in the 90s. Afebrile. Hemodynamically stable. The patient is seen today March 26, 2023 in follow-up on the regular medical floor. She is awake and alert in no acute distress. Resting comfortably in bed. She continues to have a loose cough. Still quite congested. She is been maintained on bronchodilators and steroids. She is on antibiotics in the form of Levaquin. Sputum culture revealing yeast. Blood cultures revealing no growth. White count 11.2. Hemoglobin 10.9. Sodium 138. Potassium 4.5. Bicarb 23. BUN 25. Creatinine 0.5. Glucose 134. She remains on tube feedings of TwoCal HN at 30 MLS per hour. She has been afebrile. Maintaining good O2 saturations in the 90s on 28% trach collar. Objective - Vital Signs Vital signs: Vital Signs Temp 98.2 F 03/26/23 07:20 Pulse 80 03/26/23 09:07 Resp 18 03/26/23 07:20 BP 137/83 03/26/23 07:20 Pulse Ox 92 L 03/26/23 07:20 FiO2 28 03/26/23 08:55 Intake & Output 03/25/23 03/26/23 03/26/23 18:59 06:59 18:59 Other: Voiding Method Toilet # Voids 1 # Bowel Movements 1 - Exam GENERAL EXAM: Alert, pleasant 62-year-old female, on 28% FiO2 via trach collar, in no apparent distress. HEAD: Normocephalic. EYES: Normal reaction of pupils, equal size. NOSE: Clear with pink turbinates. THROAT: No erythema or exudates. NECK: Tracheostomy tube secured in place. No masses, no JVD. CHEST: No chest wall deformity. LUNGS: Equal air entry with bilateral end expiratory wheeze, few scattered rhonchi. CVS: S1 and S2 normal with no audible murmur, regular rhythm. ABDOMEN: PEG tube exit site clean and dry, no hepatosplenomegaly, normal bowel sounds, no guarding or rigidity. SPINE: No scoliosis or deformity SKIN: No rashes CENTRAL NERVOUS SYSTEM: No focal deficits, tone is normal in all 4 extremities. EXTREMITIES: There is no peripheral edema. No clubbing, no cyanosis. Peripheral pulses are intact. - Labs CBC & Chem 7: 03/26/23 06:02 03/26/23 06:02 Labs: Abnormal Lab Results - Last 24 Hours (Table) 03/26/23 03/26/23 Range/Units 06:02 06:02 WBC 11.28 H (4.50-10.00) X 10*3/uL RBC 3.84 L (4.10-5.20) X 10*6/uL Hgb 10.9 L (12.0-15.0) g/dL Hct 35.6 L (37.2-46.3) % MCHC 30.6 L (32.0-37.0) g/dL RDW 17.6 H (11.5-14.5) % Immature Gran # 0.38 H (0.00-0.04) X 10*3/uL Neutrophils # 9.89 H (1.80-7.70) X 10*3/uL Lymphocytes # 0.35 L (0.90-5.00) X 10*3/uL Eosinophils # 0 L (0.04-0.35) X 10*3/uL Anion Gap 13.20 H (4.00-12.00) mmol/L Creatinine 0.5 L (0.6-1.5) mg/dL BUN/Creatinine Ratio 50.60 H (12.00-20.00) Ratio Glucose 134 H (70-110) mg/dL Microbiology - Last 24 Hours (Table) 03/24/23 14:27 Gram Stain - Preliminary Sputum Sputum Culture - Preliminary Yeast 03/22/23 09:15 Blood Culture - Preliminary Blood Assessment and Plan Assessment: Acute on chronic hypoxemic respiratory failure secondary to COPD exacerbation. Viral screen negative. No evidence of pneumonia on x-ray. 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 History of hypertension Hyperlipidemia Coronary disease with previous stent placement History of chronic tobacco dependence Plan: The patient was seen and evaluated Medications and labs reviewed Continue the current treatment plan Will plan for bronchoscopy with BAL tomorrow N.p.o. after midnight We will continue to follow I have personally seen and examined the patient, performed the documentation and the assessment and plan as written. Number of minutes spent on the visit: 10.
--- NOTE | 2023-03-26 16:17 | P.PN ---
Subjective Progress Note Date: 03/26/23 Objective - Vital Signs Vital signs: Vital Signs Temp 98.1 F 03/26/23 14:42 Pulse 73 03/26/23 14:42 Resp 18 03/26/23 14:42 BP 144/82 03/26/23 14:42 Pulse Ox 93 L 03/26/23 14:42 FiO2 28 03/26/23 08:55 Intake & Output 03/25/23 03/26/23 03/26/23 18:59 06:59 18:59 Other: Voiding Method Toilet # Voids 1 # Bowel Movements 1 - Constitutional General appearance: Present: average body habitus, cooperative, no acute distress - EENT Eyes: Present: anicteric sclerae, EOMI ENT: Present: hearing grossly normal - Neck Details: Tracheostomy, thick, milky secretions expectorated with cough - Respiratory Respiratory: bilateral: rhonchi - Cardiovascular Rhythm: regular - Peripheral edema leg Peripheral Edema: bilateral: None - Gastrointestinal Gastrointestinal Comment(s): PEG tube General gastrointestinal: Present: soft - Neurologic Neurologic: Present: CNII-XII intact (Grossly) - Musculoskeletal Musculoskeletal: Present: strength equal bilaterally - Psychiatric Psychiatric: Present: A&O x's 3, appropriate affect, intact judgment & insight - Labs CBC & Chem 7: 03/26/23 06:02 03/26/23 06:02 Labs: Abnormal Lab Results - Last 24 Hours (Table) 03/26/23 03/26/23 Range/Units 06:02 06:02 WBC 11.28 H (4.50-10.00) X 10*3/uL RBC 3.84 L (4.10-5.20) X 10*6/uL Hgb 10.9 L (12.0-15.0) g/dL Hct 35.6 L (37.2-46.3) % MCHC 30.6 L (32.0-37.0) g/dL RDW 17.6 H (11.5-14.5) % Immature Gran # 0.38 H (0.00-0.04) X 10*3/uL Neutrophils # 9.89 H (1.80-7.70) X 10*3/uL Lymphocytes # 0.35 L (0.90-5.00) X 10*3/uL Eosinophils # 0 L (0.04-0.35) X 10*3/uL Anion Gap 13.20 H (4.00-12.00) mmol/L Creatinine 0.5 L (0.6-1.5) mg/dL BUN/Creatinine Ratio 50.60 H (12.00-20.00) Ratio Glucose 134 H (70-110) mg/dL Microbiology - Last 24 Hours (Table) 03/24/23 14:27 Gram Stain - Preliminary Sputum Sputum Culture - Preliminary Yeast 03/22/23 09:15 Blood Culture - Preliminary Blood Assessment and Plan (1) Dyspnea Current Visit: Yes Status: Acute Priority: High Code(s): R06.00 - DYSPNEA, UNSPECIFIED SNOMED Code(s): 822569566 (2) Head and neck cancer Current Visit: Yes Status: Chronic Priority: High Code(s): C76.0 - MALIGNANT NEOPLASM OF HEAD, FACE AND NECK SNOMED Code(s): 088140039 Plan: Dyspnea -Patient does report small improvements in breathing today -CTA negative for PE -Pulmonary is consulted and is following and treating patient. On review of their notes possible bronc with BAL depending on how patient's respiratory status changes with treatment -Chest x-ray report reviewed- COPD with moderate emphysema and biapical pleural parenchymal scarring. Prior granulomatous disease, particularly in left upper lobe, no definite acute process. Head and neck malignancy -Patient is status post chemoradiation initially, immunotherapy at first recurrence. 2nd recurrence in Sep 2022, now s/p 6 cycles of carbo/taxol 03/01/2023, Dec scan showed excellent results. Has scan scheduled for next month and f/u with primary Onc. -CBC and CMP no significant chemotherapy induced cytopenias or electrolyte abnormalities Chemo-induced nausea -Patient is reporting some persistent nausea post chemo. Supportive medications have been ordered. This appears to be stable at this time Pain management -Reviewed with patient and appropriate use of fentanyl and MS IR. They have been working on decreasing the fentanyl while increasing use of the MS IR. I explained to them that that is not the goal of pain management. Long-acting pain medications to reduce the need for breakthrough pain medications is the goal. They verbalized understanding. They will work on adjusting her pain medications at home. No changes to pain management while inpatient. Patient is reporting good pain control currently.
--- NOTE | 2023-03-27 06:09 | P.PN ---
Subjective Progress Note Date: 03/26/23 This is a pleasant 62-year-old female who presented to the emergency department with difficulty in breathing. Patient has a PEG and a trach and her cares for her and she reported to him that he she felt she was drowning and was unable to breathe. Patient is PEG tube feeds dependent as well and has chronic nausea with vomiting and reports was concerned as they felt some vomit had come up from the tracheostomy site as well. Patient currently requiring 5 L via tracheostomy collar and patient reports she does not wear any oxygen at home. Patient does follow with Dr. Arreola as well as oncology in the outpatient setting with a past medical history of coronary artery disease,, tonsil cancer, hyperlipidemia, hypertension, myocardial infarction, former smoker with occasional marijuana use. Patient was admitted for shortness of breath with concerns of aspiration pneumonia with pulmonary as well as oncology on consultation. EKG showed sinus rhythm in the ER, chest x-ray showed COPD with moderate emphysema and biapical pleural parenchymal scarring findings of prior granulomatous disease in the left upper lobe which persists with no definite acute process noted. Labs revealed a normal white count of 7.0, hemoglobin was stable at 11.3, platelets are 312, sodium 136, potassium 4.7, creatinine 0.44, magnesium 1.9, AST 60, BNP 242 and viral testing including influenza, RSV, and COVID are all negative. 03/23/2023 Patient is seen and evaluated in follow-up this morning with pulmonary and oncology following. Patient continues on a trach collar of 5 L and reports does not have any oxygen at the home. Will evaluate and assess for home O2 if needed. Patient continues on breathing treatments and dietary has also been consulted for tube feedings. Patient was reporting some mid epigastric abdominal pain that is pressure-like and constant and will obtain abdominal x- ray. Per at the bedside patient has chronic abdominal pain with nausea and vomiting with this PEG tube and is maintained on bolus tube feedings. Patient is afebrile and continued on antibiotics and will continue. Patient is getting some sputum from the tracheostomy and feels slightly improved from y esterday. Patient continues to report shortness of breath with minimal exertion. 03/24/2023 Patient evaluated today on the medical floor. She continues on a trach collar 5 L not using any oxygen at home. Patient continues to report feeling short of breath does not feel like she is back to baseline yet. Pulmonary following, remains on IV levofloxacin and IV Solu-Medrol. Continues on DuoNebs as needed as well as budesonide and formoterol. Currently is continued on continues with bolus tube feedings through the PEG tube. Had an abdominal x-ray done due to abdominal pain there is nonobstructive bowel gas pattern with no abnormal mass effect or suspicious calcifications. Patient is now currently denying abdominal pain. 03/25/2023 Patient is evaluated today resting in bed. She continues to report shortness of breath with significant scattered wheezing. She also has increased sputum production and a thick tannish color in nature. A sputum culture has been taken and is currently pending. She remains on high-dose IV steroids as well as empiric coverage with IV levofloxacin. Further recommendations are pending sputum culture. Patient does report an improvement in the abdominal pain however has not had a bowel movement in a few days and is requesting a stool softener which has been added. 03/26/2023 Patient is seen in follow-up today being followed by oncology as well as pulmonary with plans of possible bronchoscopy tomorrow. Patient reports her breathing has improved although continues with shortness of breath and frequent coughing with phlegm production from the tracheostomy. Patient is maintained on breathing inhalational treatments along with IV steroids and will continue. Weaning FiO2 as tolerated and intermittently using trach collar. Patient tolerating tube feeds and reports is having bowel movements and abdominal pain/tenderness has improved. Review of systems: Constitutional: No reports of fatigue, fever, or chills Cardiovascular: No reports of chest pain or palpitations Respiratory: reports of continued shortness of breath, weak cough GI: reports of intermittent nausea, no recent vomiting, or diarrhea : No reports of dysuria or retention Neurovascular: reports of generalized weakness All medications have been reviewed PHYSICAL EXAMINATION: GENERAL: The patient is alert and oriented x3, thin built, elderly appearing, ill-appearing. Well developed HEENT: Pupils are round and equally reacting to light. EOMI. No scleral icterus. No conjunctival pallor. Normocephalic, atraumatic. No pharyngeal erythema. No thyromegaly. CARDIOVASCULAR: S1 and S2 present. No murmurs, rubs, or gallops. PULMONARY: Diminished breath sounds bilaterally otherwise chest is clear to auscultation, faint expiratory wheezing, there are faint crackles noted. ABDOMEN: Soft, less tender on light palpation near the umbilical area above the PEG tube, nondistended, normoactive bowel sounds. No palpable organomegaly. MUSCULOSKELETAL: No joint swelling or deformity. EXTREMITIES: No cyanosis, clubbing, or pedal edema. NEUROLOGICAL: Gross neurological examination did not reveal any focal deficits. Diffusely weak SKIN: No rashes. 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 Patient is currently maintained on room air and intermittently using trach collar. Patient reports she does not wear any oxygen outpatient on a daily basis. Will perform home O2 in the event patient will require oxygen on discharge Procalcitonin low and maintained on empiric antibiotics in the form of Levaquin Home medications reviewed and resumed Bowel regimen has been added as patient has report of constipation. Patient reports she is having bowel movements now and improvement in abdominal discomfort Dietary following and maintained on tube feedings. at the bedside reports she does bolus feeds including free water flushes Encouraged increase activity as tolerated Oncology following as well Per pulmonary, patient will be tentatively scheduled for bronchoscopy with BAL on 03/27/2023 as patient continues to have secretions and shortness of breath. The impression and plan of care has been dictated by Jenae Tony, Nurse Practitioner as directed. Dr. Mino MD I have performed a history and examination and MDM of this patient, discussed the same with the dictator, and agree with the dictator's assessment and plan as written ,documented as a scribe. Based on total visit time, I have performed more than 50% of the visit. Objective - Vital Signs Vital signs: Vital Signs Temp 98.2 F 03/26/23 07:20 Pulse 80 03/26/23 09:07 Resp 18 03/26/23 07:20 BP 137/83 03/26/23 07:20 Pulse Ox 92 L 03/26/23 07:20 FiO2 28 03/26/23 08:55 Intake & Output 03/25/23 03/26/23 03/26/23 18:59 06:59 18:59 Other: Voiding Method Toilet # Voids 1 # Bowel Movements 1 - Labs CBC & Chem 7: 03/26/23 06:02 03/26/23 06:02 Labs: Abnormal Lab Results - Last 24 Hours (Table) 03/26/23 03/26/23 Range/Units 06:02 06:02 WBC 11.28 H (4.50-10.00) X 10*3/uL RBC 3.84 L (4.10-5.20) X 10*6/uL Hgb 10.9 L (12.0-15.0) g/dL Hct 35.6 L (37.2-46.3) % MCHC 30.6 L (32.0-37.0) g/dL RDW 17.6 H (11.5-14.5) % Immature Gran # 0.38 H (0.00-0.04) X 10*3/uL Neutrophils # 9.89 H (1.80-7.70) X 10*3/uL Lymphocytes # 0.35 L (0.90-5.00) X 10*3/uL Eosinophils # 0 L (0.04-0.35) X 10*3/uL Anion Gap 13.20 H (4.00-12.00) mmol/L Creatinine 0.5 L (0.6-1.5) mg/dL BUN/Creatinine Ratio 50.60 H (12.00-20.00) Ratio Glucose 134 H (70-110) mg/dL Microbiology - Last 24 Hours (Table) 03/24/23 14:27 Gram Stain - Preliminary Sputum Sputum Culture - Preliminary Yeast 03/22/23 09:15 Blood Culture - Preliminary Blood
--- NOTE | 2023-03-27 11:31 | P.PN ---
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 Recent PET scan from January 2023 revealed a positive response to therapy with decreasing FDG activity along the mucosa. She presented here to the emergency room early this morning with complaints of increasing shortness of breath. X-ray reveals evidence of COPD with moderate emphysema and biapical pleural-parenchymal scarring. Prior granulomatous disease in the left upper lobe noted. No acute pulmonary process. CT angiogram reveals no evidence of pulmonary embolism. White count 7.0. Hemoglobin 11.3. Platelets 312. Sodium 136. Potassium 4.7. Bicarb 23. BUN 17. Creatinine 0.88. Glucose 105. AST 60. ALT 18. Viral screen negative. She is seen today in the emergency department. Her is at the bedside. She denies any worsening shortness of breath now. No cough or congestion. She is maintaining good O2 saturations in the 90s on 28% FiO2 via trach collar. She has been initiated on DuoNeb ventilations, Pulmicort and Perforomist inhalations, empiric antibiotics in the form of Levaquin. Procalcitonin pending. The patient is seen today March 23, 2023 in follow-up on the regular medical floor. She is currently resting comfortably in bed. Awake and alert in no acu te distress. She is maintaining O2 saturations in the 90s on 28% FiO2 via trach collar. She is continued on PEG tube feedings for nutritional support. TwoCal HN at 30 mL/h which is goal. White count 8.6. Hemoglobin 10.5. Platelets 418. Sodium 138. Potassium 4.0. Bicarb 22. BUN 14. Creatinine 0.7. Glucose 124. She remains on DuoNeb ventilations, Pulmicort and performing scintillations, IV Solu-Medrol. Antibiotics in the form of Levaquin. The patient is seen today March 24, 2023 in follow-up on the regular medical floor. She is awake and alert in no acute distress. Resting comfortably in bed. Still not feeling back to her baseline. She is maintaining O2 saturations in the 90s at 28% FiO2 via trach collar. Nourished via PEG tube with TwoCal HN at 30 mL/h which is goal. Abdominal x-ray revealed bowel gas pattern is nonobstructive. No abdominal mass effect or suspicious calcifications seen. PEG tube in place. She remains on DuoNeb ventilations, Pulmicort and performing scintillations, IV Solu-Medrol. Antibiotics in the form of Levaquin. Sputum culture pending. The patient is seen today March 25, 2023 in follow-up on the regular medical floor. She is currently resting fairly comfortably in bed. Awake and alert in no acute distress. She is still somewhat bronchospastic and wheezing. She has been slow to progress. She is continued on Pulmicort and Perforomist inhalations, DuoNeb inhalations, Solu-Medrol. Antibiotics in the form of Levaquin. Blood culture revealing no growth thus far. Sputum culture pending. She continues to be nourished with TwoCal HN at 30 MLS per hour which is her goal. Remains on trach collar at 28% FiO2 with O2 saturations in the 90s. Afebrile. Hemodynamically stable. The patient is seen today March 26, 2023 in follow-up on the regular medical floor. She is awake and alert in no acute distress. Resting comfortably in bed. She continues to have a loose cough. Still quite congested. She is been maintained on bronchodilators and steroids. She is on antibiotics in the form of Levaquin. Sputum culture revealing yeast. Blood cultures revealing no growth. White count 11.2. Hemoglobin 10.9. Sodium 138. Potassium 4.5. Bicarb 23. BUN 25. Creatinine 0.5. Glucose 134. She remains on tube feedings of TwoCal HN at 30 MLS per hour. She has been afebrile. Maintaining good O2 saturations in the 90s on 28% trach collar. The patient is seen today March 27, 2023 in follow-up on the regular medical floor. She is laying in bed. Awake and alert in no acute distress. Continues with a loose cough. Plan is for bronchoscopy with BAL today. She is continued on DuoNeb elations, Pulmicort and Perforomist inhalations, IV Solu-Medrol. Antibiotics in the form of Levaquin. Objective - Vital Signs Vital signs: Vital Signs Temp 97.5 F L 03/27/23 07:07 Pulse 72 03/27/23 09:48 Resp 17 03/27/23 07:07 BP 168/90 03/27/23 07:07 Pulse Ox 96 03/27/23 09:18 FiO2 28 03/27/23 09:18 Intake & Output 03/26/23 03/27/23 03/27/23 18:59 06:59 18:59 Other: Voiding Method Toilet Toilet Toilet # Voids 2 # Bowel Movements 1 - Exam GENERAL EXAM: Alert, 62-year-old female, resting in bed, on 28% FiO2 via trach collar, in no apparent distress. HEAD: Normocephalic. EYES: Normal reaction of pupils, equal size. NOSE: Clear with pink turbinates. THROAT: No erythema or exudates. NECK: Tracheostomy tube secured in place. No masses, no JVD. CHEST: No chest wall deformity. LUNGS: Equal air entry with bilateral end expiratory wheeze, few scattered rhonchi. CVS: S1 and S2 normal with no audible murmur, regular rhythm. ABDOMEN: PEG tube exit site clean and dry, no hepatosplenomegaly, normal bowel sounds, no guarding or rigidity. SPINE: No scoliosis or deformity SKIN: No rashes CENTRAL NERVOUS SYSTEM: No focal deficits, tone is normal in all 4 extremities. EXTREMITIES: There is no peripheral edema. No clubbing, no cyanosis. Peripheral pulses are intact. - Labs CBC & Chem 7: 03/26/23 06:02 03/26/23 06:02 Labs: Microbiology - Last 24 Hours (Table) 03/24/23 14:27 Gram Stain - Final Sputum Sputum Culture - Final Savanah glabrata Assessment and Plan Assessment: Acute on chronic hypoxemic respiratory failure secondary to COPD exacerbation. Viral screen negative. No evidence of pneumonia on x-ray. 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 Number of minutes spent on the visit: 10.
[2023-03-27] MEDS ORDERED: PROPOFOL 10 MG/ML 20 ML VIAL IV ONE (12:04)
[2023-03-27] MEDS: LACTATED RINGERS 1,000 ML IV ONE (12:07)
--- NOTE | 2023-03-27 12:45 | PCN ---
PROCEDURE NOTE PULMONARY/CRITICAL CARE PROCEDURE NOTE: PREOPERATIVE DIAGNOSIS: Retained secretions pneumonia/bronchitis. POSTOPERATIVE DIAGNOSIS: Retained secretions pneumonia/bronchitis. PROCEDURES PERFORMED: Bronchoscopy airway examination, therapeutic lavage, BAL. SENIOR INDUSTRIAL ENGINEER: Dr. Menard. ASSISTANTS: First surgical technology instructor was Dr. Joselin Martell. The patient's procedure took place in [facility] There was informed consent and universal timeout. ANESTHESIA: Provided general anesthesia. DESCRIPTION OF PROCEDURE: After the patient was adequately sedated and being fully monitored, the bronchoscope was inserted through the tracheostomy tube. The inner cannula had been removed. The bronchoscope passed easily through the tracheostomy tube out into the trachea. The area below the tracheostomy tube looked completely normal. The rest of the trachea includes the mid trachea and lower trachea, also appeared normal. The tracheal vale was sharp. There were secretions noted in the right and left mainstem. The right and left mainstem were topicalized with lidocaine. Next, there was a thorough evaluation of both the right and left lung. Right upper lobe and its 3 segments, right middle lobe and its 2 segments, right lower lobe and its 5 segments, left upper lobe proper and its 2 segments, lingula and its 2 segments and left lower lobe and its 4 segments were all evaluated. There were similar findings throughout. There was mild-to- moderate bronchitis. There was some bronchial wall erythema and hyperemia. There was minimal mucosal friability. There was no dominant mass or tumor. There were secretions noted throughout. They were somewhat viscid. They were more so on the right than on the left side. The secretions were suctioned with the aid of saline lavage. After the secretions were suctioned, the bronchoscope was wedged into the right middle lobe. A formal BAL took place. The patient tolerated the procedure well. 30 mL of turbid fluid was recovered. There was no immediate complication. Once the fluid was retrieved, additional saline was used to remove any additional secretions. Once secretions have been removed, and there was no bleeding which there was not throughout the entire procedure, the bronchoscope was withdrawn. There was no immediate complication. The patient tolerated the procedure well without difficulty. MMODL / IJN: [id number] /
[2023-03-27 21:21] VITALS: RESP 16
--- NOTE | 2023-03-28 06:21 | P.PN ---
Subjective Progress Note Date: 03/27/23 This is a pleasant 62-year-old female who presented to the emergency department with difficulty in breathing. Patient has a PEG and a trach and her cares for her and she reported to him that he she felt she was drowning and was unable to breathe. Patient is PEG tube feeds dependent as well and has chronic nausea with vomiting and reports was concerned as they felt some vomit had come up from the tracheostomy site as well. Patient currently requiring 5 L via tracheostomy collar and patient reports she does not wear any oxygen at home. Patient does follow with Dr. Arreola as well as oncology in the outpatient setting with a past medical history of coronary artery disease,, tonsil cancer, hyperlipidemia, hypertension, myocardial infarction, former smoker with occasional marijuana use. Patient was admitted for shortness of breath with concerns of aspiration pneumonia with pulmonary as well as oncology on consultation. EKG showed sinus rhythm in the ER, chest x-ray showed COPD with moderate emphysema and biapical pleural parenchymal scarring findings of prior granulomatous disease in the left upper lobe which persists with no definite acute process noted. Labs revealed a normal white count of 7.0, hemoglobin was stable at 11.3, platelets are 312, sodium 136, potassium 4.7, creatinine 0.44, magnesium 1.9, AST 60, BNP 242 and viral testing including influenza, RSV, and COVID are all negative. 03/23/2023 Patient is seen and evaluated in follow-up this morning with pulmonary and oncology following. Patient continues on a trach collar of 5 L and reports does not have any oxygen at the home. Will evaluate and assess for home O2 if needed. Patient continues on breathing treatments and dietary has also been consulted for tube feedings. Patient was reporting some mid epigastric abdominal pain that is pressure-like and constant and will obtain abdominal x- ray. Per at the bedside patient has chronic abdominal pain with nausea and vomiting with this PEG tube and is maintained on bolus tube feedings. Patient is afebrile and continued on antibiotics and will continue. Patient is getting some sputum from the tracheostomy and feels slightly improved from y esterday. Patient continues to report shortness of breath with minimal exertion. 03/24/2023 Patient evaluated today on the medical floor. She continues on a trach collar 5 L not using any oxygen at home. Patient continues to report feeling short of breath does not feel like she is back to baseline yet. Pulmonary following, remains on IV levofloxacin and IV Solu-Medrol. Continues on DuoNebs as needed as well as budesonide and formoterol. Currently is continued on continues with bolus tube feedings through the PEG tube. Had an abdominal x-ray done due to abdominal pain there is nonobstructive bowel gas pattern with no abnormal mass effect or suspicious calcifications. Patient is now currently denying abdominal pain. 03/25/2023 Patient is evaluated today resting in bed. She continues to report shortness of breath with significant scattered wheezing. She also has increased sputum production and a thick tannish color in nature. A sputum culture has been taken and is currently pending. She remains on high-dose IV steroids as well as empiric coverage with IV levofloxacin. Further recommendations are pending sputum culture. Patient does report an improvement in the abdominal pain however has not had a bowel movement in a few days and is requesting a stool softener which has been added. 03/26/2023 Patient is seen in follow-up today being followed by oncology as well as pulmonary with plans of possible bronchoscopy tomorrow. Patient reports her breathing has improved although continues with shortness of breath and frequent coughing with phlegm production from the tracheostomy. Patient is maintained on breathing inhalational treatments along with IV steroids and will continue. Weaning FiO2 as tolerated and intermittently using trach collar. Patient tolerating tube feeds and reports is having bowel movements and abdominal pain/tenderness has improved. 03/27/2023 Patient is seen in follow-up this morning with pulmonary following plan is for bronchoscopy today which is pending. Patient reports her breathing is about the same although slightly improved from 1 first admitted. Patient continues with suctioning and continues with phlegm production with the tracheostomy. Bronchial congestion noted on exam. Patient is continued on steroids as well with minimal wheezing noted. Will likely need a prednisone taper on discharge. Will discuss further with pulmonary on discharge planning. Possible discharge in the next 24 hours. Review of systems: Constitutional: No reports of fatigue, fever, or chills Cardiovascular: No reports of chest pain or palpitations Respiratory: reports of continued shortness of breath, weak cough slightly improved GI: reports of intermittent nausea which is chronic, no recent vomiting, or diarrhea : No reports of dysuria or retention Neurovascular: reports of generalized weakness All medications have been reviewed PHYSICAL EXAMINATION: GENERAL: The patient is alert and oriented x3, thin built, elderly appearing, ill-appearing. Well developed HEENT: Pupils are round and equally reacting to light. EOMI. No scleral icterus. No conjunctival pallor. Normocephalic, atraumatic. No pharyngeal erythema. No thyromegaly. CARDIOVASCULAR: S1 and S2 present. No murmurs, rubs, or gallops. PULMONARY: Diminished breath sounds bilaterally otherwise chest is clear to auscultation, bronchial congestion noted. ABDOMEN: Soft, less tender on light palpation near the umbilical area above the PEG tube, nondistended, normoactive bowel sounds. No palpable organomegaly. MUSCULOSKELETAL: No joint swelling or deformity. EXTREMITIES: No cyanosis, clubbing, or pedal edema. NEUROLOGICAL: Gross neurological examination did not reveal any focal deficits. Diffusely weak SKIN: No rashes. 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 Patient is currently maintained on room air and intermittently using trach collar. Patient reports she does not wear any oxygen outpatient on a daily basis. Will perform home O2 in the event patient will require oxygen on discharge. Patient is status post bronchoscopy with BAL and specimens were sent and will discuss further with pulmonary on discharge planning. Patient continues on Levaquin for now Home medications reviewed and resumed Bowel regimen has been added and recommend to continue as patient is taking pain medications. Dietary following and maintained on tube feedings. Tube feedings on hold currently for the bronchoscopy and will resume post. at the bedside reports she does bolus feeds including free water flushes Encouraged increase activity as tolerated Oncology following as well Will discuss further with pulmonary on discharge planning. Possible discharge in the next 24 hours The impression and plan of care has been dictated by Jenae Tony, Nurse Practitioner as directed. Dr. Mino MD I have performed a history and examination and MDM of this patient, discussed the same with the dictator, and agree with the dictator's assessment and plan as written ,documented as a scribe. Based on total visit time, I have performed more than 50% of the visit. Objective - Vital Signs Vital signs: Vital Signs Temp 98.1 F 03/28/23 02:00 Pulse 84 03/28/23 02:00 Resp 16 03/28/23 02:00 BP 131/74 03/28/23 02:00 Pulse Ox 90 L 03/28/23 02:00 FiO2 28 03/27/23 09:18 Intake & Output 03/27/23 03/27/23 03/28/23 06:59 18:59 06:59 Intake Total 100 Balance 100 Weight 48 kg 47.1 kg Intake: IV 100 Other: Voiding Method Toilet Toilet Toilet # Voids 1 - Labs CBC & Chem 7: 03/26/23 06:02 03/26/23 06:02 Labs: Microbiology - Last 24 Hours (Table) 03/22/23 09:15 Blood Culture - Final Blood 03/24/23 14:27 Gram Stain - Final Sputum Sputum Culture - Final Savanah glabrata
[2023-03-28 09:30] VITALS: BP 165/92; TEMP 97.8
[2023-03-28 10:02] VITALS: PULSE 84
[2023-03-28 11:05] LABS: Basophils # (A) 0.04 X 10*3/uL (0.00-0.10); Basophils % (A) 0.5 %; Eosinophils # (A) 0 X 10*3/uL (0.04-0.35); Eosinophils % (A) 0 %; HCT 39.8 % (37.2-46.3); HGB 12.3 g/dL (12.0-15.0); Lymphocytes # (A) 0.21 X 10*3/uL (0.90-5.00); Lymphocytes % (A) 2.4 %; MCH 28.3 pg (27.0-32.0); MCHC 30.9 g/dL (32.0-37.0); MCV 91.5 FL (80.0-97.0); Mean Platelet Volume 10.9 FL (9.5-12.2); Monocytes # (A) 0.39 X 10*3/uL (0.20-1.00); Monocytes % (A) 4.4 %; NRBC Per 100 WBC 0 X 10*3/uL (0.00-0.01); Neutrophils # (A) 7.81 X 10*3/uL (1.80-7.70); Neutrophils % (A) 88.9 %; Platelet Count 333 X 10*3/uL (140-440); RBC 4.35 X 10*6/uL (4.10-5.20); RDW 17.3 % (11.5-14.5); WBC 8.78 X 10*3/uL (4.50-10.00)
[2023-03-28 11:27] LABS: BUN/Creat Ratio 50.17 Ratio (12.00-20.00); Blood Urea Nitrogen 30.1 mg/dL (9.0-27.0); Carbon Dioxide 22.2 mmol/L (21.6-31.8); Chloride 100 mmol/L (96-109); Glucose 132 mg/dL (70-110); Potassium 4.3 mmol/L (3.5-5.5); Sodium 134 mmol/L (135-145)
--- NOTE | 2023-03-28 12:21 | P.PN ---
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 Recent PET scan from January 2023 revealed a positive response to therapy with decreasing FDG activity along the mucosa. She presented here to the emergency room early this morning with complaints of increasing shortness of breath. X-ray reveals evidence of COPD with moderate emphysema and biapical pleural-parenchymal scarring. Prior granulomatous disease in the left upper lobe noted. No acute pulmonary process. CT angiogram reveals no evidence of pulmonary embolism. White count 7.0. Hemoglobin 11.3. Platelets 312. Sodium 136. Potassium 4.7. Bicarb 23. BUN 17. Creatinine 0.88. Glucose 105. AST 60. ALT 18. Viral screen negative. She is seen today in the emergency department. Her is at the bedside. She denies any worsening shortness of breath now. No cough or congestion. She is maintaining good O2 saturations in the 90s on 28% FiO2 via trach collar. She has been initiated on DuoNeb ventilations, Pulmicort and Perforomist inhalations, empiric antibiotics in the form of Levaquin. Procalcitonin pending. The patient is seen today March 23, 2023 in follow-up on the regular medical floor. She is currently resting comfortably in bed. Awake and alert in no acu te distress. She is maintaining O2 saturations in the 90s on 28% FiO2 via trach collar. She is continued on PEG tube feedings for nutritional support. TwoCal HN at 30 mL/h which is goal. White count 8.6. Hemoglobin 10.5. Platelets 418. Sodium 138. Potassium 4.0. Bicarb 22. BUN 14. Creatinine 0.7. Glucose 124. She remains on DuoNeb ventilations, Pulmicort and performing scintillations, IV Solu-Medrol. Antibiotics in the form of Levaquin. The patient is seen today March 24, 2023 in follow-up on the regular medical floor. She is awake and alert in no acute distress. Resting comfortably in bed. Still not feeling back to her baseline. She is maintaining O2 saturations in the 90s at 28% FiO2 via trach collar. Nourished via PEG tube with TwoCal HN at 30 mL/h which is goal. Abdominal x-ray revealed bowel gas pattern is nonobstructive. No abdominal mass effect or suspicious calcifications seen. PEG tube in place. She remains on DuoNeb ventilations, Pulmicort and performing scintillations, IV Solu-Medrol. Antibiotics in the form of Levaquin. Sputum culture pending. The patient is seen today March 25, 2023 in follow-up on the regular medical floor. She is currently resting fairly comfortably in bed. Awake and alert in no acute distress. She is still somewhat bronchospastic and wheezing. She has been slow to progress. She is continued on Pulmicort and Perforomist inhalations, DuoNeb inhalations, Solu-Medrol. Antibiotics in the form of Levaquin. Blood culture revealing no growth thus far. Sputum culture pending. She continues to be nourished with TwoCal HN at 30 MLS per hour which is her goal. Remains on trach collar at 28% FiO2 with O2 saturations in the 90s. Afebrile. Hemodynamically stable. The patient is seen today March 26, 2023 in follow-up on the regular medical floor. She is awake and alert in no acute distress. Resting comfortably in bed. She continues to have a loose cough. Still quite congested. She is been maintained on bronchodilators and steroids. She is on antibiotics in the form of Levaquin. Sputum culture revealing yeast. Blood cultures revealing no growth. White count 11.2. Hemoglobin 10.9. Sodium 138. Potassium 4.5. Bicarb 23. BUN 25. Creatinine 0.5. Glucose 134. She remains on tube feedings of TwoCal HN at 30 MLS per hour. She has been afebrile. Maintaining good O2 saturations in the 90s on 28% trach collar. The patient is seen today March 27, 2023 in follow-up on the regular medical floor. She is laying in bed. Awake and alert in no acute distress. Continues with a loose cough. Plan is for bronchoscopy with BAL today. She is continued on DuoNeb elations, Pulmicort and Perforomist inhalations, IV Solu-Medrol. Antibiotics in the form of Levaquin. The patient is seen today March 28, 2023 in follow-up on the regular medical floor. She is resting comfortably in bed. Awake and alert in no acute distress. Maintaining O2 saturations in the 90s on 28% FiO2 via trach collar. No IV fluids. White count 8.7. Hemoglobin 12.3. Platelets 333. Sodium 134. Potassium 4.3. Bicarb 22. BUN 30. Creatinine 0.6. Glucose 132. Objective - Vital Signs Vital signs: Vital Signs Temp 97.8 F 03/28/23 08:00 Pulse 84 03/28/23 09:38 Resp 16 03/28/23 02:00 BP 165/92 03/28/23 08:00 Pulse Ox 95 03/28/23 08:00 FiO2 28 03/27/23 09:18 Intake & Output 03/27/23 03/28/23 03/28/23 18:59 06:59 18:59 Intake Total 100 Balance 100 Weight 48 kg 47.1 kg Intake: IV 100 Other: Voiding Method Toilet Toilet # Voids 1 - Exam GENERAL EXAM: Alert, pleasant 62-year-old female, resting in bed, on 28% FiO2 via trach collar, in no apparent distress. HEAD: Normocephalic. EYES: Normal reaction of pupils, equal size. NOSE: Clear with pink turbinates. THROAT: No erythema or exudates. NECK: Tracheostomy tube secured in place. No masses, no JVD. CHEST: No chest wall deformity. LUNGS: Equal air entry with bilateral end expiratory wheeze, few scattered rhonchi. CVS: S1 and S2 normal with no audible murmur, regular rhythm. ABDOMEN: PEG tube exit site clean and dry, no hepatosplenomegaly, normal bowel sounds, no guarding or rigidity. SPINE: No scoliosis or deformity SKIN: No rashes CENTRAL NERVOUS SYSTEM: No focal deficits, tone is normal in all 4 extremities. EXTREMITIES: There is no peripheral edema. No clubbing, no cyanosis. Peripheral pulses are intact. - Labs CBC & Chem 7: 03/28/23 08:15 03/28/23 08:15 Labs: Abnormal Lab Results - Last 24 Hours (Table) 03/28/23 03/28/23 Range/Units 08:15 08:15 MCHC 30.9 L (32.0-37.0) g/dL RDW 17.3 H (11.5-14.5) % Immature Gran # 0.33 H (0.00-0.04) X 10*3/uL Neutrophils # 7.81 H (1.80-7.70) X 10*3/uL Lymphocytes # 0.21 L (0.90-5.00) X 10*3/uL Eosinophils # 0 L (0.04-0.35) X 10*3/uL Sodium 134 L (135-145) mmol/L BUN 30.1 H (9.0-27.0) mg/dL BUN/Creatinine Ratio 50.17 H (12.00-20.00) Ratio Glucose 132 H (70-110) mg/dL Microbiology - Last 24 Hours (Table) 03/22/23 09:15 Blood Culture - Final Blood 03/24/23 14:27 Gram Stain - Final Sputum Sputum Culture - Final Savanah glabrata Assessment and Plan Assessment: Acute on chronic hypoxemic respiratory failure secondary to COPD exacerbation. Viral screen negative. No evidence of pneumonia on x-ray. 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 Number of minutes spent on the visit: 10.
[2023-03-28 14:16] LABS: Appearance,BF Slightly Cloudy (Clear)
--- NOTE | 2023-03-28 16:35 | P.PN ---
Subjective Progress Note Date: 03/28/23 Principal diagnosis: Head neck malignancy In f/u pt reports she is afraid to go home, worried that her breathing will get bad again. She is comfortable currently at rest on room air. No fevers, new pain or other c/o. Objective - Vital Signs Vital signs: Vital Signs Temp 97.8 F 03/28/23 08:00 Pulse 84 03/28/23 09:38 Resp 16 03/28/23 02:00 BP 165/92 03/28/23 08:00 Pulse Ox 93 L 03/28/23 12:36 FiO2 28 03/27/23 09:18 Intake & Output 03/27/23 03/28/23 03/28/23 18:59 06:59 18:59 Intake Total 100 Balance 100 Weight 48 kg 47.1 kg Intake: IV 100 Other: Voiding Method Toilet Toilet # Voids 1 - Constitutional General appearance: Present: cooperative, no acute distress, thin - EENT Eyes: Present: anicteric sclerae, EOMI ENT: Present: hearing grossly normal - Respiratory Respiratory: bilateral: rhonchi (throughout) - Cardiovascular Rhythm: regular - Peripheral edema leg Peripheral Edema: bilateral: None - Gastrointestinal General gastrointestinal: Present: soft - Neurologic Neurologic: Present: CNII-XII intact - Musculoskeletal Musculoskeletal: Present: strength equal bilaterally - Psychiatric Psychiatric: Present: A&O x's 3, appropriate affect, intact judgment & insight - Labs CBC & Chem 7: 03/28/23 08:15 03/28/23 08:15 Labs: Abnormal Lab Results - Last 24 Hours (Table) 03/27/23 03/28/23 03/28/23 Range/Units 13:00 08:15 08:15 MCHC 30.9 L (32.0-37.0) g/dL RDW 17.3 H (11.5-14.5) % Immature Gran # 0.33 H (0.00-0.04) X 10*3/uL Neutrophils # 7.81 H (1.80-7.70) X 10*3/uL Lymphocytes # 0.21 L (0.90-5.00) X 10*3/uL Eosinophils # 0 L (0.04-0.35) X 10*3/uL Sodium 134 L (135-145) mmol/L BUN 30.1 H (9.0-27.0) mg/dL BUN/Creatinine Ratio 50.17 H (12.00-20.00) Ratio Glucose 132 H (70-110) mg/dL Fluid Appearance Slightly Cloudy A (Clear) Microbiology - Last 24 Hours (Table) 03/22/23 09:15 Blood Culture - Final Blood Assessment and Plan (1) Dyspnea Status: Acute Priority: High Code(s): R06.00 - DYSPNEA, UNSPECIFIED SNOMED Code(s): 325095532 (2) Head and neck cancer Status: Chronic Priority: High Code(s): C76.0 - MALIGNANT NEOPLASM OF HEAD, FACE AND NECK SNOMED Code(s): 860810533 Plan: Dyspnea -S/P bronch with BAL and suctioning of airway secretions with Pulm. Pt looks better, still only reporting small improvements in breathing -CTA negative for PE -Pt is having O2 assessment prior to discharge Head and neck malignancy -Patient is status post chemoradiation initially, immunotherapy at first recurrence. 2nd recurrence in Sep 2022, now s/p 6 cycles of carbo/taxol 03/01/2023, Dec scan showed excellent results. Has scan scheduled for next month and f/u with primary Onc. Chemo-induced nausea -Stable, mostly resolved Pain management -Based on our previous discussion, pt and working on continually adjusting her pain medications to minimum dose needed. -Sent refill of 25mcg fentanyl to pt pharmacy
== END 2023-03-28 14:06 | disposition home or self-care (01) | DRG 189 ==
LOC: EC 03:51 → 5NMEDONC 06:30 → 4SSUR 22:06 → OBSVTOIN 03-25 16:18
PROVIDERS: ADMIT Hospitalist; ATTEND Hospitalist
PROC: 0B9C8ZZ Drainage of Right Upper Lung Lobe, Via Natural or Artificial Opening Endoscopic (ICD-10-PCS; 2023-03-27)
PROC: 0B9G8ZZ Drainage of Left Upper Lung Lobe, Via Natural or Artificial Opening Endoscopic (ICD-10-PCS; principal; 2023-03-27 13:30)
DX: J96.21 Acute and chronic respiratory failure with hypoxia (principal); J44.0 Chronic obstructive pulmonary disease with (acute) lower respiratory infection; E44.0 Moderate protein-calorie malnutrition; J44.1 Chronic obstructive pulmonary disease with (acute) exacerbation; E78.5 Hyperlipidemia, unspecified; Z11.52 Encounter for screening for COVID-19; Z85.818 Personal history of malignant neoplasm of other sites of lip, oral cavity, and pharynx; I10 Essential (primary) hypertension; I25.2 Old myocardial infarction; I25.10 Atherosclerotic heart disease of native coronary artery without angina pectoris; K59.00 Constipation, unspecified; Z93.0 Tracheostomy status; Z93.1 Gastrostomy status; T45.1X5A Adverse effect of antineoplastic and immunosuppressive drugs, initial encounter; X58.XXXA Exposure to other specified factors, initial encounter; R11.2 Nausea with vomiting, unspecified; C76.0 Malignant neoplasm of head, face and neck; J40 Bronchitis, not specified as acute or chronic; D64.9 Anemia, unspecified; G89.29 Other chronic pain; J43.9 Emphysema, unspecified; Z79.02 Long term (current) use of antithrombotics/antiplatelets; Z79.52 Long term (current) use of systemic steroids; Z90.710 Acquired absence of both cervix and uterus; Z87.11 Personal history of peptic ulcer disease; Z95.5 Presence of coronary angioplasty implant and graft; Z85.89 Personal history of malignant neoplasm of other organs and systems; Z88.0 Allergy status to penicillin; Z88.5 Allergy status to narcotic agent
CPT/HCPCS: 31624; 36415; 71045; 71275; 74018; 80048; 80053; 83735; 83880; 84145; 85025; 85610; 85730; 87040; 87070; 87102; 87116; 87205; 87206; 87636; 88108; 88305; 89050; 93005; 94640; 94760; 96361; 96365; 96375; 96376; 99285

== ENCOUNTER → 2023-04-19 | Outpatient (CLI) | payer BC ==
--- NOTE | 2023-04-20 03:56 | PE ---
EXAMINATION TYPE: PET CT fusion skull to thigh DATE OF EXAM: 04/19/2023 COMPARISON: Prior PET/CT January 25, 2023 and older studies HISTORY: Head and neck cancer progress study. Left-sided neck cancer diagnosed February 2022 completed radiation treatment December 2022 and chemotherapy March 01, 2023. TECHNIQUE: Following the intravenous administration of 8.59 mCi of F-18 FDG, whole body images are p erformed from the skull base to the midthigh. Images are reviewed on the computer in the coronal, ax ial, and sagittal planes. Reconstructed rotating images are created on independent workstation and r eviewed on the computer. A localization and attenuation correction CT is performed in conjunction w ith the PET scan. Dedicated PET/CT imaging of the neck is performed. Blood glucose level equals 82. SCAN: Subsequent Scan FINDINGS: SKULL BASE AND NECK: No new or increased hypermetabolic uptake in the mucosa along the left surgical bed. More prominent bilateral muscular uptake on current study. Prominent hypermetabolic uptake post erior right vocal cords axial image 49 has max SUV of 16.0 versus 7.5 on prior. Tracheostomy tube jus t below this is redemonstrated though new areas of abnormal hypermetabolic uptake. CHEST, MEDIASTINUM, AND HILAR REGION: No new areas of abnormal hypermetabolic uptake. ABDOMEN AND PELVIS: Normal excretion is redemonstrated. No new areas of abnormal hypermetabolic uptak e. OSSEOUS STRUCTURES: No new areas of abnormal hypermetabolic uptake in osseous structures. OTHER CT: Stable right internal jugular Mediport catheter. Calcified nodules or benign granulomas thr oughout the bilateral lungs are redemonstrated. Coronary artery desiccation and/or stents are again s een. PEG tube redemonstrated. IMPRESSION: Continued positive treatment response along the mucosa of the left sided neoplasm. More p rominent hypermetabolic uptake posterior right focal cord level without definitive CT correlate favor s muscular uptake but direct visualization may be warranted. No new areas of suspicious abnormal hype rmetabolic uptake otherwise identified.
== END | disposition home or self-care (01) ==
LOC: RADPETMAIN 09:33
PROVIDERS: ATTEND Internal Medicine Hematology & Oncology
DX: C76.0 Malignant neoplasm of head, face and neck (principal)
CPT/HCPCS: 78815; A9552

== ENCOUNTER → 2023-06-07 | Outpatient (CLI) | payer BC ==
--- NOTE | 2023-06-07 17:23 | CT ---
EXAMINATION TYPE: CT soft tissue neck w con DATE OF EXAM: 06/07/2023 4:45 PM COMPARISON: 11/14/2021 HISTORY: neck pain CT DLP: 272.2 mGycm Automated exposure control for dose reduction was used. CONTRAST: CT scan of the neck is performed following with IV Contrast, patient injected with 100 mL of Isovue 3 00. Axial images are obtained, coronal and sagittal reformatted images are reviewed. FINDINGS: There is a tracheostomy tube. The thyroid gland enhances diffusely and there is no focal mass or gross enlargement.. The larynx including the thyroid, cricoid, arytenoid cartilages as well as the true and false vocal c ords are normal and symmetric. Tongue base is intact. The parotid and submandibular glands are normal and symmetric. In the left oral parapharyngeal region/tonsil there is a large soft tissue defect presumably secondar y to surgical removal of the mass seen in this location on the prior study. Residual or recurrent marcie plasm cannot be entirely excluded given the ill definition of the soft tissues in this region. There is no adenopathy within the neck. The great vessels on the left side of the neck absent. The skull base is intact. The visualized paranasal sinuses and mastoid air cells are aerated. IMPRESSION: Postsurgical changes in the left oropharynx in the location of the previously described mass. Residua l or recurrent neoplasm cannot be excluded. There is no definite adenopathy within the neck. No other significant abnormality seen.
== END | disposition home or self-care (01) ==
LOC: RADCTMAIN 15:36
PROVIDERS: ATTEND Internal Medicine Hematology & Oncology
DX: C76.0 Malignant neoplasm of head, face and neck (principal); R22.1 Localized swelling, mass and lump, neck
CPT/HCPCS: 70491; Q9967

== ENCOUNTER 2023-06-26 13:16 | Inpatient (IN) | payer BC ==
--- NOTE | 2023-06-26 13:46 | ED ---
General Adult HPI - General Chief complaint: Chest Pain Stated complaint: chest pain, SOB Time Seen by Provider: 06/26/23 13:35 Source: patient, RN notes reviewed, old records reviewed Mode of arrival: wheelchair Limitations: no limitations - History of Present Illness Initial comments: This is a 63-year-old female who presents to the emergency department complaining of difficulty breathing and some chest pain. Patient states the chest pain is 4 out of 10. Patient states the difficulty breathing started about noon as did the chest pain. 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 Patient states the sputum has been smelling a little worse lately. Patient denies any fever or chills. Patient states that chest pain is in the center of her chest and is a heaviness. Patient denies radiation of the pain. Patient denies any headache patient denies numbness weakness. Patient has lightheadedness. Patient has abdominal pain patient has nausea vomiting diarrhea. - Related Data Home Medications Medication Instructions Recorded Confirmed Ondansetron Odt [Zofran ODT] 8 mg PO QID PRN 04/03/22 06/26/23 Metoprolol Succinate [Kapspargo 100 mg PEG/G-TUBE DAILY@1000 08/15/22 06/26/23 Sprinkle] Clopidogrel [Plavix] 75 mg PEG/G-TUBE DAILY@1000 11/16/22 06/26/23 Aspirin 81 mg PEG/G-TUBE DAILY@1000 11/25/22 06/26/23 Acetaminophen Oral Susp [Tylenol] 320 mg PEG/G-TUBE Q6HR PRN 06/26/23 06/26/23 Morphine Sulfate [Morphine Sulfate 10 - 20 mg PEG/G-TUBE Q3H PRN 06/26/23 10 MG/5 ML] Prochlorperazine [Compazine] 5 mg PEG/G-TUBE Q6HR PRN 06/26/23 06/26/23 Sennosides-Docusate Sodium 1 tab PO DAILY 06/26/23 06/26/23 [Senokot-S] dexAMETHasone [Decadron] 8 mg PEG/G-TUBE DAILY 06/26/23 06/26/23 fentaNYL 25MCG/HR PATCH [Duragesic 2 patch TRANSDERM Q72H 06/26/23 06/26/23 25MCG/HR] Previous Rx's Medication Instructions Recorded Ipratropium-Albuterol Nebulize 3 ml INHALATION RT-Q2H PRN #90 dose 12/10/22 [Duoneb 0.5 mg-3 mg/3 ml Soln] Allergies Allergy/AdvReac Type Severity Reaction Status Date / Time Penicillins AdvReac Severe nausea/vomi Verified 06/26/23 16:59 ting codeine AdvReac Nausea & Verified 06/26/23 16:59 Vomiting & Diarrhea Review of Systems ROS Statement: Those systems with pertinent positive or pertinent negative responses have been documented in the HPI. ROS Other: All systems not noted in ROS Statement are negative. Past Medical History Past Medical History: Coronary Artery Disease (CAD), Cancer, Hyperlipidemia, Hypertension, Myocardial Infarction ([place]) Additional Past Medical History / Comment(s): hx stomach ulcer, tonsil cancer Last Myocardial Infarction Date:: 08/19/21 History of Any Multi-Drug Resistant Organisms: None Reported Past Surgical History: Heart Catheterization With Stent, Hysterectomy, Tubal Ligation Additional Past Surgical History / Comment(s): egd, Trach Past Anesthesia/Blood Transfusion Reactions: No Reported Reaction Date of Last Stent Placement:: 08/19/21 Past Psychological History: No Psychological Hx Reported Smoking Status: Former smoker Past Alcohol Use History: None Reported Past Drug Use History: None Reported - Past Family History Mother Family Medical History: Cancer Additional Family Medical History / Comment(s): lung cancer Sister(s) Family Medical History: Cancer Additional Family Medical History / Comment(s): breast cancer General Exam - General Exam Comments Initial Comments: GENERAL: Patient is well-developed and well-nourished. Patient is nontoxic and well- hydrated and is in mild distress. ENT: Neck is soft and supple. No significant lymphadenopathy is noted. Oropharynx is clear. Moist mucous membranes. Neck has full range of motion without eliciting any pain. Patient has a tracheostomy EYES: The sclera were anicteric and conjunctiva were pink and moist. Extraocular move ments were intact and pupils were equal round and reactive to light. Eyelids were unremarkable. PULMONARY: Patient has diminished breath sounds with expiratory wheezing CARDIOVASCULAR: There is a regular rate and rhythm without any murmurs gallops or rubs. ABDOMEN: Soft and nontender with normal bowel sounds. SKIN: Skin is clear with no lesions or rashes and otherwise unremarkable. NEUROLOGIC: Patient is alert and oriented x3. Cranial nerves II through XII are grossly intact. Motor and sensory are also intact. Normal speech, volume and content. Symmetrical smile. MUSCULOSKELETAL: Normal extremities with adequate strength and full range of motion. No lower extremity swelling or edema. No calf tenderness. LYMPHATICS: No significant lymphadenopathy is noted PSYCHIATRIC: Normal psychiatric evaluation. Limitations: no limitations Course Vital Signs 06/26/23 06/26/23 06/26/23 13:29 14:28 14:46 Temperature 98.6 F Pulse Rate 86 76 76 Respiratory 16 18 Rate Blood Pressure 105/74 122/94 O2 Sat by Pulse 98 97 Oximetry 06/26/23 06/26/23 14:59 15:49 Temperature Pulse Rate 80 76 Respiratory 18 Rate Blood Pressure 114/72 O2 Sat by Pulse 92 L Oximetry Medical Decision Making - Medical Decision Making EKG is interpreted by myself read EKG shows a sinus rhythm at 70 bpm MO interval 120 QRS of 74 QT interval 353 QTc is 387. Patient's EKG shows no ST segment elevation depression. Was pt. sent in by a medical professional or institution (, PA, GENERAL INTERNAL MEDICINE PHYSICIAN, urgent care, hospital, or fpc...) When possible be specific @ -No Did you speak to anyone other than the patient for history (EMS, parent, family, police, friend...)? What history was obtained from this source @ -No Did you review nursing and triage notes (agree or disagree)? Why? @ -I reviewed and agree with nursing and triage notes Were old charts reviewed (outside hosp., previous admission, EMS record, old EKG, old radiological studies, urgent care reports/EKG's, fpc records)? Report findings @ -I compared today's chest x-ray with the prior chest x-ray today's x-ray showed no acute abnormality in comparison. I also compared lab work today to prior lab work patient's white count was elevated considerably compared to prior lab work however patient is on steroids Differential Diagnosis (chest pain, altered mental status, abdominal pain women, abdominal pain men, vaginal bleeding, weakness, fever, dyspnea, syncope, headache, dizziness, GI bleed, back pain, seizure, CVA, palpatations, mental health, musculoskeletal)? @ -Differential Chest Pain: Stable Angina, Unstable Angina, STEMI, NSTEMI Aortic Dissection, Pneumothorax, Musculoskeletal, Esophageal Spasm GERD, Cholecystitis, Pancreatitis, Zoster, t his is not meant to be an all-inclusive list. Differential Dyspnea: Coronary syndrome, arrhythmia, tamponade, asthma, COPD, pulmonary embolism, pneumonia, pneumothorax, pulmonary effusion, anaphylaxis, diabetic ketoacidosis, flailed chest, pulmonary contusion, diaphragmatic rupture, anemia, neuromu scular, this is not meant to be an all-inclusive list. EKG interpreted by me (3pts min.). @ -As above X-rays interpreted by me (1pt min.). @ -Chest x-ray shows no acute abnormality CT interpreted by me (1pt min.). @ -None done U/S interpreted by me (1pt. min.). @ -None done What testing was considered but not performed or refused? (CT, X-rays, U/S, labs)? Why? @ -None What meds were considered but not given or refused? Why? @ -None Did you discuss the management of the patient with other professionals (professionals i.e. , PA, GENERAL INTERNAL MEDICINE PHYSICIAN, lab, RT, psych nurse, social media strategist, end lathe operator, teacher, space officer, immigration case worker)? Give summary @ -[facility] admit the patient wrote admitting orders Was smoking cessation discussed for >3mins.? @ -No Was critical care preformed (if so, how long)? @ -No Were there social determinants of health that impacted care today? How? (Homelessness, low income, unemployed, alcoholism, drug addiction, transportation, low edu. Level, literacy, decrease access to med. care, half-way, rehab)? @ -No Was there de-escalation of care discussed even if they declined (Discuss DNR or withdrawal of care, Hospice)? DNR status @ -No What co-morbidities impacted this encounter? (DM, HTN, Smoking, COPD, CAD, Canc er, CVA, ARF, Chemo, Hep., AIDS, mental health diagnosis, sleep apnea, morbid obesity)? @ -None Was patient admitted / discharged? Hospital course, mention meds given and route, prescriptions, significant lab abnormalities, going to OR and other pertinent info. @ -Patient was given pain medicines for the chronic pain in her left neck which has been ongoing. Patient also had lab work done her white count was elevated. I will start the patient on antibiotics. [facility] to [facility] Undiagnosed new problem with uncertain prognosis? @ -No Drug Therapy requiring intensive monitoring for toxicity (Heparin, Nitro, Insulin, Cardizem)? @ -No Were any procedures done? @ -No Diagnosis/symptom? @ -Chest pain Acute, or Chronic, or Acute on Chronic? @ -Acute Uncomplicated (without systemic symptoms) or Complicated (systemic symptoms)? @ -Complicated Side effects of treatment? @ -No Exacerbation, Progression, or Severe Exacerbation? @ -No Poses a threat to life or bodily function? How? (Chest pain, [place], OR, pneumonia, PE, COPD, DKA, ARF, appy, cholecystitis, CVA, Diverticulitis, Homicidal, Suicidal, threat to staff... and all critical care pts) @ -Yes this could lead to an OR and endorgan dysfunction Diagnosis/symptom? @ -Dyspnea Acute, or Chronic, or Acute on Chronic? @ -Acute Uncomplicated (without systemic symptoms) or Complicated (systemic symptoms)? @ -Complicated Side effects of treatment? @ -None Exacerbation, Progression, or Severe Exacerbation] @ -No Poses a threat to life or bodily function? @ -No Diagnosis/symptom? @ -Chronic left neck pain Acute, or Chronic, or Acute on Chronic? @ -Chronic Uncomplicated (without systemic symptoms) or Complicated (systemic symptoms)? @ -Uncomplicated Side effects of treatment? @ -None Exacerbation, Progression, or Severe Exacerbation] @ -No Poses a threat to life or bodily function? @ -No - Lab Data Result diagrams: 06/26/23 14:47 06/26/23 14:47 Lab Results 06/26/23 06/26/23 06/26/23 Range/Units 14:47 14:47 14:47 WBC 16.3 H (3.8-10.6) k/uL RBC 4.69 (3.80-5.40) m/uL Hgb 13.3 (11.4-16.0) gm/dL Hct 43.0 (34.0-46.0) % MCV 91.8 (80.0-100.0) fL MCH 28.5 (25.0-35.0) pg MCHC 31.0 (31.0-37.0) g/dL RDW 15.4 (11.5-15.5) % Plt Count 208 (150-450) k/uL MPV 8.7 Neutrophils % 94 % Lymphocytes % 1 % Monocytes % 4 % Eosinophils % 0 % Basophils % 0 % Neutrophils # 15.2 H (1.3-7.7) k/uL Lymphocytes # 0.2 L (1.0-4.8) k/uL Monocytes # 0.7 (0-1.0) k/uL Eosinophils # 0.0 (0-0.7) k/uL Basophils # 0.0 (0-0.2) k/uL PT (10.0-12.5) sec INR (<1.2) APTT (22.0-30.0) sec D-Dimer (<0.60) mg/L FEU Sodium 131 L (137-145) mmol/L Potassium 4.3 (3.5-5.1) mmol/L Chloride 99 (98-107) mmol/L Carbon Dioxide 28 (22-30) mmol/L Anion Gap 4 mmol/L BUN 28 H (7-17) mg/dL Creatinine 0.45 L (0.52-1.04) mg/dL Est GFR (CKD-EPI)AfAm >90 (>60 ml/min/1.73 sqM) Est GFR (CKD-EPI)NonAf >90 (>60 ml/min/1.73 sqM) Glucose 107 H (74-99) mg/dL Plasma Lactic Acid Sammy 2.0 (0.7-2.0) mmol/L Calcium 8.8 (8.4-10.2) mg/dL Magnesium 2.0 (1.6-2.3) mg/dL Total Bilirubin 1.0 (0.2-1.3) mg/dL AST 20 (14-36) U/L ALT 29 (4-34) U/L Alkaline Phosphatase 82 (38-126) U/L Troponin I (0.000-0.034) ng/mL Total Protein 5.5 L (6.3-8.2) g/dL Albumin 3.1 L (3.5-5.0) g/dL 06/26/23 06/26/23 Range/Units 14:47 15:20 WBC (3.8-10.6) k/uL RBC (3.80-5.40) m/uL Hgb (11.4-16.0) gm/dL Hct (34.0-46.0) % MCV (80.0-100.0) fL MCH (25.0-35.0) pg MCHC (31.0-37.0) g/dL RDW (11.5-15.5) % Plt Count (150-450) k/uL MPV Neutrophils % % Lymphocytes % % Monocytes % % Eosinophils % % Basophils % % Neutrophils # (1.3-7.7) k/uL Lymphocytes # (1.0-4.8) k/uL Monocytes # (0-1.0) k/uL Eosinophils # (0-0.7) k/uL Basophils # (0-0.2) k/uL PT 10.5 (10.0-12.5) sec INR 1.0 (<1.2) APTT 21.1 L (22.0-30.0) sec D-Dimer 0.59 (<0.60) mg/L FEU Sodium (137-145) mmol/L Potassium (3.5-5.1) mmol/L Chloride (98-107) mmol/L Carbon Dioxide (22-30) mmol/L Anion Gap mmol/L BUN (7-17) mg/dL Creatinine (0.52-1.04) mg/dL Est GFR (CKD-EPI)AfAm (>60 ml/min/1.73 sqM) Est GFR (CKD-EPI)NonAf (>60 ml/min/1.73 sqM) Glucose (74-99) mg/dL Plasma Lactic Acid Sammy (0.7-2.0) mmol/L Calcium (8.4-10.2) mg/dL Magnesium (1.6-2.3) mg/dL Total Bilirubin (0.2-1.3) mg/dL AST (14-36) U/L ALT (4-34) U/L Alkaline Phosphatase (38-126) U/L Troponin I <0.012 (0.000-0.034) ng/mL Total Protein (6.3-8.2) g/dL Albumin (3.5-5.0) g/dL Disposition Clinical Impression: Chest pain, Dyspnea, Chronic neck pain Disposition: ADMITTED IP TO THIS [facility] Referrals: Rell Arreola DO [Primary Care Provider] - 1-2 days Time of Disposition: 17:17
[2023-06-26] MEDS: HYDROmorphone 1 MG/ML 1 ML SYRINGE IVP STA ×2 (14:30→17:16)
[2023-06-26] MEDS: SODIUM CHLORIDE 0.9% 500 ML 500 ML IV STA (14:32)
[2023-06-26 15:01] LABS: Basophils % (A) 0 %; Eosinophils % (A) 0 %; HGB 13.3 gm/dL (11.4-16.0); Lymphocytes # (A) 0.2 k/uL (1.0-4.8); Lymphocytes % (A) 1 %; MCH 28.5 pg (25.0-35.0); MCV 91.8 fL (80.0-100.0); Mean Platelet Volume 8.7; Monocytes # (A) 0.7 k/uL (0-1.0); Monocytes % (A) 4 %; Neutrophils # (A) 15.2 k/uL (1.3-7.7); Neutrophils % (A) 94 %; Platelet Count 208 k/uL (150-450); RBC 4.69 m/uL (3.80-5.40); RDW 15.4 % (11.5-15.5); WBC 16.3 k/uL (3.8-10.6)
[2023-06-26 15:23] LABS: ALT 29 U/L (4-34); AST 20 U/L (14-36); African American GFR (CKD) >90 (>60 ml/min/1.73 sqM); Albumin 3.1 g/dL (3.5-5.0); Alkaline Phosphatase 82 U/L (38-126); Anion Gap 4 mmol/L; Blood Urea Nitrogen 28 mg/dL (7-17); Calcium 8.8 mg/dL (8.4-10.2); Carbon Dioxide 28 mmol/L (22-30); Chloride 99 mmol/L (98-107); Glucose 107 mg/dL (74-99); Non-African American GFR(CKD) >90 (>60 ml/min/1.73 sqM); Potassium 4.3 mmol/L (3.5-5.1); Sodium 131 mmol/L (137-145); Total Protein 5.5 g/dL (6.3-8.2)
[2023-06-26 15:59] LABS: Partial Thromboplastin Time 21.1 sec (22.0-30.0); Prothrombin Time 10.5 sec (10.0-12.5)
--- NOTE | 2023-06-26 16:39 | XR ---
EXAMINATION TYPE: XR chest 2V DATE OF EXAM: 06/26/2023 4:05 PM CLINICAL INDICATION:Female, 63 years old with history of difficulty breathing; [facility] COMPARISON: Chest radiographs from 03/22/2023 TECHNIQUE: XR chest 2V Frontal and lateral views of the chest. FINDINGS: Lungs/Pleura: Similar left upper lung nodule measuring 11 mm. There is no evidence of pleural effusio n, focal consolidation, or pneumothorax. Pulmonary vascularity: Unremarkable. Heart/mediastinum: Cardiomediastinal silhouette is unremarkable. Musculoskeletal: No acute osseous pathology. Tracheostomy cannula projecting over the trachea. Right [id number] with tip projecting over the superior vena cava. IMPRESSION: 1. Tracheostomy cannula and right [id number] in appropriate position. 2. No definitive airspace disease.
[2023-06-26] MEDS: KETOROLAC 15 MG/ML 1 ML VIAL IVP STA (17:15)
[2023-06-26] MEDS ORDERED: NITROGLYCERIN SL TABS 0.4 MG TAB SUBLINGUAL PRN (17:18)
[2023-06-26] MEDS ORDERED: PROCHLORPERAZINE 5 MG TAB PEG/G-TUBE PRN (17:19)
[2023-06-26] MEDS: IPRATROPIUM-ALBUTEROL 3 ML NEB INHALATION STA (18:19)
[2023-06-26] MEDS: NITROGLYCERIN OINT 1 INCH/GM PACKET TOPICAL SCH (18:33)
[2023-06-26] MEDS: ASPIRIN 81 MG PO STA (18:37)
[2023-06-26] MEDS: MORPHINE ORAL SOLN 10 MG/5 ML CUP PEG/G-TUBE PRN (22:00)
[2023-06-26] MEDS: IPRATROPIUM-ALBUTEROL 3 ML NEB INHALATION PRN (22:57)
--- NOTE | 2023-06-27 08:05 | P.CRDCN ---
History of Present Illness History of present illness: HISTORY OF PRESENT ILLNESS: This is a 63-year-old female with a past medical history significant for coronary artery disease with previous stenting of the RCA, hypertension, hyperlipidemia, COPD, throat cancer, and tracheostomy creation. Patient follows in the office with Dr. Reis but has not been seen in the office since February 2022. We have been asked to see the patient in consultation for chest pain. Patient examined at the bedside. Patient states she has been feeling short of breath for the past week. She states that she was recently placed on steroids by her PCP. She states that she began having chest pain yesterday. She states the pain was in the middle of her chest. She denied any radiation of the pain. She denied any nausea or vomiting. Denied any fever or chills. She states that she has a frequent productive cough which is more than normal. She states the pain is worse with deep inspiration. The pain is not worse with chest wall palpation. DIAGNOSTICS: - EKG reveals sinus mechanism with low QRS voltage. - Chest xray tracheostomy cannula and right Njzdzi-[id number]-Byct in appropriate position. No definite airspace disease. - Laboratory data: WBC 16.3. Hemoglobin 13.3. Platelet count 208. D-dimer 0.59. Sodium 131. Potassium 4.3. BUN 28. Creatinine 0.45. Lactic acid 2.0. Troponin negative x 3 - Current home cardiac medications include aspirin 81 mg daily, Plavix 75 mg daily. - Most recent echocardiogram obtained in August 2021 revealing ejection fraction 40 to 45%, inferior and inferior lateral hypokinesis, mild mitral regurgitation, mild tricuspid regurgitation - Cardiac catheterization history: August 2021 with PCI of the RCA REVIEW OF SYSTEMS: At the time of my exam: CONSTITUTIONAL: Denies fever or chills. HEENT: Denies blurred vision, vision changes, or eye pain. Denies hemoptysis CARDIOVASCULAR: Denies chest pain. Denies orthopnea. Denies PND. Denies palpitations RESPIRATORY: Denies shortness of breath. GASTROINTESTINAL: Denies abdominal pain. Denies nausea or vomiting. HEMATOLOGIC: Denies bleeding disorders. GENITOURINARY: Denies any blood in urine. SKIN: Denies pruitis. Denies rash. PHYSICAL EXAM: VITAL SIGNS: Reviewed. GENERAL: Well-developed in no acute distress. HEENT: Head is normocephalic. Pupils are equal, round. Sclerae anicteric. Mucous membranes of the mouth are moist. Tracheostomy noted. LUNGS: Respirations even and unlabored. Lungs with diffuse rhonchi HEART: Regular rate and rhythm. S1 and S2 heard. ABDOMEN: Soft. Nondistended. Nontender. EXTREMITIES: Normal range of motion. No clubbing or cyanosis. Peripheral pulses intact. No lower extremity edema NEUROLOGIC: Awake and alert. Oriented x 3. ASSESSMENT: Shortness of breath Possible bronchitis Pleuritic chest pain, troponin negative x 3 Leukocytosis Coronary artery disease with previous stenting of the RCA, August 2021 Ischemic cardiomyopathy, ejection fraction 45% Laryngeal cancer with tracheostomy Hypertension Hyperlipidemia COPD PLAN: An acute coronary event has been ruled out Obtain 2D echo to assess cardiac structure and function Resume home cardiac medications Plan for outpatient stress testing when patients acute issues have resolved Further recommendations pending patient course Nurse practitioner note has been reviewed by physician. Signing provider agrees with the documented findings, assessment, and plan of care documented by [employer] as a scribe. Past Medical History Past Medical History: Coronary Artery Disease (CAD), Cancer, Hyperlipidemia, Hypertension, Myocardial Infarction ([place]) Additional Past Medical History / Comment(s): hx stomach ulcer, left tonsil cancer Last Myocardial Infarction Date:: 08/19/21 History of Any Multi-Drug Resistant Organisms: None Reported Past Surgical History: Heart Catheterization With Stent, Hysterectomy, Tubal Ligation Additional Past Surgical History / Comment(s): egd, Trach, right chest port, peg Past Anesthesia/Blood Transfusion Reactions: No Reported Reaction Date of Last Stent Placement:: 08/19/21 Past Psychological History: No Psychological Hx Reported Smoking Status: Former smoker Past Alcohol Use History: None Reported Past Drug Use History: None Reported Additional Drug Use History / Comment(s): occasional marijuana use - Past Family History Mother Family Medical History: Cancer Additional Family Medical History / Comment(s): lung cancer Sister(s) Family Medical History: Cancer Additional Family Medical History / Comment(s): breast cancer Medications and Allergies Home Medications Medication Instructions Recorded Confirmed Type Ondansetron Odt [Zofran ODT] 8 mg PO QID PRN 04/03/22 06/26/23 History Metoprolol Succinate [Kapspargo 100 mg PEG/G-TUBE DAILY@1000 08/15/22 06/26/23 History Sprinkle] Clopidogrel [Plavix] 75 mg PEG/G-TUBE DAILY@1000 11/16/22 06/26/23 History Aspirin 81 mg PEG/G-TUBE DAILY@1000 11/25/22 06/26/23 History Ipratropium-Albuterol Nebulize 3 ml INHALATION RT-Q2H PRN #90 dose 12/10/22 Rx [Duoneb 0.5 mg-3 mg/3 ml Soln] Acetaminophen Oral Susp [Tylenol] 320 mg PEG/G-TUBE Q6HR PRN 06/26/23 06/26/23 History Morphine Sulfate [Morphine Sulfate 10 - 20 mg PEG/G-TUBE Q3H PRN 06/26/23 06/26/23 History 10 MG/5 ML] Prochlorperazine [Compazine] 5 mg PEG/G-TUBE Q6HR PRN 06/26/23 06/26/23 History Sennosides-Docusate Sodium 1 tab PO DAILY 06/26/23 06/26/23 History [Senokot-S] dexAMETHasone [Decadron] 8 mg PEG/G-TUBE DAILY 06/26/23 06/26/23 History fentaNYL 25MCG/HR PATCH [Duragesic 2 patch TRANSDERM Q72H 06/26/23 06/26/23 History 25MCG/HR] Allergies Allergy/AdvReac Type Severity Reaction Status Date / Time Penicillins AdvReac Severe nausea/vomi Verified 06/26/23 16:59 ting codeine AdvReac Nausea & Verified 06/26/23 16:59 Vomiting & Diarrhea Physical Exam Vitals: Vital Signs Temp Pulse Pulse Resp BP BP Pulse Ox 06/27/23 02:04 98.1 F 78 19 102/64 93 L 06/26/23 23:19 84 06/26/23 22:59 88 06/26/23 21:24 97.8 F 64 18 157/89 94 L 06/26/23 21:03 88 18 120/76 90 L 06/26/23 18:30 75 16 120/80 91 L 06/26/23 17:19 70 18 164/84 91 L 06/26/23 15:49 76 18 114/72 92 L 06/26/23 14:59 80 06/26/23 14:46 76 06/26/23 14:28 76 18 122/94 97 06/26/23 13:29 98.6 F 86 16 105/74 98 FiO2 06/27/23 02:04 06/26/23 23:19 28 06/26/23 22:59 06/26/23 21:24 06/26/23 21:03 06/26/23 18:30 06/26/23 17:19 06/26/23 15:49 06/26/23 14:59 06/26/23 14:46 06/26/23 14:28 06/26/23 13:29 Intake and Output 06/26/23 06/27/23 06/27/23 22:59 06:59 14:59 Other: Voiding Method Toilet # Voids 1 Weight 49.442 kg Results 06/26/23 14:47 06/26/23 14:47 Cardiac Enzymes 06/26/23 06/26/23 06/26/23 Range/Units 14:47 14:47 17:45 AST 20 (14-36) U/L Troponin I <0.012 <0.012 (0.000-0.034) ng/mL 06/26/23 Range/Units 19:56 AST (14-36) U/L Troponin I <0.012 (0.000-0.034) ng/mL Coagulation 06/26/23 Range/Units 15:20 PT 10.5 (10.0-12.5) sec APTT 21.1 L (22.0-30.0) sec CBC 06/26/23 Range/Units 14:47 WBC 16.3 H (3.8-10.6) k/uL RBC 4.69 (3.80-5.40) m/uL Hgb 13.3 (11.4-16.0) gm/dL Hct 43.0 (34.0-46.0) % Plt Count 208 (150-450) k/uL Comprehensive Metabolic Panel 06/26/23 Range/Units 14:47 Sodium 131 L (137-145) mmol/L Potassium 4.3 (3.5-5.1) mmol/L Chloride 99 (98-107) mmol/L Carbon Dioxide 28 (22-30) mmol/L BUN 28 H (7-17) mg/dL Creatinine 0.45 L (0.52-1.04) mg/dL Glucose 107 H (74-99) mg/dL Calcium 8.8 (8.4-10.2) mg/dL AST 20 (14-36) U/L ALT 29 (4-34) U/L Alkaline Phosphatase 82 (38-126) U/L Total Protein 5.5 L (6.3-8.2) g/dL Albumin 3.1 L (3.5-5.0) g/dL Current Medications Generic Name Dose Route Start Last Admin Trade Name Freq PRN Reason Stop Dose Admin Albuterol/Ipratropium 3 ml 06/26/23 17:19 06/26/23 22:57 Ipratropium-Albuterol 3 Ml Neb INHALATION 3 ml RT-Q2H PRN Administration Shortness Of Breath Or Wheezing Aspirin 325 mg 06/27/23 09:00 Aspirin 325 Mg Tab PO DAILY [facility] Clopidogrel Bisulfate 75 mg 06/27/23 10:00 Clopidogrel 75 Mg Tab PEG/G-TUBE DAILY@1000 [facility] Dexamethasone 8 mg 06/27/23 09:00 Dexamethasone 4 Mg Tab PEG/G-TUBE DAILY [facility] Fentanyl 1 patch 06/28/23 09:00 Fentanyl 50mcg/Hr Patch TRANSDERM Q72H [facility] Protocol Morphine Sulfate 10 mg 06/26/23 17:19 06/27/23 04:48 Morphine Oral Soln 10 Mg/5 Ml Cup PEG/G-TUBE 10 mg Q3H PRN Administration Pain Nitroglycerin 0.4 mg 06/26/23 17:18 Nitroglycerin Sl Tabs 0.4 Mg Tab SUBLINGUAL Q5M PRN Chest Pain Nitroglycerin 1 inch 06/26/23 18:00 06/27/23 04:48 Nitroglycerin Oint 1 Inch/Gm Packet TOPICAL 1 inch Q6HR [facility] Administration Non-Formulary Medication 100 mg 06/27/23 10:00 Metoprolol Succinate [Kapspargo Sprinkle] PEG/G-TUBE DAILY@1000 [facility] Ondansetron HCl 8 mg 06/26/23 17:19 Ondansetron Odt 8 Mg Tab.Rapdis PO QID PRN Nausea Prochlorperazine Maleate 5 mg 06/26/23 17:19 Prochlorperazine 5 Mg Tab PEG/G-TUBE Q6HR PRN Nausea And Vomiting Senna/Docusate Sodium 1 each 06/27/23 09:00 Sennosides-Docusate Sodium 1 Each Tab PO DAILY ROXANNA Intake and Output 06/26/23 06/27/23 06/27/23 22:59 06:59 14:59 Other: Voiding Method Toilet # Voids 1 Weight 49.442 kg 06/26/23 14:47 06/26/23 14:47
[2023-06-27] MEDS: SENNOSIDES-DOCUSATE SODIUM 1 EACH TAB PO SCH (08:08)
[2023-06-27] MEDS: dexAMETHasone 4 MG TAB PEG/G-TUBE SCH (08:08)
[2023-06-27] MEDS ORDERED: ASPIRIN 325 MG TAB PO SCH (09:00)
[2023-06-27 10:57] LABS: LDL Cholesterol,Calculated 74.9 mg/dL (0.0-131.0)
[2023-06-27] MEDS: ASPIRIN 81 MG PEG/G-TUBE SCH (11:11)
[2023-06-27] MEDS: CLOPIDOGREL 75 MG TAB PEG/G-TUBE SCH (11:11)
--- NOTE | 2023-06-27 12:22 | P.HPIM ---
History of Present Illness Patient is 63-year-old female came with complaints of chest pressure-like sensation was eval by cardiology EKG showed sinus rhythm with low QRS voltage complexes, troponins are negative patient was eval by cardiology. Patient chest pain is worse with palpation appears to be musculoskeletal cardiology evaluated the patient and they are recommending an echocardiogram if that is negative patient is cleared from their perspective patient has a tracheostomy which has purulent drainage foul-smelling. Chest x-ray did not show any pneumonia but there may be bronchitis will obtain a sputum cultures and infectious disease will be consulted. Patient was also complaining of shortness of breath although there is no wheezing on exam. 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 Patient D-dimer is within normal limits no evidence of pneumonia on the chest x-ray patient does have leukocytosis without any fever. Patient is also complaining of generalized weakness lives by herself and wanted to be evaluated by physical therapy. REVIEW OF SYSTEMS: CONSTITUTIONAL: No fever, no malaise, no fatigue. HEENT: No recent visual problems or hearing problems. Denied any sore throat. CARDIOVASCULAR: No orthopnea, PND, no palpitations, no syncope. PULMONARYno hemoptysis. GASTROINTESTINAL: No diarrhea, no nausea, no vomiting, no abdominal pain. NEUROLOGICAL: No headaches, no weakness, no numbness. HEMATOLOGICAL: Denies any bleeding or petechiae. GENITOURINARY: Denies any burning micturition, frequency, or urgency. MUSCULOSKELETAL/RHEUMATOLOGICAL: Denies any joint pain, swelling, or any muscle pain. ENDOCRINE: Denies any polyuria or polydipsia. The rest of the 14-point review of systems is negative. PHYSICAL EXAMINATION: GENERAL: The patient is alert and oriented x3, not in any acute distress. Thin built female HEENT: Pupils are round and equally reacting to light. EOMI. No scleral icterus. No conjunctival pallor. Normocephalic, atraumatic. No pharyngeal erythema. No thyromegaly. Patient has tracheostomy with purulent drainage CARDIOVASCULAR: S1 and S2 present. No murmurs, rubs, or gallops. PULMONARY: Chest is clear to auscultation, no wheezing or crackles. ABDOMEN: Soft, nontender, nondistended, normoactive bowel sounds. No palpable organomegaly. MUSCULOSKELETAL: No joint swelling or deformity. EXTREMITIES: No cyanosis, clubbing, or pedal edema. NEUROLOGICAL: Gross neurological examination did not reveal any focal deficits. SKIN: No rashes. Assessment and plan -Possible infection or bronchitis, patient has a tracheostomy: Will obtain sputum cultures, patient will be empirically started on Zosyn covering for Pseudomonas and infectious disease will be consulted patient does have malina kocytosis -Chest pain rule out acute coronary syndromes, cardiology evaluate the patient echocardiogram is being obtained appears to be noncardiac chest pain appears to be musculoskeletal chest pain -Generalized weakness physical therapy Occupational Therapy evaluation -Coronary disease with previous stenting -Ischemic cardiomyopathy EF of around 45% patient appears to be mildly hypovolemic will obtain a BNP -Laryngeal cancer with tracheostomy as mentioned before -Hyperlipidemia -Hypertension -COPD without any acute exacerbation DVT prophylaxis: Lovenox Past Medical History Past Medical History: Coronary Artery Disease (CAD), Cancer, Hyperlipidemia, Hypertension, Myocardial Infarction ([place]) Additional Past Medical History / Comment(s): hx stomach ulcer, left tonsil cancer Last Myocardial Infarction Date:: 08/19/21 History of Any Multi-Drug Resistant Organisms: None Reported Past Surgical History: Heart Catheterization With Stent, Hysterectomy, Tubal Ligation Additional Past Surgical History / Comment(s): egd, Trach, right chest port, peg Past Anesthesia/Blood Transfusion Reactions: No Reported Reaction Date of Last Stent Placement:: 08/19/21 Past Psychological History: No Psychological Hx Reported Smoking Status: Former smoker Past Alcohol Use History: None Reported Past Drug Use History: None Reported Additional Drug Use History / Comment(s): occasional marijuana use - Past Family History Mother Family Medical History: Cancer Additional Family Medical History / Comment(s): lung cancer Sister(s) Family Medical History: Cancer Additional Family Medical History / Comment(s): breast cancer Medications and Allergies Home Medications Medication Instructions Recorded Confirmed Type Ondansetron Odt [Zofran ODT] 8 mg PO QID PRN 04/03/22 06/26/23 History Metoprolol Succinate [Kapspargo 100 mg PEG/G-TUBE DAILY@1000 08/15/22 06/26/23 History Sprinkle] Clopidogrel [Plavix] 75 mg PEG/G-TUBE DAILY@1000 11/16/22 06/26/23 History Aspirin 81 mg PEG/G-TUBE DAILY@1000 11/25/22 06/26/23 History Ipratropium-Albuterol Nebulize 3 ml INHALATION RT-Q2H PRN #90 dose 12/10/22 06/26/23 Rx [Duoneb 0.5 mg-3 mg/3 ml Soln] Acetaminophen Oral Susp [Tylenol] 320 mg PEG/G-TUBE Q6HR PRN 06/26/23 06/26/23 History Morphine Sulfate [Morphine Sulfate 10 - 20 mg PEG/G-TUBE Q3H PRN 06/26/23 06/26/23 History 10 MG/5 ML] Prochlorperazine [Compazine] 5 mg PEG/G-TUBE Q6HR PRN 06/26/23 06/26/23 History Sennosides-Docusate Sodium 1 tab PO DAILY 06/26/23 06/26/23 History [Senokot-S] dexAMETHasone [Decadron] 8 mg PEG/G-TUBE DAILY 06/26/23 06/26/23 History fentaNYL 25MCG/HR PATCH [Duragesic 2 patch TRANSDERM Q72H 06/26/23 06/26/23 History 25MCG/HR] Allergies Allergy/AdvReac Type Severity Reaction Status Date / Time Penicillins AdvReac Severe nausea/vomi Verified 06/26/23 16:59 ting codeine AdvReac Nausea & Verified 06/26/23 16:59 Vomiting & Diarrhea Physical Exam Vitals: Vital Signs Temp Pulse Pulse Resp BP BP Pulse Ox 06/27/23 08:41 80 06/27/23 08:28 82 06/27/23 07:00 97.5 F L 91 17 133/72 90 L 06/27/23 02:04 98.1 F 78 19 102/64 93 L 06/26/23 23:19 84 06/26/23 22:59 88 06/26/23 21:24 97.8 F 64 18 157/89 94 L 06/26/23 21:03 88 18 120/76 90 L 06/26/23 18:30 75 16 120/80 91 L 06/26/23 17:19 70 18 164/84 91 L 06/26/23 15:49 76 18 114/72 92 L 06/26/23 14:59 80 06/26/23 14:46 76 06/26/23 14:28 76 18 122/94 97 06/26/23 13:29 98.6 F 86 16 105/74 98 FiO2 06/27/23 08:41 06/27/23 08:28 28 06/27/23 07:00 06/27/23 02:04 06/26/23 23:19 28 06/26/23 22:59 06/26/23 21:24 06/26/23 21:03 06/26/23 18:30 06/26/23 17:19 06/26/23 15:49 06/26/23 14:59 06/26/23 14:46 06/26/23 14:28 06/26/23 13:29 Intake and Output 06/26/23 06/27/23 06/27/23 22:59 06:59 14:59 Other: Voiding Method Toilet Toilet # Voids 1 Weight 49.442 kg Results CBC & Chem 7: 06/26/23 14:47 06/26/23 14:47 Labs: Abnormal Lab Results - Last 24 Hours (Table) 06/26/23 06/26/23 06/26/23 Range/Units 14:47 14:47 15:20 WBC 16.3 H (3.8-10.6) k/uL Neutrophils # 15.2 H (1.3-7.7) k/uL Lymphocytes # 0.2 L (1.0-4.8) k/uL APTT 21.1 L (22.0-30.0) sec Sodium 131 L (137-145) mmol/L BUN 28 H (7-17) mg/dL Creatinine 0.45 L (0.52-1.04) mg/dL Glucose 107 H (74-99) mg/dL Total Protein 5.5 L (6.3-8.2) g/dL Albumin 3.1 L (3.5-5.0) g/dL Triglycerides (0.00-149.00) mg/dL HDL Cholesterol (40.00-60.00) mg/dL 06/27/23 Range/Units 06:36 WBC (3.8-10.6) k/uL Neutrophils # (1.3-7.7) k/uL Lymphocytes # (1.0-4.8) k/uL APTT (22.0-30.0) sec Sodium (137-145) mmol/L BUN (7-17) mg/dL Creatinine (0.52-1.04) mg/dL Glucose (74-99) mg/dL Total Protein (6.3-8.2) g/dL Albumin (3.5-5.0) g/dL Triglycerides 182.00 H (0.00-149.00) mg/dL HDL Cholesterol 39.70 L (40.00-60.00) mg/dL Thrombosis Risk Factor Assmnt - Choose All That Apply Any of the Below Risk Factors Present?: Yes Each Risk Factor Represents 2 Points: Age 61-74 years Thrombosis Risk Factor Assessment Total Risk Factor Score: 2 Thrombosis Risk Factor Assessment Level: Low Risk
[2023-06-27] MEDS: METOPROLOL SUCCINATE 100 MG PEG/G-TUBE SCH (14:53)
--- NOTE | 2023-06-27 15:44 | CA ---
Transthoracic Echo Report Name: Janice Sue Age: 63 Gender: F : 1960 Exam Date: 06/27/2023 10:26 Exam Location: [facility] Ht (in): 61 Wt (lb): 109 Ordering Physician: Sade French Attending/Referring Phys: [id number], Manolo Map Compiler Aurbee Muniz RDCS Procedure CPT: Indications: LV function, CP Cardiac Hx: Technical Quality: Very technically difficult study Contrast 1: Definity Total Dose (mL): 2 Contrast 2: Total Dose (mL): MEASUREMENTS (Male / Female) Normal Values 2D ECHO LV Diastolic Diameter PLAX 3.2 cm 4.2 - 5.9 / 3.9 - 5.3 cm LV Systolic Diameter PLAX 1.5 cm IVS Diastolic Thickness 1.1 cm 0.6 - 1.0 / 0.6 - 0.9 cm LVPW Diastolic Thickness 1.2 cm 0.6 - 1.0 / 0.6 - 0.9 cm LV Relative Wall Thickness 0.7 DOPPLER AV Peak Velocity 101.4 cm/s AV Peak Gradient 4.1 mmHg AV Mean Velocity 70.3 cm/s AV Mean Gradient 2.2 mmHg AV Velocity Time Integral 17.9 cm LVOT Peak Velocity 89.2 cm/s LVOT Peak Gradient 3.2 mmHg LVOT Velocity Time Integral 16.3 cm MV Area PHT 5.7 cm??? Mitral E Point Velocity 62.9 cm/s Mitral A Point Velocity 94.4 cm/s Mitral E to A Ratio 0.7 MV Deceleration Time 132.3 ms MV E' Velocity 6.2 cm/s Mitral E to MV E' Ratio 10.1 FINDINGS Left Ventricle Mildly increased left ventricular wall thickness. Left ventricular ejection fraction is estimated at 60-65 %. Grade 1 diastolic dysfunction. Right Ventricle Right ventricle not well visualized. Right Atrium Right atrium not well visualized. Left Atrium Normal left atrial size. Mitral Valve Mitral valve not well visualized. Structurally normal mitral valve. No mitral stenosis, regurgitation or prolapse. Aortic Valve No aortic valve stenosis or regurgitation. Tricuspid Valve Structurally normal tricuspid valve. Pulmonic Valve Pulmonic valve not well visualized. Pericardium No pericardial effusion. Aorta Normal size aortic root and proximal ascending aorta. CONCLUSIONS Technically difficult study Mild increased left ventricular wall thickness Left ventricular ejection fraction 60-65% No pericardial effusion Previewed by: Dr. Florin Anne DO (Electronically Signed) Final Date: 27 Jun 2023 15:42
[2023-06-27] MEDS: CEFEPIME 2 GM in SODIUM CHLORIDE 0.9% 100 ML IVPB SCH (17:43)
[2023-06-27] MEDS: MORPHINE SULFATE 4 MG/ML SYRINGE IVP STA (18:43)
[2023-06-27] MEDS: BUDESONIDE 0.5 MG/2 ML NEBU INHALATION SCH (20:41)
--- NOTE | 2023-06-27 22:32 | P.CONS ---
History of Present Illness - Reason for Consult Consult date: 06/27/23 Possible trach infection Requesting physician: Lanie Herzog - Chief Complaint Chest pain and difficulty breathing x few days - History of Present Illness Patient is a 63-year-old female past medical history significant for hypertension hyperlipidemia coronary artery disease patient has a history of left tonsil cancer and did have a tracheostomy patient presented to [facility] ER for evaluation of chest pain and difficulty in breathing and this p atient symptom has been going on for few days before presentation to the hospital patient describes the pain to be sharp about 4 out of 10 without any radiation with associated shortness of breath and has to have a cough mild to moderate intensity and noticed to have more purulent sputum patient denies having any high-grade fever or any chills with the symptoms the patient has been evaluated on presentation to the hospital patient was afebrile and no fever have recorded subsequently patient was not tachycardic hypotensive or hypoxic patient did have a white count of 16.3 with a left shift BUN/creatinine has been normal electrolytes are normal liver enzymes normal patient did have a chest x-ray that was reported negative for acute infiltrate infectious was consulted regarding purulent drainage and concern for possible cellulitis around the trach site with the patient complaining of pain around the trach site mostly sharp moderate intensity without any radiation Review of Systems Positive point and negatives has been mentioned in the HPI, complete review of systems was performed and all other systems are negative Past Medical History Past Medical History: Coronary Artery Disease (CAD), Cancer, Hyperlipidemia, Hypertension, Myocardial Infarction ([place]) Additional Past Medical History / Comment(s): hx stomach ulcer, left tonsil cancer Last Myocardial Infarction Date:: 08/19/21 History of Any Multi-Drug Resistant Organisms: None Reported Past Surgical History: Heart Catheterization With Stent, Hysterectomy, Tubal Ligation Additional Past Surgical History / Comment(s): egd, Trach, right chest port, peg Past Anesthesia/Blood Transfusion Reactions: No Reported Reaction Date of Last Stent Placement:: 08/19/21 Past Psychological History: No Psychological Hx Reported Smoking Status: Former smoker Past Alcohol Use History: None Reported Past Drug Use History: None Reported Additional Drug Use History / Comment(s): occasional marijuana use - Past Family History Mother Family Medical History: Cancer Additional Family Medical History / Comment(s): lung cancer Sister(s) Family Medical History: Cancer Additional Family Medical History / Comment(s): breast cancer Medications and Allergies Home Medications Medication Instructions Recorded Confirmed Type Ondansetron Odt [Zofran ODT] 8 mg PO QID PRN 04/03/22 07/18/23 History Metoprolol Succinate [Kapspargo 100 mg PEG/G-TUBE DAILY@1000 08/15/22 07/18/23 History Sprinkle] Aspirin 81 mg PEG/G-TUBE DAILY@1000 11/25/22 07/18/23 History Ipratropium-Albuterol Nebulize 3 ml INHALATION RT-Q2H PRN #90 dose 12/10/22 07/18/23 Rx [Duoneb 0.5 mg-3 mg/3 ml Soln] Acetaminophen Oral Susp [Tylenol] 320 mg PEG/G-TUBE Q6HR PRN 06/26/23 07/18/23 History Prochlorperazine [Compazine] 5 mg PEG/G-TUBE Q6HR PRN 06/26/23 07/18/23 History Sennosides-Docusate Sodium 1 tab PO DAILY 06/26/23 07/18/23 History [Senokot-S] MORPHINE ORAL JEFFRY 2mg/mL [Morphine 20 mg PEG/G-TUBE Q6H PRN 3 Days 07/05/23 07/18/23 Rx Oral Soln 2 MG/ML] #120 ml fentaNYL 100MCG/HR PATCH 100 mcg TRANSDERM Q72H 3 Days #1 07/05/23 07/18/23 Rx [Duragesic 100MCG/HR] patch Allergies Allergy/AdvReac Type Severity Reaction Status Date / Time Penicillins AdvReac Severe nausea/vomi Verified 06/26/23 16:59 ting codeine AdvReac Nausea & Verified 06/26/23 16:59 Vomiting & Diarrhea Physical Exam Vitals: Vital Signs Temp Pulse Pulse Resp BP BP Pulse Ox 06/27/23 08:41 80 06/27/23 08:28 82 06/27/23 07:00 97.5 F L 91 17 133/72 90 L 06/27/23 02:04 98.1 F 78 19 102/64 93 L 06/26/23 23:19 84 06/26/23 22:59 88 06/26/23 21:24 97.8 F 64 18 157/89 94 L 06/26/23 21:03 88 18 120/76 90 L 06/26/23 18:30 75 16 120/80 91 L 06/26/23 17:19 70 18 164/84 91 L 06/26/23 15:49 76 18 114/72 92 L 06/26/23 14:59 80 06/26/23 14:46 76 06/26/23 14:28 76 18 122/94 97 06/26/23 13:29 98.6 F 86 16 105/74 98 FiO2 06/27/23 08:41 06/27/23 08:28 28 06/27/23 07:00 06/27/23 02:04 06/26/23 23:19 28 06/26/23 22:59 06/26/23 21:24 06/26/23 21:03 06/26/23 18:30 06/26/23 17:19 06/26/23 15:49 06/26/23 14:59 06/26/23 14:46 06/26/23 14:28 06/26/23 13:29 Intake and Output 06/26/23 06/27/23 06/27/23 22:59 06:59 14:59 Other: Voiding Method Toilet Toilet # Voids 1 Weight 49.442 kg GENERAL DESCRIPTION: Middle-aged female lying in bed, no distress. No tachypnea or accessory muscle of respiration use. HEENT: Shows Pallor , no scleral icterus. Oral mucous membrane is dry. No pharyngeal erythema or thrush NECK: Trach site with no significant redness some purulent drainage through the trach on coughing , no thyromegaly. LUNGS: Unlabored breathing. Decreased breath sound at the base HEART: S1, S2, regular rate and rhythm. No loud murmur ABDOMEN: Soft, no tenderness , guarding or rigidity, no organomegaly EXTREMITIES: No edema of feet. SKIN: No rash, no masses palpable. NEUROLOGICAL: The patient is awake, alert, mood and affect normal. Results CBC & Chem 7: 07/15/23 06:30 07/10/23 07:09 Labs: Abnormal Lab Results - Last 24 Hours (Table) 06/26/23 06/26/23 06/26/23 Range/Units 14:47 14:47 15:20 WBC 16.3 H (3.8-10.6) k/uL Neutrophils # 15.2 H (1.3-7.7) k/uL Lymphocytes # 0.2 L (1.0-4.8) k/uL APTT 21.1 L (22.0-30.0) sec Sodium 131 L (137-145) mmol/L BUN 28 H (7-17) mg/dL Creatinine 0.45 L (0.52-1.04) mg/dL Glucose 107 H (74-99) mg/dL Total Protein 5.5 L (6.3-8.2) g/dL Albumin 3.1 L (3.5-5.0) g/dL Triglycerides (0.00-149.00) mg/dL HDL Cholesterol (40.00-60.00) mg/dL 06/27/23 Range/Units 06:36 WBC (3.8-10.6) k/uL Neutrophils # (1.3-7.7) k/uL Lymphocytes # (1.0-4.8) k/uL APTT (22.0-30.0) sec Sodium (137-145) mmol/L BUN (7-17) mg/dL Creatinine (0.52-1.04) mg/dL Glucose (74-99) mg/dL Total Protein (6.3-8.2) g/dL Albumin (3.5-5.0) g/dL Triglycerides 182.00 H (0.00-149.00) mg/dL HDL Cholesterol 39.70 L (40.00-60.00) mg/dL Assessment and Plan (1) Leukocytosis Status: Acute Code(s): D72.829 - ELEVATED WHITE BLOOD CELL COUNT, UNSPECIFIED SNOMED Code(s): 103851752 (2) Penicillin allergy Status: Acute Code(s): Z88.0 - ALLERGY STATUS TO PENICILLIN SNOMED Code(s): 69526961 (3) Tracheobronchitis Status: Acute Priority: High Code(s): J40 - BRONCHITIS, NOT SPECIFIED ACUTE OR CHRONIC SNOMED Code(s): 99202342 Plan: 1patient presenting to the hospital with increasing shortness of breath chest pain also have a cough purulent drainage concerning for tracheobronchitis possible bacterial and question of pseudomonal with a greenish drainage from the trach site did have elevated white count though chest x-ray reported negative for acute infiltrate, no significant redness around the trach site was noticed 2-penicillin allergy that will limit the number of antibiotics safe to use 3-we will check a CRP procalcitonin and obtain sputum for Gram stain and culture 4-empirically add cefepime while waiting for the workup to be completed We will follow on clinical condition and cultures to further adjust medication if needed Thank you for this consultation we will follow the patient along with you Dictation was produced using [employer] dictation software. please excuse any grammatical, word or spelling errors. Time with Patient: Greater than 30
[2023-06-27] MEDS: HYDROmorphone 0.5 MG/0.5 ML SYRINGE IVP PRN (23:05)
[2023-06-28 08:39] LABS: HCT 35.6 % (34.0-46.0); HGB 11.4 gm/dL (11.4-16.0); MCH 29.2 pg (25.0-35.0); MCV 91.4 fL (80.0-100.0); Mean Platelet Volume 8.9; Platelet Count 114 k/uL (150-450); RBC 3.89 m/uL (3.80-5.40); RDW 15.8 % (11.5-15.5); WBC 9.9 k/uL (3.8-10.6)
--- NOTE | 2023-06-28 11:12 | P.PN ---
Subjective HISTORY OF PRESENT ILLNESS: This is a 63-year-old female with a past medical history significant for coronary artery disease with previous stenting of the RCA, hypertension, hyperlipidemia, COPD, throat cancer, and tracheostomy creation. Patient follows in the office with Dr. Reis but has not been seen in the office since February 2022. We have been asked to see the patient in consultation for chest pain. Patient examined at the bedside. Patient states she has been feeling short of breath for the past week. She states that she was recently placed on steroids by her PCP. She states that she began having chest pain yesterday. She states the pain was in the middle of her chest. She denied any radiation of the pain. She denied any nausea or vomiting. Denied any fever or chills. She states that she has a frequent productive cough which is more than normal. She states the pain is worse with deep inspiration. The pain is not worse with chest wall palpation. DIAGNOSTICS: - EKG reveals sinus mechanism with low QRS voltage. - Chest xray tracheostomy cannula and right [id number] in appropriate position. No definite airspace disease. - Laboratory data: WBC 16.3. Hemoglobin 13.3. Platelet count 208. D-dimer 0.59. Sodium 131. Potassium 4.3. BUN 28. Creatinine 0.45. Lactic acid 2.0. Troponin negative x 3 - Current home cardiac medications include aspirin 81 mg daily, Plavix 75 mg daily. - Most recent echocardiogram obtained in August 2021 revealing ejection fraction 40 to 45%, inferior and inferior lateral hypokinesis, mild mitral regurgitation, mild tricuspid regurgitation - Cardiac catheterization history: August 2021 with PCI of the RCA 06/28/2023 Patient examined this morning at the bedside. She reports continued chest pain that is worse with deep inspiration. She also reports mild SOB. Vital signs are stable. Evaluated by infectious disease and is currently receiving antibiotics. Echocardiogram completed revealing ejection fraction 60 to 65% with no valvular abnormalities noted. PHYSICAL EXAM: VITAL SIGNS: Reviewed. GENERAL: Well-developed in no acute distress. HEENT: Head is normocephalic. Pupils are equal, round. Sclerae anicteric. Mucous membranes of the mouth are moist. Tracheostomy noted. LUNGS: Respirations even and unlabored. Lungs with diffuse rhonchi HEART: Regular rate and rhythm. S1 and S2 heard. ABDOMEN: Soft. Nondistended. Nontender. EXTREMITIES: Normal range of motion. No clubbing or cyanosis. Peripheral pulses intact. No lower extremity edema NEUROLOGIC: Awake and alert. Oriented x 3. ASSESSMENT: Shortness of breath Possible bronchitis Pleuritic chest pain, troponin negative x 3 Leukocytosis Coronary artery disease with previous stenting of the RCA, August 2021 Ischemic cardiomyopathy, ejection fraction 45% Laryngeal cancer with tracheostomy Hypertension Hyperlipidemia COPD PLAN: Continue current cardiac medications Plan for outpatient stress testing when patients acute issues have resolved No inpatient recommendations from a cardiac standpoint Will sign off. Please reconsult if needed. Nurse practitioner note has been reviewed by physician. Signing provider agrees with the documented findings, assessment, and plan of care documented by BEHAVIORAL INTERVENTION SPECIALIST as a scribe. Objective - Vital Signs Vital signs: Vital Signs Temp 97.7 F 06/28/23 07:00 Pulse 80 06/28/23 08:23 Resp 17 06/28/23 07:00 BP 125/67 06/28/23 07:00 Pulse Ox 92 L 06/28/23 07:00 FiO2 28 06/28/23 08:12 Intake & Output 06/27/23 06/28/23 06/28/23 18:59 06:59 18:59 Weight 49.442 kg 46.4 kg Other: Voiding Method Toilet Toilet # Voids 1 - Labs CBC & Chem 7: 06/28/23 08:11 06/26/23 14:47 Labs: Abnormal Lab Results - Last 24 Hours (Table) 06/27/23 06/28/23 Range/Units 06:36 08:11 RDW 15.8 H (11.5-15.5) % Plt Count 114 L (150-450) k/uL Triglycerides 182.00 H (0.00-149.00) mg/dL HDL Cholesterol 39.70 L (40.00-60.00) mg/dL
[2023-06-28 13:14] LABS: African American GFR (CKD) >90 (>60 ml/min/1.73 sqM); Anion Gap 4 mmol/L; Blood Urea Nitrogen 22 mg/dL (7-17); Calcium 8.9 mg/dL (8.4-10.2); Carbon Dioxide 21 mmol/L (22-30); Chloride 111 mmol/L (98-107); Glucose 142 mg/dL (74-99); Non-African American GFR(CKD) >90 (>60 ml/min/1.73 sqM); Potassium 3.5 mmol/L (3.5-5.1); Sodium 136 mmol/L (137-145)
--- NOTE | 2023-06-28 14:07 | P.PN ---
Subjective Progress Note Date: 06/28/23 Patient is 63-year-old female came with complaints of chest pressure-like sensation was eval by cardiology EKG showed sinus rhythm with low QRS voltage complexes, troponins are negative patient was eval by cardiology. Patient chest pain is worse with palpation appears to be musculoskeletal cardiology evaluated the patient and they are recommending an echocardiogram if that is negative patient is cleared from their perspective patient has a tracheostomy which has purulent drainage foul-smelling. Chest x-ray did not show any pneumonia but there may be bronchitis will obtain a sputum cultures and infectious disease will be consulted. Patient was also complaining of shortness of breath although there is no wheezing on exam. 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 Patient D-dimer is within normal limits no evidence of pneumonia on the chest x-ray patient does have leukocytosi s without any fever. Patient is also complaining of generalized weakness lives by herself and wanted to be evaluated by physical therapy. 06/28/2023 Patient is evaluated in follow up today on the medical floor. Has no further reports of chest pain, Cardiology had an echocardiogram done showing EF 60-65% with grade 1 diastolic dysfunction. There was mild increased left ventricular wall thickness, no pericardial effusion. Continues with thick secretions from the tracheostomy. Blood cultures and sputum culture taken and pending. Remains on IV cefepime. Continues to report significant pain to the left side of her face, states this has been chronic for her. Review of Systems Constitutional: Denied any fatigue denied any fever. Cardio vascular: denied any chest pain, palpitations Gastrointestinal: denied any nausea, vomiting, diarrhea Pulmonary: Reports shortness of breath, cough, increased secretions. Neurologic denied any new focal deficits All inpatient medications were reviewed and appropriate changes in these medications as dictated in the interval history and assessment and plan. PHYSICAL EXAMINATION: GENERAL: The patient is alert and oriented x3, not in any acute distress. Thin built female HEENT: Pupils are round and equally reacting to light. EOMI. No scleral icterus. No conjunctival pallor. Normocephalic, atraumatic. No pharyngeal erythema. No thyromegaly. Patient has tracheostomy with purulent drainage CARDIOVASCULAR: S1 and S2 present. No murmurs, rubs, or gallops. PULMONARY: Chest is clear to auscultation, no wheezing or crackles. ABDOMEN: Soft, nontender, nondistended, normoactive bowel sounds. No palpable organomegaly. MUSCULOSKELETAL: No joint swelling or deformity. EXTREMITIES: No cyanosis, clubbing, or pedal edema. NEUROLOGICAL: Gross neurological examination did not reveal any focal deficits. SKIN: No rashes. Assessment and plan -Possible infection or bronchitis, patient has a tracheostomy: Will obtain sputum cultures, patient will be empirically started on Zosyn covering for Pseudomonas and infectious disease will be consulted patient does have leukocytosis -Chest pain rule out acute coronary syndromes, cardiology evaluate the patient echocardiogram reviewed, pain appears to be noncardiac chest pain appears to be musculoskeletal chest pain -Generalized weakness physical therapy Occupational Therapy evaluation -Coronary artery disease with previous stenting -Ischemic cardiomyopathy EF of around 45% patient appears to be mildly hypovolemic BNP normal. -Laryngeal cancer with tracheostomy as mentioned before -Hyperlipidemia -Hypertension -COPD without any acute exacerbation DVT prophylaxis: Lovenox GI prophylaxis Do Not Resuscitate/Do Not Intubate The impression and plan of care has been dictated by Elissa Hair, Nurse Practitioner as directed. Dr. Mino MD I have performed a history and physical examination and medical decision making of this patient, discussed the same with the dictator, and agree with the d ictators assessment and plan as written, documented as a scribe. Based on total visit time, I have performed more than 50% of this visit. Objective - Vital Signs Vital signs: Vital Signs Temp 97.7 F 06/28/23 07:00 Pulse 80 06/28/23 08:23 Resp 17 06/28/23 07:00 BP 125/67 06/28/23 07:00 Pulse Ox 92 L 06/28/23 07:00 FiO2 28 06/28/23 08:12 Intake & Output 06/27/23 06/28/23 06/28/23 18:59 06:59 18:59 Weight 49.442 kg 46.4 kg Other: Voiding Method Toilet Toilet # Voids 1 - Labs CBC & Chem 7: 06/28/23 08:11 06/28/23 08:11 Labs: Abnormal Lab Results - Last 24 Hours (Table) 06/28/23 06/28/23 Range/Units 08:11 08:11 RDW 15.8 H (11.5-15.5) % Plt Count 114 L (150-450) k/uL Sodium 136 L (137-145) mmol/L Chloride 111 H (98-107) mmol/L Carbon Dioxide 21 L (22-30) mmol/L BUN 22 H (7-17) mg/dL Creatinine 0.36 L (0.52-1.04) mg/dL Glucose 142 H (74-99) mg/dL Assessment and Plan Time with Patient: Less than 30
--- NOTE | 2023-06-28 15:51 | P.PN ---
Subjective Progress Note Date: 06/28/23 Principal diagnosis: Reason for follow-up is leukocytosis and tracheobronchitis Patient is a 63-year-old female past medical history significant for hypertension hyperlipidemia coronary artery disease patient has a history of left tonsil cancer and did have a tracheostomy patient presented to [facility] ER for evaluation of chest pain and difficulty in breathing also noticed to have some purulent drainage through the trach and there was concern for possible trach site cellulitis prompting this consultation. On today's evaluation that is 06/28/2023, patient has been afebrile, patient is breathing comfortably and is currently on 5 L trach collar patient denies any worsening chest pain or shortness of breath still have a cough nausea but no vomiting no abdominal pain or diarrhea. Patient white count is normalized to 9.9 creatinine 0.36 cultures are pending Objective - Vital Signs Vital signs: Vital Signs Temp 97.7 F 06/28/23 07:00 Pulse 80 06/28/23 08:23 Resp 17 06/28/23 07:00 BP 125/67 06/28/23 07:00 Pulse Ox 92 L 06/28/23 07:00 FiO2 28 06/28/23 08:12 Intake & Output 06/27/23 06/28/23 06/28/23 18:59 06:59 18:59 Weight 49.442 kg 46.4 kg Other: Voiding Method Toilet Toilet # Voids 1 - Exam GENERAL DESCRIPTION: Middle-aged female lying in bed in no distress RESPIRATORY SYSTEM: Unlabored breathing , decreased breath sounds at bases HEART: S1 S2 regular rate and rhythm , ABDOMEN: Soft , no tenderness EXTREMITIES: No edema feet - Labs CBC & Chem 7: 06/28/23 08:11 06/28/23 08:11 Labs: Abnormal Lab Results - Last 24 Hours (Table) 06/28/23 06/28/23 Range/Units 08:11 08:11 RDW 15.8 H (11.5-15.5) % Plt Count 114 L (150-450) k/uL Sodium 136 L (137-145) mmol/L Chloride 111 H (98-107) mmol/L Carbon Dioxide 21 L (22-30) mmol/L BUN 22 H (7-17) mg/dL Creatinine 0.36 L (0.52-1.04) mg/dL Glucose 142 H (74-99) mg/dL Assessment and Plan (1) Leukocytosis Current Visit: Yes Status: Acute Code(s): D72.829 - ELEVATED WHITE BLOOD CELL COUNT, UNSPECIFIED SNOMED Code(s): 584993441 (2) Tracheobronchitis Current Visit: Yes Status: Acute Code(s): J40 - BRONCHITIS, NOT SPECIFIED ACUTE OR CHRONIC SNOMED Code(s): 71742754 (3) Penicillin allergy Current Visit: Yes Status: Acute Code(s): Z88.0 - ALLERGY STATUS TO PENICILLIN SNOMED Code(s): 69948184 Plan: 1patient presenting to the hospital with increasing shortness of breath chest pain also have a cough purulent drainage concerning for tracheobronchitis possible bacterial and question of pseudomonal with a greenish drainage from the trach site did have elevated white count though chest x-ray reported negative for acute infiltrate, no significant redness around the trach site was noticed 2-penicillin allergy that will limit the number of antibiotics safe to use 3-we are currently waiting for CRP procalcitonin and obtain sputum for Gram stain and culture 4-patient did have normalization of the white count we will continue cefepime while waiting for the workup to be completed Family the bedside questions were answered Dictation was produced using [employer] dictation software. please excuse any grammatical, word or spelling errors.
[2023-06-29 08:34] LABS: Basophils # (A) 0.02 X 10*3/uL (0.00-0.10); Basophils % (A) 0.2 %; Eosinophils # (A) 0 X 10*3/uL (0.04-0.35); Eosinophils % (A) 0 %; HCT 30.1 % (37.2-46.3); HGB 9.7 g/dL (12.0-15.0); Lymphocytes # (A) 0.17 X 10*3/uL (0.90-5.00); Lymphocytes % (A) 1.6 %; MCH 28.9 pg (27.0-32.0); MCHC 32.2 g/dL (32.0-37.0); MCV 89.6 FL (80.0-97.0); Mean Platelet Volume 11.7 FL (9.5-12.2); Monocytes # (A) 0.85 X 10*3/uL (0.20-1.00); Monocytes % (A) 7.9 %; NRBC Per 100 WBC 0 X 10*3/uL (0.00-0.01); Neutrophils # (A) 9.68 X 10*3/uL (1.80-7.70); Neutrophils % (A) 89.7 %; Platelet Count 201 X 10*3/uL (140-440); RBC 3.36 X 10*6/uL (4.10-5.20); RDW 16.7 % (11.5-14.5); WBC 10.78 X 10*3/uL (4.50-10.00)
[2023-06-29 08:55] LABS: BUN/Creat Ratio 54.33 Ratio (12.00-20.00); Blood Urea Nitrogen 16.3 mg/dL (9.0-27.0); Calcium 8.4 mg/dL (8.7-10.3); Carbon Dioxide 20.9 mmol/L (21.6-31.8); Chloride 104 mmol/L (96-109); Glucose 109 mg/dL (70-110); Potassium 3.6 mmol/L (3.5-5.5); Sodium 136 mmol/L (135-145)
[2023-06-29] MEDS: ONDANSETRON ODT 8 MG TAB.RAPDIS PO PRN (09:59)
--- NOTE | 2023-06-29 16:28 | P.PN ---
Subjective Progress Note Date: 06/29/23 Principal diagnosis: Reason for follow-up is leukocytosis and tracheobronchitis Patient is a 63-year-old female past medical history significant for hypertension hyperlipidemia coronary artery disease patient has a history of left tonsil cancer and did have a tracheostomy patient presented to [facility] ER for evaluation of chest pain and difficulty in breathing also noticed to have some purulent drainage through the trach and there was concern for possible trach site cellulitis prompting this consultation. On today's evaluation that is 06/29/2023,the patient denies any fever or any chills, patient is breathing comfortably on trach collar, the patient has been complaining of chest pain and also have a cough and bringing up some purulent sputum no vomiting or diarrhea reported. Patient white count is 10.78, creatinine 0.3 procalcitonin 0.32 blood culture with staph epi sputum cultures pending Objective - Vital Signs Vital signs: Vital Signs Temp 97.3 F L 06/29/23 07:29 Pulse 85 06/29/23 09:23 Resp 19 06/29/23 07:29 BP 134/63 06/29/23 07:29 Pulse Ox 95 06/29/23 09:13 FiO2 28 06/29/23 09:13 Intake & Output 06/28/23 06/29/23 06/29/23 18:59 06:59 18:59 Weight 46.4 kg 46.1 kg Other: Voiding Method Toilet # Voids 1 1 - Exam GENERAL DESCRIPTION: Middle-aged female lying in bed in no distress RESPIRATORY SYSTEM: Unlabored breathing , decreased breath sounds at bases HEART: S1 S2 regular rate and rhythm , ABDOMEN: Soft , no tenderness EXTREMITIES: No edema feet - Labs CBC & Chem 7: 06/29/23 06:05 06/29/23 06:05 Labs: Abnormal Lab Results - Last 24 Hours (Table) 06/28/23 06/28/23 06/29/23 Range/Units 08:11 16:14 06:05 WBC 10.78 H (4.50-10.00) X 10*3/uL RBC 3.36 L (4.10-5.20) X 10*6/uL Hgb 9.7 L (12.0-15.0) g/dL Hct 30.1 L (37.2-46.3) % RDW 16.7 H (11.5-14.5) % Immature Gran # 0.06 H (0.00-0.04) X 10*3/uL Neutrophils # 9.68 H (1.80-7.70) X 10*3/uL Lymphocytes # 0.17 L (0.90-5.00) X 10*3/uL Eosinophils # 0 L (0.04-0.35) X 10*3/uL Sodium 136 L (137-145) mmol/L Chloride 111 H (98-107) mmol/L Carbon Dioxide 21 L (22-30) mmol/L BUN 22 H (7-17) mg/dL Creatinine 0.36 L (0.52-1.04) mg/dL BUN/Creatinine Ratio (12.00-20.00) Ratio Glucose 142 H (74-99) mg/dL Calcium (8.7-10.3) mg/dL Procalcitonin 0.32 H (0.02-0.09) ng/mL 06/29/23 Range/Units 06:05 WBC (4.50-10.00) X 10*3/uL RBC (4.10-5.20) X 10*6/uL Hgb (12.0-15.0) g/dL Hct (37.2-46.3) % RDW (11.5-14.5) % Immature Gran # (0.00-0.04) X 10*3/uL Neutrophils # (1.80-7.70) X 10*3/uL Lymphocytes # (0.90-5.00) X 10*3/uL Eosinophils # (0.04-0.35) X 10*3/uL Sodium (137-145) mmol/L Chloride (98-107) mmol/L Carbon Dioxide 20.9 L (22-30) mmol/L BUN (7-17) mg/dL Creatinine 0.3 L (0.52-1.04) mg/dL BUN/Creatinine Ratio 54.33 H (12.00-20.00) Ratio Glucose (74-99) mg/dL Calcium 8.4 L (8.7-10.3) mg/dL Procalcitonin (0.02-0.09) ng/mL Microbiology - Last 24 Hours (Table) 06/27/23 20:48 Gram Stain - Preliminary Sputum 06/27/23 13:06 Blood Culture Gram Stain - Preliminary Blood Blood Culture - Preliminary Molecular ID Assessment and Plan (1) Leukocytosis Current Visit: Yes Status: Acute Code(s): D72.829 - ELEVATED WHITE BLOOD CELL COUNT, UNSPECIFIED SNOMED Code(s): 144243484 (2) Tracheobronchitis Current Visit: Yes Status: Acute Code(s): J40 - BRONCHITIS, NOT SPECIFIED ACUTE OR CHRONIC SNOMED Code(s): 44120326 (3) Penicillin allergy Current Visit: Yes Status: Acute Code(s): Z88.0 - ALLERGY STATUS TO PENICILLIN SNOMED Code(s): 33098910 (4) Positive blood culture Current Visit: Yes Status: Acute Code(s): R78.81 - BACTEREMIA SNOMED Code(s): 577090880 Plan: 1patient presenting to the hospital with increasing shortness of breath chest pain also have a cough purulent drainage concerning for tracheobronchitis possible bacterial and question of pseudomonal with a greenish drainage from the trach site did have elevated white count though chest x-ray reported negative for acute infiltrate, no significant redness around the trach site was noticed 2-penicillin allergy that will limit the number of antibiotics safe to use 3-patient did have a mild elevated procalcitonin 0.32 sputum cultures pending 4-blood culture with staph epi possible skin contamination blood culture repeated document clearance 4-patient to continue cefepime while waiting for the workup to be completed at the bedside questions were answered Dictation was produced using [employer] dictation software. please excuse any grammatical, word or spelling errors.
--- NOTE | 2023-06-30 15:54 | P.CONS ---
History of Present Illness - Reason for Consult Consult date: 06/30/23 oropharyngeal mass Requesting physician: Billy Montana - Chief Complaint chest pain - History of Present Illness Ms. Sue is a very pleasant 63 yo female, patient of Dr. Camejo with a history of T4B N0M0 squamous cell tonsillar carcinoma. Patient was initially seen as a new consult February 2022. She received concurrent chemoradiation x 5 weeks, completing around March 30, 2022. 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 Unfortunately, she had biopsy-proven persistent disease diagnosed June 2022. She was started on immunotherapy in July 2022. In October 2022 patient had imaging consistent with recurrence of disease and was started on CarboTaxol. She had a PET scan in January showing an excellent response. She completed 6 cycles, and is on surveillance, repeat PET planned in 07/2023. Comes in now for chest pain and SOB. Also with increasing left jaw pain for the past 3 weeks, unclear etiology. Having increased purulent sputum. No fevers or chills. Concerns of possible cellulitis around trach site. ID on board. On antibiotics. We were consulted for oropharyngeal mass. Pt had PET on 04/20/[address] neck on 06/07/23 with post surgery changes, no obvious mass, cannot rule out underlying residual malignancy, however no overt malignancy. Repeat PET was planned for 07/2023. Oncologic history: Janice presented with progressive sore throat & dysphagia X 6 months, she was evaluated by ENT, initial biopsy negative, she was evantually evaluated by Dr Morton, Had biopsy on 01/24/22 revealing poorly differentiated carcinoma C/W squamous cell Ca, P16 negative. PET Scan revealed T2 lesion with no metastatic lymphadenopathy or metastatic disease. The patient lost 35-40 LBS in 5 minths, is very frail & weak, can swallow only liquids at present She smokes 1 PPD X 40 years, denies ETOH use. No family history of malignancy C/O severe pain in L side of neck & mouth 05/25/22-Pt here for pain mgmt. Lt side of the head, ear and jaw, stabbing, ache, constant, now at worst is 7, at best 5, not able to get much less then 5. Cont on the fentanyl and lyrica ATC and oral liquid morphine 10mg Q3-4 hours. 06/22/22-Pt here for pain mgmt. Pain is still in the lt side of head, ear and jaw. Reported 4-6, little better pain control. Dont feel the hilda is doing anything. She has seen the head/neck surgeon, plans for scans and another meeting in 08/04/22: had progressive disease with vascular structures involvement and b leeding > on palliative Opdivo. On tube feeding (4 cans/day) and continous suction of upper airway secretions, has tracheostomy in place. On Duragesic and MS Elixir > relatively comfortable. 09/15/22: C/O severe R flank pain X 10 days, seen by Dr Morton; stable tumor. Tolerating Opdivo well 10/18/22: R flank pain resolved after palliative XRT, but continues to have throught and neck pain. PET Scan: Definite progression. Seen by Dr Easley > palliative XRT to primary site advised. 12/19/22: Tolerating Chemotherapy (Carboplatinum+Taxol) well, no N/V. Gained weight, stronger 01/30/23: Feels Ok, C/O nausea/vomiting X 2-3 days after each chemotherapy infusion, no neck pain. PET SCan : excellent response 03/16/23: Feels Ok, completed 6 cycles of Carboplatinum+Taxol, on tube feeding, pain controlled 04/27/23: Feels better, was hosptalized with SOB attributed to "thick sputom". PET Scan: Improved 06/08/23: C/O pain & increase swelling in Left cervical area. Plan was to increase pain med's, repeat PET in 07/2023. Past Medical History Past Medical History: Coronary Artery Disease (CAD), Cancer, Hyperlipidemia, Hypertension, Myocardial Infarction (SD) Additional Past Medical History / Comment(s): hx stomach ulcer, left tonsil cancer Last Myocardial Infarction Date:: 08/19/21 History of Any Multi-Drug Resistant Organisms: None Reported Past Surgical History: Heart Catheterization With Stent, Hysterectomy, Tubal Ligation Additional Past Surgical History / Comment(s): egd, Trach, right chest port, peg Past Anesthesia/Blood Transfusion Reactions: No Reported Reaction Date of Last Stent Placement:: 08/19/21 Past Psychological History: No Psychological Hx Reported Smoking Status: Former smoker Past Alcohol Use History: None Reported Past Drug Use History: None Reported Additional Drug Use History / Comment(s): occasional marijuana use - Past Family History Mother Family Medical History: Cancer Additional Family Medical History / Comment(s): lung cancer Sister(s) Family Medical History: Cancer Additional Family Medical History / Comment(s): breast cancer Medications and Allergies Home Medications Medication Instructions Recorded Confirmed Type Ondansetron Odt [Zofran ODT] 8 mg PO QID PRN 04/03/22 06/26/23 History Metoprolol Succinate [Kapspargo 100 mg PEG/G-TUBE DAILY@1000 08/15/22 06/26/23 History Sprinkle] Clopidogrel [Plavix] 75 mg PEG/G-TUBE DAILY@1000 11/16/22 06/26/23 History Aspirin 81 mg PEG/G-TUBE DAILY@1000 11/25/22 06/26/23 History Ipratropium-Albuterol Nebulize 3 ml INHALATION RT-Q2H PRN #90 dose 12/10/22 06/26/23 Rx [Duoneb 0.5 mg-3 mg/3 ml Soln] Acetaminophen Oral Susp [Tylenol] 320 mg PEG/G-TUBE Q6HR PRN 06/26/23 06/26/23 History Morphine Sulfate [Morphine Sulfate 10 - 20 mg PEG/G-TUBE Q3H PRN 06/26/23 06/26/23 History 10 MG/5 ML] Prochlorperazine [Compazine] 5 mg PEG/G-TUBE Q6HR PRN 06/26/23 06/26/23 History Sennosides-Docusate Sodium 1 tab PO DAILY 06/26/23 06/26/23 History [Senokot-S] dexAMETHasone [Decadron] 8 mg PEG/G-TUBE DAILY 06/26/23 06/26/23 History fentaNYL 25MCG/HR PATCH [Duragesic 2 patch TRANSDERM Q72H 06/26/23 06/26/23 History 25MCG/HR] Allergies Allergy/AdvReac Type Severity Reaction Status Date / Time Penicillins AdvReac Severe nausea/vomi Verified 06/26/23 16:59 ting codeine AdvReac Nausea & Verified 06/26/23 16:59 Vomiting & Diarrhea Physical Exam Vitals: Vital Signs Temp Pulse Pulse Resp BP Pulse Ox FiO2 06/30/23 09:06 78 06/30/23 09:00 78 28 06/30/23 07:14 97.8 F 71 16 129/89 93 L 06/30/23 03:46 28 06/30/23 02:06 97.7 F 87 15 111/70 96 06/29/23 20:00 80 06/29/23 19:48 79 06/29/23 19:05 97.5 F L 85 16 118/69 94 L 06/29/23 15:03 97.6 F 79 18 130/77 93 L 06/29/23 09:23 85 06/29/23 09:13 84 95 28 Intake and Output 06/29/23 06/30/23 06/30/23 22:59 06:59 14:59 Output Total 450 Balance -450 Output: Urine 450 Other: Voiding Method Toilet # Voids 1 Weight 46.2 kg Pt is in no acute distress. No respiratory distress. Trach in place. Alert and oriented x 3. Some swelling and hypervascularity of the left cheek, tender to palpation. Results CBC & Chem 7: 06/29/23 06:05 06/29/23 06:05 Labs: Microbiology - Last 24 Hours (Table) 06/28/23 08:00 Stool Culture - Preliminary Stool 06/27/23 13:06 Blood Culture Gram Stain - Preliminary Blood Blood Culture - Preliminary Staphylococcus epidermidis Molecular ID 06/27/23 20:48 Gram Stain - Preliminary Sputum Assessment and Plan Assessment: 1. tracheobronchitis 2. cellulitis 3. Recurrent laryngeal carcinoma Plan: Ms. Sue is a very pleasant 63 yo female with history of recurrent laryngeal carcinoma despite chemo/RT followed by opdivo followed by carbo/taxol. Currently in remission with next PET planned 07/2023. Here for SOB and increased purulent drainage from trach. - Antibiotics as per ID - CT neck from 06/07/23 reviewed - She is having increased left jaw pain over past 3 weeks, etiology not evident on CT neck from 06/07/23 - Recommend repeating CT neck/jaw - Aggressive pain regimen, med's adjusted - PET planned 07/2023 - Discussed with pt and family, pain could be due to infection vs malignancy - Bowel regimen to avoid narcotic induced constipation Discussed with pt and family at bedside and they are agreeable. All questions answered. Discussed with nursing staff. Discussed with primary team.
[2023-06-30] MEDS: SODIUM CHLORIDE 0.9% 1,000 ML IV SCH (17:02)
[2023-06-30] MEDS: HYDROmorphone 1 MG/ML 1 ML SYRINGE IVP PRN (17:14)
[2023-06-30] MEDS: SENNOSIDES-DOCUSATE SODIUM 1 EACH TAB PO SCH (19:52)
[2023-06-30] MEDS: polyethylene glycoL 3350 17 GM POWD.PACK PO SCH (19:52)
--- NOTE | 2023-06-30 21:07 | P.PN ---
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 On today's evaluation that is 06/30/2023,the patient remains to be afebrile, patient is on room air not requiring supplemental oxygen however patient complaining of not feeling well to the medical some shortness of breath did have a cough and bringing up some purulent sputum no vomiting or diarrhea has been reported. Patient white count is 10.78, creatinine 0.3 sputum cultures currently pending Objective - Vital Signs Vital signs: Vital Signs Temp 97.8 F 06/30/23 07:14 Pulse 71 06/30/23 07:14 Resp 16 06/30/23 07:14 BP 129/89 06/30/23 07:14 Pulse Ox 93 L 06/30/23 07:14 FiO2 28 06/30/23 03:46 Intake & Output 06/29/23 06/30/23 06/30/23 18:59 06:59 18:59 Output Total 450 Balance -450 Weight 46.2 kg Output: Urine 450 Other: Voiding Method Toilet # Voids 1 - Exam GENERAL DESCRIPTION: Middle-aged female lying in bed in no distress RESPIRATORY SYSTEM: Unlabored breathing , decreased breath sounds at bases HEART: S1 S2 regular rate and rhythm , ABDOMEN: Soft , no tenderness EXTREMITIES: No edema feet - Labs CBC & Chem 7: 06/29/23 06:05 06/29/23 06:05 Labs: Abnormal Lab Results - Last 24 Hours (Table) 06/29/23 06/29/23 Range/Units 06:05 06:05 WBC 10.78 H (4.50-10.00) X 10*3/uL RBC 3.36 L (4.10-5.20) X 10*6/uL Hgb 9.7 L (12.0-15.0) g/dL Hct 30.1 L (37.2-46.3) % RDW 16.7 H (11.5-14.5) % Immature Gran # 0.06 H (0.00-0.04) X 10*3/uL Neutrophils # 9.68 H (1.80-7.70) X 10*3/uL Lymphocytes # 0.17 L (0.90-5.00) X 10*3/uL Eosinophils # 0 L (0.04-0.35) X 10*3/uL Carbon Dioxide 20.9 L (21.6-31.8) mmol/L Creatinine 0.3 L (0.6-1.5) mg/dL BUN/Creatinine Ratio 54.33 H (12.00-20.00) Ratio Calcium 8.4 L (8.7-10.3) mg/dL Microbiology - Last 24 Hours (Table) 06/27/23 13:06 Blood Culture Gram Stain - Preliminary Blood Blood Culture - Preliminary Staphylococcus epidermidis Molecular ID 06/27/23 20:48 Gram Stain - Preliminary Sputum Assessment and Plan (1) Leukocytosis Current Visit: Yes Status: Acute Code(s): D72.829 - ELEVATED WHITE BLOOD CELL COUNT, UNSPECIFIED SNOMED Code(s): 383093445 (2) Tracheobronchitis Current Visit: Yes Status: Acute Code(s): J40 - BRONCHITIS, NOT SPECIFIED ACUTE OR CHRONIC SNOMED Code(s): 05228257 (3) Penicillin allergy Current Visit: Yes Status: Acute Code(s): Z88.0 - ALLERGY STATUS TO PENICILLIN SNOMED Code(s): 70881524 (4) Positive blood culture Current Visit: Yes Status: Acute Code(s): R78.81 - BACTEREMIA SNOMED Code(s): 720128994 Plan: 1patient presenting to the hospital with increasing shortness of breath chest pain also have a cough purulent drainage concerning for tracheobronchitis possible bacterial and question of pseudomonal with a greenish drainage from the trach site did have elevated white count though chest x-ray reported negative for acute infiltrate, no significant redness around the trach site was noticed 2-penicillin allergy that will limit the number of antibiotics safe to use 3-patient did have a mild elevated procalcitonin 0.32 sputum cultures pending 4-blood culture with staph epi possible skin contamination blood culture repeated so far pending 4-patient will be continued on cefepime while waiting for the sputum cultures to be finalized Dictation was produced using [employer] software. please excuse any grammatical, word or spelling errors. Time with Patient: Less than 30
[2023-07-01] MEDS: HYDROmorphone 1 MG/ML 1 ML SYRINGE IVP PRN (11:11)
--- NOTE | 2023-07-01 16:11 | P.PN ---
Subjective Progress Note Date: 06/30/23 63-year-old female came with complaints of chest pressure-like sensation was eval by cardiology EKG showed sinus rhythm with low QRS voltage complexes, troponins are negative patient was eval by cardiology. Patient chest pain is worse with palpation appears to be musculoskeletal cardiology evaluated the patient and they are recommending an echocardiogram if that is negative patient is cleared from their perspective patient has a tracheostomy which has purulent drainage foul-smelling. Chest x-ray did not show any pneumonia but there may be bronchitis will obtain a sputum cultures and infectious disease will be consulted. Patient was also complaining of shortness of breath although there is no wheezing on exam. 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 Patient D-dimer is within normal limits no evidence of pneumonia on the chest x-ray patient does have leukocytosis without any fever. Patient is also complaining of generalized weakness lives by herself and wanted to be evaluated by physical therapy. Objective - Vital Signs Vital signs: Vital Signs Temp 97.8 F 06/30/23 07:14 Pulse 83 06/30/23 12:28 Resp 16 06/30/23 07:14 BP 129/89 06/30/23 07:14 Pulse Ox 93 L 06/30/23 07:14 FiO2 28 06/30/23 09:00 Intake & Output 06/29/23 06/30/23 06/30/23 18:59 06:59 18:59 Output Total 450 Balance -450 Weight 46.2 kg Output: Urine 450 Other: Voiding Method Toilet # Voids 1 - Exam GENERAL: The patient is alert and oriented x3, not in any acute distress. Thin built female HEENT: Pupils are round and equally reacting to light. EOMI. No scleral icterus. No conjunctival pallor. Normocephalic, atraumatic. No pharyngeal erythema. No thyromegaly. Patient has tracheostomy with purulent drainage CARDIOVASCULAR: S1 and S2 present. No murmurs, rubs, or gallops. PULMONARY: Chest is clear to auscultation, no wheezing or crackles. ABDOMEN: Soft, nontender, nondistended, normoactive bowel sounds. No palpable organomegaly. MUSCULOSKELETAL: No joint swelling or deformity. EXTREMITIES: No cyanosis, clubbing, or pedal edema. NEUROLOGICAL: Gross neurological examination did not reveal any focal deficits. SKIN: No rashes. - Labs CBC & Chem 7: 06/29/23 06:05 06/29/23 06:05 Labs: Microbiology - Last 24 Hours (Table) 06/28/23 08:00 Stool Culture - Preliminary Stool 06/27/23 13:06 Blood Culture Gram Stain - Preliminary Blood Blood Culture - Preliminary Staphylococcus epidermidis Molecular ID Assessment and Plan Assessment: -Possible infection or bronchitis, patient has a tracheostomy: Will obtain sputum cultures, patient will be empirically started on Zosyn covering for Pseudomonas and infectious disease will be consulted patient does have leukocyt osis -Chest pain rule out acute coronary syndromes, cardiology evaluate the patient echocardiogram reviewed, pain appears to be noncardiac chest pain appears to be musculoskeletal chest pain -Generalized weakness physical therapy Occupational Therapy evaluation -Coronary artery disease with previous stenting -Ischemic cardiomyopathy EF of around 45% patient appears to be mildly hypovolemic BNP normal. -Laryngeal cancer with tracheostomy as mentioned before -Hyperlipidemia -Hypertension -COPD without any acute exacerbation DVT prophylaxis: Lovenox GI prophylaxis Do Not Resuscitate/Do Not Intubate
--- NOTE | 2023-07-01 16:13 | P.PN ---
Subjective Progress Note Date: 07/01/23 63-year-old female came with complaints of chest pressure-like sensation was eval by cardiology EKG showed sinus rhythm with low QRS voltage complexes, troponins are negative patient was eval by cardiology. Patient chest pain is worse with palpation appears to be musculoskeletal cardiology evaluated the patient and they are recommending an echocardiogram if that is negative patient is cleared from their perspective patient has a tracheostomy which has purulent drainage foul-smelling. Chest x-ray did not show any pneumonia but there may be bronchitis will obtain a sputum cultures and infectious disease will be consulted. Patient was also complaining of shortness of breath although there is no wheezing on exam. 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 Patient D-dimer is within normal limits no evidence of pneumonia on the chest x-ray patient does have leukocytosis without any fever. Patient is also complaining of generalized weakness lives by herself and wanted to be evaluated by physical therapy. 07/01/2023 Changes seen and evaluated in room at bedside; continues to climb plaint of uncontrolled pain; Duragesic patch was increased up to 75 mcg; oncology adding IV Dilaudid CT scan completed on 06/07/2023 was reviewed with patient and ; oncology doubting change in the size of the mass -- Given persistent pain oncology is recommending to repeat CT of the neck and jaw which has been ordered -- Continue with aggressive pain regimen Further recommendations once CT of the neck/joints completed -ID on board and recommended to continue current antibiotic therapy Objective - Vital Signs Vital signs: Vital Signs Temp 97.6 F 07/01/23 07:00 Pulse 69 07/01/23 07:00 Resp 15 07/01/23 02:00 BP 147/81 07/01/23 07:00 Pulse Ox 94 L 07/01/23 07:00 FiO2 28 07/01/23 08:49 Intake & Output 06/30/23 07/01/23 07/01/23 18:59 06:59 18:59 Weight 46.5 kg Other: Voiding Method Toilet - Exam GENERAL: The patient is alert and oriented x3, not in any acute distress. Thin built female HEENT: Pupils are round and equally reacting to light. EOMI. No scleral icterus. No conjunctival pallor. Normocephalic, atraumatic. No pharyngeal erythema. No thyromegaly. Patient has tracheostomy with purulent drainage CARDIOVASCULAR: S1 and S2 present. No murmurs, rubs, or gallops. PULMONARY: Chest is clear to auscultation, no wheezing or crackles. ABDOMEN: Soft, nontender, nondistended, normoactive bowel sounds. No palpable organomegaly. MUSCULOSKELETAL: No joint swelling or deformity. EXTREMITIES: No cyanosis, clubbing, or pedal edema. NEUROLOGICAL: Gross neurological examination did not reveal any focal deficits. SKIN: No rashes. - Labs CBC & Chem 7: 06/29/23 06:05 06/29/23 06:05 Labs: Microbiology - Last 24 Hours (Table) 06/28/23 08:00 Stool Culture - Final Stool 06/27/23 13:06 Blood Culture Gram Stain - Final Blood Blood Culture - Final Staphylococcus epidermidis Molecular ID Assessment and Plan Assessment: -Possible infection or bronchitis, patient has a tracheostomy: Will obtain sputum cultures, patient will be empirically started on Zosyn covering for Pseudomonas and infectious disease will be consulted patient does have leukocytosis -Chest pain rule out acute coronary syndromes, cardiology evaluate the patient echocardiogram reviewed, pain appears to be noncardiac chest pain appears to be musculoskeletal chest pain -Generalized weakness physical therapy Occupational Therapy evaluation -Coronary artery disease with previous stenting -Ischemic cardiomyopathy EF of around 45% patient appears to be mildly hypovolemic BNP normal. -Laryngeal cancer with tracheostomy as mentioned before -Hyperlipidemia -Hypertension -COPD without any acute exacerbation DVT prophylaxis: Lovenox GI prophylaxis Do Not Resuscitate/Do Not Intubate
--- NOTE | 2023-07-01 20:50 | CT ---
EXAMINATION TYPE: CT neck chest w con DATE OF EXAM: 07/01/2023 COMPARISON: 06-28 HISTORY: mass neck/jaw CT DLP: 437.2 mGycm, Automated exposure control for dose reduction was used. CONTRAST: Performed injected with 100 mL of Isovue 300. TECHNIQUE: Axial images were obtained at 5 mm thick sections. Reconstructed images are reviewed on [employer] computer in the coronal plane. FINDINGS: There is a tracheostomy tube present There is a 1.6 cm nodule anterior right apex. There is a 1.9 cm nodule posterior right upper lung fie ld. Series 7 image 13. There is a 3.4 x 6.2 cm mass upper right lung. There is a 1.2 cm nodule posterior left upper lung field. Series 7 image 24. There is a 1.3 cm nodule within the consolidation peripheral posterior right upper lobe. Series 7 image 25. There is a 1.3 cm nodule within the right middle lobe. Series 7 image 42. There is a 0.7 cm peripheral nodule anterior right middle lobe. Series 7 image 48. There is a 1.5 cm posterior right lung base nodule and adjacen t smaller nodule. Series 7 image 54. There is a 1.2 and 0.9 cm nodule lateral right lung series 7 chong ge 50. There is a 0.6 cm nodule in the right mid lung. Series 7 image 50. No enlarged mediastinal or hilar adenopathy is evident. No suspicious shotty lymphadenopathy. The as cending aorta diameter at the level of the main pulmonary artery is 2.7 cm. The main pulmonary arter y diameter at the bifurcation is 2.3r cm. Limited CT sections are obtained through the upper abdomen. Abdomen is essentially unremarkable. IMPRESSION: 1. Multiple nodules with a large lung mass right upper lung field. Workup for neoplasm is recommended . Some of these masses have developed over the short interval 06/07/2023 suggesting infectious etiology should be considered. EXAMINATION TYPE: CT neck chest w con DATE OF EXAM: 07/01/2023 COMPARISON: None HISTORY: mass neck/jaw CT DLP: 437.2 mGycm CONTRAST: Patient injected with 100 mL of Isovue 300. TECHNIQUE: Axial images at 3 mm thick sections. Reconstructed images in the coronal plane and sagitt al plane are reviewed. FINDINGS: Limited CT sections are obtained the lung apices. The lung apices appear clear. CT neck: The torus tubarius and fossa of Rosenmuller are normal. Action Finisher spaces are normal. Para nasal sinuses and mastoid air cells are clear. Parotid glands appear normal and symmetrical. Submandibular glands, are normal. Parapharyngeal spac es are normal. No suspicious adenopathy is evident. Hypopharynx and posterior nasal pharynx shifted to the left. No left tonsillar mass is clearly identi fied Some anterior right vocal cord asymmetry is present. Thyroid as visualized is normal. Tracheostomy tube is present. Right jugular venous catheter is pres ent. No acute osseous abnormality IMPRESSION: 1. Asymmetry of the nasopharynx and hypopharynx shifted towards the left. Underlying mass however is not identified.
[2023-07-01] MEDS: LORazepam 1 MG/0.5 ML VIAL IV PRN (21:11)
--- NOTE | 2023-07-02 16:39 | P.PN ---
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 On today's evaluation that is 07/01/2023, the patient continues to be afebrile, the patient is on trach collar and breathing comfortably, the Pt complaining of not feeling well and chest pain and did have a cough and Some sputum no vomiting or diarrhea has been reported. No new labs has been drawn today, blood culture with a staph epi sputum cultures are pending Objective - Vital Signs Vital signs: Vital Signs Temp 97.6 F 07/01/23 07:00 Pulse 69 07/01/23 07:00 Resp 15 07/01/23 02:00 BP 147/81 07/01/23 07:00 Pulse Ox 94 L 07/01/23 07:00 FiO2 28 07/01/23 08:49 Intake & Output 06/30/23 07/01/23 07/01/23 18:59 06:59 18:59 Weight 46.5 kg Other: Voiding Method Toilet - Exam GENERAL DESCRIPTION: Middle-aged female lying in bed in no distress RESPIRATORY SYSTEM: Unlabored breathing , decreased breath sounds at bases HEART: S1 S2 regular rate and rhythm , ABDOMEN: Soft , no tenderness EXTREMITIES: No edema feet - Labs CBC & Chem 7: 06/29/23 06:05 06/29/23 06:05 Labs: Microbiology - Last 24 Hours (Table) 06/28/23 08:00 Stool Culture - Final Stool 06/27/23 13:06 Blood Culture Gram Stain - Final Blood Blood Culture - Final Staphylococcus epidermidis Molecular ID Assessment and Plan (1) Leukocytosis Current Visit: Yes Status: Acute Code(s): D72.829 - ELEVATED WHITE BLOOD CELL COUNT, UNSPECIFIED SNOMED Code(s): 209936805 (2) Tracheobronchitis Current Visit: Yes Status: Acute Code(s): J40 - BRONCHITIS, NOT SPECIFIED ACUTE OR CHRONIC SNOMED Code(s): 95291385 (3) Penicillin allergy Current Visit: Yes Status: Acute Code(s): Z88.0 - ALLERGY STATUS TO PENICILLIN SNOMED Code(s): 26298110 (4) Positive blood culture Current Visit: Yes Status: Acute Code(s): R78.81 - BACTEREMIA SNOMED Code(s): 680537437 Plan: 1patient presenting to the hospital with increasing shortness of breath chest pain also have a cough purulent drainage concerning for tracheobronchitis possible bacterial and question of pseudomonal with a greenish drainage from the trach site did have elevated white count though chest x-ray reported negative for acute infiltrate, no significant redness around the trach site was noticed 2-penicillin allergy that will limit the number of antibiotics safe to use 3-patient did have a mild elevated procalcitonin 0.32 sputum cultures pending 4-blood culture with staph epi possible skin contamination blood culture repeated so far pending 4-patient will be continued on cefepime while waiting for the sputum cultures to be finalized and monitor clinical course closely Dictation was produced using [employer] dictation software. please excuse any grammatical, word or spelling errors. Time with Patient: Less than 30
--- NOTE | 2023-07-02 16:40 | P.PN ---
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 On today's evaluation that is 07/02/2023, Patient is afebrile patient is currently on trach collar and complaining of some shortness of breath, the patient denies any chest pain or worsening cough, the patient denies any nausea vomiting did not have any abdominal pain and no diarrhea. No new labs has been repeated today culture has been negative so far Objective - Vital Signs Vital signs: Vital Signs Temp 97.8 F 07/02/23 13:57 Pulse 82 07/02/23 13:57 Resp 16 07/02/23 13:57 BP 114/72 07/02/23 13:57 Pulse Ox 94 L 07/02/23 13:57 FiO2 28 07/02/23 08:47 Intake & Output 07/01/23 07/02/23 07/02/23 18:59 06:59 18:59 Output Total 400 Balance -400 Weight 46.3 kg Output: Urine 400 Other: Voiding Method Bedside Commode - Exam GENERAL DESCRIPTION: Middle-aged female lying in bed in no distress RESPIRATORY SYSTEM: Unlabored breathing , decreased breath sounds at bases HEART: S1 S2 regular rate and rhythm , ABDOMEN: Soft , no tenderness EXTREMITIES: No edema feet - Labs CBC & Chem 7: 06/29/23 06:05 06/29/23 06:05 Assessment and Plan (1) Leukocytosis Current Visit: Yes Status: Acute Code(s): D72.829 - ELEVATED WHITE BLOOD CELL COUNT, UNSPECIFIED SNOMED Code(s): 867163530 (2) Tracheobronchitis Current Visit: Yes Status: Acute Code(s): J40 - BRONCHITIS, NOT SPECIFIED ACUTE OR CHRONIC SNOMED Code(s): 67275583 (3) Penicillin allergy Current Visit: Yes Status: Acute Code(s): Z88.0 - ALLERGY STATUS TO PENICILLIN SNOMED Code(s): 39154239 (4) Positive blood culture Current Visit: Yes Status: Acute Code(s): R78.81 - BACTEREMIA SNOMED Code(s): 635896254 Plan: 1patient presenting to the hospital with increasing shortness of breath chest pain also have a cough purulent drainage concerning for tracheobronchitis possible bacterial and question of pseudomonal with a greenish drainage from the trach site did have elevated white count though chest x-ray reported negative for acute infiltrate, no significant redness around the trach site was noticed 2-penicillin allergy that will limit the number of antibiotics safe to use 3-patient did have a mild elevated procalcitonin 0.32 sputum cultures pending 4-blood culture with staph epi possible skin contamination blood culture repeated so far pending 4-patient to continue cefepime while inpatient however as a culture has been negative for any resistant pathogen short course of oral Ceftin on discharge Dictation was produced using [employer] dictation software. please excuse any grammatical, word or spelling errors.
--- NOTE | 2023-07-03 02:10 | PN ---
PROGRESS NOTE DATE OF SERVICE: 07/02/2023 SUBJECTIVE: This is a 63-year-old woman who was admitted with possible bronchoscopy, tracheostomy, also had significant pain in the neck region. A neck CT has been recommended and Hematology/Oncology will be evaluating the patient and CT scan showed asymmetry of the nasopharynx and underlying mass is not identified. PAST MEDICAL HISTORY: Reviewed. REVIEW OF SYSTEMS: 14-point review is negative. CURRENT MEDICATIONS: Reviewed include aspirin, doses and rest of medications reviewed. PHYSICAL EXAMINATION: VITAL SIGNS: Pulse is 81, blood pressure 115/70, respirations 16. CHEST: Few scattered rhonchi. NECK: Tracheostomy present. ABDOMEN: Soft. NERVOUS SYSTEM: Diffusely weak. LABORATORY DATA: WBC 10.78. ASSESSMENT: 1. Severe intractable neck pain. 2. Possible infection with bronchitis, on empiric treatment. 3. Chest pain. 4. Generalized weakness. 5. Coronary artery disease. 6. Ischemic cardiomyopathy. 7. Laryngeal cancer with tracheostomy. 8. Hypertension. 9. Hyperlipidemia. 10.Chronic obstructive pulmonary disease. RECOMMENDATIONS AND DISCUSSION: I recommend to continue current medications, continue symptomatic treatment, otherwise, closely follow with multiple consultants. Repeat labs in the morning. Once the pain is reviewed and okay with Hematology/Oncology, the patient could be discharged. Guarded prognosis. Further recommendations to follow. MMODL / IJN: [id number] /
[2023-07-03 10:42] LABS: Basophils # (A) 0.05 X 10*3/uL (0.00-0.10); Basophils % (A) 0.6 %; Eosinophils # (A) 0 X 10*3/uL (0.04-0.35); Eosinophils % (A) 0 %; HCT 33.1 % (37.2-46.3); Lymphocytes # (A) 0.26 X 10*3/uL (0.90-5.00); MCH 28.4 pg (27.0-32.0); MCHC 30.2 g/dL (32.0-37.0); Mean Platelet Volume 11.7 FL (9.5-12.2); Monocytes # (A) 0.58 X 10*3/uL (0.20-1.00); Monocytes % (A) 6.7 %; NRBC Per 100 WBC 0 X 10*3/uL (0.00-0.01); Neutrophils # (A) 7.67 X 10*3/uL (1.80-7.70); Neutrophils % (A) 88.7 %; Platelet Count 220 X 10*3/uL (140-440); RBC 3.52 X 10*6/uL (4.10-5.20); RDW 16.5 % (11.5-14.5); WBC 8.65 X 10*3/uL (4.50-10.00)
[2023-07-03 11:28] LABS: BUN/Creat Ratio 52.33 Ratio (12.00-20.00); Blood Urea Nitrogen 15.7 mg/dL (9.0-27.0); Calcium 8.3 mg/dL (8.7-10.3); Chloride 106 mmol/L (96-109); Glucose 102 mg/dL (70-110); Potassium 3.8 mmol/L (3.5-5.5); Sodium 140 mmol/L (135-145)
--- NOTE | 2023-07-03 11:57 | PN ---
PROGRESS NOTE DATE OF SERVICE: 07/03/2023 SUBJECTIVE: This is a 63-year-old woman, who was admitted with intractable neck pain, thought to have possible infection with bronchitis. The patient also had abnormality in the CT scan. The patient had severe pain. The patient is on Dilaudid 2 mg IV q.2h p.r.n. per Oncology recommendations. Despite that, the patient is complaining of increasing pains. Family is also concerned about the CT scan report. Oncology is following the patient closely. PAST MEDICAL HISTORY: Reviewed. REVIEW OF SYSTEMS: Fourteen-point review is negative except as mentioned earlier. CURRENT MEDICATIONS: Reviewed include Dilaudid IV. Dose and rest of medications noted. PHYSICAL EXAMINATION: VITAL SIGNS: Pulse is 79, blood pressure 157/70, respirations 18. HEENT: Conjunctivae normal. NECK: Tracheostomy. CARDIOVASCULAR: S1, S2. RESPIRATIONS: A few scattered rhonchi. ABDOMEN: Soft. NERVOUS SYSTEM: No focal deficits. LABORATORY DATA: WBC 8.6, hemoglobin 10, procalcitonin 0.32. ASSESSMENT: 1. Severe intractable neck pain and chest pain. 2. Possible infection with bronchitis with empiric treatment. 3. Elevated procalcitonin. 4. Generalized weakness. 5. Coronary artery disease. 6. Ischemic cardiomyopathy. 7. Laryngeal cancer with tracheostomy. 8. Hypertension. 9. Hyperlipidemia. 10.Chronic obstructive pulmonary disease. 11.Multiple complex medical issues. RECOMMENDATIONS AND DISCUSSION: Recommend to continue current medications, continue symptomatic treatment. I would recommend continue with empiric antibiotics. The patient is on severe pain and I will review antibiotics and repeat labs. Cultures are showing Staph epi in the blood culture, most likely contaminant. I would recommend repeat cultures and closely follow with Infectious Disease. Otherwise, pain management per Hematology, Oncology. As mentioned earlier, the patient is on fentanyl patch 75 mcg and IV Dilaudid at fairly high dose. We will continue to monitor. Further recommendations to follow. MMODL / IJN: [id number] /
[2023-07-03] MEDS: MORPHINE ORAL SOLN 10 MG/5 ML CUP PEG/G-TUBE PRN (12:45)
--- NOTE | 2023-07-03 15:21 | US ---
EXAMINATION TYPE: US venous doppler duplex UE DATE OF EXAM: 07/03/2023 COMPARISON: NONE CLINICAL INDICATION: Female, 63 years old with history of left sided neck pain; Left sided neck pain per order. Patient has tracheostomy. SIDE PERFORMED: Left Left Arm: Contaminated Land Consultant notes: Exam is limited due to bandaging and tracheostomy strap. Unable to evaluate left I JV or medial left subclavian vein. Unable to visualize left cephalic vein. Unable to image contralateral subclavian due to bandage. No evidence of DVT at this time. IMPRESSION: 1. Exam limited by the patient's tracheostomy strap and overlying dressing. Unable to evaluate the le ft IJV or medial left subclavian vein. Otherwise, no evidence for DVT within the left upper extremity along the visualized portions. 2. Note, unable to visualize the left cephalic vein.
--- NOTE | 2023-07-03 16:51 | P.PN ---
Subjective Progress Note Date: 07/03/23 Principal diagnosis: Reason for follow-up is leukocytosis and tracheobronchitis Patient is a 63-year-old female past medical history significant for hypertension hyperlipidemia coronary artery disease patient has a history of left tonsil cancer and did have a tracheostomy patient presented to [facility] for evaluation of chest pain and difficulty in breathing also noticed to have some purulent drainage through the trach and there was concern for possible trach site cellulitis prompting this consultation. On today's evaluation that is 07/03/2023, patient has been afebrile, patient is breathing comfortably and is currently on 5 L trach collar, patient complaining of some chest pain did have a cough overall intensity has decreased no vomiting or diarrhea has been reported. Patient white count is 8.65, creatinine 0.3 Objective - Vital Signs Vital signs: Vital Signs Temp 96.7 F L 07/03/23 07:00 Pulse 79 07/03/23 07:00 Resp 18 07/03/23 01:47 BP 157/79 07/03/23 07:00 Pulse Ox 95 07/03/23 07:00 FiO2 28 07/03/23 08:40 Intake & Output 07/02/23 07/03/23 07/03/23 18:59 06:59 18:59 Output Total 400 400 Balance -400 -400 Weight 46.2 kg Output: Urine 400 400 Other: Voiding Method Bedside Commode Bedside Commode Bedpan # Voids 1 1 - Exam GENERAL DESCRIPTION: Middle-aged female lying in bed in no distress RESPIRATORY SYSTEM: Unlabored breathing , decreased breath sounds at bases HEART: S1 S2 regular rate and rhythm , ABDOMEN: Soft , no tenderness EXTREMITIES: No edema feet - Labs CBC & Chem 7: 07/03/23 06:29 07/03/23 06:29 Labs: Abnormal Lab Results - Last 24 Hours (Table) 07/03/23 Range/Units 06:29 RBC 3.52 L (4.10-5.20) X 10*6/uL Hgb 10.0 L (12.0-15.0) g/dL Hct 33.1 L (37.2-46.3) % MCHC 30.2 L (32.0-37.0) g/dL RDW 16.5 H (11.5-14.5) % Immature Gran # 0.09 H (0.00-0.04) X 10*3/uL Lymphocytes # 0.26 L (0.90-5.00) X 10*3/uL Eosinophils # 0 L (0.04-0.35) X 10*3/uL Assessment and Plan (1) Leukocytosis Current Visit: Yes Status: Acute Code(s): D72.829 - ELEVATED WHITE BLOOD CELL COUNT, UNSPECIFIED SNOMED Code(s): 967840090 (2) Tracheobronchitis Current Visit: Yes Status: Acute Code(s): J40 - BRONCHITIS, NOT SPECIFIED ACUTE OR CHRONIC SNOMED Code(s): 12492519 (3) Penicillin allergy Current Visit: Yes Status: Acute Code(s): Z88.0 - ALLERGY STATUS TO PENICILLIN SNOMED Code(s): 45677355 (4) Positive blood culture Current Visit: Yes Status: Acute Code(s): R78.81 - BACTEREMIA SNOMED Code(s): 552413333 Plan: 1patient presenting to the hospital with increasing shortness of breath chest pain also have a cough purulent drainage concerning for tracheobronchitis possible bacterial and question of pseudomonal with a greenish drainage from the trach site did have elevated white count though chest x-ray reported negative for acute infiltrate, no significant redness around the trach site was noticed 2-penicillin allergy that will limit the number of antibiotics safe to use 3-patient did have a mild elevated procalcitonin 0.32 sputum cultures pending 4-blood culture with staph epi possible skin contamination blood culture repeated so far pending 4-patient sputum did grow Klebsiella we will discontinue cefepime and start the patient on Rocephin while inpatient Dictation was produced using [employer] dictation software. please excuse any grammatical, word or spelling errors. Time with Patient: Less than 30
--- NOTE | 2023-07-03 18:15 | P.PN ---
Subjective Progress Note Date: 07/03/23 At today's visit patient is reporting persisting left-sided facial and neck pain, poor pain control on current regimen. Sputum culture positive for K. variicola Very cola. IV Antibiotics have been adjusted. Patient remains afebrile. Blood counts stable. Objective - Vital Signs Vital signs: Vital Signs Temp 96.7 F L 07/03/23 07:00 Pulse 79 07/03/23 07:00 Resp 18 07/03/23 01:47 BP 157/79 07/03/23 07:00 Pulse Ox 95 07/03/23 07:00 FiO2 28 07/03/23 08:40 Intake & Output 07/02/23 07/03/23 07/03/23 18:59 06:59 18:59 Output Total 400 400 Balance -400 -400 Weight 46.2 kg Output: Urine 400 400 Other: Voiding Method Bedside Commode Bedside Commode Bedpan # Voids 1 1 - Constitutional General appearance: Present: no acute distress - EENT EENT Comment(s): trach in situ Eyes: Present: EOMI ENT: Present: hearing grossly normal - Respiratory Details: breathing is even and unlabored - Cardiovascular Details: skin warm and dry - Integumentary Integumentary: Absent: cyanotic - Musculoskeletal Musculoskeletal: Present: strength equal bilaterally - Psychiatric Psychiatric: Present: A&O x's 3 - Labs CBC & Chem 7: 07/03/23 06:29 07/03/23 06:29 Labs: Abnormal Lab Results - Last 24 Hours (Table) 07/03/23 07/03/23 Range/Units 06:29 06:29 RBC 3.52 L (4.10-5.20) X 10*6/uL Hgb 10.0 L (12.0-15.0) g/dL Hct 33.1 L (37.2-46.3) % MCHC 30.2 L (32.0-37.0) g/dL RDW 16.5 H (11.5-14.5) % Immature Gran # 0.09 H (0.00-0.04) X 10*3/uL Lymphocytes # 0.26 L (0.90-5.00) X 10*3/uL Eosinophils # 0 L (0.04-0.35) X 10*3/uL Creatinine 0.3 L (0.6-1.5) mg/dL BUN/Creatinine Ratio 52.33 H (12.00-20.00) Ratio Calcium 8.3 L (8.7-10.3) mg/dL - Imaging and Cardiology CT chest neck reviewed Assessment and Plan (1) Chronic neck pain Current Visit: Yes Status: Acute Code(s): M54.2 - CERVICALGIA; G89.29 - OTHER CHRONIC PAIN SNOMED Code(s): 3444858983375 (2) Dyspnea Current Visit: Yes Status: Acute Priority: High Code(s): R06.00 - DYSPNEA, UNSPECIFIED SNOMED Code(s): 225996341 (3) Head and neck cancer Current Visit: No Status: Chronic Priority: High Code(s): C76.0 - MALIGNANT NEOPLASM OF HEAD, FACE AND NECK SNOMED Code(s): 382254240 (4) Tracheobronchitis Current Visit: Yes Status: Acute Priority: High Code(s): J40 - BRONCHITIS, NOT SPECIFIED ACUTE OR CHRONIC SNOMED Code(s): 13367806 Plan: Ms. Sue is a very pleasant 63 yo female with history of recurrent laryngeal carcinoma despite chemo/RT followed by opdivo followed by carbo/taxol. Curre ntly in remission with next PET planned 07/2023. Here for SOB, increased purulent drainage from trach, and left sided facial pain. - Sputum culture positive for K. variicola. Antibiotics as per ID - CT neck from 06/07/23 reviewed - She is having increased left jaw/facial pain over past 3 weeks, etiology not evident on CT neck from 06/07/23 - CT neck and chest with contrast obtained showing multiple nodules with a large lung mass in the right upper lung field. Some of these masses have developed over short interval from 06/07/2023 suggesting an infectious etiology. CT neck revealed asymmetry of the nasal pharynx and hypopharynx shifted towards the left, however no underlying masses identified. Due to persisting left-sided facial and jaw pain was going to obtain CT facial bones for further evaluation, however radiology said this was not necessary as recent scan of chest and neck visualized facial structures which revealed no abnormality. -Will obtain left upper extremity Doppler to rule out thrombus - Patient reporting pain is uncontrolled on current regimen. Currently on fentanyl 75 mcg patch, Dilaudid 2 mg every 2 hours prn and morphine solution 10 mg every 3 hours prn. Will increase morphine solution to 20 mg every 3 hours. Will continue to monitor pain control and make adjustments as needed -Bowel regimen ordered to avoid narcotic induced constipation - PET CT planned 07/2023 - Discussed with pt and family, pain could be due to infection vs malignancy
[2023-07-04 10:29] LABS: Basophils # (A) 0.02 X 10*3/uL (0.00-0.10); Basophils % (A) 0.2 %; Eosinophils # (A) 0.02 X 10*3/uL (0.04-0.35); Eosinophils % (A) 0.2 %; HGB 10.4 g/dL (12.0-15.0); Lymphocytes # (A) 0.35 X 10*3/uL (0.90-5.00); Lymphocytes % (A) 3.2 %; MCH 27.7 pg (27.0-32.0); MCHC 30.6 g/dL (32.0-37.0); MCV 90.4 FL (80.0-97.0); Mean Platelet Volume 11.1 FL (9.5-12.2); Monocytes # (A) 0.59 X 10*3/uL (0.20-1.00); Monocytes % (A) 5.4 %; NRBC Per 100 WBC 0 X 10*3/uL (0.00-0.01); Neutrophils # (A) 9.75 X 10*3/uL (1.80-7.70); Platelet Count 237 X 10*3/uL (140-440); RBC 3.76 X 10*6/uL (4.10-5.20); RDW 16.4 % (11.5-14.5); WBC 10.84 X 10*3/uL (4.50-10.00)
[2023-07-04 10:41] LABS: BUN/Creat Ratio 47.67 Ratio (12.00-20.00); Blood Urea Nitrogen 14.3 mg/dL (9.0-27.0); Calcium 8.4 mg/dL (8.7-10.3); Carbon Dioxide 21.8 mmol/L (21.6-31.8); Chloride 105 mmol/L (96-109); Glucose 104 mg/dL (70-110); Potassium 3.4 mmol/L (3.5-5.5); Sodium 139 mmol/L (135-145)
[2023-07-04] MEDS: SALT AND SODA MOUTHWASH 1,000 ML PO SCH (13:10)
--- NOTE | 2023-07-04 14:24 | P.PN ---
Subjective Progress Note Date: 07/04/23 At today's visit patient is reporting persisting left-sided facial and neck pain. She is tearful during visit and reports pain is still uncontrolled, despite additional adjustments. Sputum culture positive for K. variicola. IV Antibiotics have been adjusted, ID following. Objective - Vital Signs Vital signs: Vital Signs Temp 98.4 F 07/04/23 07:00 Pulse 78 07/04/23 09:42 Resp 16 07/04/23 07:00 BP 180/95 07/04/23 07:00 Pulse Ox 97 07/04/23 09:29 FiO2 28 07/04/23 09:29 Intake & Output 07/03/23 07/04/23 07/04/23 18:59 06:59 18:59 Output Total 900 700 Balance -900 -700 Weight 47.4 kg Output: Urine 900 700 Other: Voiding Method Bedside Commode Bedpan # Voids 3 - Constitutional General appearance: Present: mild distress - EENT Eyes: Present: anicteric sclerae, EOMI ENT: Present: hearing grossly normal - Neck Details: tracheostomy in situ, with purulent discharge noted - Respiratory Details: breathing even and unlabored - Cardiovascular Details: skin warm and dry - Integumentary Integumentary: Absent: cyanotic - Psychiatric Psychiatric Comment(s): tearful Psychiatric: Present: A&O x's 3 - Labs CBC & Chem 7: 07/04/23 07:01 07/04/23 06:42 Labs: Abnormal Lab Results - Last 24 Hours (Table) 07/04/23 07/04/23 Range/Units 06:42 07:01 WBC 10.84 H (4.50-10.00) X 10*3/uL RBC 3.76 L (4.10-5.20) X 10*6/uL Hgb 10.4 L (12.0-15.0) g/dL Hct 34.0 L (37.2-46.3) % MCHC 30.6 L (32.0-37.0) g/dL RDW 16.4 H (11.5-14.5) % Immature Gran # 0.11 H (0.00-0.04) X 10*3/uL Neutrophils # 9.75 H (1.80-7.70) X 10*3/uL Lymphocytes # 0.35 L (0.90-5.00) X 10*3/uL Eosinophils # 0.02 L (0.04-0.35) X 10*3/uL Potassium 3.4 L (3.5-5.5) mmol/L Anion Gap 12.20 H (4.00-12.00) mmol/L Creatinine 0.3 L (0.6-1.5) mg/dL BUN/Creatinine Ratio 47.67 H (12.00-20.00) Ratio Calcium 8.4 L (8.7-10.3) mg/dL Microbiology - Last 24 Hours (Table) 06/27/23 20:48 Gram Stain - Final Sputum Sputum Culture - Final Klebsiella variicola - Imaging and Cardiology Venous US: report reviewed Assessment and Plan (1) Chronic neck pain Current Visit: Yes Status: Acute Code(s): M54.2 - CERVICALGIA; G89.29 - OTHER CHRONIC PAIN SNOMED Code(s): 4579309554668 (2) Dyspnea Current Visit: Yes Status: Acute Priority: High Code(s): R06.00 - DYSPNEA, UNSPECIFIED SNOMED Code(s): 842263436 (3) Head and neck cancer Current Visit: No Status: Chronic Priority: High Code(s): C76.0 - MALIGNANT NEOPLASM OF HEAD, FACE AND NECK SNOMED Code(s): 255750663 (4) Tracheobronchitis Current Visit: Yes Status: Acute Priority: High Code(s): J40 - BRONCHITIS, NOT SPECIFIED ACUTE OR CHRONIC SNOMED Code(s): 72258981 Plan: Ms. Sue is a very pleasant 63 yo female with history of recurrent laryngeal carcinoma despite chemo/RT followed by opdivo followed by carbo/taxol. Currently been off of treatment with last PET CT on 04/19/2023 showing continued positive treatment response with no new areas of suspicious abnormal uptake. Presented for SOB, increased purulent drainage from trach, and left sided facial pain. - Sputum culture positive for K. variicola. Antibiotics as per ID - CT neck from 06/07/23 reviewed, addended report showed interval development of ill-defined soft tissue mass in the region of the right oropharynx with marked thickening of the epiglottis. PET CT scheduled for 07/2023 for further evaluation - She is having increased left jaw/facial pain over past 3 weeks, etiology of left sided complaints not evident on CT neck from 06/07/23 - CT neck and chest with contrast was obtained showing multiple nodules with a large lung mass in the right upper lung field. Some of these masses have developed over short interval from 06/07/2023 suggesting an infectious etiology, however neoplasm in differential. CT neck revealed asymmetry of the nasal pharynx and hypopharynx shifted towards the left, however no underlying masses identified. Due to persisting left-sided facial and jaw pain was going to obtain CT of facial bones for further evaluation, however radiologist stated this was not necessary as CT neck visualized the facial structures which revealed no acute abnormalities. -Left upper extremity Doppler obtained, which showed no evidence for DVT within the left upper extremity, however they were unable to evaluate the left IJV or medial left subclavian vein due to trach collar and bandage. Left cephalic vein also not visualized - Patient reporting pain is still uncontrolled despite multiple adjustments. Currently on fentanyl 75 mcg patch, Dilaudid 2 mg every 2 hours prn and morphine solution 20 mg every 3 hours prn. Will increase fentanyl patch to 100mcg. Will continue to monitor pain control and make adjustments as needed -Bowel regimen ordered to avoid narcotic induced constipation -At this time, unsure what is the cause for reported left sided face, jaw, and neck pain. May be related to infectious process, as well as noted asymmetry of the nasal pharynx and hypopharynx causing shifting towards the left. If pain does not improve on antibiotics and pain med regimen, will consider MRI neck for further visualization Discussed findings and POC with patient at todays visit
[2023-07-04] MEDS: amLODIPine 5 MG TAB PO SCH (14:42)
--- NOTE | 2023-07-04 23:05 | PN ---
PROGRESS NOTE DATE OF SERVICE: 07/04/2023 SUBJECTIVE: This is a 63-year-old woman, who was admitted with severe intractable neck and chest pain, is being closely monitored at this time. Hematology, Oncology following the patient closely. The patient's pain medication has been adjusted. The sputum culture showed some Klebsiella. The patient currently on fentanyl, Dilaudid and morphine. Morphine sedation has been increased to 20 mg IV q.3 hours per Hematology, Oncology. Bowel regimen also has been recommended. PAST MEDICAL HISTORY: Reviewed. REVIEW OF SYSTEMS: A 14-point review is negative except as mentioned earlier. CURRENT MEDICATIONS: Rocephin 2 g. PHYSICAL EXAMINATION: VITAL SIGNS: Pulse is 80, blood pressure 180/94, respirations 16. HEENT: Conjunctivae normal. NECK: No JVD. CARDIOVASCULAR: S1, S2. RESPIRATIONS: Breath sounds diminished at the bases. A few scattered rhonchi. ABDOMEN: Soft. NERVOUS SYSTEM: Nonfocal. LABORATORY DATA: WBC 8.84, hemoglobin 10.4. ASSESSMENT: 1. Severe intractable neck pain and chest pain. 2. Possible infection with bronchitis and on empiric antibiotic treatment with Klebsiella variicola. 3. Elevated procalcitonin. 4. Generalized weakness. 5. Coronary artery disease. 6. Ischemic cardiomyopathy. 7. Laryngeal cancer with tracheostomy. 8. Hypertension. 9. Hyperlipidemia. 10.Chronic obstructive pulmonary disease. 11.Multiple complex medical issues. RECOMMENDATIONS: Recommend to continue current management and continue symptomatic treatment. Otherwise, at this time, I would recommend repeat lytes and potassium supplementation. Adjust pain medications. DVT prophylaxis. Continue with antibiotics. Guarded prognosis because of multiple complex medical issues. Further recommendations to follow. See orders for further details. MMODL / IJN: [id number] /
--- NOTE | 2023-07-05 07:35 | US ---
EXAMINATION TYPE: US venous doppler duplex UE LT DATE OF EXAM: 07/04/2023 COMPARISON: US 07/03/[address] 07/01/2023. CLINICAL INDICATION: Female, 63 years old with history of left sided neck pain; Left neck and arm kike n SIDE PERFORMED: Left Left Arm: No evidence of DVT visualized- left IJV not visualized compatible with pt's surgical histor y of left neck dissection. Upper cephalic vein visualized at the subclavian junction but could not b e followed from the shoulder down. IMPRESSION: 1. The patient appears to be post left neck dissection. The left internal jugular vein is absent. Oth erwise, no evidence for DVT within the left upper extremity. 2. The cephalic vein could not be followed by ultrasound from the shoulder down.
[2023-07-05 08:29] LABS: Basophils # (A) 0.03 X 10*3/uL (0.00-0.10); Basophils % (A) 0.3 %; Eosinophils # (A) 0.02 X 10*3/uL (0.04-0.35); Eosinophils % (A) 0.2 %; HCT 32.4 % (37.2-46.3); HGB 10.2 g/dL (12.0-15.0); Lymphocytes # (A) 0.39 X 10*3/uL (0.90-5.00); Lymphocytes % (A) 3.9 %; MCH 28.1 pg (27.0-32.0); MCHC 31.5 g/dL (32.0-37.0); MCV 89.3 FL (80.0-97.0); Mean Platelet Volume 11.4 FL (9.5-12.2); Monocytes # (A) 0.34 X 10*3/uL (0.20-1.00); Monocytes % (A) 3.4 %; NRBC Per 100 WBC 0 X 10*3/uL (0.00-0.01); Neutrophils # (A) 9.09 X 10*3/uL (1.80-7.70); Neutrophils % (A) 91.1 %; Platelet Count 244 X 10*3/uL (140-440); RBC 3.63 X 10*6/uL (4.10-5.20); RDW 16.4 % (11.5-14.5); WBC 9.98 X 10*3/uL (4.50-10.00)
[2023-07-05 09:03] LABS: BUN/Creat Ratio 35.67 Ratio (12.00-20.00); Blood Urea Nitrogen 10.7 mg/dL (9.0-27.0); Calcium 8.2 mg/dL (8.7-10.3); Carbon Dioxide 21.8 mmol/L (21.6-31.8); Chloride 102 mmol/L (96-109); Glucose 120 mg/dL (70-110); Potassium 3.6 mmol/L (3.5-5.5); Sodium 137 mmol/L (135-145)
--- NOTE | 2023-07-05 12:55 | PN ---
PROGRESS NOTE DATE OF SERVICE: 07/05/2023 SUBJECTIVE: This is a 63-year-old woman who was admitted with severe intractable neck and back pain, is being closely monitored. The patient is complaining of 10/10 pain at this time. The patient is on multiple medications for pain management and oral solution also as well as fentanyl. PAST MEDICAL HISTORY: Reviewed. REVIEW OF SYSTEMS: A 14-point review is negative except as mentioned earlier. CURRENT MEDICATIONS: Reviewed. PHYSICAL EXAMINATION: VITAL SIGNS: Pulse is 85, blood pressure 140/82, respirations 18. CHEST: Scattered rhonchi and crackles. ABDOMEN: Soft, nontender. LEGS: No edema, no swelling. NERVOUS SYSTEM: Nonfocal. LABORATORY DATA: Reviewed. ASSESSMENT: 1. Severe intractable neck and back pain and chest pain. 2. Possible infection with bronchitis, empiric antibiotics with Klebsiella variicola. 3. Elevated procalcitonin. 4. Generalized weakness. 5. CAD. 6. Ischemic cardiomyopathy. 7. Laryngeal cancer with tracheostomy. 8. Hypertension. 9. Hyperlipidemia. 10.COPD. 11.Multiple complex medical issues. RECOMMENDATIONS AND DISCUSSION: I recommended to continue current management, continue symptomatic treatment. Otherwise, we will increase the dose of Norvasc to 10 mg daily. Continue with antibiotics. Pain management per Oncology. Overall prognosis extremely guarded. Further recommendations to follow. MMODL / IJN: [id number] /
[2023-07-05] MEDS: amLODIPine 10 MG TAB PO SCH (15:13)
--- NOTE | 2023-07-05 15:21 | P.PN ---
Subjective Progress Note Date: 07/04/23 Principal diagnosis: Reason for follow-up is leukocytosis and tracheobronchitis Patient is a 63-year-old female past medical history significant for hypertension hyperlipidemia coronary artery disease patient has a history of left tonsil cancer and did have a tracheostomy patient presented to [facility] ER for evaluation of chest pain and difficulty in breathing also noticed to have some purulent drainage through the trach and there was concern for possible trach site cellulitis prompting this consultation. On today's evaluation that is 07/04/2023,the patient denies any fever or any chills, patient is breathing comfortably on 5 L trach collar the patient chest pain has decreased still complaining of shortness of breath cough and decreased intensity nausea but no vomiting and no diarrhea has been reported. Patient white count is 10.84 creatinine 0.3 Objective - Vital Signs Vital signs: Vital Signs Temp 96.6 F 07/04/2023 14:45 Pulse 84 07/04/2023 14:45 Resp 16 07/04/2023 14:45 BP 130/73 07/04/2023 14:45 Pulse Ox 94 L 07/04/2023 14:45 FiO2 07/04/2023 14:45 - Exam GENERAL DESCRIPTION: Middle-aged female lying in bed in no distress RESPIRATORY SYSTEM: Unlabored breathing , decreased breath sounds at bases HEART: S1 S2 regular rate and rhythm , ABDOMEN: Soft , no tenderness EXTREMITIES: No edema feet - Labs CBC & Chem 7: 07/05/23 05:59 07/05/23 05:59 Labs: Abnormal Lab Results - Last 24 Hours (Table) 07/05/23 07/05/23 Range/Units 05:59 05:59 RBC 3.63 L (4.10-5.20) X 10*6/uL Hgb 10.2 L (12.0-15.0) g/dL Hct 32.4 L (37.2-46.3) % MCHC 31.5 L (32.0-37.0) g/dL RDW 16.4 H (11.5-14.5) % Immature Gran # 0.11 H (0.00-0.04) X 10*3/uL Neutrophils # 9.09 H (1.80-7.70) X 10*3/uL Lymphocytes # 0.39 L (0.90-5.00) X 10*3/uL Eosinophils # 0.02 L (0.04-0.35) X 10*3/uL Anion Gap 13.20 H (4.00-12.00) mmol/L Creatinine 0.3 L (0.6-1.5) mg/dL BUN/Creatinine Ratio 35.67 H (12.00-20.00) Ratio Glucose 120 H (70-110) mg/dL Calcium 8.2 L (8.7-10.3) mg/dL Microbiology - Last 24 Hours (Table) 07/03/23 11:36 Blood Culture - Preliminary Blood Assessment and Plan (1) Leukocytosis Current Visit: Yes Status: Acute Code(s): D72.829 - ELEVATED WHITE BLOOD CELL COUNT, UNSPECIFIED SNOMED Code(s): 471760941 (2) Tracheobronchitis Current Visit: Yes Status: Acute Priority: High Code(s): J40 - BRONCHITIS, NOT SPECIFIED ACUTE OR CHRONIC SNOMED Code(s): 64703720 (3) Penicillin allergy Current Visit: Yes Status: Acute Code(s): Z88.0 - ALLERGY STATUS TO PENICILLIN SNOMED Code(s): 21946582 (4) Positive blood culture Current Visit: Yes Status: Acute Code(s): R78.81 - BACTEREMIA SNOMED Code(s): 406913137 Plan: 1patient presenting to the hospital with increasing shortness of breath chest pain also have a cough purulent drainage concerning for tracheobronchitis possible bacterial and question of pseudomonal with a greenish drainage from the trach site did have elevated white count though chest x-ray reported negative for acute infiltrate, no significant redness around the trach site was noticed 2-penicillin allergy that will limit the number of antibiotics safe to use 3-patient did have a mild elevated procalcitonin 0.32 sputum cultures did grow Klebsiella that is a sensitive pathogen 4-blood culture with staph epi possible skin contamination blood culture repeated so far pending 4-patient to continue with Rocephin while inpatient and monitor clinical course closely Dictation was produced using [employer] dictation software. please excuse any grammatical, word or spelling errors. Time with Patient: Less than 30
--- NOTE | 2023-07-05 15:21 | P.PN ---
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 On today's evaluation that is 07/05/2023,the patient remains to be afebrile, patient is on room air not requiring supplemental oxygen and denies any shortness of breath still complaining of some chest pain and did have occasional cough sputum production has decreased in intensity.Patient complaining of some nausea but no vomiting and no diarrhea has been reported by the nursing staff. Patient white count normal at 9.98, creatinine 0.3 Objective - Vital Signs Vital signs: Vital Signs Temp 98.1 F 07/05/23 14:00 Pulse 90 07/05/23 14:00 Resp 17 07/05/23 14:00 BP 135/79 07/05/23 14:00 Pulse Ox 94 L 07/05/23 14:00 FiO2 28 07/04/23 09:29 Intake & Output 07/04/23 07/05/23 07/05/23 18:59 06:59 18:59 Output Total 650 1400 500 Balance -650 -1400 -500 Weight 47.1 kg 47.1 kg Output: Urine 650 1400 500 Other: Voiding Method Bedside Commode Bedpan - Exam GENERAL DESCRIPTION: Middle-aged female lying in bed in no distress RESPIRATORY SYSTEM: Unlabored breathing , decreased breath sounds at bases HEART: S1 S2 regular rate and rhythm , ABDOMEN: Soft , no tenderness EXTREMITIES: No edema feet - Labs CBC & Chem 7: 07/05/23 05:59 07/05/23 05:59 Labs: Abnormal Lab Results - Last 24 Hours (Table) 07/05/23 07/05/23 Range/Units 05:59 05:59 RBC 3.63 L (4.10-5.20) X 10*6/uL Hgb 10.2 L (12.0-15.0) g/dL Hct 32.4 L (37.2-46.3) % MCHC 31.5 L (32.0-37.0) g/dL RDW 16.4 H (11.5-14.5) % Immature Gran # 0.11 H (0.00-0.04) X 10*3/uL Neutrophils # 9.09 H (1.80-7.70) X 10*3/uL Lymphocytes # 0.39 L (0.90-5.00) X 10*3/uL Eosinophils # 0.02 L (0.04-0.35) X 10*3/uL Anion Gap 13.20 H (4.00-12.00) mmol/L Creatinine 0.3 L (0.6-1.5) mg/dL BUN/Creatinine Ratio 35.67 H (12.00-20.00) Ratio Glucose 120 H (70-110) mg/dL Calcium 8.2 L (8.7-10.3) mg/dL Microbiology - Last 24 Hours (Table) 07/03/23 11:36 Blood Culture - Preliminary Blood Assessment and Plan (1) Leukocytosis Current Visit: Yes Status: Acute Code(s): D72.829 - ELEVATED WHITE BLOOD CELL COUNT, UNSPECIFIED SNOMED Code(s): 163493699 (2) Tracheobronchitis Current Visit: Yes Status: Acute Priority: High Code(s): J40 - BRONCHITIS, NOT SPECIFIED ACUTE OR CHRONIC SNOMED Code(s): 34069587 (3) Penicillin allergy Current Visit: Yes Status: Acute Code(s): Z88.0 - ALLERGY STATUS TO PENICILLIN SNOMED Code(s): 66193091 (4) Positive blood culture Current Visit: Yes Status: Acute Code(s): R78.81 - BACTEREMIA SNOMED Code(s): 633439527 Plan: 1patient presenting to the hospital with increasing shortness of breath chest pain also have a cough purulent drainage concerning for tracheobronchitis possible bacterial and question of pseudomonal with a greenish drainage from the trach site did have elevated white count though chest x-ray reported negative for acute infiltrate, no significant redness around the trach site was noticed 2-penicillin allergy that will limit the number of antibiotics safe to use 3-patient did have a mild elevated procalcitonin 0.32 sputum cultures did grow Klebsiella that is a sensitive pathogen 4-blood culture with staph epi possible skin contamination blood culture repeated so far pending 4-patient to continue with Rocephin while inpatient however patient be able to finish therapy with oral Cipro or Ceftin and no need for IV antibiotic on discharge Dictation was produced using [employer] dictation software. please excuse any grammatical, word or spelling errors. Time with Patient: Less than 30
--- NOTE | 2023-07-05 16:37 | P.PAINPG ---
Objective - Vital Signs Vital signs: Vital Signs Temp 98.1 F 07/05/23 14:00 Pulse 90 07/05/23 14:00 Resp 17 07/05/23 14:00 BP 135/79 07/05/23 14:00 Pulse Ox 94 L 07/05/23 14:00 FiO2 28 07/04/23 09:29 Intake & Output 07/04/23 07/05/23 07/05/23 18:59 06:59 18:59 Output Total 650 1400 500 Balance -650 -1400 -500 Weight 47.1 kg 47.1 kg Output: Urine 650 1400 500 Other: Voiding Method Bedside Commode Bedpan - Labs CBC & Chem 7: 07/05/23 05:59 07/05/23 05:59 Labs: Abnormal Lab Results - Last 24 Hours (Table) 07/05/23 07/05/23 Range/Units 05:59 05:59 RBC 3.63 L (4.10-5.20) X 10*6/uL Hgb 10.2 L (12.0-15.0) g/dL Hct 32.4 L (37.2-46.3) % MCHC 31.5 L (32.0-37.0) g/dL RDW 16.4 H (11.5-14.5) % Immature Gran # 0.11 H (0.00-0.04) X 10*3/uL Neutrophils # 9.09 H (1.80-7.70) X 10*3/uL Lymphocytes # 0.39 L (0.90-5.00) X 10*3/uL Eosinophils # 0.02 L (0.04-0.35) X 10*3/uL Anion Gap 13.20 H (4.00-12.00) mmol/L Creatinine 0.3 L (0.6-1.5) mg/dL BUN/Creatinine Ratio 35.67 H (12.00-20.00) Ratio Glucose 120 H (70-110) mg/dL Calcium 8.2 L (8.7-10.3) mg/dL Microbiology - Last 24 Hours (Table) 07/03/23 11:36 Blood Culture - Preliminary Blood PQRS Measure Charge Sheet Comment: HISTORY OF PRESENT ILLNESS: A 63 yr old inpatient female as a referral from Parminder Cueto [facility] presents today w severe and chronic L head, ear and jaw pain secondary to L sided mass for evaluation. Pt states pain level is provoked at 10 /10 in intensity, constant, localized in the L jaw region, throbbing in character w occasional shooting pain towards the L side of head, neck and ear. Pain has no provocation. Pain is alleviated by medications (Dilaudid 2mg IVP q2h prn, Fentanyl 100mg q72h, MS susp 20mg q3h prn, Lyrica), repositioning and rest . PMH: OA, CAD, L Tonsillar CA, PUD, Hyperlipidemia, HTN, DC (2021) PSH: Heart Catheterization With Stent (2021), Hysterectomy, Tubal Ligation, EGD, Tracheostomy, R Chest Port, PEG Tube Placement SH: Hx of 40pack/ yr tobacco use, No ETOH use, No illicit drug use. Lives w spouse at home. FH: Mo- Lung CA. Sis- Breast CA All: See list Meds: See list REVIEW OF ORGAN SYSTEMS: CONSTITUTIONAL: No fevers or chills. Frail NEUROLOGICAL: + numbness and tingling along the distal extremities. No seizure disorders or headaches. MUSCULOSKELETAL: + pain PSYCHIATRIC: Denies current depression or suicidal thoughts. Physical Examinations : Constitutional : Cooperative , not in acute distress . Neurologic : Cranial nerve II to XII intact. No focal neurological deficits. Psychiatric : alert & oriented x 3. Matching mood & appropriate affect. Judgment & insight intact. Musculoskeletal : Cervical Spine Motor strength in the deltoid and biceps: Normal right side. Normal Left side Motor strength biceps and the wrist extensors: Normal right side . Normal left side Motor strength in the triceps muscle: Normal right side. Normal left side Deep tendon reflexes: Normal at the biceps. Normal at Brachioradialis. Normal at triceps Vertebral body tenderness to deep palpation over Motor strength lower extremities ,thigh and legs 5/5 Right side , 5/5 Left side Deep tendon reflexes : Normal Knee Jerk. Normal Ankle Jerk Lumbar Spine Vertebral body tenderness over Ch Test positive Lumbar facet Loading Test: positive Right / positive Left Range of motion of the lumbar spine Flexion 30 degrees, extension 10 degrees Straight Leg Raise test: Left/ Right positive at degrees Nany test: positive right / positive left. Severe tenderness over the Sacroiliac joint on the Right / Left sides Sacral Spine : Gaenslen's Test positive Nany test: positive right side / left side Thigh Thrust Test Sacral Thrust Test Assessment/ Plan : Chronic Pain secondary to L Tonsillar CA Recommendation of medication management. Continue Morphine Sulfate 20mg q4-6h via PEG, Fentanyl 100mcg/hr 3 day supply provided. Pt appears to want to return home upon discharge from hospital and states her helps her. Pt may follow up in the Pain Clinic upon discharge for additional refills or outpatient pain management if needed. All questions answered. I have spent greater than 30 minutes on patient care today. Dr Hunt was available by phone for the evaluation of this patient. The time was used to review the medical records including relevant urine studies and Prescription history (MAPs), review of the available imaging, evaluation and examination of the patient, coordination of care with the medical staff and if applicable referring physicians, as well as creation of the medical record - Pain Location Left Face Non-Pharmacological Interventions: Darkened Room, Emotional/Spiritual Support, Environmental Control, Position/Reposition, Reduce Environmental Stimuli Pharmacological Interventions: Discuss Pain Med Options, PRN Medication Pain Comment: see MAR PQRS Narrative: Blood Pressure [Left Arm] 135/79 Blood Pressure 120/76 Pain Intensity [Left Face] 0 Pain Intensity 8 Pain Scale Used Numeric (1 - 10) Scale Used Numeric (1 - 10) Home Medications: Ambulatory Orders Ondansetron Odt [Zofran ODT] 8 mg PO QID PRN 04/03/22 Metoprolol Succinate [Kapspargo Sprinkle] 100 mg PEG/G-TUBE DAILY@1000 08/15/22 Clopidogrel [Plavix] 75 mg PEG/G-TUBE DAILY@1000 11/16/22 Aspirin 81 mg PEG/G-TUBE DAILY@1000 11/25/22 Ipratropium-Albuterol Nebulize [Duoneb 0.5 mg-3 mg/3 ml Soln] 3 ml INHALATION RT-Q2H PRN #90 dose 12/10/22 Acetaminophen Oral Susp [Tylenol] 320 mg PEG/G-TUBE Q6HR PRN 06/26/23 Prochlorperazine [Compazine] 5 mg PEG/G-TUBE Q6HR PRN 06/26/23 Sennosides-Docusate Sodium [Senokot-S] 1 tab PO DAILY 06/26/23 dexAMETHasone [Decadron] 8 mg PEG/G-TUBE DAILY 06/26/23 fentaNYL 25MCG/HR PATCH [Duragesic 25MCG/HR] 2 patch TRANSDERM Q72H 06/26/23 MORPHINE ORAL JEFFRY 2mg/mL [Morphine Oral Soln 2 MG/ML] 20 mg PEG/G-TUBE Q6H PRN 3 Days #120 ml 07/05/23 fentaNYL 100MCG/HR PATCH [Duragesic 100MCG/HR] 100 mcg TRANSDERM Q72H 3 Days #1 patch 07/05/23 Controlled Substance Measures - Controlled Substance Measures Is patient prescribed a controlled substance at discharge?: Yes When asked, does pt state using other controlled substances?: Yes If prescribed controlled substance>3 days was MAPS reviewed?: Prescribed <3 Days
[2023-07-06 09:03] LABS: Basophils # (A) 0.03 X 10*3/uL (0.00-0.10); Basophils % (A) 0.3 %; Eosinophils # (A) 0.04 X 10*3/uL (0.04-0.35); Eosinophils % (A) 0.4 %; HCT 35.5 % (37.2-46.3); HGB 10.8 g/dL (12.0-15.0); Lymphocytes # (A) 0.61 X 10*3/uL (0.90-5.00); Lymphocytes % (A) 5.5 %; MCH 27.6 pg (27.0-32.0); MCHC 30.4 g/dL (32.0-37.0); MCV 90.8 FL (80.0-97.0); Mean Platelet Volume 11.3 FL (9.5-12.2); Monocytes # (A) 0.45 X 10*3/uL (0.20-1.00); Monocytes % (A) 4.1 %; NRBC Per 100 WBC 0 X 10*3/uL (0.00-0.01); Neutrophils # (A) 9.82 X 10*3/uL (1.80-7.70); Neutrophils % (A) 88.3 %; Platelet Count 286 X 10*3/uL (140-440); RBC 3.91 X 10*6/uL (4.10-5.20); RDW 16.7 % (11.5-14.5); WBC 11.11 X 10*3/uL (4.50-10.00)
[2023-07-06 09:11] LABS: Blood Urea Nitrogen 8.8 mg/dL (9.0-27.0); Carbon Dioxide 24.9 mmol/L (21.6-31.8); Chloride 101 mmol/L (96-109); Glucose 80 mg/dL (70-110); Potassium 3.5 mmol/L (3.5-5.5); Sodium 140 mmol/L (135-145)
[2023-07-06 09:12] LABS: Calcium 8.6 mg/dL (8.7-10.3)
--- NOTE | 2023-07-06 10:26 | P.PN ---
Subjective Progress Note Date: 07/05/23 At today's visit patient is reporting persisting left-sided facial and neck pain. States pain is 9/10 despite additional increases in pain med regimen. Will consult pain management for further evaluation. ENT has also been placed on consult, however, they are not cotton ball machine tender at this given time, may need to do outpt f/u if they are unable to see patient during hospitalization. Sputum culture positive for K. variicola. Continues on IV Antibiotics, ID following. Objective - Vital Signs Vital signs: Vital Signs Temp 98.4 F 07/05/23 08:00 Pulse 78 07/05/23 09:33 Resp 18 07/05/23 08:00 BP 148/82 07/05/23 08:00 Pulse Ox 98 07/05/23 09:17 FiO2 28 07/04/23 09:29 Intake & Output 07/04/23 07/05/23 07/05/23 18:59 06:59 18:59 Output Total 650 1400 500 Balance -650 -1400 -500 Weight 47.1 kg 47.1 kg Output: Urine 650 1400 500 Other: Voiding Method Bedside Commode Bedpan - Constitutional General appearance: Present: no acute distress - EENT Eyes: Present: EOMI ENT: Present: hearing grossly normal - Respiratory Details: breathing is even and unlabored - Cardiovascular Details: skin warm and dry - Integumentary Integumentary: Absent: cyanotic - Psychiatric Psychiatric: Present: A&O x's 3 - Labs CBC & Chem 7: 07/06/23 05:38 07/06/23 05:38 Labs: Abnormal Lab Results - Last 24 Hours (Table) 07/05/23 07/05/23 Range/Units 05:59 05:59 RBC 3.63 L (4.10-5.20) X 10*6/uL Hgb 10.2 L (12.0-15.0) g/dL Hct 32.4 L (37.2-46.3) % MCHC 31.5 L (32.0-37.0) g/dL RDW 16.4 H (11.5-14.5) % Immature Gran # 0.11 H (0.00-0.04) X 10*3/uL Neutrophils # 9.09 H (1.80-7.70) X 10*3/uL Lymphocytes # 0.39 L (0.90-5.00) X 10*3/uL Eosinophils # 0.02 L (0.04-0.35) X 10*3/uL Anion Gap 13.20 H (4.00-12.00) mmol/L Creatinine 0.3 L (0.6-1.5) mg/dL BUN/Creatinine Ratio 35.67 H (12.00-20.00) Ratio Glucose 120 H (70-110) mg/dL Calcium 8.2 L (8.7-10.3) mg/dL Microbiology - Last 24 Hours (Table) 07/03/23 11:36 Blood Culture - Preliminary Blood - Imaging and Cardiology Venous US: report reviewed Assessment and Plan (1) Chronic neck pain Current Visit: Yes Status: Acute Code(s): M54.2 - CERVICALGIA; G89.29 - OTHER CHRONIC PAIN SNOMED Code(s): 9690703625989 (2) Dyspnea Current Visit: Yes Status: Acute Priority: High Code(s): R06.00 - DYSPNEA, UNSPECIFIED SNOMED Code(s): 362018234 (3) Head and neck cancer Current Visit: No Status: Chronic Priority: High Code(s): C76.0 - MALIGNAN T NEOPLASM OF HEAD, FACE AND NECK SNOMED Code(s): 273295076 (4) Tracheobronchitis Current Visit: Yes Status: Acute Priority: High Code(s): J40 - BRONCHITIS, NOT SPECIFIED ACUTE OR CHRONIC SNOMED Code(s): 69532904 Plan: Ms. Sue is a very pleasant 63 yo female with history of recurrent laryngeal carcinoma despite chemo/RT followed by opdivo followed by carbo/taxol. Currently been off of treatment with last PET CT on 04/19/2023 showing continued positive treatment response with no new areas of suspicious abnormal uptake. Presented for SOB, increased purulent drainage from trach, and left sided facial pain. - Sputum culture positive for K. variicola. Antibiotics as per ID - CT neck from 06/07/23 reviewed, addended report showed interval development of ill-defined soft tissue mass in the region of the right oropharynx with marked thickening of the epiglottis. PET CT has been scheduled for 07/19/2023 - She is having increased left jaw/facial pain over past 3 weeks, etiology of left sided complaints not evident on CT neck from 06/07/23 - CT neck and chest with contrast was obtained showing multiple nodules with a large lung mass in the right upper lung field. Some of these masses have developed over short interval from 06/07/2023 suggesting an infectious etiology, however neoplasm in differential. CT neck revealed asymmetry of the nasal pharynx and hypopharynx shifted towards the left, however no underlying masses identified. Due to persisting left-sided facial and jaw pain, we had ordered CT of facial bones for further evaluation, however radiologist stated this was not necessary as CT neck visualized the facial structures which revealed no acute abnormalities. -Will obtain MRI neck for further visualization of noted CT findings. Scan scheduled for tomorrow -ENT consulted, may benefit from laryngoscope -Left upper extremity Doppler obtained, which showed no evidence for DVT within the left upper extremity, however they were unable to evaluate the left IJV or medial left subclavian vein due to trach collar and bandage. Left cephalic vein also not visualized. Spoke with US dept, LUE doppler was repeated, again negative for acute DVT. - Patient reporting pain is still uncontrolled despite multiple adjustments. Currently on fentanyl 75 mcg patch, Dilaudid 2 mg every 2 hours prn and morphine solution 20 mg every 3 hours prn. Fentanyl patch increased to 100mcg. Will continue to monitor pain control and make adjustments as needed -Despite multiple incareases/adjustments in pain med regimen, pt still reporting pain is 9/10. Will consult pain management -Bowel regimen ordered to avoid narcotic induced constipation -At this time, unsure what is the cause for reported left sided face, jaw, and neck pain. May be related to infectious process, as well as referred pain from noted asymmetry of the nasal pharynx and hypopharynx causing shifting towards the left and concerns for disease recurrence
--- NOTE | 2023-07-06 12:59 | P.GSCN ---
History of Present Illness Consult date: 07/06/23 History of present illness: CHIEF COMPLAINT: Chest pain HISTORY OF PRESENT ILLNESS: This is a 63-year-old female with a known history of laryngeal cancer. Patient presented to the hospital with complaints of chest pain and shortness of breath. She is diagnosed with bronchitis and pleuritic chest pain. Patient has history of PEG tube placement February 28, 2022. [employer] is at bedside. Surgical service consulted for leaking from the tubing of the PEG tube. A orange apparatus was placed by nursing staff to the applicator of the PEG tube. The tube leaking has now stopped. is concerned that the orange plastic apparatus might need to be replaced again. Patient is currently receiving her tube feedings without any issues. PAST MEDICAL HISTORY: See below PAST SURGICAL HISTORY: See below MEDICATIONS: See below ALLERGIES: See below SOCIAL HISTORY: No illicit drug use. REVIEW OF SYSTEMS: CONSTITUTIONAL: Denies fever or chills. HEENT: Denies blurred vision, vision changes, or eye pain. Denies hemoptysis CARDIOVASCULAR: Denies chest pain or pressure. RESPIRATORY: No shortness of breath. GASTROINTESTINAL: See HPI for pertinent findings HEMATOLOGIC: Denies bleeding disorders. GENITOURINARY: Denies any blood in urine or increased urinary frequency. SKIN: Denies pruitis. Denies rash. PHYSICAL EXAM: VITAL SIGNS: Reviewed GENERAL: no acute distress. ABDOMEN: Soft. Nondistended. Nontender. PEG tube site clean dry and intact. No leaking from the tubing noted. LABORATORY DATA: WBC 11.11 Hgb 10.8 platelets 286 Sodium 140 potassium 3.5 creatinine 0.4 IMAGING: ASSESSMENT: 1. History of laryngeal cancer with PEG tube placement 2. Malfunctioning PEG tube PLAN: -PEG tube is currently functioning. There is no further leaking from the tubing of the PEG tube after and orange apparatus was applied to the applicator by nursing staff. Patient is currently tolerating tube feeds. -Further recommendations forthcoming per surgeon Physician Monotype Caster note has been reviewed by physician. Signing provider agrees with the documented findings, assessment, and plan of care. I have personally seen and examined the patient, reviewed the PLANT ATTENDANT OR ASSISTANT OPERATOR /PAs history, exam and MDM and agree with the assessment and plan as written. Based on total visit time, I have performed more than 50% of the visit. As above: Patient with a leaking ENFit adapter. PEG tube itself looks great. Will try to find a new adapter and place this for her. Past Medical History Past Medical History: Coronary Artery Disease (CAD), Cancer, Hyperlipidemia, Hypertension, Myocardial Infarction (NE) Additional Past Medical History / Comment(s): hx stomach ulcer, left tonsil cancer Last Myocardial Infarction Date:: 08/19/21 History of Any Multi-Drug Resistant Organisms: None Reported Past Surgical History: Heart Catheterization With Stent, Hysterectomy, Tubal Ligation Additional Past Surgical History / Comment(s): egd, Trach, right chest port, peg Past Anesthesia/Blood Transfusion Reactions: No Reported Reaction Date of Last Stent Placement:: 08/19/21 Past Psychological History: No Psychological Hx Reported Smoking Status: Former smoker Past Alcohol Use History: None Reported Past Drug Use History: None Reported Additional Drug Use History / Comment(s): occasional marijuana use - Past Family History Mother Family Medical History: Cancer Additional Family Medical History / Comment(s): lung cancer Sister(s) Family Medical History: Cancer Additional Family Medical History / Comment(s): breast cancer Medications and Allergies Home Medications Medication Instructions Recorded Confirmed Type Ondansetron Odt [Zofran ODT] 8 mg PO QID PRN 04/03/22 06/26/23 History Metoprolol Succinate [Kapspargo 100 mg PEG/G-TUBE DAILY@1000 08/15/22 06/26/23 History Sprinkle] Clopidogrel [Plavix] 75 mg PEG/G-TUBE DAILY@1000 11/16/22 06/26/23 History Aspirin 81 mg PEG/G-TUBE DAILY@1000 11/25/22 06/26/23 History Ipratropium-Albuterol Nebulize 3 ml INHALATION RT-Q2H PRN #90 dose 12/10/22 06/26/23 Rx [Duoneb 0.5 mg-3 mg/3 ml Soln] Acetaminophen Oral Susp [Tylenol] 320 mg PEG/G-TUBE Q6HR PRN 06/26/23 06/26/23 History Prochlorperazine [Compazine] 5 mg PEG/G-TUBE Q6HR PRN 06/26/23 06/26/23 History Sennosides-Docusate Sodium 1 tab PO DAILY 06/26/23 06/26/23 History [Senokot-S] dexAMETHasone [Decadron] 8 mg PEG/G-TUBE DAILY 06/26/23 06/26/23 History fentaNYL 25MCG/HR PATCH [Duragesic 2 patch TRANSDERM Q72H 06/26/23 06/26/23 History 25MCG/HR] MORPHINE ORAL JEFFRY 2mg/mL [Morphine 20 mg PEG/G-TUBE Q6H PRN 3 Days 07/05/23 Rx Oral Soln 2 MG/ML] #120 ml fentaNYL 100MCG/HR PATCH 100 mcg TRANSDERM Q72H 3 Days #1 07/05/23 Rx [Duragesic 100MCG/HR] patch Allergies Allergy/AdvReac Type Severity Reaction Status Date / Time Penicillins AdvReac Severe nausea/vomi Verified 06/26/23 16:59 ting codeine AdvReac Nausea & Verified 06/26/23 16:59 Vomiting & Diarrhea Surgical - Exam Vital Signs Temp Pulse Resp BP Pulse Ox 98.6 F 86 16 105/74 98 06/26/23 13:29 06/26/23 13:29 06/26/23 13:29 06/26/23 13:29 06/26/23 13:29 Results - Labs 07/06/23 05:38 07/06/23 05:38 Abnormal Lab Results - Last 24 Hours (Table) 07/06/23 07/06/23 Range/Units 05:38 05:38 WBC 11.11 H (4.50-10.00) X 10*3/uL RBC 3.91 L (4.10-5.20) X 10*6/uL Hgb 10.8 L (12.0-15.0) g/dL Hct 35.5 L (37.2-46.3) % MCHC 30.4 L (32.0-37.0) g/dL RDW 16.7 H (11.5-14.5) % Immature Gran # 0.16 H (0.00-0.04) X 10*3/uL Neutrophils # 9.82 H (1.80-7.70) X 10*3/uL Lymphocytes # 0.61 L (0.90-5.00) X 10*3/uL Anion Gap 14.10 H (4.00-12.00) mmol/L BUN 8.8 L (9.0-27.0) mg/dL Creatinine 0.4 L (0.6-1.5) mg/dL BUN/Creatinine Ratio 22.00 H (12.00-20.00) Ratio Calcium 8.6 L (8.7-10.3) mg/dL Microbiology - Last 24 Hours (Table) 07/03/23 11:36 Blood Culture - Preliminary Blood Diabetes panel 07/06/23 Range/Units 05:38 Sodium 140 (135-145) mmol/L Potassium 3.5 (3.5-5.5) mmol/L Chloride 101 (96-109) mmol/L Carbon Dioxide 24.9 (21.6-31.8) mmol/L BUN 8.8 L (9.0-27.0) mg/dL Creatinine 0.4 L (0.6-1.5) mg/dL Glucose 80 (70-110) mg/dL Calcium 8.6 L (8.7-10.3) mg/dL Calcium panel 07/06/23 Range/Units 05:38 Calcium 8.6 L (8.7-10.3) mg/dL Pituitary panel 07/06/23 Range/Units 05:38 Sodium 140 (135-145) mmol/L Potassium 3.5 (3.5-5.5) mmol/L Chloride 101 (96-109) mmol/L Carbon Dioxide 24.9 (21.6-31.8) mmol/L BUN 8.8 L (9.0-27.0) mg/dL Creatinine 0.4 L (0.6-1.5) mg/dL Glucose 80 (70-110) mg/dL Calcium 8.6 L (8.7-10.3) mg/dL Adrenal panel 07/06/23 Range/Units 05:38 Sodium 140 (135-145) mmol/L Potassium 3.5 (3.5-5.5) mmol/L Chloride 101 (96-109) mmol/L Carbon Dioxide 24.9 (21.6-31.8) mmol/L BUN 8.8 L (9.0-27.0) mg/dL Creatinine 0.4 L (0.6-1.5) mg/dL Glucose 80 (70-110) mg/dL Calcium 8.6 L (8.7-10.3) mg/dL
--- NOTE | 2023-07-06 14:08 | PN ---
PROGRESS NOTE DATE OF SERVICE: 07/06/2023 SUBJECTIVE: This is a 63-year-old woman who was admitted with severe intractable neck and back pain with chest pain. She is also on empiric antibiotics. PEG tube is leaking at this time. Surgery is following the patient closely. Pain management also evaluated the patient. The patient's pain is 8/10 at this time. PAST MEDICAL HISTORY: Reviewed. REVIEW OF SYSTEMS: A 14-point review is negative except as mentioned. CURRENT MEDICATIONS: Reviewed. PHYSICAL EXAMINATION: VITAL SIGNS: Pulse is 92, blood pressure 157/80, respirations 20. HEENT: Conjunctivae normal. CARDIOVASCULAR: S1, S2. RESPIRATIONS: Few scattered rhonchi and crackles. ABDOMEN: Soft. PEG tube some leaking present. NERVOUS SYSTEM: Nonfocal. LABORATORY DATA: WBC 7.2, rest of the labs are noted. ASSESSMENT: 1. Severe intractable neck and back pain with chest pain. 2. Possible infection with bronchitis, empiric antibiotics, Klebsiella variicola. 3. Elevated WBC. 4. Leaking PEG tube. 5. Elevated procalcitonin. 6. Generalized weakness. 7. CAD. 8. Ischemic cardiomyopathy. 9. Laryngeal cancer with tracheostomy. 10.Hypertension. 11.Hyperlipidemia. 12.COPD. 13.Multiple complex medical issues. RECOMMENDATIONS: Recommended to continue current management, continue symptomatic treatment. Otherwise at this time, I recommended to continue the antibiotics, pain management. I will recommend to repeat chest x-ray. Closely follow with multiple consultants. Prognosis extremely guarded. Further recommendations to follow. Discussed with family. JESS / YANICK: [phone] /
--- NOTE | 2023-07-06 14:28 | XR ---
EXAMINATION TYPE: XR chest 1V portable DATE OF EXAM: 07/06/2023 COMPARISON: 06/26/2023 INDICATION: CHF TECHNIQUE: Single frontal view of the chest is obtained. FINDINGS: The heart size is normal. The pulmonary vasculature is normal. There is a consolidation in the right upper lobe. Some minimal left upper lobe infiltrate are density may remain present. Tracheostomy tube is in the midline. IMPRESSION: 1. Developing right upper lobe consolidation. Correlate for pneumonia. Follow-up is recommended.
--- NOTE | 2023-07-06 16:26 | P.PN ---
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 On today's evaluation that is 07/06/2023, the patient continues to be afebrile, the patient is on room air and breathing comfortably, the Pt chest pain decreased in intensity still having cough and the overall decrease in intensity some nausea but no vomiting no abdominal pain or diarrhea. Patient white count is 11.11 creatinine 0.4 blood with repeat has been negative Objective - Vital Signs Vital signs: Vital Signs Temp 98.0 F 07/06/23 07:32 Pulse 92 07/06/23 07:32 Resp 20 07/06/23 07:32 BP 157/82 07/06/23 07:32 Pulse Ox 96 07/06/23 07:32 FiO2 28 07/04/23 09:29 Intake & Output 07/05/23 07/06/23 07/06/23 18:59 06:59 18:59 Output Total 1000 1000 Balance -1000 -1000 Weight 47.1 kg 46.5 kg Output: Urine 1000 1000 Other: Voiding Method Bedside Commode Bedside Commode Bedpan Bedpan # Voids 2 - Exam GENERAL DESCRIPTION: Middle-aged female lying in bed in no distress RESPIRATORY SYSTEM: Unlabored breathing , decreased breath sounds at bases HEART: S1 S2 regular rate and rhythm , ABDOMEN: Soft , no tenderness EXTREMITIES: No edema feet - Labs CBC & Chem 7: 07/06/23 05:38 07/06/23 05:38 Labs: Abnormal Lab Results - Last 24 Hours (Table) 07/06/23 07/06/23 Range/Units 05:38 05:38 WBC 11.11 H (4.50-10.00) X 10*3/uL RBC 3.91 L (4.10-5.20) X 10*6/uL Hgb 10.8 L (12.0-15.0) g/dL Hct 35.5 L (37.2-46.3) % MCHC 30.4 L (32.0-37.0) g/dL RDW 16.7 H (11.5-14.5) % Immature Gran # 0.16 H (0.00-0.04) X 10*3/uL Neutrophils # 9.82 H (1.80-7.70) X 10*3/uL Lymphocytes # 0.61 L (0.90-5.00) X 10*3/uL Anion Gap 14.10 H (4.00-12.00) mmol/L BUN 8.8 L (9.0-27.0) mg/dL Creatinine 0.4 L (0.6-1.5) mg/dL BUN/Creatinine Ratio 22.00 H (12.00-20.00) Ratio Calcium 8.6 L (8.7-10.3) mg/dL Microbiology - Last 24 Hours (Table) 07/03/23 11:36 Blood Culture - Preliminary Blood Assessment and Plan (1) Leukocytosis Current Visit: Yes Status: Acute Code(s): D72.829 - ELEVATED WHITE BLOOD CELL COUNT, UNSPECIFIED SNOMED Code(s): 210974556 (2) Tracheobronchitis Current Visit: Yes Status: Acute Priority: High Code(s): J40 - BRONCHITIS, NOT SPECIFIED ACUTE OR CHRONIC SNOMED Code(s): 34549224 (3) Penicillin allergy Current Visit: Yes Status: Acute Code(s): Z88.0 - ALLERGY STATUS TO PENICILLIN SNOMED Code(s): 66247370 (4) Positive blood culture Current Visit: Yes Status: Acute Code(s): R78.81 - BACTEREMIA SNOMED Code(s): 502374353 Plan: 1patient presenting to the hospital with increasing shortness of breath chest p ain also have a cough purulent drainage concerning for tracheobronchitis possible bacterial and question of pseudomonal with a greenish drainage from the trach site did have elevated white count though chest x-ray reported negative for acute infiltrate, no significant redness around the trach site was noticed 2-penicillin allergy that will limit the number of antibiotics safe to use 3-patient did have a mild elevated procalcitonin 0.32 sputum cultures did grow Klebsiella that is a sensitive pathogen 4-blood culture with staph epi possible skin contamination blood culture repeated so far pending 4-patient to continue with Rocephin while inpatient and monitor clinical course closely at the bedside questions were answered Dictation was produced using [employer] dictation software. please excuse any grammatical, word or spelling errors. Time with Patient: Less than 30
[2023-07-06] MEDS: MELATONIN 5 MG TABLET PO PRN (21:21)
--- NOTE | 2023-07-07 09:40 | MR ---
MRI soft tissue neck with and without contrast HISTORY: Tonsillar cancer. COMPARISON: 07/05/2022. TECHNIQUE: Multiecho multiplanar images of the neck were obtained. FINDINGS: There are postsurgical changes involving the left tonsil. Posterior to the surgical bed in the paraph aryngeal soft tissues there is a persistent 16 mm enhancing soft tissue mass suspicious for residual or recurrent neoplasm. Thyroid gland is homogeneous and not enlarged. The larynx including the cricoid and arytenoid and thyroid cartilages and focal cords are normal and symmetric. The tongue base is unremarkable without mass or pathological enhancement. The oral pharynx is normal without parapharyngeal soft tissue mass or enhancement. The parotid and submandibular glands are normal and symmetric. There is no evidence of adenopathy. The skull base is intact. There is an infiltrate in the right upper lobe. IMPRESSION: 1. Persistent 16mm in enhancing parapharyngeal mass adjacent to the surgical bed in the left tonsilla r region suspicious for recurrent residual neoplasm. 2. Right upper lobe infiltrate. 3. No evidence of adenopathy within the neck.
[2023-07-07 09:54] LABS: Basophils % (A) 0 %; Eosinophils % (A) 0 %; HCT 33.3 % (34.0-46.0); HGB 10.4 gm/dL (11.4-16.0); Hypochromasia Slight; Lymphocytes # (A) 0.6 k/uL (1.0-4.8); Lymphocytes % (A) 5 %; MCHC 31.3 g/dL (31.0-37.0); MCV 89.7 fL (80.0-100.0); Mean Platelet Volume 9.6; Monocytes # (A) 1.2 k/uL (0-1.0); Monocytes % (A) 11 %; Neutrophils # (A) 8.5 k/uL (1.3-7.7); Neutrophils % (A) 82 %; Platelet Count 221 k/uL (150-450); RBC 3.71 m/uL (3.80-5.40); RDW 15.6 % (11.5-15.5); WBC 10.4 k/uL (3.8-10.6)
[2023-07-07 10:05] LABS: ALT 15 U/L (4-34); African American GFR (CKD) >90 (>60 ml/min/1.73 sqM); Albumin/Globulin Ratio 0.9; Anion Gap 5 mmol/L; Blood Urea Nitrogen 12 mg/dL (7-17); Calcium 8.4 mg/dL (8.4-10.2); Carbon Dioxide 22 mmol/L (22-30); Chloride 110 mmol/L (98-107); Globulin 2.7 g/dL; Glucose 99 mg/dL (74-99); Non-African American GFR(CKD) >90 (>60 ml/min/1.73 sqM); Sodium 137 mmol/L (137-145); Total Bilirubin 0.5 mg/dL (0.2-1.3)
[2023-07-07 10:12] LABS: AST 32 U/L (14-36); Albumin 2.5 g/dL (3.5-5.0); Alkaline Phosphatase 93 U/L (38-126); Potassium 3.8 mmol/L (3.5-5.1); Total Protein 5.2 g/dL (6.3-8.2)
[2023-07-07] MEDS: dexAMETHasone 4 MG TAB PEG/G-TUBE SCH (10:39)
--- NOTE | 2023-07-07 14:45 | XR ---
EXAMINATION TYPE: XR chest 1V portable DATE OF EXAM: 07/07/2023 COMPARISON: 07/06/2023 INDICATION: CHF TECHNIQUE: Single frontal view of the chest is obtained. FINDINGS: The heart size is normal. The pulmonary vasculature is normal. Focal consolidation in the right upper lobe remains present. Continued follow-up is recommended. Port is over the right chest with tip in the superior vena cava region. Tracheostomy tube is in the midli ne. IMPRESSION: 1. Stable appearance right upper lobe consolidation. Correlate for pneumonia. Follow-up is recommende d.
[2023-07-07] MEDS: IPRATROPIUM-ALBUTEROL 3 ML NEB INHALATION SCH (15:28)
[2023-07-07] MEDS: FUROSEMIDE 10 MG/ML 4 ML VIAL IV STA (16:17)
--- NOTE | 2023-07-07 22:46 | PN ---
PROGRESS NOTE DATE OF SERVICE: 07/07/2023 SUBJECTIVE: This is a 63-year-old woman, who was admitted with severe intractable neck and back pain, also had some chest pain also. The patient is on empiric antibiotics. PEG tube also had some leak, which has been resolved at this time. I had a detailed discussion with Dr. Whiteside about the pain medications. Possibility of neuropathic pain is to be considered. An MRI showed persistent enhancing parapharyngeal mass and right upper lobe infiltrate. No evidence of adenopathy in the neck was noted. Pain Management has been consulted and Dr. Whiteside would like to follow up on that. PAST MEDICAL HISTORY: Reviewed. REVIEW OF SYSTEMS: A 14-point review is negative except as mentioned earlier. CURRENT MEDICATIONS: Reviewed include Pulmicort. Dose and rest of medications noted. PHYSICAL EXAMINATION: VITAL SIGNS: Pulse is 92, blood pressure 120/70, respirations 17. HEENT: Conjunctivae normal. NECK: Tracheostomy. CARDIOVASCULAR: S1, S2. RESPIRATIONS: A few scattered rhonchi and crackles. ABDOMEN: Soft. NERVOUS SYSTEM: Nonfocal. LABORATORY DATA: WBC 10.4. Sputum cultures, Klebsiella. ASSESSMENT: 1. Severe intractable neck and back pain with chest pain, possibly secondary to malignancy. 2. Possible infection with bronchitis, right upper lobe pneumonia, empiric antibiotics with Klebsiella variicola. 3. Elevated WBC. 4. Leaking PEG tube, improved. 5. Elevated procalcitonin. 6. Generalized weakness. 7. Coronary artery disease. 8. Severe cardiomyopathy. 9. Laryngeal cancer with tracheostomy. 10.Hypertension. 11.Hyperlipidemia. 12.Chronic obstructive pulmonary disease. 13.Multiple medical issues. RECOMMENDATIONS: Recommend to continue current management and continue symptomatic treatment. Otherwise, at this time, I recommend to continue the bronchodilators. Continue with empiric antibiotics, pain management. Dr. Whiteside will talk with Pain Management for possible intervention. Guarded prognosis. Further recommendations to follow. See orders for further details. MMODL / IJN: [id number] /
[2023-07-08 09:09] LABS: Basophils # (A) 0.03 X 10*3/uL (0.00-0.10); Basophils % (A) 0.4 %; Eosinophils # (A) 0.01 X 10*3/uL (0.04-0.35); Eosinophils % (A) 0.1 %; Lymphocytes # (A) 0.39 X 10*3/uL (0.90-5.00); Lymphocytes % (A) 4.7 %; MCHC 30.3 g/dL (32.0-37.0); MCV 92.4 FL (80.0-97.0); Mean Platelet Volume 11.8 FL (9.5-12.2); Monocytes # (A) 0.63 X 10*3/uL (0.20-1.00); Monocytes % (A) 7.6 %; NRBC Per 100 WBC 0 X 10*3/uL (0.00-0.01); Neutrophils # (A) 7.15 X 10*3/uL (1.80-7.70); Neutrophils % (A) 86.1 %; Platelet Count 280 X 10*3/uL (140-440); RBC 3.57 X 10*6/uL (4.10-5.20); RDW 16.6 % (11.5-14.5)
[2023-07-08 09:25] LABS: Blood Urea Nitrogen 10.8 mg/dL (9.0-27.0); Calcium 8.8 mg/dL (8.7-10.3); Carbon Dioxide 25.7 mmol/L (21.6-31.8); Chloride 102 mmol/L (96-109); Glucose 113 mg/dL (70-110); Potassium 3.5 mmol/L (3.5-5.5); Sodium 141 mmol/L (135-145)
--- NOTE | 2023-07-08 11:05 | P.PN ---
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 On today's evaluation that is 07/07/2023, Patient is afebrile patient is currently on room air and complaining of some shortness of breath, the patient did have a mild chest pain no worsening cough, the patient denies any nausea vomiting did not have any abdominal pain and no diarrhea. Patient white count is 10.4, creatinine 0.24 blood culture repeat has been negative, MRI of the neck did shows enhancing parapharyngeal mass concerning for recurrent residual neoplasm and right upper lobe infiltrate Objective - Vital Signs Vital signs: Vital Signs Temp 98.2 F 07/07/23 07:33 Pulse 92 07/07/23 07:33 Resp 17 07/07/23 07:33 BP 125/78 07/07/23 07:33 Pulse Ox 95 07/07/23 07:33 FiO2 28 07/04/23 09:29 Intake & Output 07/06/23 07/07/23 07/07/23 18:59 06:59 18:59 Output Total 400 Balance -400 Weight 44 kg Output: Urine 400 Other: Voiding Method Bedside Commode Bedpan # Voids 1 1 - Exam GENERAL DESCRIPTION: Middle-aged female lying in bed in no distress RESPIRATORY SYSTEM: Unlabored breathing , decreased breath sounds at bases HEART: S1 S2 regular rate and rhythm , ABDOMEN: Soft , no tenderness EXTREMITIES: No edema feet - Labs CBC & Chem 7: 07/08/23 05:42 07/08/23 05:42 Labs: Abnormal Lab Results - Last 24 Hours (Table) 07/07/23 07/07/23 Range/Units : 09:24 RBC 3.71 L (3.80-5.40) m/uL Hgb 10.4 L (11.4-16.0) gm/dL Hct 33.3 L (34.0-46.0) % RDW 15.6 H (11.5-15.5) % Neutrophils # 8.5 H (1.3-7.7) k/uL Lymphocytes # 0.6 L (1.0-4.8) k/uL Monocytes # 1.2 H (0-1.0) k/uL Chloride 110 H (98-107) mmol/L Creatinine 0.24 L (0.52-1.04) mg/dL Total Protein 5.2 L (6.3-8.2) g/dL Albumin 2.5 L (3.5-5.0) g/dL Microbiology - Last 24 Hours (Table) 07/03/23 11:36 Blood Culture - Preliminary Blood Assessment and Plan (1) Leukocytosis Current Visit: Yes Status: Acute Code(s): D72.829 - ELEVATED WHITE BLOOD CELL COUNT, UNSPECIFIED SNOMED Code(s): 632326701 (2) Tracheobronchitis Current Visit: Yes Status: Acute Priority: High Code(s): J40 - BRONCHITIS, NOT SPECIFIED ACUTE OR CHRONIC SNOMED Code(s): 16482744 (3) Penicillin allergy Current Visit: Yes Status: Acute Code(s): Z88.0 - ALLERGY STATUS TO PENICILLIN SNOMED Code(s): 30551958 (4) Positive blood culture Current Visit: Yes Status: Acute Code(s): R78.81 - BACTEREMIA SNOMED Code(s): 522135130 Plan: 1patient presenting to the hospital with increasing shortness of breath chest pain also have a cough purulent drainage concerning for tracheobronchitis pos sible bacterial and question of pseudomonal with a greenish drainage from the trach site did have elevated white count though chest x-ray reported negative for acute infiltrate, no significant redness around the trach site was noticed 2-penicillin allergy that will limit the number of antibiotics safe to use 3-patient did have a mild elevated procalcitonin 0.32 sputum cultures did grow Klebsiella that is a sensitive pathogen 4-blood culture with staph epi possible skin contamination blood culture repeated has been negative 4-patient currently being treated with Rocephin continue workup for possible recurrence of malignancy and extension being followed by oncology team Dictation was produced using [employer] dictation software. please excuse any grammatical, word or spelling errors. Time with Patient: Less than 30
--- NOTE | 2023-07-08 14:38 | P.PN ---
Subjective Progress Note Date: 07/08/23 The patient continues to complain of pain, 8-910 related to the left side of the face and left neck. This has not improved any further, on her current regimen and is significantly hampering her ability to rotate her neck, or chew. Objective - Vital Signs Vital signs: Vital Signs Temp 97.0 F L 07/08/23 07:10 Pulse 88 07/08/23 09:11 Resp 15 07/08/23 07:10 BP 123/80 07/08/23 07:10 Pulse Ox 95 07/08/23 07:10 FiO2 28 07/04/23 09:29 Intake & Output 07/07/23 07/08/23 07/08/23 18:59 06:59 18:59 Output Total 1400 800 Balance -1400 -800 Weight 45.7 kg Output: Urine 1400 800 Other: Voiding Method Bedside Commode # Voids 1 # Bowel Movements 1 1 - Constitutional General appearance: Present: mild distress - EENT Eyes: Present: EOMI ENT: Present: hearing grossly normal - Neck Neck: Present: other (Tracheostomy in situ) - Respiratory Respiratory: bilateral: CTA - Cardiovascular Rhythm: regular Heart sounds: normal: S1, S2 - Gastrointestinal Gastrointestinal Comment(s): PEG tube in situ General gastrointestinal: Present: soft - Neurologic Neurologic: Present: CNII-XII intact - Musculoskeletal Musculoskeletal: Present: generalized weakness, strength equal bilaterally - Psychiatric Psychiatric: Present: A&O x's 3, appropriate affect - Labs CBC & Chem 7: 07/08/23 05:42 07/08/23 05:42 Labs: Abnormal Lab Results - Last 24 Hours (Table) 07/08/23 07/08/23 Range/Units 05:42 05:42 RBC 3.57 L (4.10-5.20) X 10*6/uL Hgb 10.0 L (12.0-15.0) g/dL Hct 33.0 L (37.2-46.3) % MCHC 30.3 L (32.0-37.0) g/dL RDW 16.6 H (11.5-14.5) % Immature Gran # 0.09 H (0.00-0.04) X 10*3/uL Lymphocytes # 0.39 L (0.90-5.00) X 10*3/uL Eosinophils # 0.01 L (0.04-0.35) X 10*3/uL Anion Gap 13.30 H (4.00-12.00) mmol/L Creatinine 0.3 L (0.6-1.5) mg/dL BUN/Creatinine Ratio 36.00 H (12.00-20.00) Ratio Glucose 113 H (70-110) mg/dL Assessment and Plan (1) Chronic neck pain Narrative/Plan: Patient has marked increase in this symptom, compared to her current baseline, which is ongoing. This is intractable at a level of 8-9/10, despite recent increase in her fentanyl, and ongoing Dilaudid. -Workup as to the specific causes so far has been negative with the CT scans. Therefore MRI of the neck was done, this does not show any specific osseous ab normalities. Posttreatment changes are again seen in the soft tissue. There is mention of a soft tissue mass posterior to the area of her resection. It is not clear if this is postoperative scarring, or tumor recurrence. -The above was discussed with the admitting service in detail. Continue current treatment regimen. I will discuss with pain management to reevaluate the patient. Based on the location of the pain, left side of the face in front of the ear, infra-auricular, and adjacent neck areas, there may be a possibility of benefit from trigeminal block. -Add gabapentin Current Visit: Yes Status: Acute Code(s): M54.2 - CERVICALGIA; G89.29 - OTHER CHRONIC PAIN SNOMED Code(s): 1512286460422 (2) Head and neck cancer Narrative/Plan: It is not definite so far, if her current symptoms are related to any cancer recurrence. Imaging in this regard has not been definitive either. As noted, the plan is to have radiation oncology review her current MRI and compare it to the previous CT scans to see if the finding of masslike area posterior to the area of resection represents recurrence or not. Current Visit: No Status: Chronic Priority: High Code(s): C76.0 - MALIGNANT NEOPLASM OF HEAD, FACE AND NECK SNOMED Code(s): 228114295
[2023-07-08] MEDS: GABAPENTIN 100 MG CAP PO SCH (20:09)
--- NOTE | 2023-07-09 02:05 | PN ---
PROGRESS NOTE DATE OF SERVICE: 07/08/2023 SUBJECTIVE: This 63-year-old woman was admitted with intractable neck and back pain, also had mostly pain on the left side. The patient has multiple pain medications. Pain management is also following the patient closely as is Dr. Whiteside in Radiation Oncology consultation and Pain Management consult has been sought and MRI has been noted. The most recent chest x-ray which I reviewed personally showed right upper lobe lung lesion. PAST MEDICAL HISTORY: Reviewed. REVIEW OF SYSTEMS: A 14-point review is negative except as mentioned earlier. PAST MEDICAL HISTORY: The patient complains of 8/10 pain at this time. MEDICATIONS: Reviewed, include DuoNeb, rest of medications reviewed. PHYSICAL EXAMINATION: VITAL SIGNS: Pulse 96, blood pressure 130/28, respirations 15. NECK: Tracheostomy. CARDIOVASCULAR: S1, S2. RESPIRATION: Few scattered rhonchi and crackles. ABDOMEN: Soft. NERVOUS SYSTEM: No focal deficits. LABORATORY DATA: Reviewed, hemoglobin is 10. ASSESSMENT: 1. Severe intractable neck and back pain on the left side with chest pain, possibly secondary to malignancy. 2. Possible infection, bronchitis, right upper lobe pneumonia, empiric antibiotics with Klebsiella variicola. 3. Elevated WBC. 4. Leak in PEG tube, improved. 5. Elevated procalcitonin. 6. Generalized weakness. 7. CAD. 8. Severe cardiomyopathy. 9. Laryngeal cancer with tracheostomy. 10.Hypertension. 11.Hyperlipidemia. 12.Chronic obstructive pulmonary disease. 13.Multiple complex medical issues. RECOMMENDATIONS: Recommended to continue current medical management, continue symptomatic treatment, closely follow with Infectious Disease. Discussed with Dr. Whiteside Pain Management and Radiation Oncology, possible local radiation versus local injection. Prognosis guarded because of multiple complex medical conditions. Further recommendations to follow. MMODL / IJN: [id number] /
[2023-07-09 08:50] LABS: Basophils # (A) 0.02 X 10*3/uL (0.00-0.10); Basophils % (A) 0.3 %; Eosinophils # (A) 0.01 X 10*3/uL (0.04-0.35); Eosinophils % (A) 0.1 %; HCT 34.1 % (37.2-46.3); HGB 10.3 g/dL (12.0-15.0); Lymphocytes # (A) 0.36 X 10*3/uL (0.90-5.00); Lymphocytes % (A) 4.7 %; MCH 27.5 pg (27.0-32.0); MCHC 30.2 g/dL (32.0-37.0); MCV 91.2 FL (80.0-97.0); Mean Platelet Volume 11.6 FL (9.5-12.2); Monocytes # (A) 0.75 X 10*3/uL (0.20-1.00); Monocytes % (A) 9.7 %; NRBC Per 100 WBC 0 X 10*3/uL (0.00-0.01); Neutrophils # (A) 6.51 X 10*3/uL (1.80-7.70); Platelet Count 294 X 10*3/uL (140-440); RBC 3.74 X 10*6/uL (4.10-5.20); RDW 16.9 % (11.5-14.5); WBC 7.74 X 10*3/uL (4.50-10.00)
[2023-07-09 09:02] LABS: Blood Urea Nitrogen 9.9 mg/dL (9.0-27.0); Calcium 8.7 mg/dL (8.7-10.3); Carbon Dioxide 24.8 mmol/L (21.6-31.8); Chloride 103 mmol/L (96-109); Glucose 107 mg/dL (70-110); Potassium 3.5 mmol/L (3.5-5.5); Sodium 141 mmol/L (135-145)
--- NOTE | 2023-07-09 13:30 | P.PN ---
Subjective Progress Note Date: 07/09/23 At today's visit patient is reporting persisting left-sided facial and neck pain. States pain is mildly improved at 8/10. Gabapentin has been started for concern of trigeminal neuralgia, awaiting further evaluation by pain management. Continues on IV Antibiotics, ID following. Objective - Vital Signs Vital signs: Vital Signs Temp 97.6 F 07/09/23 07:02 Pulse 88 07/09/23 11:25 Resp 16 07/09/23 09:00 BP 125/79 07/09/23 07:02 Pulse Ox 93 L 07/09/23 08:10 FiO2 21 07/09/23 08:10 Intake & Output 07/08/23 07/09/23 07/09/23 18:59 06:59 18:59 Other: Voiding Method Bedside Commode Bedside Commode # Voids 1 # Bowel Movements 1 - Constitutional General appearance: Present: average body habitus, no acute distress - Respiratory Details: breathing is even and unlabored - Cardiovascular Details: skin warm and dry - Integumentary Integumentary: Absent: cyanotic - Musculoskeletal Musculoskeletal: Present: strength equal bilaterally - Psychiatric Psychiatric: Present: A&O x's 3 - Labs CBC & Chem 7: 07/09/23 04:25 07/09/23 04:25 Labs: Abnormal Lab Results - Last 24 Hours (Table) 07/09/23 07/09/23 Range/Units 04:25 04:25 RBC 3.74 L (4.10-5.20) X 10*6/uL Hgb 10.3 L (12.0-15.0) g/dL Hct 34.1 L (37.2-46.3) % MCHC 30.2 L (32.0-37.0) g/dL RDW 16.9 H (11.5-14.5) % Immature Gran # 0.09 H (0.00-0.04) X 10*3/uL Lymphocytes # 0.36 L (0.90-5.00) X 10*3/uL Eosinophils # 0.01 L (0.04-0.35) X 10*3/uL Anion Gap 13.20 H (4.00-12.00) mmol/L Creatinine 0.3 L (0.6-1.5) mg/dL BUN/Creatinine Ratio 33.00 H (12.00-20.00) Ratio Microbiology - Last 24 Hours (Table) 07/03/23 11:36 Blood Culture - Final Blood - Imaging and Cardiology MRI neck reviewed Assessment and Plan (1) Chronic neck pain Current Visit: Yes Status: Acute Code(s): M54.2 - CERVICALGIA; G89.29 - OTHER CHRONIC PAIN SNOMED Code(s): 2002290724787 (2) Dyspnea Current Visit: Yes Status: Acute Priority: High Code(s): R06.00 - DYSPNEA, UNSPECIFIED SNOMED Code(s): 106929173 (3) Head and neck cancer Current Visit: No Status: Chronic Priority: High Code(s): C76.0 - M ALIGNANT NEOPLASM OF HEAD, FACE AND NECK SNOMED Code(s): 583441774 (4) Tracheobronchitis Current Visit: Yes Status: Acute Priority: High Code(s): J40 - BRONCHITIS, NOT SPECIFIED ACUTE OR CHRONIC SNOMED Code(s): 47365698 Plan: Chronic neck pain: Patient has marked increase in this symptom, compared to her current baseline, which is ongoing. This is intractable at a level of 8-9/10, despite recent increase in her fentanyl, and ongoing Dilaudid. -Workup as to the specific causes so far has been negative with the CT scans. Therefore MRI of the neck was done, this does not show any specific osseous abnormalities. Posttreatment changes are again seen in the soft tissue. There is mention of a soft tissue mass posterior to the area of her resection. It is not clear if this is postoperative scarring, or tumor recurrence. -Continue current treatment regimen. Gabapentin added -Case discussed with pain management to reevaluate the patient. Based on the location of the pain, left side of the face in front of the ear, infra- auricular, and adjacent neck areas, there may be a possibility of benefit from trigeminal block Head and neck cancer: It is not definite so far, if her current symptoms are related to any cancer rec urrence. Imaging in this regard has not been definitive either. As noted, the plan is to have radiation oncology review her current MRI and compare it to the previous CT scans to see if the finding of masslike area posterior to the area of resection represents recurrence or not. Spoke with Dr. Knight today, he will further review scans with Dr. Parzen -PET CT scheduled for 07/19/23
--- NOTE | 2023-07-09 23:36 | PN ---
PROGRESS NOTE DATE OF SERVICE: 07/09/2023 SUBJECTIVE: This is a 63-year-old woman, who was admitted with significant pain, is complaining of 9/10 pain. Radiation Oncology and Pain Management following the patient closely. No chest pain. No palpitation. OBJECTIVE: VITAL SIGNS: Pulse is 84, blood pressure is 125/70, respirations 16. CHEST: A few scattered rhonchi and crackles. ABDOMEN: Soft. NERVOUS SYSTEM: Unchanged. NECK: Tracheostomy present. LABORATORY DATA: Hemoglobin 10.3. ASSESSMENT: 1. Severe intractable neck and back pain on the left side with chest pain, possibly secondary to malignancy. 2. Possible infection, bronchitis, right upper lobe pneumonia, empiric antibiotics with Klebsiella variicola. 3. Elevated WBC. 4. PEG tube leak, improved. 5. Elevated procalcitonin. 6. Generalized weakness. 7. Coronary artery disease. 8. Severe cardiomyopathy. 9. Laryngeal cancer with tracheostomy. 10.Multiple complex medical issues. RECOMMENDATIONS: Recommended to continue current management and continue symptomatic treatment. Repeat labs. Otherwise, empiric antibiotics. Closely follow with Hematology/Oncology, Pain Management. Further recommendations to follow. MMODL / IJN: [id number] /
[2023-07-10 10:22] LABS: Basophils # (A) 0.02 X 10*3/uL (0.00-0.10); Basophils % (A) 0.3 %; Eosinophils # (A) 0.01 X 10*3/uL (0.04-0.35); Eosinophils % (A) 0.1 %; HCT 34.3 % (37.2-46.3); HGB 10.4 g/dL (12.0-15.0); Lymphocytes # (A) 0.39 X 10*3/uL (0.90-5.00); MCH 27.8 pg (27.0-32.0); MCHC 30.3 g/dL (32.0-37.0); MCV 91.7 FL (80.0-97.0); Mean Platelet Volume 11.9 FL (9.5-12.2); Monocytes # (A) 0.83 X 10*3/uL (0.20-1.00); Monocytes % (A) 10.6 %; NRBC Per 100 WBC 0 X 10*3/uL (0.00-0.01); Neutrophils # (A) 6.53 X 10*3/uL (1.80-7.70); Neutrophils % (A) 83.2 %; Platelet Count 276 X 10*3/uL (140-440); RBC 3.74 X 10*6/uL (4.10-5.20); WBC 7.84 X 10*3/uL (4.50-10.00)
[2023-07-10 10:30] LABS: BUN/Creat Ratio 32.75 Ratio (12.00-20.00); Blood Urea Nitrogen 13.1 mg/dL (9.0-27.0); Calcium 8.6 mg/dL (8.7-10.3); Carbon Dioxide 26.7 mmol/L (21.6-31.8); Chloride 100 mmol/L (96-109); Glucose 89 mg/dL (70-110); Potassium 3.8 mmol/L (3.5-5.5); Sodium 140 mmol/L (135-145)
--- NOTE | 2023-07-10 12:24 | P.PN ---
Progress Note - Text Progress Note Date: 07/10/23 this is a 63-year-old lady with history of left tonsillar cancer status post chemotherapy and radiation therapy with a recent complaint of left sided face pain including the forehead in the left ear in a patchy pattern. The patient has allodynia to touch around her left ear. She is on Plavix and aspirin. She might benefit from a diagnostic trigeminal nerve block in the future however we have to hold her Plavix for 5-7 days before the procedure and her aspirin for 3 days before. Meanwhile she is to continue using her opioids with an escalation of her Neurontin dose is titrated. The patient is willing to hold her Plavix for a week if approved by her physician and she is willing to try this injection instead of going up on her medications as she states.
--- NOTE | 2023-07-10 15:40 | P.PN ---
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 On today's evaluation that is 07/09/2023,the patient denies any fever or any chills, patient is breathing comfortably on room air, the patient has been complaining of some chest pain and an cough or sputum production has decreased some nausea with vomiting no diarrhea has been reported. Patient did have a white count of 7.74, creatinine 0.3 Objective - Vital Signs Vital signs: Vital Signs Temp 97.7 F 07/09/23 19:04 Pulse 89 07/09/23 19:04 Resp 15 07/09/23 19:04 BP 105/96 07/09/23 19:04 Pulse Ox 96 07/09/23 19:04 FiO2 21 07/09/23 08:10 Intake & Output 07/09/23 07/09/23 07/10/23 06:59 18:59 06:59 Weight 45.7 kg Other: Voiding Method Bedside Commode Bedside Commode Bedside Commode # Voids 4 # Bowel Movements 1 - Exam GENERAL DESCRIPTION: Middle-aged female lying in bed in no distress RESPIRATORY SYSTEM: Unlabored breathing , decreased breath sounds at bases HEART: S1 S2 regular rate and rhythm , ABDOMEN: Soft , no tenderness EXTREMITIES: No edema feet - Labs CBC & Chem 7: 07/10/23 07:09 07/10/23 07:09 Labs: Abnormal Lab Results - Last 24 Hours (Table) 07/09/23 07/09/23 Range/Units 04:25 04:25 RBC 3.74 L (4.10-5.20) X 10*6/uL Hgb 10.3 L (12.0-15.0) g/dL Hct 34.1 L (37.2-46.3) % MCHC 30.2 L (32.0-37.0) g/dL RDW 16.9 H (11.5-14.5) % Immature Gran # 0.09 H (0.00-0.04) X 10*3/uL Lymphocytes # 0.36 L (0.90-5.00) X 10*3/uL Eosinophils # 0.01 L (0.04-0.35) X 10*3/uL Anion Gap 13.20 H (4.00-12.00) mmol/L Creatinine 0.3 L (0.6-1.5) mg/dL BUN/Creatinine Ratio 33.00 H (12.00-20.00) Ratio Assessment and Plan (1) Leukocytosis Current Visit: Yes Status: Acute Code(s): D72.829 - ELEVATED WHITE BLOOD CELL COUNT, UNSPECIFIED SNOMED Code(s): 598454896 (2) Tracheobronchitis Current Visit: Yes Status: Acute Priority: High Code(s): J40 - BRONCHITIS, NOT SPECIFIED ACUTE OR CHRONIC SNOMED Code(s): 22984270 (3) Penicillin allergy Current Visit: Yes Status: Acute Code(s): Z88.0 - ALLERGY STATUS TO PENICILLIN SNOMED Code(s): 74570645 (4) Positive blood culture Current Visit: Yes Status: Acute Code(s): R78.81 - BACTEREMIA SNOMED Code(s): 510438707 Plan: 1patient presenting to the hospital with increasing shortness of breath chest pain also have a cough purulent drainage concerning for tracheobronchitis possible bacterial and question of pseudomonal with a greenish drainage from the trach site did have elevated white count though chest x-ray reported negative for acute infiltrate, no significant redness around the trach site was noticed 2-penicillin allergy that will limit the number of antibiotics safe to use 3-patient did have a mild elevated procalcitonin 0.32 sputum cultures did grow Klebsiella that is a sensitive pathogen 4-blood culture with staph epi possible skin contamination blood culture repeated has been negative 4-patient to continue with the Rocephin to finish her course of therapy Dictation was produced using [employer] dictation software. please excuse any grammatical, word or spelling errors. Time with Patient: Less than 30
--- NOTE | 2023-07-10 15:40 | P.PN ---
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 On today's evaluation that is 07/08/2023, patient has been afebrile, patient is breathing comfortably and is currently on room air, patient has been complaining of some shortness of breath minimal chest pain occasional cough no worsening sputum production and no diarrhea has been reported. Patient did have a white count of 8.30, creatinine 0.3 Objective - Vital Signs Vital signs: Vital Signs Temp 97.2 F L 07/08/23 13:50 Pulse 92 07/08/23 16:04 Resp 15 07/08/23 13:50 BP 108/70 07/08/23 13:50 Pulse Ox 96 07/08/23 13:50 FiO2 28 07/04/23 09:29 Intake & Output 07/07/23 07/08/23 07/08/23 18:59 06:59 18:59 Output Total 1400 800 Balance -1400 -800 Weight 45.7 kg Output: Urine 1400 800 Other: Voiding Method Bedside Commode # Voids 1 # Bowel Movements 1 1 - Exam GENERAL DESCRIPTION: Middle-aged female lying in bed in no distress RESPIRATORY SYSTEM: Unlabored breathing , decreased breath sounds at bases HEART: S1 S2 regular rate and rhythm , ABDOMEN: Soft , no tenderness EXTREMITIES: No edema feet - Labs CBC & Chem 7: 07/10/23 07:09 07/10/23 07:09 Labs: Abnormal Lab Results - Last 24 Hours (Table) 07/08/23 07/08/23 Range/Units 05:42 05:42 RBC 3.57 L (4.10-5.20) X 10*6/uL Hgb 10.0 L (12.0-15.0) g/dL Hct 33.0 L (37.2-46.3) % MCHC 30.3 L (32.0-37.0) g/dL RDW 16.6 H (11.5-14.5) % Immature Gran # 0.09 H (0.00-0.04) X 10*3/uL Lymphocytes # 0.39 L (0.90-5.00) X 10*3/uL Eosinophils # 0.01 L (0.04-0.35) X 10*3/uL Anion Gap 13.30 H (4.00-12.00) mmol/L Creatinine 0.3 L (0.6-1.5) mg/dL BUN/Creatinine Ratio 36.00 H (12.00-20.00) Ratio Glucose 113 H (70-110) mg/dL Assessment and Plan (1) Leukocytosis Current Visit: Yes Status: Acute Code(s): D72.829 - ELEVATED WHITE BLOOD CELL COUNT, UNSPECIFIED SNOMED Code(s): 944586664 (2) Tracheobronchitis Current Visit: Yes Status: Acute Priority: High Code(s): J40 - BRONCHITIS, NOT SPECIFIED ACUTE OR CHRONIC SNOMED Code(s): 91289242 (3) Penicillin allergy Current Visit: Yes Status: Acute Code(s): Z88.0 - ALLERGY STATUS TO PENICILLIN SNOMED Code(s): 74289969 (4) Positive blood culture Current Visit: Yes Status: Acute Code(s): R78.81 - BACTEREMIA SNOMED Code(s): 459037910 Plan: 1patient presenting to the hospital with increasing shortness of breath chest pain also have a cough purulent drainage concerning for tracheobronchitis possible bacterial and question of pseudomonal with a greenish drainage from the trach site did have elevated white count though chest x-ray reported negative for acute infiltrate, no significant redness around the trach site was noticed 2-penicillin allergy that will limit the number of antibiotics safe to use 3-patient did have a mild elevated procalcitonin 0.32 sputum cultures did grow Klebsiella that is a sensitive pathogen 4-blood culture with staph epi possible skin contamination blood culture repeated has been negative 4-patient to continue with the Rocephin and monitor clinical course closely Dictation was produced using [employer] dictation software. please excuse any grammatical, word or spelling errors. Time with Patient: Less than 30
--- NOTE | 2023-07-10 15:41 | P.PN ---
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 On today's evaluation that is 07/10/2023,the patient remains to be afebrile, patient is on room air not requiring supplemental oxygen and however is complaining of some shortness of breath and did have cough but no worsening.Patient denies having any nausea or vomiting, no abdominal pain and no diarrhea has been reported patient complaining of mostly pain to the left side of her neck. Patient did have white count of 7.84 creatinine 0.4 Objective - Vital Signs Vital signs: Vital Signs Temp 97.4 F L 07/10/23 07:10 Pulse 88 07/10/23 11:41 Resp 15 07/10/23 08:00 BP 138/79 07/10/23 07:10 Pulse Ox 95 07/10/23 08:36 FiO2 21 07/09/23 08:10 Intake & Output 07/09/23 07/10/23 07/10/23 18:59 06:59 18:59 Weight 45.7 kg 45.3 kg Other: Voiding Method Bedside Commode Bedside Commode Bedside Commode # Voids 4 2 # Bowel Movements 1 1 - Exam GENERAL DESCRIPTION: Middle-aged female lying in bed in no distress RESPIRATORY SYSTEM: Unlabored breathing , decreased breath sounds at bases HEART: S1 S2 regular rate and rhythm , ABDOMEN: Soft , no tenderness EXTREMITIES: No edema feet - Labs CBC & Chem 7: 07/10/23 07:09 07/10/23 07:09 Labs: Abnormal Lab Results - Last 24 Hours (Table) 07/10/23 07/10/23 Range/Units 07:09 07:09 RBC 3.74 L (4.10-5.20) X 10*6/uL Hgb 10.4 L (12.0-15.0) g/dL Hct 34.3 L (37.2-46.3) % MCHC 30.3 L (32.0-37.0) g/dL RDW 17.0 H (11.5-14.5) % Immature Gran # 0.06 H (0.00-0.04) X 10*3/uL Lymphocytes # 0.39 L (0.90-5.00) X 10*3/uL Eosinophils # 0.01 L (0.04-0.35) X 10*3/uL Anion Gap 13.30 H (4.00-12.00) mmol/L Creatinine 0.4 L (0.6-1.5) mg/dL BUN/Creatinine Ratio 32.75 H (12.00-20.00) Ratio Calcium 8.6 L (8.7-10.3) mg/dL Assessment and Plan (1) Leukocytosis Current Visit: Yes Status: Acute Code(s): D72.829 - ELEVATED WHITE BLOOD CELL COUNT, UNSPECIFIED SNOMED Code(s): 617584382 (2) Tracheobronchitis Current Visit: Yes Status: Acute Priority: High Code(s): J40 - BRONCHITIS, NOT SPECIFIED ACUTE OR CHRONIC SNOMED Code(s): 40949968 (3) Penicillin allergy Current Visit: Yes Status: Acute Code(s): Z88.0 - ALLERGY STATUS TO PE NICILLIN SNOMED Code(s): 13550935 (4) Positive blood culture Current Visit: Yes Status: Acute Code(s): R78.81 - BACTEREMIA SNOMED Code(s): 260171065 Plan: 1patient presenting to the hospital with increasing shortness of breath chest pain also have a cough purulent drainage concerning for tracheobronchitis possible bacterial and question of pseudomonal with a greenish drainage from the trach site did have elevated white count though chest x-ray reported negative for acute infiltrate, no significant redness around the trach site was noticed 2-penicillin allergy that will limit the number of antibiotics safe to use 3-patient did have a mild elevated procalcitonin 0.32 sputum cultures did grow Klebsiella that is a sensitive pathogen 4-blood culture with staph epi possible skin contamination blood culture hansa edward has been negative 4-patient remains to be afebrile white count has been normal, patient is curre ntly on Rocephin for underlying pneumonia pain management has been consulted for her pain issues Dictation was produced using [employer] software. please excuse any grammatical, word or spelling errors.
--- NOTE | 2023-07-10 17:17 | P.PN ---
Subjective Progress Note Date: 07/10/23 Principal diagnosis: Head/neck malignancy, progressive lt facial pain Pt reporting persistent pain in the left face of 8+/10 constantly, the narcotics she is receiving are not helping he pain in any meaningful way. She is tolerating tube feedings currently. She had positive blood and sputum cultures, spouse reports that the sputum from pt trach is now clear and does not smell as foul as it did prior to admit. No recent fevers. Objective - Vital Signs Vital signs: Vital Signs Temp 96.9 F L 07/10/23 14:00 Pulse 80 07/10/23 15:49 Resp 15 07/10/23 14:00 BP 104/68 07/10/23 14:00 Pulse Ox 94 L 07/10/23 14:00 FiO2 21 07/09/23 08:10 Intake & Output 07/09/23 07/10/23 07/10/23 18:59 06:59 18:59 Weight 45.7 kg 45.3 kg Other: Voiding Method Bedside Commode Bedside Commode Bedside Commode # Voids 4 2 # Bowel Movements 1 1 - Constitutional General appearance: Present: cooperative, no acute distress, thin - EENT Eyes: Present: anicteric sclerae, EOMI ENT: Present: hearing grossly normal - Respiratory Details: resp even and unlabored - Peripheral edema leg Peripheral Edema: bilateral: None - Musculoskeletal Musculoskeletal: Present: generalized weakness - Psychiatric Psychiatric: Present: A&O x's 3, appropriate affect, intact judgment & insight - Labs CBC & Chem 7: 07/10/23 07:09 07/10/23 07:09 Labs: Abnormal Lab Results - Last 24 Hours (Table) 07/10/23 07/10/23 Range/Units 07:09 07:09 RBC 3.74 L (4.10-5.20) X 10*6/uL Hgb 10.4 L (12.0-15.0) g/dL Hct 34.3 L (37.2-46.3) % MCHC 30.3 L (32.0-37.0) g/dL RDW 17.0 H (11.5-14.5) % Immature Gran # 0.06 H (0.00-0.04) X 10*3/uL Lymphocytes # 0.39 L (0.90-5.00) X 10*3/uL Eosinophils # 0.01 L (0.04-0.35) X 10*3/uL Anion Gap 13.30 H (4.00-12.00) mmol/L Creatinine 0.4 L (0.6-1.5) mg/dL BUN/Creatinine Ratio 32.75 H (12.00-20.00) Ratio Calcium 8.6 L (8.7-10.3) mg/dL - Imaging and Cardiology Neck MRI report reviewed, image reviewed with Rad Onc PET report reviewed, image reviewed with Rad Onc Assessment and Plan (1) Acute facial pain Current Visit: Yes Status: Acute Priority: High Code(s): R51.9 - HEADACHE, UNSPECIFIED SNOMED Code(s): 355850507 (2) Head and neck cancer Current Visit: Yes Status: Chronic Priority: High Code(s): C76.0 - MALIGNANT NEOPLASM OF HEAD, FACE AND NECK SNOMED Code(s): 641963519 (3) Positive blood culture Current Visit: Yes Status: Acute Priority: High Code(s): R78.81 - BACTEREMIA SNOMED Code(s): 762677825 Plan: Intractable left facial pain, Hx head/neck malignancy -Patient has marked increase in pain in the face, intractable, 8+/10. Adjustments to pain meds and oral steroids have not made any impact on pain. No further increases in narcotics at this time. Gabapentin ordered. Dex increased to TID, protonix ordered -Not sure if pain was exacerbated by infection (BC and sputum cultures +)? -Pain Mgmt consulted. Hope nerve block can help ease pain. Do not see that antiplatelet meds have been held for nerve block, will inquire -CT scans were reviewed with no underlying cause for acute change in pt pain noted. MRI of the neck done, reviewed today with Rad Onc. ENT Surgeon at [facility] was asked to collaborate on the case. The consensus is that there is disease progression. -Radiation Oncology unfortunately cannot offer any further radiation to the area in question. -After reviewing history of pt and imaging, ENT Surgeon cannot offer any surgical options. -Discussed with Primary Oncologist. Only systemic treatment that is available would be single agent cetuximab, with a 15-20% response rate. All of the above was discussed with on the phone. All of his questions were answered to his satisfaction. Plan is to discuss all the above with pt when is present. He agrees with that. Positive blood and sputum cultures -abx cont per ID
[2023-07-10] MEDS: dexAMETHasone 4 MG TAB PEG/G-TUBE SCH (18:54)
[2023-07-10] MEDS: PANTOPRAZOLE 40 MG/10 ML VIAL IVP SCH (20:31)
--- NOTE | 2023-07-10 23:35 | P.PN ---
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 Presents initially with chest pain and dyspnea secondary to acute tracheobronchitis secondary to Klebsiella infection seen on sputum culture currently being treated with ceftriaxone Brusher evaluated the patient for pleuritic pain and recommended outpatient stress test. Patient main complaint currently is increasing pain in the left parasellar area and around the left mandibular angle. With hard mass in the area. Neck MRI showed left tonsillar mass about 16 mm suspicious for recurrent neoplasm. Hematology/oncology team on the case, as per their recommendation, there is no role for radiation oncologist treatment or ENT surgery treatment for her case, as they discussed with the appropriate attendance. The decision is to treat pain systemically. Pain management service also following and they recommended trigeminal nerve block but antiplatelet therapy needs to be held. Patient currently on aspirin and Plavix Ceftriaxone is provided for her tracheobronchitis and patient is improving. Also on dexamethasone 4 mg every 8 hours and IV Protonix. Objective - Vital Signs Vital signs: Vital Signs Temp 98.1 F 07/10/23 19:05 Pulse 77 07/10/23 19:05 Resp 15 07/10/23 19:05 BP 117/65 07/10/23 19:05 Pulse Ox 96 07/10/23 19:05 FiO2 21 07/09/23 08:10 Intake & Output 07/10/23 07/10/23 07/11/23 06:59 18:59 06:59 Weight 45.3 kg Other: Voiding Method Bedside Commode Bedside Commode # Voids 2 2 # Bowel Movements 1 2 - Exam GENERAL: The patient is alert and oriented x3, not in any acute distress. Well developed, well nourished. -HEENT: Pupils are round and equally reacting to light. EOMI. No scleral icterus. No conjunctival pallor. Normocephalic, atraumatic. No pharyngeal erythema. No thyromegaly. Left tonsillar bed hard mass, tender CARDIOVASCULAR: S1 and S2 present. No murmurs, rubs, or gallops. PULMONARY: Chest is clear to auscultation, no wheezing , no crackles. ABDOMEN: Soft, nontender, nondistended, normoactive bowel sounds. No palpable organomegaly. MUSCULOSKELETAL: No joint swelling or deformity. EXTREMITIES: No cyanosis, clubbing, or pedal edema. NEUROLOGICAL: Gross neurological examination did not reveal any focal deficits. SKIN: No rashes. no petechiae. 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 Severe left facial pain secondary to above Acute tracheobronchitis secondary to Klebsiella improvement History of head and neck cancer History of laryngeal cancer s/p PEG tube Continue with pain management, currently on gabapentin and dexamethasone Plan: Continue on dexamethasone Continue with pain management, continue with gabapentin and fentanyl Continue ceftriaxone Continue with IV Protonix. Patient on dual antiplatelet therapy. He had to be held 3 to 6 days prior to vaginal nerve block they are deciding. Hematology/oncology team on the case and they recommended no much benefit from radiation oncology or ENT surgery Pain management service following closely DVT prophylaxis subcutaneous heparin GI DVT prophylaxis Prognosis is guarded
--- NOTE | 2023-07-11 16:35 | P.PN ---
Subjective Progress Note Date: 07/11/23 CHIEF COMPLAINT: Drainage from PEG tube site HISTORY OF PRESENT ILLNESS: Mrs. Sue has a history of laryngeal cancer with PEG tube placed for nutrition. Initially consulted for malfunctioning PEG tube. A new EN for adapter was applied. PEG tube then had been functioning. Patient today started having abdominal pain with greenish gastric drainage around PEG tube site. Per nursing staff she had 200ml residual that did have some gastric contents. And then repeat residual check only 10 mL. Tube feeds were placed on hold by medicine service due to patient having abdominal pain. She is afebrile. PHYSICAL EXAM: VITAL SIGNS: Reviewed. GENERAL: no acute distress. ABDOMEN: Soft. Nondistended. Tenderness near PEG tube site left side of abdomen. PEG tube site with minimal greenish drainage. NEUROLOGIC: Alert and oriented. Cranial nerves II through XII grossly intact. ASSESSMENT: 1. Abdominal pain with minimal greenish drainage around PEG tube site PLAN: -Check abdominal x-ray -Continue to hold tube feeds -Continue to monitor Physician Nurse Care Manager note has been reviewed by physician. Signing provider agrees with the documented findings, assessment, and plan of care. Objective - Vital Signs Vital signs: Vital Signs Temp 97.6 F 07/11/23 14:44 Pulse 96 07/11/23 16:00 Resp 16 07/11/23 14:44 BP 126/76 07/11/23 14:44 Pulse Ox 96 07/11/23 14:44 FiO2 21 07/09/23 08:10 Intake & Output 07/10/23 07/11/23 07/11/23 18:59 06:59 18:59 Weight 45.5 kg Other: Voiding Method Bedside Commode Bedside Commode # Voids 2 2 # Bowel Movements 2 - Labs CBC & Chem 7: 07/10/23 07:09 07/10/23 07:09
--- NOTE | 2023-07-11 17:40 | P.PN ---
Subjective Progress Note Date: 07/11/23 Principal diagnosis: Head/neck malignancy, progressive lt facial pain Pt reporting persistent pain in the left face of 8+/10 constantly, the narcotics she is receiving are not helping he pain in any meaningful way. She is tolerating tube feedings currently. She had positive blood and sputum cultures, spouse reports that the sputum from pt trach is now clear and does not smell as foul as it did prior to admit. No recent fevers. Objective - Vital Signs Vital signs: Vital Signs Temp 97.6 F 07/11/23 14:44 Pulse 96 07/11/23 16:00 Resp 16 07/11/23 14:44 BP 126/76 07/11/23 14:44 Pulse Ox 96 07/11/23 14:44 FiO2 21 07/09/23 08:10 Intake & Output 07/10/23 07/11/23 07/11/23 18:59 06:59 18:59 Weight 45.5 kg Other: Voiding Method Bedside Commode Bedside Commode # Voids 2 2 # Bowel Movements 2 - Constitutional General appearance: Present: cooperative, no acute distress, thin - EENT Eyes: Present: anicteric sclerae, EOMI ENT: Present: hearing grossly normal - Respiratory Respiratory: bilateral: diminished - Cardiovascular Rhythm: regular - Gastrointestinal General gastrointestinal: Present: soft - Musculoskeletal Musculoskeletal: Present: generalized weakness - Psychiatric Psychiatric: Present: A&O x's 3, appropriate affect, intact judgment & insight - Labs CBC & Chem 7: 07/10/23 07:09 07/10/23 07:09 Assessment and Plan (1) Acute facial pain Current Visit: Yes Status: Acute Priority: High Code(s): R51.9 - HEADACHE, UNSPECIFIED SNOMED Code(s): 129419178 (2) Head and neck cancer Current Visit: Yes Status: Chronic Priority: High Code(s): C76.0 - MALIGNANT NEOPLASM OF HEAD, FACE AND NECK SNOMED Code(s): 193316314 (3) Positive blood culture Current Visit: Yes Status: Acute Priority: High Code(s): R78.81 - BACTEREMIA SNOMED Code(s): 438511736 Plan: Intractable left facial pain, Hx head/neck malignancy -Patient has marked increase in pain in the face, intractable, 8+/10. Adjustments to pain meds and oral steroids have not made any impact on pain. No further increases in narcotics at this time. Gabapentin ordered. Dex increased to TID, protonix ordered -Not sure if pain was exacerbated by infection (BC and sputum cultures +)? -Reviewed with patient and that based on review of the CT scans/MRI neck, there is nothing that is seen that can account for the acute change in pain. Pain Mgmt consulted. Hope nerve block can help ease pain. HELD plavix starting today. ASA will be held tomorrow (holding per recommendations for holding aspirin and Plavix in pain management notes). Hopefully procedure can be done Sunday. -Reviewed with patient and the collaborative efforts of radiation oncology, medical oncology as well as ENT oncology surgeon. After review of the images and the case, the consensus is is that there is disease progression. Radiation oncology cannot offer any further radiation to the area. ENT surgeon does not have any surgical options. From a medical oncology standpoint systemic treatment with single agent cetuximab is the only treatment option available. We did discuss the 15 to 20% response rate, duration of response may be 4 to 6 months. Without treatment possibly 6 months to maybe a year. We did discuss palliative care as well as hospice care. All of patient and her 's questions were answered to their satisfaction at this time. -Focus of care right now is pain management. Once pain is controlled, patient would like an opportunity to rehab/do physical therapy. I told patient she did not have to make any decisions about treatment right now. Positive blood and sputum cultures -abx cont per ID Time with Patient: Greater than 30 (>60 min spent counseling and coordinating care)
[2023-07-11] MEDS: DEXAMETHASONE SOD PHOSPHATE 4 MG/ML 1 ML VIAL IVP SCH (17:53)
[2023-07-11 18:04] LABS: Glucose,Whole Blood 108 mg/dL (70-110)
--- NOTE | 2023-07-11 21:19 | P.PN ---
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 Presents initially with chest pain and dyspnea secondary to acute tracheobronchitis secondary to Klebsiella infection seen on sputum culture currently being treated with ceftriaxone Composition Stone Applicator evaluated the patient for pleuritic pain and recommended outpatient stress test. Patient main complaint currently is increasing pain in the left parasellar area and around the left mandibular angle. With hard mass in the area. Neck MRI showed left tonsillar mass about 16 mm suspicious for recurrent neoplasm. Hematology/oncology team on the case, as per their recommendation, there is no role for radiation oncologist treatment or ENT surgery treatment for her case, as they discussed with the appropriate attendance. The decision is to treat pain systemically. Pain management service also following and they recommended trigeminal nerve block but antiplatelet therapy needs to be held. Patient currently on aspirin and Plavix Ceftriaxone is provided for her tracheobronchitis and patient is improving. Also on dexamethasone 4 mg every 8 hours and IV Protonix. 07/11/2023 Patient with persistent pain in the left tonsillar bed mass Hematology oncology team recommended pain service consult for recommended trigeminal block Regards expected procedure, Plavix and aspirin were held today. Patient had her Heart stents more than a year ago on August 2021. Patient may need dual antiplatelet therapy annually. Patient is a since 1 dose of ceftriaxone 2 days ago. Currently stopped. Will keep monitoring while off antibiotic as patient does not have significant bronchitis on exam. With no fever or leukocytosis. Positive blood culture with Staph epidermidis most likely contaminant. Also she has picked to leaking today with mild right umbilical tenderness. Surgery team consult requested. Objective - Vital Signs Vital signs: Vital Signs Temp 96.3 F L 07/11/23 07:10 Pulse 100 07/11/23 08:12 Resp 15 07/11/23 07:10 BP 129/73 07/11/23 08:45 Pulse Ox 97 07/11/23 07:58 FiO2 21 07/09/23 08:10 Intake & Output 07/10/23 07/11/23 07/11/23 18:59 06:59 18:59 Weight 45.5 kg Other: Voiding Method Bedside Commode Bedside Commode # Voids 2 2 # Bowel Movements 2 - Exam GENERAL: The patient is alert and oriented x3, not in any acute distress. Well developed, well nourished. -HEENT: Pupils are round and equally reacting to light. EOMI. No scleral icterus. No conjunctival pallor. Normocephalic, atraumatic. No pharyngeal erythema. No thyromegaly. Left tonsillar bed hard mass, tender CARDIOVASCULAR: S1 and S2 present. No murmurs, rubs, or gallops. PULMONARY: Chest is clear to auscultation, no wheezing , no crackles. ABDOMEN: Soft, nontender, nondistended, normoactive bowel sounds. No palpable organomegaly. MUSCULOSKELETAL: No joint swelling or deformity. EXTREMITIES: No cyanosis, clubbing, or pedal edema. NEUROLOGICAL: Gross neurological examination did not reveal any focal deficits. SKIN: No rashes. no petechiae. 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 Severe left facial pain secondary to above Acute tracheobronchitis secondary to Klebsiella improvement History of head and neck cancer History of laryngeal cancer s/p PEG tube Continue with pain management, currently on gabapentin and dexamethasone Plan: Continue on dexamethasone Continue with pain management, continue with gabapentin and fentanyl Continue ceftriaxone Continue with IV Protonix. Patient on dual antiplatelet therapy. He had to be held 3 to 6 days prior to vaginal nerve block they are deciding. Hematology/oncology team on the case and they recommended no much benefit from radiation oncology or ENT surgery Pain management service following closely DVT prophylaxis subcutaneous heparin GI DVT prophylaxis Prognosis is guarded
[2023-07-12 00:43] LABS: Glucose,Whole Blood 105 mg/dL (70-110)
[2023-07-12 05:37] LABS: Glucose,Whole Blood 113 mg/dL (70-110)
--- NOTE | 2023-07-12 07:32 | XR ---
EXAMINATION TYPE: XR abdomen 2V DATE OF EXAM: 07/12/2023 CLINICAL DATA: 63 year-old female abdominal pain, [facility] COMPARISON: 03/23/2023 FINDINGS: Old right posterior eighth rib fracture deformity. Lung bases appear clear. PEG tube is noted. No alyce dence for free intraperitoneal air. No dilated small bowel loops. Mild stool burden with air and stoo l extending distally to the rectum. No suspicious calcification seen. IMPRESSION: No evidence for free air or bowel obstruction. Mild stool burden. Indwelling PEG tube.
--- NOTE | 2023-07-12 11:21 | P.PN ---
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 Presents initially with chest pain and dyspnea secondary to acute tracheobronchitis secondary to Klebsiella infection seen on sputum culture currently being treated with ceftriaxone Protective Services Officer evaluated the patient for pleuritic pain and recommended outpatient stress test. Patient main complaint currently is increasing pain in the left parasellar area and around the left mandibular angle. With hard mass in the area. Neck MRI showed left tonsillar mass about 16 mm suspicious for recurrent neoplasm. Hematology/oncology team on the case, as per their recommendation, there is no role for radiation oncologist treatment or ENT surgery treatment for her case, as they discussed with the appropriate attendance. The decision is to treat pain systemically. Pain management service also following and they recommended trigeminal nerve block but antiplatelet therapy needs to be held. Patient currently on aspirin and Plavix Ceftriaxone is provided for her tracheobronchitis and patient is improving. Also on dexamethasone 4 mg every 8 hours and IV Protonix. 07/11/2023 Patient with persistent pain in the left tonsillar bed mass Hematology oncology team recommended pain service consult for recommended trigeminal block Regards expected procedure, Plavix and aspirin were held today. Patient had her Heart stents more than a year ago on August 2021. Patient may need dual antiplatelet therapy annually. Patient is a since 1 dose of ceftriaxone 2 days ago. Currently stopped. Will keep monitoring while off antibiotic as patient does not have significant bronchitis on exam. With no fever or leukocytosis. Positive blood culture with Staph epidermidis most likely contaminant. Also she has picked to leaking today with mild right umbilical tenderness. Surgery team consult requested. 07/12/2023 Patient clinically the same with significant pain and tenderness in her left tonsillar mass Plan for trigeminal blocking. Her aspirin and Plavix were put on hold yesterday Patient her cardiac cath and stent more than 1 year ago and she might not need dual antiplatelet therapy. Patient was instructed to follow-up with her wardrobe stylist and she agrees Still cannot eat because of her jaw/tensile problem Objective - Vital Signs Vital signs: Vital Signs Temp 97.6 F 07/12/23 07:19 Pulse 84 07/12/23 08:29 Resp 16 07/12/23 07:19 BP 120/75 07/12/23 07:19 Pulse Ox 95 07/12/23 08:12 FiO2 21 07/09/23 08:10 Intake & Output 07/11/23 07/12/23 07/12/23 18:59 06:59 18:59 Intake Total 50 0 Balance 50 0 Weight 46.5 kg Intake: Intake, IV Titration 50 Amount cefTRIAXone 2 gm In 50 Sodium Chloride 0.9% 50 ml @ 100 mls/hr IVPB Q24HR [facility] Rx#:[id number] Oral 0 Other: Voiding Method Bedside Commode # Voids 2 - Exam GENERAL: The patient is alert and oriented x3, not in any acute distress. Well developed, well nourished. -HEENT: Pupils are round and equally reacting to light. EOMI. No scleral icterus. No conjunctival pallor. Normocephalic, atraumatic. No pharyngeal erythema. No thyromegaly. Left tonsillar bed hard mass, tender CARDIOVASCULAR: S1 and S2 present. No murmurs, rubs, or gallops. PULMONARY: Chest is clear to auscultation, no wheezing , no crackles. ABDOMEN: Soft, nontender, nondistended, normoactive bowel sounds. No palpable organomegaly. MUSCULOSKELETAL: No joint swelling or deformity. EXTREMITIES: No cyanosis, clubbing, or pedal edema. NEUROLOGICAL: Gross neurological examination did not reveal any focal deficits. SKIN: No rashes. no petechiae. 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 Severe left facial pain secondary to above Acute tracheobronchitis secondary to Klebsiella improvement History of head and neck cancer History of laryngeal cancer s/p PEG tube Continue with pain management, currently on gabapentin and dexamethasone Plan: Continue on dexamethasone Continue with pain management, continue with gabapentin and fentanyl Continue ceftriaxone Continue with IV Protonix. Patient on dual antiplatelet therapy. He had to be held 3 to 6 days prior to vaginal nerve block they are deciding. Hematology/oncology team on the case and they recommended no much benefit from radiation oncology or ENT surgery Pain management service following closely DVT prophylaxis subcutaneous heparin GI DVT prophylaxis Prognosis is guarded
[2023-07-12 11:29] LABS: Glucose,Whole Blood 92 mg/dL (70-110)
[2023-07-12] MEDS: MORPHINE SULFATE 4 MG/ML SYRINGE IV PRN (12:52)
--- NOTE | 2023-07-12 14:26 | P.PN ---
Subjective Progress Note Date: 07/12/23 CHIEF COMPLAINT: Drainage from PEG tube site HISTORY OF PRESENT ILLNESS: Mrs. Sue has a history of laryngeal cancer with PEG tube placed for nutrition support. Patient has had no further drainage around her PEG tube site. She does continue to complain of abdominal pain near the PEG tube site as well as nausea. She reports having bowel movements. Her tube feeds remain on hold. Abdominal x-ray reports no evidence for free air or bowel obstruction. Mild stool burden. Indwelling PEG tube. Afebrile. Patient also being seen by pain service for possible nerve block for her facial pain. PHYSICAL EXAM: VITAL SIGNS: Reviewed. GENERAL: no acute distress. ABDOMEN: Soft. Nondistended. Tenderness around peg tube site. no drainage NEUROLOGIC: Alert and oriented. Cranial nerves II through XII grossly intact. ASSESSMENT: 1. Abdominal pain at peg tube site PLAN: -Further recommendations forthcoming per surgeon -Continue MiraLAX and stool softener for stool burden noted on x-ray -Tube feeds currently on hold Physician Ostomy Care Nurse note has been reviewed by physician. Signing provider agrees with the documented findings, assessment, and plan of care. I have personally seen and examined the patient, reviewed the TECHNOLOGY MANAGER /PAs history, exam and MDM and agree with the assessment and plan as written. Based on total visit time, I have performed more than 50% of the visit. As above: Patient having some abdominal discomfort. Points to the PEG tube site. Bolster loosened slightly. Bolster seems to be at the appropriate depth. Will check CT abdomen pelvis. Abdominal x-rays noted. Objective - Vital Signs Vital signs: Vital Signs Temp 97.7 F 07/12/23 11:25 Pulse 81 07/12/23 12:11 Resp 16 07/12/23 11:25 BP 116/72 07/12/23 11:25 Pulse Ox 97 07/12/23 11:25 FiO2 21 07/09/23 08:10 Intake & Output 07/11/23 07/12/23 07/12/23 18:59 06:59 18:59 Intake Total 50 0 Balance 50 0 Weight 46.5 kg Intake: Intake, IV Titration 50 Amount cefTRIAXone 2 gm In 50 Sodium Chloride 0.9% 50 ml @ 100 mls/hr IVPB Q24HR [facility] Rx#:[id number] Oral 0 Other: Voiding Method Bedside Commode # Voids 2 - Labs CBC & Chem 7: 06/04/24 07:09 07/10/23 07:09 Labs: Abnormal Lab Results - Last 24 Hours (Table) 07/12/23 Range/Units 05:35 POC Glucose (mg/dL) 113 H (70-110) mg/dL
--- NOTE | 2023-07-12 15:34 | P.PN ---
Subjective Progress Note Date: 07/12/23 Principal diagnosis: Head/neck malignancy, progressive lt facial pain Peristent pain in the left face of 8+/10 constantly, she reports mild relief for about an hour after receiving IV pain meds. Tube feeds were held for significant residuals, abd xray reports stool burden, pending CT AP. Positive blood and sputum cultures. She has bright red blood from trach today. No recent fevers. Objective - Vital Signs Vital signs: Vital Signs Temp 97.7 F 07/12/23 11:25 Pulse 81 07/12/23 12:11 Resp 16 07/12/23 11:25 BP 116/72 07/12/23 11:25 Pulse Ox 97 07/12/23 11:25 FiO2 21 07/09/23 08:10 Intake & Output 07/11/23 07/12/23 07/12/23 18:59 06:59 18:59 Intake Total 50 0 Balance 50 0 Weight 46.5 kg Intake: Intake, IV Titration 50 Amount cefTRIAXone 2 gm In 50 Sodium Chloride 0.9% 50 ml @ 100 mls/hr IVPB Q24HR [facility] Rx#:[id number] Oral 0 Other: Voiding Method Bedside Commode # Voids 2 - Constitutional General appearance: Present: cooperative, mild distress, thin - EENT Eyes: Present: anicteric sclerae, EOMI ENT: Present: hearing grossly normal - Neck Details: Small amt of bright red blood noted in trach. Thick du sputum with streaks of blood - Respiratory Respiratory: bilateral: diminished - Cardiovascular Rhythm: regular - Gastrointestinal General gastrointestinal: Present: soft - Neurologic Neurologic: Present: CNII-XII intact - Musculoskeletal Musculoskeletal: Present: generalized weakness - Psychiatric Psychiatric: Present: A&O x's 3, appropriate affect, intact judgment & insight - Labs CBC & Chem 7: 07/10/23 07:09 07/10/23 07:09 Labs: Abnormal Lab Results - Last 24 Hours (Table) 07/12/23 Range/Units 05:35 POC Glucose (mg/dL) 113 H (70-110) mg/dL Assessment and Plan (1) Acute facial pain Current Visit: Yes Status: Acute Priority: High Code(s): R51.9 - HEADACHE, UNSPECIFIED SNOMED Code(s): 030014289 (2) Head and neck cancer Current Visit: Yes Status: Chronic Priority: High Code(s): C76.0 - MALIGNANT NEOPLASM OF HEAD, FACE AND NECK SNOMED Code(s): 987242046 (3) Positive blood culture Current Visit: Yes Status: Acute Priority: High Code(s): R78.81 - BACTEREMIA SNOMED Code(s): 272504033 Plan: Intractable left facial pain, Hx head/neck malignancy -Patient has marked increase in pain in the face, intractable, 8+/10. Adjustments to pain meds and oral steroids have not made any impact on pain. No further increases in narcotics at this time. Gabapentin, Dex cont -Not sure if pain was exacerbated by infection (BC and sputum cultures +)? Pain is not improving even with treatment of infection -Based on review of the CT scans/MRI neck, there is nothing that is seen that can account for the acute change in pain. Pain Mgmt consulted. Hope nerve block can help ease pain. HELD plavix 07/10. ASA held 07/11 (holding per recommendations for holding aspirin and Plavix in pain management notes). Hopefully procedure can be done Sunday. -Reviewed case with pt and on 07/10. Reported to them the opinions Radiation Oncology, Medical Oncology as well as ENT Oncology surgeon. After review of the images and the case, the consensus is is that there is disease progression. Radiation Oncology cannot offer any further radiation to the area. ENT surgeon does not have any surgical options. From a Medical Oncology standpoint systemic treatment with single agent cetuximab is the only treatment option available. There is about a 15-20% response rate with this regimen, duration of response may be 4 to 6 months. Without treatment possibly 6 months to maybe a year-depending on how rapid disease progresses, it has been fairly slow so far. We did discuss palliative care as well as hospice care. All of patient and her 's questions were answered to their satisfaction at this time. -Focus of care right now is pain management. Once pain is controlled, patient would like an opportunity to rehab/do physical therapy. I told patient she did not have to make any decisions about treatment/hospice right now. Positive blood and sputum cultures -abx cont per ID
--- NOTE | 2023-07-12 16:13 | CT ---
EXAMINATION TYPE: CT abdomen pelvis wo con DATE OF EXAM: 07/12/2023 COMPARISON: 09/15/2022 HISTORY: recent peg tube placement/abd pain CT DLP: 205.2 mGycm Automated exposure control for dose reduction was used. TECHNIQUE: Helical acquisition of images was performed from the lung bases through the pelvis. FINDINGS: There has been interval development of multiple bilateral pulmonary nodules right much greater than t he left. The 2 largest nodules on the right approximately 13 mm. There is mild dependent sludge in the gallbladder. There is no biliary ductal dilatation There is a PEG tube within the stomach. . There is no organomegaly involving the liver, pancreas, spleen or adrenal glands. There are no renal calcifications or hydronephrosis. The bowel loops are normal in caliber and there is no dilatation or obstruction. No inflammatory dotson ges identified within the mesentery. There is no free intraperitoneal air or fluid. There is no pelvic mass, free fluid, abscess or adenopathy. The osseous structures are intact. IMPRESSION: 1. Interval development of bilateral lower lobe pulmonary nodules, right much greater than left. The findings are suspicious for metastatic disease. 2. PEG tube within the stomach. 3. No other significant abnormality seen within the abdomen or pelvis.
[2023-07-12] MEDS: MORPHINE ORAL SOLN 10 MG/5 ML CUP PEG/G-TUBE PRN (17:10)
[2023-07-12 17:12] LABS: Glucose,Whole Blood 98 mg/dL (70-110)
--- NOTE | 2023-07-12 22:18 | P.PN ---
Subjective Progress Note Date: 07/11/23 Principal diagnosis: Reason for follow-up is leukocytosis and tracheobronchitis Patient is a 63-year-old female past medical history significant for hypertension hyperlipidemia coronary artery disease patient has a history of left tonsil cancer and did have a tracheostomy patient presented to [facility] ER for evaluation of chest pain and difficulty in breathing also noticed to have some purulent drainage through the trach and there was concern for possible trach site cellulitis prompting this consultation. On today's evaluation that is 07/11/2023, the patient continues to be afebrile, the patient is on room air and breathing comfortably, the Pt has been complaining of mild chest pain and cough, the patient did have some abdominal discomfort and nausea but no vomiting nursing staff noticed some drainage around the PEG tube No new labs has been obtained today Objective - Vital Signs Vital signs: Vital Signs Temp 97.6 F 07/11/23 14:44 Pulse 96 07/11/23 16:00 Resp 16 07/11/23 14:44 BP 126/76 07/11/23 14:44 Pulse Ox 96 07/11/23 14:44 FiO2 21 07/09/23 08:10 Intake & Output 07/10/23 07/11/23 07/11/23 18:59 06:59 18:59 Weight 45.5 kg Other: Voiding Method Bedside Commode Bedside Commode # Voids 2 2 # Bowel Movements 2 - Exam GENERAL DESCRIPTION: Middle-aged female lying in bed in no distress RESPIRATORY SYSTEM: Unlabored breathing , decreased breath sounds at bases HEART: S1 S2 regular rate and rhythm , ABDOMEN: Soft , no tenderness EXTREMITIES: No edema feet - Labs CBC & Chem 7: 07/10/23 07:09 07/10/23 07:09 Assessment and Plan (1) Leukocytosis Current Visit: Yes Status: Acute Code(s): D72.829 - ELEVATED WHITE BLOOD CELL COUNT, UNSPECIFIED SNOMED Code(s): 235621847 (2) Tracheobronchitis Current Visit: Yes Status: Acute Priority: High Code(s): J40 - BRONCHITIS, NOT SPECIFIED ACUTE OR CHRONIC SNOMED Code(s): 38913134 (3) Penicillin allergy Current Visit: Yes Status: Acute Code(s): Z88.0 - ALLERGY STATUS TO PENICILLIN SNOMED Code(s): 97420324 (4) Positive blood culture Current Visit: Yes Status: Acute Priority: High Code(s): R78.81 - BACTEREMIA SNOMED Code(s): 963084122 Plan: 1patient presenting to the hospital with increasing shortness of breath chest pain also have a cough purulent drainage concerning for tracheobronchitis possible bacterial and question of pseudomonal with a greenish drainage from the trach site did have elevated white count though chest x-ray reported negative for acute infiltrate, no significant redness around the trach site was noticed 2-penicillin allergy that will limit the number of antibiotics safe to use 3-patient did have a mild elevated procalcitonin 0.32 sputum cultures did grow Klebsiella that is a sensitive pathogen 4-blood culture with staph epi possible skin contamination blood culture repeated has been negative 4-patient remains to be afebrile white count has been normal, patient to continue with Rocephin to finish a 2-week course of therapy 5-we will apply Triad cream around the PEG tube site Dictation was produced using [employer] dictation software. please excuse any grammatical, word or spelling errors.
--- NOTE | 2023-07-12 22:19 | P.PN ---
Subjective Progress Note Date: 07/12/23 Principal diagnosis: Reason for follow-up is leukocytosis and tracheobronchitis Patient is a 63-year-old female past medical history significant for hypertension hyperlipidemia coronary artery disease patient has a history of left tonsil cancer and did have a tracheostomy patient presented to [facility] ER for evaluation of chest pain and difficulty in breathing also noticed to have some purulent drainage through the trach and there was concern for possible trach site cellulitis prompting this consultation. On today's evaluation that is 07/12/2023, Patient is afebrile patient is currently on room air and complaining of some shortness of breath, the patient denies any chest pain or cough, the patient denies any nausea vomiting did not have any abdominal pain and no diarrhea, still complaining of pain to the left side of the neck No new labs has been obtained today Objective - Vital Signs Vital signs: Vital Signs Temp 97.7 F 07/12/23 11:25 Pulse 81 07/12/23 12:11 Resp 16 07/12/23 11:25 BP 116/72 07/12/23 11:25 Pulse Ox 97 07/12/23 11:25 FiO2 21 07/09/23 08:10 Intake & Output 07/11/23 07/12/23 07/12/23 18:59 06:59 18:59 Intake Total 50 0 Balance 50 0 Weight 46.5 kg Intake: Intake, IV Titration 50 Amount cefTRIAXone 2 gm In 50 Sodium Chloride 0.9% 50 ml @ 100 mls/hr IVPB Q24HR [facility] Rx#:[id number] Oral 0 Other: Voiding Method Bedside Commode # Voids 2 - Exam GENERAL DESCRIPTION: Middle-aged female lying in bed in no distress RESPIRATORY SYSTEM: Unlabored breathing , decreased breath sounds at bases HEART: S1 S2 regular rate and rhythm , ABDOMEN: Soft , no tenderness EXTREMITIES: No edema feet - Labs CBC & Chem 7: 07/10/23 07:09 07/10/23 07:09 Labs: Abnormal Lab Results - Last 24 Hours (Table) 07/12/23 Range/Units 05:35 POC Glucose (mg/dL) 113 H (70-110) mg/dL Assessment and Plan (1) Leukocytosis Current Visit: Yes Status: Acute Code(s): D72.829 - ELEVATED WHITE BLOOD CELL COUNT, UNSPECIFIED SNOMED Code(s): 653692841 (2) Tracheobronchitis Current Visit: Yes Status: Acute Priority: High Code(s): J40 - BRONCHITIS, NOT SPECIFIED ACUTE OR CHRONIC SNOMED Code(s): 54686705 (3) Penicillin allergy Current Visit: Yes Status: Acute Code(s): Z88.0 - ALLERGY STATUS TO PENICILLIN SNOMED Code(s): 00642863 (4) Positive blood culture Current Visit: Yes Status: Acute Priority: High Code(s): R78.81 - BACTEREMIA SNOMED Code(s): 956502984 Plan: 1patient presenting to the hospital with increasing shortness of breath chest pain also have a cough purulent drainage concerning for tracheobronchitis possible bacterial and question of pseudomonal with a greenish drainage from the trach site did have elevated white count though chest x-ray reported negative for acute infiltrate, no significant redness around the trach site was noticed 2-penicillin allergy that will limit the number of antibiotics safe to use 3-patient did have a mild elevated procalcitonin 0.32 sputum cultures did grow Klebsiella that is a sensitive pathogen 4-blood culture with staph epi possible skin contamination blood culture repeated has been negative 4-patient remains to be afebrile white count has been normal, patient has received adequate by therapy for underlying pneumonia and positive blood culture will discontinue Rocephin and monitor the patient close of chemotherapy, continue with Triad cream around the PEG tube site Dictation was produced using [employer] dictation software. please excuse any grammatical, word or spelling errors. Time with Patient: Less than 30
[2023-07-12 23:59] LABS: Glucose,Whole Blood 138 mg/dL (70-110)
[2023-07-13 06:00] LABS: Glucose,Whole Blood 125 mg/dL (70-110)
[2023-07-13 07:37] LABS: Anisocytosis Slight; Basophils % (A) 0 %; Eosinophils % (A) 0 %; HCT 33.5 % (34.0-46.0); HGB 10.5 gm/dL (11.4-16.0); Hypochromasia Slight; Lymphocytes # (A) 0.3 k/uL (1.0-4.8); Lymphocytes % (A) 3 %; MCHC 31.4 g/dL (31.0-37.0); Mean Platelet Volume 9.1; Monocytes # (A) 0.8 k/uL (0-1.0); Monocytes % (A) 8 %; Neutrophils % (A) 87 %; Platelet Count 337 k/uL (150-450); RBC 3.76 m/uL (3.80-5.40); RDW 16.3 % (11.5-15.5); WBC 9.3 k/uL (3.8-10.6)
[2023-07-13 11:47] LABS: Glucose,Whole Blood 115 mg/dL (70-110)
--- NOTE | 2023-07-13 12:56 | P.PN ---
Subjective Progress Note Date: 07/13/23 CHIEF COMPLAINT: Drainage from PEG tube site HISTORY OF PRESENT ILLNESS: Mrs. Sue has a history of laryngeal cancer with PEG tube placed for nutrition support. Patient continues to complain of pain near the PEG tube site and nausea. No vomiting. She reports having bowel movements. CT scan of the abdomen had reported that PEG was in the stomach. PHYSICAL EXAM: VITAL SIGNS: Reviewed. GENERAL: no acute distress. ABDOMEN: Soft. Nondistended. Tenderness around peg tube site. minimal light green drainage around peg site NEUROLOGIC: Alert and oriented. Cranial nerves II through XII grossly intact. ASSESSMENT: 1. Abdominal pain at peg tube site 2. Constipation PLAN: -Okay to resume tube feeds -Lactulose twice a day added for constipation Physician Ore Trimmer note has been reviewed by physician. Signing provider agrees with the documented findings, assessment, and plan of care. I have personally seen and examined the patient, reviewed the VETERINARY PHARMACOLOGIST /PAs history, exam and MDM and agree with the assessment and plan as written. Based on total visit time, I have performed more than 50% of the visit. As above: Patient is feeling abdominal pain however she says her facial pain is much more severe. CAT scan reviewed. No abnormalities to explain her discomfort other than possibly constipation. May resume tube feeds. Increase stool softeners with lactulose. Will sign off. Please recontact if needed. Objective - Vital Signs Vital signs: Vital Signs Temp 98.3 F 07/13/23 07:27 Pulse 86 07/13/23 08:34 Resp 20 07/13/23 07:27 BP 128/78 07/13/23 07:27 Pulse Ox 95 07/13/23 07:27 FiO2 28 07/12/23 19:40 Intake & Output 07/12/23 07/13/23 07/13/23 18:59 06:59 18:59 Intake Total 220 Balance 220 Weight 46 kg Intake: Tube Feeding 220 Other: Voiding Method Bedside Commode # Voids 2 2 1 - Labs CBC & Chem 7: 07/13/23 06:56 07/10/23 07:09 Labs: Abnormal Lab Results - Last 24 Hours (Table) 07/12/23 07/13/23 07/13/23 Range/Units 23:58 05:59 06:56 RBC 3.76 L (3.80-5.40) m/uL Hgb 10.5 L (11.4-16.0) gm/dL Hct 33.5 L (34.0-46.0) % RDW 16.3 H (11.5-15.5) % Neutrophils # 8.0 H (1.3-7.7) k/uL Lymphocytes # 0.3 L (1.0-4.8) k/uL POC Glucose (mg/dL) 138 H 125 H (70-110) mg/dL 07/13/23 Range/Units 11:46 RBC (3.80-5.40) m/uL Hgb (11.4-16.0) gm/dL Hct (34.0-46.0) % RDW (11.5-15.5) % Neutrophils # (1.3-7.7) k/uL Lymphocytes # (1.0-4.8) k/uL POC Glucose (mg/dL) 115 H (70-110) mg/dL
[2023-07-13] MEDS: LACTULOSE 20 GM/30 ML CUP PO SCH (14:39)
--- NOTE | 2023-07-13 17:32 | P.PN ---
Subjective Progress Note Date: 07/13/23 Principal diagnosis: head/neck cancer, left side facial/neck pain Peristent pain in the left face of 8+/10 constantly, she reports mild relief for about an hour after receiving IV pain meds. Tube feeds were held for significant residuals, abd xray reports stool burden. CT AP obtained showing peg tube within stomach. Surgery saw pt and cleared to restart tube feedings. She h as bright red blood from trach with clotting. Hgb stable at 10.5. Will place consult to pulmonology. Objective - Vital Signs Vital signs: Vital Signs Temp 98.2 F 07/13/23 13:28 Pulse 93 07/13/23 13:28 Resp 18 07/13/23 13:28 BP 100/67 07/13/23 13:28 Pulse Ox 92 L 07/13/23 13:28 FiO2 28 07/12/23 19:40 Intake & Output 07/12/23 07/13/23 07/13/23 18:59 06:59 18:59 Intake Total 220 Balance 220 Weight 46 kg 46 kg Intake: Tube Feeding 220 Other: Voiding Method Bedside Commode # Voids 2 2 1 - Constitutional General appearance: Present: no acute distress - EENT Eyes: Present: anicteric sclerae, EOMI ENT: Present: hearing grossly normal - Neck Details: trach in situ, with bloody discharge noted - Respiratory Details: breathing is even and unlabored - Cardiovascular Details: skin warm and dry - Gastrointestinal General gastrointestinal: Present: soft. Absent: tenderness - Integumentary Integumentary: Absent: cyanotic - Psychiatric Psychiatric: Present: A&O x's 3 - Labs CBC & Chem 7: 07/13/23 06:56 07/10/23 07:09 Labs: Abnormal Lab Results - Last 24 Hours (Table) 07/12/23 07/13/23 07/13/23 Range/Units 23:58 05:59 06:56 RBC 3.76 L (3.80-5.40) m/uL Hgb 10.5 L (11.4-16.0) gm/dL Hct 33.5 L (34.0-46.0) % RDW 16.3 H (11.5-15.5) % Neutrophils # 8.0 H (1.3-7.7) k/uL Lymphocytes # 0.3 L (1.0-4.8) k/uL POC Glucose (mg/dL) 138 H 125 H (70-110) mg/dL 07/13/23 Range/Units 11:46 RBC (3.80-5.40) m/uL Hgb (11.4-16.0) gm/dL Hct (34.0-46.0) % RDW (11.5-15.5) % Neutrophils # (1.3-7.7) k/uL Lymphocytes # (1.0-4.8) k/uL POC Glucose (mg/dL) 115 H (70-110) mg/dL - Imaging and Cardiology CT scan - abdomen: report reviewed CT scan - pelvis: report reviewed Assessment and Plan (1) Chronic neck pain Current Visit: Yes Status: Acute Code(s): M54.2 - CERVICALGIA; G89.29 - OTHER CHRONIC PAIN SNOMED Code(s): 9548546801497 (2) Dyspnea Current Visit: Yes Status: Acute Priority: High Code(s): R06.00 - DYSPNEA, UNSPECIFIED SNOMED Code(s): 037797199 (3) Head and neck cancer Current Visit: Yes Status: Chronic Priority: High Code(s): C76.0 - MALIGNANT NEOPLASM OF HEAD, FACE AND NECK SNOMED Code(s): 298271247 (4) Tracheobronchitis Current Visit: Yes Status: Acute Priority: High Code(s): J40 - BRONCHITIS, NOT SPECIFIED ACUTE OR CHRONIC SNOMED Code(s): 18931173 Plan: Intractable left facial pain, Hx head/neck malignancy -Patient has marked increase in pain in the face, intractable, 8+/10. Adjustments to pain meds and oral steroids have not made any impact on pain. No further increases in narcotics at this time. Continue gabapentin and Dexamethasone -Not sure if pain was exacerbated by infection (BC and sputum cultures +)? Pain is not improving even with treatment of infection -Based on review of the CT scans/MRI neck, there is nothing that is seen that can account for the acute change in pain. Pain Mgmt consulted. Hope nerve block can help ease pain. HELD plavix 07/10. ASA held 07/11 (holding per recommendations for holding aspirin and Plavix in pain management notes). Hopefully procedure can be done Sunday. -Reviewed case with pt and on 07/10. Reported to them the opinions Radiation Oncology, Medical Oncology as well as ENT Oncology surgeon. After review of the images and the case, the consensus is is that there is disease pr ogression. Radiation Oncology cannot offer any further radiation to the area. ENT surgeon does not have any surgical options. From a Medical Oncology standpoint systemic treatment with single agent cetuximab is the only treatment option available. There is about a 15-20% response rate with this regimen, duration of response may be 4 to 6 months. Without treatment possibly 6 months to maybe a year-depending on how rapid disease progresses, it has been fairly slow so far. We did discuss palliative care as well as hospice care. All of patient and her 's questions were answered to their satisfaction at this time. -Focus of care right now is pain management. Once pain is controlled, patient would like an opportunity to rehab/do physical therapy. I told patient she did not have to make any decisions about treatment/hospice right now -CT abdomen pelvis revealed PEG tube within the stomach, general surgery has seen patient has restarted tube feedings. No other significant abnormality seen within the abdomen or pelvis. Interval development of bilateral lower lobe pulmonary nodules, right much greater than left. -Due to persisting bloody sputum in trach, pulmonology consult has been placed Positive blood and sputum cultures -Repeat blood culture negative -Abx recommendations per ID
[2023-07-13 18:08] LABS: Glucose,Whole Blood 127 mg/dL (70-110)
--- NOTE | 2023-07-13 19:46 | P.PN ---
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 On today's evaluation that is 07/13/2023, patient has been afebrile, patient is breathing comfortably and is currently on room air, patient did have some bloodstained sputum and apparently the patient was suctioning herself out hard last night as reported by the nursing staff no drainage around the PEG tube and no diarrhea has been reported. Patient white count is 9.3 Objective - Vital Signs Vital signs: Vital Signs Temp 98.3 F 07/13/23 07:27 Pulse 86 07/13/23 08:34 Resp 20 07/13/23 07:27 BP 128/78 07/13/23 07:27 Pulse Ox 95 07/13/23 07:27 FiO2 28 07/12/23 19:40 Intake & Output 07/12/23 07/13/23 07/13/23 18:59 06:59 18:59 Intake Total 220 Balance 220 Weight 46 kg Intake: Tube Feeding 220 Other: Voiding Method Bedside Commode # Voids 2 2 1 - Exam GENERAL DESCRIPTION: Middle-aged female lying in bed in no distress RESPIRATORY SYSTEM: Unlabored breathing , decreased breath sounds at bases HEART: S1 S2 regular rate and rhythm , ABDOMEN: Soft , no tenderness EXTREMITIES: No edema feet - Labs CBC & Chem 7: 07/13/23 06:56 07/10/23 07:09 Labs: Abnormal Lab Results - Last 24 Hours (Table) 07/12/23 07/13/23 07/13/23 Range/Units 23:58 05:59 06:56 RBC 3.76 L (3.80-5.40) m/uL Hgb 10.5 L (11.4-16.0) gm/dL Hct 33.5 L (34.0-46.0) % RDW 16.3 H (11.5-15.5) % Neutrophils # 8.0 H (1.3-7.7) k/uL Lymphocytes # 0.3 L (1.0-4.8) k/uL POC Glucose (mg/dL) 138 H 125 H (70-110) mg/dL 07/13/23 Range/Units 11:46 RBC (3.80-5.40) m/uL Hgb (11.4-16.0) gm/dL Hct (34.0-46.0) % RDW (11.5-15.5) % Neutrophils # (1.3-7.7) k/uL Lymphocytes # (1.0-4.8) k/uL POC Glucose (mg/dL) 115 H (70-110) mg/dL Assessment and Plan (1) Leukocytosis Current Visit: Yes Status: Acute Code(s): D72.829 - ELEVATED WHITE BLOOD CELL COUNT, UNSPECIFIED SNOMED Code(s): 710370298 (2) Tracheobronchitis Current Visit: Yes Status: Acute Priority: High Code(s): J40 - BRONCHITIS, NOT SPECIFIED ACUTE OR CHRONIC SNOMED Code(s): 41848947 (3) Penicillin allergy Current Visit: Yes Status: Acute Code(s): Z88.0 - ALLERGY STATUS TO PENICILLIN SNOMED Code(s): 04064003 (4) Positive blood culture Current Visit: Yes Status: Acute Priority: High Code(s): R78.81 - BACTEREMIA SNOMED Code(s): 318106562 Plan: 1patient presenting to the hospital with increasing shortness of breath chest pain also have a cough purulent drainage concerning for tracheobronchitis possible bacterial and question of pseudomonal with a greenish drainage from the trach site did have elevated white count though chest x-ray reported negative for acute infiltrate, no significant redness around the trach site was noticed 2-penicillin allergy that will limit the number of antibiotics safe to use 3-patient did have a mild elevated procalcitonin 0.32 sputum cultures did grow Klebsiella that is a sensitive pathogen 4-blood culture with staph epi possible skin contamination blood culture repeated has been negative 4-patient remains to be afebrile white count has been normal, patient currently monitor closely off antibiotic therapy continue with Triad cream around the PEG tube site Dictation was produced using [employer] software. please excuse any grammatical, word or spelling errors. Time with Patient: Less than 30
[2023-07-14 03:17] LABS: Glucose,Whole Blood 173 mg/dL (70-110)
[2023-07-14 05:55] LABS: Glucose,Whole Blood 129 mg/dL (70-110)
--- NOTE | 2023-07-14 08:19 | P.CNPUL ---
History of Present Illness Consult date: 07/14/23 Requesting physician: Trupti Perez Reason for consult: other Chief complaint: Bloody sputum. History of present illness: Pulmonary consult dated July 14, 2023. This is a 63-year-old female who was initially admitted on June 26, 2023, through the emergency department, for chest pain and shortness of breath. We were just consulted on this patient, this morning. The patient has a history of multiple medical problems including tonsillar cancer, status post tracheostomy and PEG tube placement, hypertension, hyperlipidemia, coronary artery disease, with stent placement. We saw her back in March 2023, and did bronchoscopy on her, because of secretions. The patient is seen today in room 517. She is on room air. She is not receiving any IV fluids. He is getting tube feedings, with Tw oCal HN at 30 cc an hour. The patient is currently on DuoNebs, and budesonide. No antibiotic. She did test positive for Klebsiella species, and was on Rocephin as per infectious diseases. Previously, her procalcitonin level was mildly elevated at 0.23, back on June 27. The patient's most recent labs show a white count of 9.3, hemoglobin 10.5, hematocrit 33.5, and platelet count is normal. Glucose was 129. The patient's sputum sample, on June 26, was positive for Klebsiella variicola. The patient is currently not on antibiotic. The nurse, who is taking care of the patient, believes that the patient who was self suctioning herself, is traumatizing her trachea, which is why she has got some blood in her sputum. Her sputum does look a bit purulent. A repeat procalcitonin level will be done. My recommendation is for her suctioning to be done by respiratory therapy, and nursing, and not allow the patient to suction herself, if they believe that is the cause of the bleeding. Review of Systems REVIEW OF SYSTEMS: CONSTITUTIONAL: [Negative.] NEUROLOGIC: [ Negative.] HEENT: [ Negative.] CARDIAC: [Negative.] PULMONARY: Relatively newer bleeding from the tracheostomy site. GI: [Negative.] : [Negative.] RHEUMATOLOGIC: [ Negative.] IMMUNOLOGIC: [ Negative.] ENDOCRINE: [Negative. ] DERMATOLOGIC: [Negative.] Past Medical History Past Medical History: Coronary Artery Disease (CAD), Cancer, Hyperlipidemia, Hypertension, Myocardial Infarction (NH) Additional Past Medical History / Comment(s): hx stomach ulcer, left tonsil cancer Last Myocardial Infarction Date:: 08/19/21 History of Any Multi-Drug Resistant Organisms: None Reported Past Surgical History: Heart Catheterization With Stent, Hysterectomy, Tubal Ligation Additional Past Surgical History / Comment(s): egd, Trach, right chest port, peg Past Anesthesia/Blood Transfusion Reactions: No Reported Reaction Date of Last Stent Placement:: 08/19/21 Past Psychological History: No Psychological Hx Reported Smoking Status: Former smoker Past Alcohol Use History: None Reported Past Drug Use History: None Reported Additional Drug Use History / Comment(s): occasional marijuana use - Past Family History Mother Family Medical History: Cancer Additional Family Medical History / Comment(s): lung cancer Sister(s) Family Medical History: Cancer Additional Family Medical History / Comment(s): breast cancer Medications and Allergies Home Medications Medication Instructions Recorded Confirmed Type Ondansetron Odt [Zofran ODT] 8 mg PO QID PRN 04/03/22 06/26/23 History Metoprolol Succinate [Kapspargo 100 mg PEG/G-TUBE DAILY@1000 08/15/22 06/26/23 History Sprinkle] Clopidogrel [Plavix] 75 mg PEG/G-TUBE DAILY@1000 11/16/22 06/26/23 History Aspirin 81 mg PEG/G-TUBE DAILY@1000 11/25/22 06/26/23 History Ipratropium-Albuterol Nebulize 3 ml INHALATION RT-Q2H PRN #90 dose 12/10/22 06/26/23 Rx [Duoneb 0.5 mg-3 mg/3 ml Soln] Acetaminophen Oral Susp [Tylenol] 320 mg PEG/G-TUBE Q6HR PRN 06/26/23 06/26/23 History Prochlorperazine [Compazine] 5 mg PEG/G-TUBE Q6HR PRN 06/26/23 06/26/23 History Sennosides-Docusate Sodium 1 tab PO DAILY 06/26/23 06/26/23 History [Senokot-S] dexAMETHasone [Decadron] 8 mg PEG/G-TUBE DAILY 06/26/23 06/26/23 History fentaNYL 25MCG/HR PATCH [Duragesic 2 patch TRANSDERM Q72H 06/26/23 06/26/23 History 25MCG/HR] MORPHINE ORAL JEFFRY 2mg/mL [Morphine 20 mg PEG/G-TUBE Q6H PRN 3 Days 07/05/23 Rx Oral Soln 2 MG/ML] #120 ml fentaNYL 100MCG/HR PATCH 100 mcg TRANSDERM Q72H 3 Days #1 07/05/23 Rx [Duragesic 100MCG/HR] patch Allergies Allergy/AdvReac Type Severity Reaction Status Date / Time Penicillins AdvReac Severe nausea/vomi Verified 06/26/23 16:59 ting codeine AdvReac Nausea & Verified 06/26/23 16:59 Vomiting & Diarrhea Physical Exam Osteopathic Statement: *. No significant issues noted on an osteopathic structural exam other than those noted in the History and Physical/Consult. Vitals: Vital Signs Temp Pulse Pulse Resp BP Pulse Ox 07/14/23 07:55 96.7 F L 98 20 126/74 92 L 07/14/23 04:29 97 07/14/23 02:00 97.8 F 73 16 103/70 91 L 07/13/23 20:11 79 18 07/13/23 20:00 97.6 F 96 20 94/66 91 L 07/13/23 19:57 79 18 07/13/23 13:28 98.2 F 93 18 100/67 92 L 07/13/23 08:34 86 07/13/23 08:18 85 Intake and Output 07/13/23 07/14/23 07/14/23 22:59 06:59 14:59 Other: Voiding Method Bedside Commode # Voids 1 3 # Bowel Movements 1 1 Weight 46.5 kg No acute distress, oriented 3. Patient in no acute respiratory distress. HEENT examination is grossly unremarkable. Neck supple. Full range of motion. No adenopathy thyromegaly or neck vein distention. Patient has a midline tracheostomy tube. Purulent, bloodstained sputum is noted. Cardiovascular examination reveals regular rhythm rate. S1-S2 normal. No S3 or S4. No discernible murmur noted. Heart rate is 98 bpm. Lungs reveal coarse bilateral rhonchi. No wheezes. No crackles. Breath sounds equal bilaterally. Saturations are between 92 to 97%. Abdomen soft bowel sounds. PEG tube noted. No tenderness. Extremities are intact. No cyanosis clubbing or edema. Skin is without rash or lesion. Neurologic examination is brief but nonfocal. Results - Laboratory Findings CBC and BMP: 07/13/23 06:56 07/10/23 07:09 PT/INR, D-dimer PT 10.5 sec (10.0-12.5) 06/26/23 15:20 INR 1.0 (<1.2) 06/26/23 15:20 D-Dimer 0.59 mg/L FEU (<0.60) 06/26/23 15:20 Abnormal lab findings: Abnormal Labs 06/26/23 06/26/23 06/26/23 14:47 14:47 15:20 WBC 16.3 H RBC Hgb Hct MCHC RDW Plt Count Immature Gran # Neutrophils # 15.2 H Lymphocytes # 0.2 L Monocytes # Eosinophils # APTT 21.1 L Sodium 131 L Potassium Chloride Carbon Dioxide Anion Gap BUN 28 H Creatinine 0.45 L BUN/Creatinine Ratio Glucose 107 H POC Glucose (mg/dL) Calcium Total Protein 5.5 L Albumin 3.1 L Triglycerides HDL Cholesterol Procalcitonin 06/27/23 06/28/23 06/28/23 06:36 08:11 08:11 WBC RBC Hgb Hct MCHC RDW 15.8 H Plt Count 114 L Immature Gran # Neutrophils # Lymphocytes # Monocytes # Eosinophils # APTT Sodium 136 L Potassium Chloride 111 H Carbon Dioxide 21 L Anion Gap BUN 22 H Creatinine 0.36 L BUN/Creatinine Ratio Glucose 142 H POC Glucose (mg/dL) Calcium Total Protein Albumin Triglycerides 182.00 H HDL Cholesterol 39.70 L Procalcitonin 06/28/23 06/29/23 06/29/23 16:14 06:05 06:05 WBC 10.78 H RBC 3.36 L Hgb 9.7 L Hct 30.1 L MCHC RDW 16.7 H Plt Count Immature Gran # 0.06 H Neutrophils # 9.68 H Lymphocytes # 0.17 L Monocytes # Eosinophils # 0 L APTT Sodium Potassium Chloride Carbon Dioxide 20.9 L Anion Gap BUN Creatinine 0.3 L BUN/Creatinine Ratio 54.33 H Glucose POC Glucose (mg/dL) Calcium 8.4 L Total Protein Albumin Triglycerides HDL Cholesterol Procalcitonin 0.32 H 07/03/23 07/03/23 07/04/23 06:29 06:29 06:42 WBC RBC 3.52 L Hgb 10.0 L Hct 33.1 L MCHC 30.2 L RDW 16.5 H Plt Count Immature Gran # 0.09 H Neutrophils # Lymphocytes # 0.26 L Monocytes # Eosinophils # 0 L APTT Sodium Potassium 3.4 L Chloride Carbon Dioxide Anion Gap 12.20 H BUN Creatinine 0.3 L 0.3 L BUN/Creatinine Ratio 52.33 H 47.67 H Glucose POC Glucose (mg/dL) Calcium 8.3 L 8.4 L Total Protein Albumin Triglycerides HDL Cholesterol Procalcitonin 07/04/23 07/05/23 07/05/23 07:01 05:59 05:59 WBC 10.84 H RBC 3.76 L 3.63 L Hgb 10.4 L 10.2 L Hct 34.0 L 32.4 L MCHC 30.6 L 31.5 L RDW 16.4 H 16.4 H Plt Count Immature Gran # 0.11 H 0.11 H Neutrophils # 9.75 H 9.09 H Lymphocytes # 0.35 L 0.39 L Monocytes # Eosinophils # 0.02 L 0.02 L APTT Sodium Potassium Chloride Carbon Dioxide Anion Gap 13.20 H BUN Creatinine 0.3 L BUN/Creatinine Ratio 35.67 H Glucose 120 H POC Glucose (mg/dL) Calcium 8.2 L Total Protein Albumin Triglycerides HDL Cholesterol Procalcitonin 07/06/23 07/06/23 07/07/23 05:38 05:38 09:24 WBC 11.11 H RBC 3.91 L 3.71 L Hgb 10.8 L 10.4 L Hct 35.5 L 33.3 L MCHC 30.4 L RDW 16.7 H 15.6 H Plt Count Immature Gran # 0.16 H Neutrophils # 9.82 H 8.5 H Lymphocytes # 0.61 L 0.6 L Monocytes # 1.2 H Eosinophils # APTT Sodium Potassium Chloride Carbon Dioxide Anion Gap 14.10 H BUN 8.8 L Creatinine 0.4 L BUN/Creatinine Ratio 22.00 H Glucose POC Glucose (mg/dL) Calcium 8.6 L Total Protein Albumin Triglycerides HDL Cholesterol Procalcitonin 07/07/23 07/08/23 07/08/23 09:24 05:42 05:42 WBC RBC 3.57 L Hgb 10.0 L Hct 33.0 L MCHC 30.3 L RDW 16.6 H Plt Count Immature Gran # 0.09 H Neutrophils # Lymphocytes # 0.39 L Monocytes # Eosinophils # 0.01 L APTT Sodium Potassium Chloride 110 H Carbon Dioxide Anion Gap 13.30 H BUN Creatinine 0.24 L 0.3 L BUN/Creatinine Ratio 36.00 H Glucose 113 H POC Glucose (mg/dL) Calcium Total Protein 5.2 L Albumin 2.5 L Triglycerides HDL Cholesterol Procalcitonin 07/09/23 07/09/23 07/10/23 04:25 04:25 07:09 WBC RBC 3.74 L 3.74 L Hgb 10.3 L 10.4 L Hct 34.1 L 34.3 L MCHC 30.2 L 30.3 L RDW 16.9 H 17.0 H Plt Count Immature Gran # 0.09 H 0.06 H Neutrophils # Lymphocytes # 0.36 L 0.39 L Monocytes # Eosinophils # 0.01 L 0.01 L APTT Sodium Potassium Chloride Carbon Dioxide Anion Gap 13.20 H BUN Creatinine 0.3 L BUN/Creatinine Ratio 33.00 H Glucose POC Glucose (mg/dL) Calcium Total Protein Albumin Triglycerides HDL Cholesterol Procalcitonin 07/10/23 07/12/23 07/12/23 07:09 05:35 23:58 WBC RBC Hgb Hct MCHC RDW Plt Count Immature Gran # Neutrophils # Lymphocytes # Monocytes # Eosinophils # APTT Sodium Potassium Chloride Carbon Dioxide Anion Gap 13.30 H BUN Creatinine 0.4 L BUN/Creatinine Ratio 32.75 H Glucose POC Glucose (mg/dL) 113 H 138 H Calcium 8.6 L Total Protein Albumin Triglycerides HDL Cholesterol Procalcitonin 07/13/23 07/13/23 07/13/23 05:59 06:56 11:46 WBC RBC 3.76 L Hgb 10.5 L Hct 33.5 L MCHC RDW 16.3 H Plt Count Immature Gran # Neutrophils # 8.0 H Lymphocytes # 0.3 L Monocytes # Eosinophils # APTT Sodium Potassium Chloride Carbon Dioxide Anion Gap BUN Creatinine BUN/Creatinine Ratio Glucose POC Glucose (mg/dL) 125 H 115 H Calcium Total Protein Albumin Triglycerides HDL Cholesterol Procalcitonin 07/13/23 07/14/23 07/14/23 18:07 03:15 05:53 WBC RBC Hgb Hct MCHC RDW Plt Count Immature Gran # Neutrophils # Lymphocytes # Monocytes # Eosinophils # APTT Sodium Potassium Chloride Carbon Dioxide Anion Gap BUN Creatinine BUN/Creatinine Ratio Glucose POC Glucose (mg/dL) 127 H 173 H 129 H Calcium Total Protein Albumin Triglycerides HDL Cholesterol Procalcitonin - Diagnostic Findings Chest x-ray: image reviewed Assessment and Plan Assessment: Purulent/bloody sputum, noted from tracheostomy site, may relate to the patient suctioning herself, and traumatizing her trachea. History of tonsillar cancer, status post tracheostomy tube. Prior history of Klebsiella variicola infection. History of PEG tube placement. History of CAD with previous stent placement. History of hypertension. History of hyperlipidemia Plan: Plan dated July 14, 2023. Her previous procalcitonin level was 0.23, on June 27. It will be repeated. In addition, we will check a chest x-ray. A portable will be done. Finally, I told the nurse Farzaneh, to not allow the patient to suction herself, but rather, have her suction by respiratory therapy or nursing. That way, we can determine whether or not her suctioning, is traumatizing her trachea, causing the bleeding. She is currently not on any antibiotics. We will continue to follow. She is on room air. Time with Patient: Greater than 30
--- NOTE | 2023-07-14 08:44 | XR ---
EXAMINATION TYPE: XR chest 1V portable DATE OF EXAM: 07/14/2023 8:32 AM CLINICAL INDICATION:Female, 63 years old with history of Rule out pneumonia.; [facility] COMPARISON: Chest radiographs from 07/07/2023. TECHNIQUE: XR chest 1V portable Frontal view of the chest. FINDINGS: Lungs/Pleura: Increasing right upper lung airspace opacities. There is no evidence of pleural effusio n, focal consolidation, or pneumothorax. Pulmonary vascularity: Unremarkable. Heart/mediastinum: Cardiomediastinal silhouette is unremarkable. Musculoskeletal: No acute osseous pathology. Other findings: None Lines/Tubes: Tracheostomy cannula tip projecting over the trachea. [id number]-Fmec projecting over the right hemithorax with distal tip projecting over the superior vena cava. IMPRESSION: Right upper lung airspace opacities have increased slightly from 07/07/2023.
[2023-07-14 11:02] LABS: Basophils # (A) 0.01 X 10*3/uL (0.00-0.10); Basophils % (A) 0.1 %; Eosinophils # (A) 0 X 10*3/uL (0.04-0.35); Eosinophils % (A) 0 %; HCT 35.9 % (37.2-46.3); HGB 10.7 g/dL (12.0-15.0); Lymphocytes # (A) 0.18 X 10*3/uL (0.90-5.00); Lymphocytes % (A) 2.1 %; MCH 27.2 pg (27.0-32.0); MCHC 29.8 g/dL (32.0-37.0); MCV 91.3 FL (80.0-97.0); Mean Platelet Volume 11.5 FL (9.5-12.2); Monocytes # (A) 0.45 X 10*3/uL (0.20-1.00); Monocytes % (A) 5.4 %; NRBC Per 100 WBC 0 X 10*3/uL (0.00-0.01); Neutrophils # (A) 7.64 X 10*3/uL (1.80-7.70); Platelet Count 312 X 10*3/uL (140-440); RBC 3.93 X 10*6/uL (4.10-5.20); RBC Morphology Normal (Normal)
[2023-07-14 12:34] LABS: Glucose,Whole Blood 173 mg/dL (70-110)
[2023-07-14 17:27] LABS: Glucose,Whole Blood 167 mg/dL (70-110)
[2023-07-15 00:39] LABS: Glucose,Whole Blood 192 mg/dL (70-110)
[2023-07-15 05:50] LABS: Glucose,Whole Blood 119 mg/dL (70-110)
--- NOTE | 2023-07-15 07:59 | XR ---
EXAMINATION TYPE: XR chest 1V portable DATE OF EXAM: 07/15/2023 7:51 AM CLINICAL INDICATION:Female, 63 years old with history of Hypoxemia; [facility] COMPARISON: Chest radiographs from TECHNIQUE: XR chest 1V portable Frontal view of the chest. FINDINGS: Lungs/Pleura: Stable right upper lung airspace opacities. There is no evidence of pleural effusion, f ocal consolidation, or pneumothorax. Pulmonary vascularity: Unremarkable. Heart/mediastinum: Cardiomediastinal silhouette is unremarkable. Musculoskeletal: No acute osseous pathology. Other findings: None Lines/Tubes: Tracheostomy cannula tip projecting over the trachea. [id number]-[id number] projecting over the right hemithorax with distal tip projecting over the superior vena cava. IMPRESSION: Stable right upper lung airspace opacities
--- NOTE | 2023-07-15 08:58 | P.PN ---
Subjective Progress Note Date: 07/15/23 This is a 63-year-old female who was initially admitted on June 26, 2023, through the emergency department, for chest pain and shortness of breath. We were just consulted on this patient, this morning. The patient has a history of multiple medical problems including tonsillar cancer, status post tracheostomy and PEG tube placement, hypertension, hyperlipidemia, coronary artery disease, with stent placement. We saw her back in March 2023, and did bronchoscopy on her, because of secretions. The patient is seen today in room 517. She is on room air. She is not receiving any IV fluids. He is getting tube feedings, with TwoCal HN at 30 cc an hour. The patient is currently on DuoNebs, and bude sonide. No antibiotic. She did test positive for Klebsiella species, and was on Rocephin as per infectious diseases. Previously, her procalcitonin level was mildly elevated at 0.23, back on June 27. The patient's most recent labs show a white count of 9.3, hemoglobin 10.5, hematocrit 33.5, and platelet count is normal. Glucose was 129. The patient's sputum sample, on June 26, was positive for Klebsiella variicola. The patient is currently not on antibiotic. The nurse, who is taking care of the patient, believes that the patient who was self suctioning herself, is traumatizing her trachea, which is why she has got some blood in her sputum. Her sputum does look a bit purulent. A repeat procalcitonin level will be done. My recommendation is for her suctioning to be done by respiratory therapy, and nursing, and not allow the patient to suction herself, if they believe that is the cause of the bleeding. The patient is seen today July 15, 2023 in follow-up on the regular medical [facility] or. She is currently awake and alert in no acute distress. She was having some issues with shortness of breath while laying flat in bed. She is currently sitting upright and feeling better. She continues to gently suction secretions out of her tracheostomy tube. No noted hemoptysis throughout the night or this morning. Today's chest x-ray continues to show a right upper lobe infiltrate. Her initial sputum was positive for Klebsiella variicola. She had completed a course of ceftriaxone. Procalcitonin was 0.29. Glucose 119. She is maintaining O2 saturations in the 90s on 40% trach collar. She is afebrile. Tachycardic. She remains on DuoNeb inhalations, Decadron. She is being nou rished with TwoCal HN at 30 MLS per hour which is goal. Objective - Vital Signs Vital signs: Vital Signs Temp 97.9 F 07/15/23 07:20 Pulse 128 H 07/15/23 08:11 Resp 19 07/15/23 07:20 BP 117/61 07/15/23 07:20 Pulse Ox 81 L 07/15/23 07:20 FiO2 28 07/12/23 19:40 Intake & Output 07/14/23 07/15/23 07/15/23 18:59 06:59 18:59 Intake Total 660 Balance 660 Weight 46 kg Intake: Tube Feeding 360 Other 300 Other: Voiding Method Bedside Commode # Voids 1 4 # Bowel Movements 1 - Exam GENERAL EXAM: Alert, pleasant 63-year-old female, on 40% trach collar, in no apparent distress. HEAD: Normocephalic. EYES: Normal reaction of pupils, equal size. NOSE: Clear with pink turbinates. THROAT: Tracheostomy tube secured in place. No erythema or exudates. NECK: No masses, no JVD. CHEST: No chest wall deformity. LUNGS: Equal air entry with scattered rhonchi more so on the right upper lung. CVS: S1 and S2 normal with no audible murmur, regular rhythm. ABDOMEN: PEG tube exit site clean and dry. No hepatosplenomegaly, normal bowel sounds, no guarding or rigidity. SPINE: No scoliosis or deformity SKIN: No rashes CENTRAL NERVOUS SYSTEM: No focal deficits, tone is normal in all 4 extremities. EXTREMITIES: There is no peripheral edema. No clubbing, no cyanosis. Peripheral pulses are intact. - Labs CBC & Chem 7: 07/14/23 05:50 07/10/23 07:09 Labs: Abnormal Lab Results - Last 24 Hours (Table) 07/14/23 07/14/23 07/14/23 Range/Units 05:50 05:50 12:33 RBC 3.93 L (4.10-5.20) X 10*6/uL Hgb 10.7 L (12.0-15.0) g/dL Hct 35.9 L (37.2-46.3) % MCHC 29.8 L (32.0-37.0) g/dL RDW 17.0 H (11.5-14.5) % Immature Gran # 0.12 H (0.00-0.04) X 10*3/uL Lymphocytes # 0.18 L (0.90-5.00) X 10*3/uL Eosinophils # 0 L (0.04-0.35) X 10*3/uL POC Glucose (mg/dL) 173 H (70-110) mg/dL Procalcitonin 0.29 H (0.02-0.09) ng/mL 07/14/23 07/15/23 07/15/23 Range/Units 17:23 00:38 05:49 RBC (4.10-5.20) X 10*6/uL Hgb (12.0-15.0) g/dL Hct (37.2-46.3) % MCHC (32.0-37.0) g/dL RDW (11.5-14.5) % Immature Gran # (0.00-0.04) X 10*3/uL Lymphocytes # (0.90-5.00) X 10*3/uL Eosinophils # (0.04-0.35) X 10*3/uL POC Glucose (mg/dL) 167 H 192 H 119 H (70-110) mg/dL Procalcitonin (0.02-0.09) ng/mL Assessment and Plan Assessment: Purulent/bloody sputum, noted from tracheostomy site, may relate to the patient suctioning herself, and traumatizing her trachea. Resolved Acute hypoxic respiratory failure secondary to right upper lobe infiltrate. Sputum positive for Klebsiella variicola. Completed ceftriaxone History of tonsillar cancer, status post tracheostomy tube Prior history of Klebsiella variicola infection History of PEG tube placement History of CAD with previous stent placement History of hypertension History of hyperlipidemia Plan: The patient was seen and evaluated Chest x-ray, labs and medications reviewed Procalcitonin 0.29 Add Levaquin 500 mg IV daily Continue trach collar at 40% FiO2 Titrate down the FiO2 as tolerated Continue bronchodilators, steroids This patient was seen independently by the pulmonary nurse practitioner addressing pulmonary issues I have personally seen and examined the patient, performed the documentation and the assessment and plan as written. Number of minutes spent on the visit: 25.
[2023-07-15 09:42] LABS: Anisocytosis Slight; Basophils # (A) 0.1 k/uL (0-0.2); Basophils % (A) 1 %; Eosinophils % (A) 0 %; HCT 34.5 % (34.0-46.0); HGB 10.5 gm/dL (11.4-16.0); Hypochromasia Moderate; Lymphocytes # (A) 0.4 k/uL (1.0-4.8); Lymphocytes % (A) 4 %; MCH 27.5 pg (25.0-35.0); MCHC 30.5 g/dL (31.0-37.0); MCV 90.2 fL (80.0-100.0); Mean Platelet Volume 10.6; Monocytes # (A) 0.5 k/uL (0-1.0); Monocytes % (A) 6 %; Neutrophils # (A) 8.1 k/uL (1.3-7.7); Neutrophils % (A) 88 %; Platelet Count 324 k/uL (150-450); RBC 3.82 m/uL (3.80-5.40); RDW 16.1 % (11.5-15.5); WBC 9.1 k/uL (3.8-10.6)
[2023-07-15] MEDS: LEVOFLOXACIN 500MG-D5W PMX 500 MG in DEXTROSE/WATER 1 100ML.BAG IVPB SCH (09:43)
[2023-07-15 12:52] LABS: Glucose,Whole Blood 132 mg/dL (70-110)
--- NOTE | 2023-07-15 15:26 | P.PN ---
Subjective Progress Note Date: 07/13/23 63-year-old female came with complaints of chest pressure-like sensation was eval by cardiology EKG showed sinus rhythm with low QRS voltage complexes, troponins are negative patient was eval by cardiology. Patient chest pain is worse with palpation appears to be musculoskeletal cardiology evaluated the patient and they are recommending an echocardiogram if that is negative patient is cleared from their perspective patient has a tracheostomy which has purulent drainage foul-smelling. Chest x-ray did not show any pneumonia but there may be bronchitis will obtain a sputum cultures and infectious disease will be consulted. Patient was also complaining of shortness of breath although there is no wheezing on exam. 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 Patient D-dimer is within normal limits no evidence of pneumonia on the chest x-ray patient does have leukocytosis without any fever. Patient is also complaining of generalized weakness lives by herself and wanted to be evaluated by physical therapy. 07/01/2023 Changes seen and evaluated in room at bedside; continues to climb plaint of uncontrolled pain; Duragesic patch was increased up to 75 mcg; oncology adding IV Dilaudid CT scan completed on 06/07/2023 was reviewed with patient and ; oncology doubting change in the size of the mass -- Given persistent pain oncology is recommending to repeat CT of the neck and jaw which has been ordered -- Continue with aggressive pain regimen Further recommendations once CT of the neck/joints completed -ID on board and recommended to continue current antibiotic therapy Objective - Vital Signs Vital signs: Vital Signs Temp 98.3 F 07/13/23 07:27 Pulse 86 07/13/23 08:34 Resp 20 07/13/23 07:27 BP 128/78 07/13/23 07:27 Pulse Ox 95 07/13/23 07:27 FiO2 28 07/12/23 19:40 Intake & Output 07/12/23 07/13/23 07/13/23 18:59 06:59 18:59 Intake Total 220 Balance 220 Weight 46 kg Intake: Tube Feeding 220 Other: Voiding Method Bedside Commode # Voids 2 2 1 - Exam GENERAL: The patient is alert and oriented x3, not in any acute distress. Thin built female HEENT: Pupils are round and equally reacting to light. EOMI. No scleral icterus. No conjunctival pallor. Normocephalic, atraumatic. No pharyngeal erythema. No thyromegaly. Patient has tracheostomy with purulent drainage CARDIOVASCULAR: S1 and S2 present. No murmurs, rubs, or gallops. PULMONARY: Chest is clear to auscultation, no wheezing or crackles. ABDOMEN: Soft, nontender, nondistended, normoactive bowel sounds. No palpable organomegaly. MUSCULOSKELETAL: No joint swelling or deformity. EXTREMITIES: No cyanosis, clubbing, or pedal edema. NEUROLOGICAL: Gross neurological examination did not reveal any focal deficits. SKIN: No rashes. - Labs CBC & Chem 7: 07/15/23 06:30 07/10/23 07:09 Labs: Abnormal Lab Results - Last 24 Hours (Table) 07/12/23 07/13/23 07/13/23 Range/Units 23:58 05:59 06:56 RBC 3.76 L (3.80-5.40) m/uL Hgb 10.5 L (11.4-16.0) gm/dL Hct 33.5 L (34.0-46.0) % RDW 16.3 H (11.5-15.5) % Neutrophils # 8.0 H (1.3-7.7) k/uL Lymphocytes # 0.3 L (1.0-4.8) k/uL POC Glucose (mg/dL) 138 H 125 H (70-110) mg/dL 07/13/23 Range/Units 11:46 RBC (3.80-5.40) m/uL Hgb (11.4-16.0) gm/dL Hct (34.0-46.0) % RDW (11.5-15.5) % Neutrophils # (1.3-7.7) k/uL Lymphocytes # (1.0-4.8) k/uL POC Glucose (mg/dL) 115 H (70-110) mg/dL Assessment and Plan Assessment: -Possible infection or bronchitis, patient has a tracheostomy: Will obtain sputum cultures, patient will be empirically started on Zosyn covering for Pseudomonas and infectious disease will be consulted patient does have leukocytosis -Chest pain rule out acute coronary syndromes, cardiology evaluate the patient echocardiogram reviewed, pain appears to be noncardiac chest pain appears to be musculoskeletal chest pain -Generalized weakness physical therapy Occupational Therapy evaluation -Coronary artery disease with previous stenting -Ischemic cardiomyopathy EF of around 45% patient appears to be mildly hypovolemic BNP normal. -Laryngeal cancer with tracheostomy as mentioned before -Hyperlipidemia -Hypertension -COPD without any acute exacerbation DVT prophylaxis: Lovenox GI prophylaxis Do Not Resuscitate/Do Not Intubate
--- NOTE | 2023-07-15 15:28 | P.PN ---
Subjective Progress Note Date: 07/14/23 63-year-old female came with complaints of chest pressure-like sensation was eval by cardiology EKG showed sinus rhythm with low QRS voltage complexes, troponins are negative patient was eval by cardiology. Patient chest pain is worse with palpation appears to be musculoskeletal cardiology evaluated the patient and they are recommending an echocardiogram if that is negative patient is cleared from their perspective patient has a tracheostomy which has purulent drainage foul-smelling. Chest x-ray did not show any pneumonia but there may be bronchitis will obtain a sputum cultures and infectious disease will be consulted. Patient was also complaining of shortness of breath although there is no wheezing on exam. 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 Patient D-dimer is within normal limits no evidence of pneumonia on the chest x-ray patient does have leukocytosis without any fever. Patient is also complaining of generalized weakness lives by herself and wanted to be evaluated by physical therapy. 07/01/2023 Changes seen and evaluated in room at bedside; continues to climb plaint of uncontrolled pain; Duragesic patch was increased up to 75 mcg; oncology adding IV Dilaudid CT scan completed on 06/07/2023 was reviewed with patient and ; oncology doubting change in the size of the mass -- Given persistent pain oncology is recommending to repeat CT of the neck and jaw which has been ordered -- Continue with aggressive pain regimen Further recommendations once CT of the neck/joints completed -ID on board and recommended to continue current antibiotic therapy 07/14/2023 Patient is seen and evaluated with nursing staff at bedside; reports blood with blood tinged sputum from tracheostomy site; patient self suctions with concern of causing some trauma with deep suctioning Vital signs are reviewed and remained stable Blood work reveals WBC of 8.4, hemoglobin of 10.7 and platelet count of 312 --We will consult pulmonary for further evaluation of hemoptysis Objective - Vital Signs Vital signs: Vital Signs Temp 96.7 F L 07/14/23 07:55 Pulse 108 H 07/14/23 08:53 Resp 20 07/14/23 07:55 BP 126/74 07/14/23 07:55 Pulse Ox 88 L 07/14/23 08:40 FiO2 28 07/12/23 19:40 Intake & Output 07/13/23 07/14/23 07/14/23 18:59 06:59 18:59 Weight 46 kg 46.5 kg Other: Voiding Method Bedside Commode # Voids 1 3 # Bowel Movements 1 1 - Exam GENERAL: The patient is alert and oriented x3, not in any acute distress. Thin built female HEENT: Pupils are round and equally reacting to light. EOMI. No scleral icterus. No conjunctival pallor. Normocephalic, atraumatic. No pharyngeal erythema. No thyromegaly. Patient has tracheostomy with purulent drainage CARDIOVASCULAR: S1 and S2 present. No murmurs, rubs, or gallops. PULMONARY: Chest is clear to auscultation, no wheezing or crackles. ABDOMEN: Soft, nontender, nondistended, normoactive bowel sounds. No palpable organomegaly. MUSCULOSKELETAL: No joint swelling or deformity. EXTREMITIES: No cyanosis, clubbing, or pedal edema. NEUROLOGICAL: Gross neurological examination did not reveal any focal deficits. SKIN: No rashes. - Labs CBC & Chem 7: 07/15/23 06:30 07/10/23 07:09 Labs: Abnormal Lab Results - Last 24 Hours (Table) 07/13/23 07/14/23 07/14/23 Range/Units 18:07 03:15 05:50 RBC 3.93 L (4.10-5.20) X 10*6/uL Hgb 10.7 L (12.0-15.0) g/dL Hct 35.9 L (37.2-46.3) % MCHC 29.8 L (32.0-37.0) g/dL RDW 17.0 H (11.5-14.5) % Immature Gran # 0.12 H (0.00-0.04) X 10*3/uL Lymphocytes # 0.18 L (0.90-5.00) X 10*3/uL Eosinophils # 0 L (0.04-0.35) X 10*3/uL POC Glucose (mg/dL) 127 H 173 H (70-110) mg/dL 07/14/23 Range/Units 05:53 RBC (4.10-5.20) X 10*6/uL Hgb (12.0-15.0) g/dL Hct (37.2-46.3) % MCHC (32.0-37.0) g/dL RDW (11.5-14.5) % Immature Gran # (0.00-0.04) X 10*3/uL Lymphocytes # (0.90-5.00) X 10*3/uL Eosinophils # (0.04-0.35) X 10*3/uL POC Glucose (mg/dL) 129 H (70-110) mg/dL Assessment and Plan Assessment: -Possible infection or bronchitis, patient has a tracheostomy: Will obtain sputum cultures, patient will be empirically started on Zosyn covering for Pseudomonas and infectious disease will be consulted patient does have leukocytosis -Chest pain rule out acute coronary syndromes, cardiology evaluate the patient echocardiogram reviewed, pain appears to be noncardiac chest pain appears to be musculoskeletal chest pain -Generalized weakness physical therapy Occupational Therapy evaluation -Coronary artery disease with previous stenting -Ischemic cardiomyopathy EF of around 45% patient appears to be mildly hypovolemic BNP normal. -Laryngeal cancer with tracheostomy as mentioned before -Hyperlipidemia -Hypertension -COPD without any acute exacerbation DVT prophylaxis: Lovenox GI prophylaxis Do Not Resuscitate/Do Not Intubate
--- NOTE | 2023-07-15 15:39 | P.PN ---
Subjective Progress Note Date: 07/15/23 63-year-old female came with complaints of chest pressure-like sensation was eval by cardiology EKG showed sinus rhythm with low QRS voltage complexes, troponins are negative patient was eval by cardiology. Patient chest pain is worse with palpation appears to be musculoskeletal cardiology evaluated the patient and they are recommending an echocardiogram if that is negative patient is cleared from their perspective patient has a tracheostomy which has purulent drainage foul-smelling. Chest x-ray did not show any pneumonia but there may be bronchitis will obtain a sputum cultures and infectious disease will be consulted. Patient was also complaining of shortness of breath although there is no wheezing on exam. 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 Patient D-dimer is within normal limits no evidence of pneumonia on the chest x-ray patient does have leukocytosis without any fever. Patient is also complaining of generalized weakness lives by herself and wanted to be evaluated by physical therapy. 07/01/2023 Changes seen and evaluated in room at bedside; continues to climb plaint of uncontrolled pain; Duragesic patch was increased up to 75 mcg; oncology adding IV Dilaudid CT scan completed on 06/07/2023 was reviewed with patient and ; oncology doubting change in the size of the mass -- Given persistent pain oncology is recommending to repeat CT of the neck and jaw which has been ordered -- Continue with aggressive pain regimen Further recommendations once CT of the neck/joints completed -ID on board and recommended to continue current antibiotic therapy 07/14/2023 Patient is seen and evaluated with nursing staff at bedside; reports blood with blood tinged sputum from tracheostomy site; patient self suctions with concern of causing some trauma with deep suctioning Vital signs are reviewed and remained stable Blood work reveals WBC of 8.4, hemoglobin of 10.7 and platelet count of 312 --We will consult pulmonary for further evaluation of hemoptysis 07/15/2023 Patient is seen and evaluated in room at bedside; no further episodes of hemoptysis or blood-tinged sputum from tracheostomy tube Vital sign review reveals temperature of 98.1, pulse 109, respiration 19 and blood pressure 101/67 Lab review reveals WBC of 9.1, hemoglobin of 10.5 and platelet count of 324 Patient has been evaluated by pulmonary service; chest x-ray completed this morning reveals right upper lobe infiltrate; initial sputum culture reveals Klebsiella; patient has been placed on Levaquin 500 mg IV daily per pulmonary recommendations Objective - Vital Signs Vital signs: Vital Signs Temp 97.9 F 07/15/23 07:20 Pulse 128 H 07/15/23 08:11 Resp 19 07/15/23 07:20 BP 117/61 07/15/23 07:20 Pulse Ox 92 L 07/15/23 10:01 FiO2 40 07/15/23 10:01 Intake & Output 07/14/23 07/15/23 07/15/23 18:59 06:59 18:59 Intake Total 660 Balance 660 Weight 46 kg Intake: Tube Feeding 360 Other 300 Other: Voiding Method Bedside Commode # Voids 1 4 # Bowel Movements 1 - Exam GENERAL: The patient is alert and oriented x3, not in any acute distress. Thin built female HEENT: Pupils are round and equally reacting to light. EOMI. No scleral icterus. No conjunctival pallor. Normocephalic, atraumatic. No pharyngeal erythema. No thyromegaly. Patient has tracheostomy with purulent drainage CARDIOVASCULAR: S1 and S2 present. No murmurs, rubs, or gallops. PULMONARY: Chest is clear to auscultation, no wheezing or crackles. ABDOMEN: Soft, nontender, nondistended, normoactive bowel sounds. No palpable organomegaly. MUSCULOSKELETAL: No joint swelling or deformity. EXTREMITIES: No cyanosis, clubbing, or pedal edema. NEUROLOGICAL: Gross neurological examination did not reveal any focal deficits. SKIN: No rashes. - Labs CBC & Chem 7: 07/15/23 06:30 07/10/23 07:09 Labs: Abnormal Lab Results - Last 24 Hours (Table) 07/14/23 07/14/23 07/14/23 Range/Units 05:50 12:33 17:23 Hgb (11.4-16.0) gm/dL MCHC (31.0-37.0) g/dL RDW (11.5-15.5) % Neutrophils # (1.3-7.7) k/uL Lymphocytes # (1.0-4.8) k/uL POC Glucose (mg/dL) 173 H 167 H (70-110) mg/dL Procalcitonin 0.29 H (0.02-0.09) ng/mL 07/15/23 07/15/23 07/15/23 Range/Units 00:38 05:49 06:30 Hgb 10.5 L (11.4-16.0) gm/dL MCHC 30.5 L (31.0-37.0) g/dL RDW 16.1 H (11.5-15.5) % Neutrophils # 8.1 H (1.3-7.7) k/uL Lymphocytes # 0.4 L (1.0-4.8) k/uL POC Glucose (mg/dL) 192 H 119 H (70-110) mg/dL Procalcitonin (0.02-0.09) ng/mL Assessment and Plan Assessment: -Possible infection or bronchitis, patient has a tracheostomy: Will obtain sputum cultures, patient will be empirically started on Zosyn covering for Pseudomonas and infectious disease will be consulted patient does have leukocytosis -Chest pain rule out acute coronary syndromes, cardiology evaluate the patient echocardiogram reviewed, pain appears to be noncardiac chest pain appears to be musculoskeletal chest pain -Generalized weakness physical therapy Occupational Therapy evaluation -Coronary artery disease with previous stenting -Ischemic cardiomyopathy EF of around 45% patient appears to be mildly hypovolemic BNP normal. -Laryngeal cancer with tracheostomy as mentioned before -Hyperlipidemia -Hypertension -COPD without any acute exacerbation DVT prophylaxis: Lovenox GI prophylaxis Do Not Resuscitate/Do Not Intubate
[2023-07-15 17:29] LABS: Glucose,Whole Blood 183 mg/dL (70-110)
--- NOTE | 2023-07-15 23:41 | P.PN ---
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 On today's evaluation that is 07/14/2023, Patient is afebrile this morning, the patient denies any chills, patient mention breathing comfortably and is currently on room air, patient denies any chest pain still have some cough with some blood mixed sputum no vomiting or diarrhea has been reported Patient did have a white count of 8.40 Objective - Vital Signs Vital signs: Vital Signs Temp 96.7 F L 07/14/23 07:55 Pulse 108 H 07/14/23 08:53 Resp 20 07/14/23 07:55 BP 126/74 07/14/23 07:55 Pulse Ox 88 L 07/14/23 08:40 FiO2 28 07/12/23 19:40 Intake & Output 07/13/23 07/14/23 07/14/23 18:59 06:59 18:59 Weight 46 kg 46.5 kg Other: Voiding Method Bedside Commode # Voids 1 3 # Bowel Movements 1 1 - Exam Middle-aged female lying in bed in no distress Unlabored breathing Awake and alert - Labs CBC & Chem 7: 07/15/23 06:30 07/10/23 07:09 Labs: Abnormal Lab Results - Last 24 Hours (Table) 07/13/23 07/13/23 07/14/23 Range/Units 11:46 18:07 03:15 RBC (4.10-5.20) X 10*6/uL Hgb (12.0-15.0) g/dL Hct (37.2-46.3) % MCHC (32.0-37.0) g/dL RDW (11.5-14.5) % Immature Gran # (0.00-0.04) X 10*3/uL Lymphocytes # (0.90-5.00) X 10*3/uL Eosinophils # (0.04-0.35) X 10*3/uL POC Glucose (mg/dL) 115 H 127 H 173 H (70-110) mg/dL 07/14/23 07/14/23 Range/Units 05:50 05:53 RBC 3.93 L (4.10-5.20) X 10*6/uL Hgb 10.7 L (12.0-15.0) g/dL Hct 35.9 L (37.2-46.3) % MCHC 29.8 L (32.0-37.0) g/dL RDW 17.0 H (11.5-14.5) % Immature Gran # 0.12 H (0.00-0.04) X 10*3/uL Lymphocytes # 0.18 L (0.90-5.00) X 10*3/uL Eosinophils # 0 L (0.04-0.35) X 10*3/uL POC Glucose (mg/dL) 129 H (70-110) mg/dL Assessment and Plan (1) Leukocytosis Current Visit: Yes Status: Acute Code(s): D72.829 - ELEVATED WHITE BLOOD CELL COUNT, UNSPECIFIED SNOMED Code(s): 403550537 (2) Tracheobronchitis Current Visit: Yes Status: Acute Priority: High Code(s): J40 - BRONCHITIS, NOT SPECIFIED ACUTE OR CHRONIC SNOMED Code(s): 37183225 (3) Penicillin allergy Current Visit: Yes Status: Acute Code(s): Z88.0 - ALLERGY STATUS TO PENICILLIN SNOMED Code(s): 65286569 (4) Positive blood culture Current Visit: Yes Status: Acute Priority: High Code(s): R78.81 - BACTEREMIA SNOMED Code(s): 927237151 Plan: This is a telehealth visit 1patient presenting to the hospital with increasing shortness of breath chest pain also have a cough purulent drainage concerning for tracheobronchitis possible bacterial and question of pseudomonal with a greenish drainage from the trach site did have elevated white count though chest x-ray reported negative for acute infiltrate, no significant redness around the trach site was noticed 2-penicillin allergy that will limit the number of antibiotics safe to use 3-patient did have a mild elevated procalcitonin 0.32 sputum cultures did grow Klebsiella that is a sensitive pathogen 4-blood culture with staph epi possible skin contamination blood culture repeated has been negative 4-patient remains to be afebrile white count has been normal, patient seem to have some bloodstained sputum attributed to possible aggressive aspiration pulmonary has been consulted procalcitonin has been ordered Dictation was produced using [employer] dictation software. please excuse any grammatical, word or spelling errors. Time with Patient: Less than 30
--- NOTE | 2023-07-15 23:42 | P.PN ---
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 On today's evaluation that is 07/15/2023,the patient denies any fever or any chills, patient has been complaining of some shortness of breath did have a cough but not as much blood in the sputum no vomiting or diarrhea has been reported. Patient white count is 9.1 procalcitonin is 0.29 Objective - Vital Signs Vital signs: Vital Signs Temp 97.9 F 07/15/23 07:20 Pulse 128 H 07/15/23 08:11 Resp 19 07/15/23 07:20 BP 117/61 07/15/23 07:20 Pulse Ox 92 L 07/15/23 10:01 FiO2 40 07/15/23 10:01 Intake & Output 07/14/23 07/15/23 07/15/23 18:59 06:59 18:59 Intake Total 660 Balance 660 Weight 46 kg Intake: Tube Feeding 360 Other 300 Other: Voiding Method Bedside Commode # Voids 1 4 # Bowel Movements 1 - Exam Middle-aged female lying in bed in no distress Unlabored breathing Awake and alert - Labs CBC & Chem 7: 07/15/23 06:30 07/10/23 07:09 Labs: Abnormal Lab Results - Last 24 Hours (Table) 07/14/23 07/14/23 07/14/23 Range/Units 05:50 05:50 12:33 RBC 3.93 L (4.10-5.20) X 10*6/uL Hgb 10.7 L (12.0-15.0) g/dL Hct 35.9 L (37.2-46.3) % MCHC 29.8 L (32.0-37.0) g/dL RDW 17.0 H (11.5-14.5) % Immature Gran # 0.12 H (0.00-0.04) X 10*3/uL Neutrophils # (1.3-7.7) k/uL Lymphocytes # 0.18 L (0.90-5.00) X 10*3/uL Eosinophils # 0 L (0.04-0.35) X 10*3/uL POC Glucose (mg/dL) 173 H (70-110) mg/dL Procalcitonin 0.29 H (0.02-0.09) ng/mL 07/14/23 07/15/23 07/15/23 Range/Units 17:23 00:38 05:49 RBC (4.10-5.20) X 10*6/uL Hgb (12.0-15.0) g/dL Hct (37.2-46.3) % MCHC (32.0-37.0) g/dL RDW (11.5-14.5) % Immature Gran # (0.00-0.04) X 10*3/uL Neutrophils # (1.3-7.7) k/uL Lymphocytes # (0.90-5.00) X 10*3/uL Eosinophils # (0.04-0.35) X 10*3/uL POC Glucose (mg/dL) 167 H 192 H 119 H (70-110) mg/dL Procalcitonin (0.02-0.09) ng/mL 07/15/23 Range/Units 06:30 RBC (4.10-5.20) X 10*6/uL Hgb 10.5 L (12.0-15.0) g/dL Hct (37.2-46.3) % MCHC 30.5 L (32.0-37.0) g/dL RDW 16.1 H (11.5-14.5) % Immature Gran # (0.00-0.04) X 10*3/uL Neutrophils # 8.1 H (1.3-7.7) k/uL Lymphocytes # 0.4 L (0.90-5.00) X 10*3/uL Eosinophils # (0.04-0.35) X 10*3/uL POC Glucose (mg/dL) (70-110) mg/dL Procalcitonin (0.02-0.09) ng/mL Assessment and Plan (1) Leukocytosis Current Visit: Yes Status: Acute Code(s): D72.829 - ELEVATED WHITE BLOOD CELL COUNT, UNSPECIFIED SNOMED Code(s): 277560700 (2) Tracheobronchitis Current Visit: Yes Status: Acute Priority: High Code(s): J40 - BRONCHITIS, NOT SPECIFIED ACUTE OR CHRONIC SNOMED Code(s): 68110634 (3) Penicillin allergy Current Visit: Yes Status: Acute Code(s): Z88.0 - ALLERGY STATUS TO PENICILLIN SNOMED Code(s): 44581470 (4) Positive blood culture Current Visit: Yes Status: Acute Priority: High Code(s): R78.81 - BACTEREMIA SNOMED Code(s): 721584001 Plan: This is a telehealth visit 1patient presenting to the hospital with increasing shortness of breath chest pain also have a cough purulent drainage concerning for tracheobronchitis possible bacterial and question of pseudomonal with a greenish drainage from the trach site did have elevated white count though chest x-ray reported negative for acute infiltrate, no significant redness around the trach site was noticed 2-penicillin allergy that will limit the number of antibiotics safe to use 3-patient did have a mild elevated procalcitonin 0.32 sputum cultures did grow Klebsiella that is a sensitive pathogen 4-blood culture with staph epi possible skin contamination blood culture repeated has been negative 4-patient remains to be afebrile white count has been normal, patient seem to have some bloodstained sputum attributed to possible aggressive aspiration patient did have mildly elevated procalcitonin Levaquin has been ordered by pulmonary and will monitor clinical course closely Dictation was produced using [employer] dictation software. please excuse any grammatical, word or spelling errors. Time with Patient: Less than 30
[2023-07-16 00:15] LABS: Glucose,Whole Blood 180 mg/dL (70-110)
[2023-07-16 06:27] LABS: Glucose,Whole Blood 161 mg/dL (70-110)
[2023-07-16 12:23] LABS: Glucose,Whole Blood 127 mg/dL (70-110)
[2023-07-16 14:42] VITALS: BMI 18.9
--- NOTE | 2023-07-16 15:44 | P.PN ---
Subjective Progress Note Date: 07/16/23 Principal diagnosis: Head/neck malignancy, progressive lt facial pain In f/u today pt pain in the left face cont to be 8/10. Awaiting nerve block to see if that helps with pain. She is expectorating thick, prasad sputum from trach. Objective - Vital Signs Vital signs: Vital Signs Temp 97.4 F L 07/16/23 08:00 Pulse 106 H 07/16/23 09:01 Resp 17 07/16/23 08:00 BP 106/70 07/16/23 08:00 Pulse Ox 95 07/16/23 08:37 FiO2 60 07/15/23 15:18 Intake & Output 07/15/23 07/16/23 07/16/23 18:59 06:59 18:59 Intake Total 804 Balance 804 Weight 45.5 kg Intake: Tube Feeding 804 Other: Voiding Method Bedside Commode # Voids 1 3 - Constitutional General appearance: Present: cooperative, mild distress, thin - EENT Eyes: Present: anicteric sclerae, EOMI ENT: Present: hearing grossly normal - Respiratory Details: resp unlabored at rest - Cardiovascular Rhythm: regular - Peripheral edema leg Peripheral Edema: bilateral: None - Gastrointestinal Gastrointestinal Comment(s): PEG insitu - Musculoskeletal Musculoskeletal: Present: generalized weakness - Psychiatric Psychiatric: Present: A&O x's 3, appropriate affect, intact judgment & insight - Labs CBC & Chem 7: 07/15/23 06:30 07/10/23 07:09 Labs: Abnormal Lab Results - Last 24 Hours (Table) 07/15/23 07/15/23 07/16/23 Range/Units 12:31 17:26 00:08 POC Glucose (mg/dL) 132 H 183 H 180 H (70-110) mg/dL 07/16/23 Range/Units 06:24 POC Glucose (mg/dL) 161 H (70-110) mg/dL Assessment and Plan (1) Acute facial pain Current Visit: Yes Status: Acute Priority: High Code(s): R51.9 - HEADACHE, UNSPECIFIED SNOMED Code(s): 219098925 (2) Head and neck cancer Current Visit: Yes Status: Chronic Priority: High Code(s): C76.0 - MALIGNANT NEOPLASM OF HEAD, FACE AND NECK SNOMED Code(s): 989247780 (3) Positive blood culture Current Visit: Yes Status: Acute Priority: High Code(s): R78.81 - BACTEREMIA SNOMED Code(s): 069402426 Plan: Intractable left facial pain, Hx head/neck malignancy -Patient has marked increase in pain in the face, intractable, 8+/10. Adjustments to pain meds and oral steroids have not made any impact on pain. No further increases in narcotics at this time. Gabapentin, Dex cont -Not sure if pain was exacerbated by infection (BC and sputum cultures +)? Pain is not improving even with treatment of infection -Based on review of the CT scans/MRI neck, there is nothing that is seen that can account for the acute change in pain. Pain Mgmt consulted. Hope nerve block can help ease pain. HELD plavix 07/10. ASA held 07/11 (holding per recommendations for holding aspirin and Plavix in pain management notes). Confirmed that Pt is on sched for nerve block tomorrow. -Reviewed case with pt and on 07/10. Reported to them the opinions of Radiation Oncology, Medical Oncology as well as ENT Oncology surgeon. After review of the images and the case, the consensus is is that there is disease progression. Radiation Oncology cannot offer any further radiation to the area. ENT surgeon does not have any surgical options. From a Medical Oncology standpoint systemic treatment with single agent cetuximab is the only treatment option available. There is about a 15-20% response rate with this regimen, duration of response may be 4 to 6 months. Without treatment possibly 6 months to maybe a year-depending on how rapid disease progresses, it has been fairly slow so far. We did discuss palliative care as well as hospice care. -Focus of care right now is pain management. -Pt and have decided once pain controlled she would like to go home with hospice care. Very reasonable decision. Pt will be discharged to the care of hospice and her family once pain managed Positive blood and sputum cultures -abx cont per ID/Pulm
[2023-07-16 17:15] LABS: Glucose,Whole Blood 121 mg/dL (70-110)
--- NOTE | 2023-07-16 19:56 | P.PN ---
Subjective Progress Note Date: 07/16/23 This is a 63-year-old female who was initially admitted on June 26, 2023, through the emergency department, for chest pain and shortness of breath. We were just consulted on this patient, this morning. The patient has a history of multiple medical problems including tonsillar cancer, status post tracheostomy and PEG tube placement, hypertension, hyperlipidemia, coronary artery disease, with stent placement. We saw her back in March 2023, and did bronchoscopy on her, because of secretions. The patient is seen today in room 517. She is on room air. She is not receiving any IV fluids. He is getting tube feedings, with TwoCal HN at 30 cc an hour. The patient is currently on DuoNebs, and bud esonide. No antibiotic. She did test positive for Klebsiella species, and was on Rocephin as per infectious diseases. Previously, her procalcitonin level was mildly elevated at 0.23, back on June 27. The patient's most recent labs show a white count of 9.3, hemoglobin 10.5, hematocrit 33.5, and platelet count is normal. Glucose was 129. The patient's sputum sample, on June 26, was positive for Klebsiella variicola. The patient is currently not on antibiotic. The nurse, who is taking care of the patient, believes that the patient who was self suctioning herself, is traumatizing her trachea, which is why she has got some blood in her sputum. Her sputum does look a bit purulent. A repeat procalcitonin level will be done. My recommendation is for her suctioning to be done by respiratory therapy, and nursing, and not allow the patient to suction herself, if they believe that is the cause of the bleeding. The patient is seen today July 15, 2023 in follow-up on the regular medical fl oor. She is currently awake and alert in no acute distress. She was having some issues with shortness of breath while laying flat in bed. She is currently sitting upright and feeling better. She continues to gently suction secretions out of her tracheostomy tube. No noted hemoptysis throughout the night or this morning. Today's chest x-ray continues to show a right upper lobe infiltrate. Her initial sputum was positive for Klebsiella variicola. She had completed a course of ceftriaxone. Procalcitonin was 0.29. Glucose 119. She is maintaining O2 saturations in the 90s on 40% trach collar. She is afebrile. Tachycardic. She remains on DuoNeb inhalations, Decadron. She is being no urished with TwoCal HN at 30 MLS per hour which is goal. 07/16/2023, the patient continues to be short of breath. She has diffuse rhonchi heard throughout the lung stewart more so on the right upper lobe area. The patient has been hospitalized back in 06/26/2023 and the patient has been in the hospital since. I reviewed the records. There is a evolution of right upper lobe pulmonary consolidation with scattered pulmonary nodules in addition to the consolidation of the right upper lobe. 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 She was started on immunotherapy in July 2022. She had recurrent disease in October 07 023 given further chemotherapy with carboplatinum and Taxol with some good response. Most recent PET/CT that was done on this patient on 04/20/2023 revealed positive response along the mucosa of the left side of neoplasm and no significant metabolic activity involving the lungs. No osseous metastases. Nevertheless, the follow-up CAT scan of the neck and the chest that was done on 07/01/2023 revealed a Pulmonary nodules throughout the lung stewart in addition to an area of consolidation in the right upper lobe. No mediastinal or hilar lymphadenopathy. Presence of multiple nodules was suspicious for metastatic disease in addition to a extensive right upper lobe consolidation. Since that admission, the sputum sample that was collected on 06/27/2023 turned out to be positive for Klebsiella. As such, the patient was covered with broad-spectrum antibiotics under the care of infectious disease. Patient was initially on cefepime. The procalcitonin levels were mildly elevated. She is currently on Levaquin. Repeat chest x-ray shows a stable right upper lobe consolidation and the patient continues to be symptomatic at this point in time. CAT scan of the abdomen and pelvis that was done on 07/12/2023 again confirmed the presence of bilateral pulmonary nodules right more than left and the PEG tube was in the stomach and the patient continues to receive enteral feeding for nutritional support and she is currently on TwoCal running at the rate of 30 cc an hour. Most recent blood work shows a WBC count 9.1, hemoglobin of 10.5, and a platelet count of 324. Objective - Vital Signs Vital signs: Vital Signs Temp 97.6 F 07/16/23 12:51 Pulse 103 H 07/16/23 13:01 Resp 18 07/16/23 12:51 BP 99/56 07/16/23 12:51 Pulse Ox 97 07/16/23 12:51 FiO2 60 07/15/23 15:18 Intake & Output 07/16/23 07/16/23 07/17/23 06:59 18:59 06:59 Intake Total 804 Balance 804 Weight 45.5 kg 45.5 kg Intake: Tube Feeding 804 Other: Voiding Method Bedside Commode # Voids 3 2 - Exam GENERAL EXAM: Alert, pleasant 63-year-old female, on 40% trach collar, in no apparent distress. HEAD: Normocephalic. EYES: Normal reaction of pupils, equal size. NOSE: Clear with pink turbinates. THROAT: Tracheostomy tube secured in place. No erythema or exudates. NECK: No masses, no JVD. CHEST: No chest wall deformity. LUNGS: Equal air entry with scattered rhonchi more so on the right upper lung. CVS: S1 and S2 normal with no audible murmur, regular rhythm. ABDOMEN: PEG tube exit site clean and dry. No hepatosplenomegaly, normal bowel sounds, no guarding or rigidity. SPINE: No scoliosis or deformity SKIN: No rashes CENTRAL NERVOUS SYSTEM: No focal deficits, tone is normal in all 4 extremities. EXTREMITIES: There is no peripheral edema. No clubbing, no cyanosis. Peripheral pulses are intact. - Labs CBC & Chem 7: 07/15/23 06:30 07/10/23 07:09 Labs: Abnormal Lab Results - Last 24 Hours (Table) 07/16/23 07/16/23 07/16/23 Range/Units 00:08 : 12:12 POC Glucose (mg/dL) 180 H 161 H 127 H (70-110) mg/dL 07/16/23 Range/Units 17:14 POC Glucose (mg/dL) 121 H (70-110) mg/dL Assessment and Plan Plan: Right upper lobe pneumonia with an extensive right upper lobe consolidation and purulent/bloody sputum, noted from tracheostomy site, may relate to the patient suctioning herself, and traumatizing her trachea. The patient is currently on 40% trach collar. Chest x-ray shows unchanged stable consolidation of the right upper lobe. She is currently on Levaquin. Most recent cultures indicating Klebsiella. Acute hypoxic respiratory failure secondary to above Scattered bilateral pulmonary nodules consistent with metastatic disease History of tonsillar cancer, status post tracheostomy tube, treated with chemoradiation therapy followed by immunotherapy. Please refer to the oncology note regarding the details of her previous treatment. Her disease was able based on the most recent PET/CT that was done in April 2023. Nevertheless, the follow-up CAT scan shows evidence of bilateral pulmonary nodules which could be potentially indicate of of metastatic disease. History of PEG tube placement, the patient is receiving enteral feeding for nutritional support. History of CAD with previous stent placement History of hypertension History of hyperlipidemia Plan: Repeat chest x-ray in the morning Procalcitonin 0.29 Will need another specimen to evaluate the microbiology as the patient continues to have persistent right upper lobe consolidation with treatment resistant pneum onia as the patient remains actively symptomatic. If unable to collect a sputum, bronchoscopy will be indicated for therapeutic airway suctioning endobronchial lavage of the right upper lobe for accurate microbial diagnosis. Continue Levaquin 500 mg IV daily Continue trach collar at 40% FiO2 Titrate down the FiO2 as tolerated Continue bronchodilators, steroids
[2023-07-17 00:05] LABS: Glucose,Whole Blood 191 mg/dL (70-110)
--- NOTE | 2023-07-17 05:41 | P.PN ---
Subjective Progress Note Date: 07/16/23 63-year-old female came with complaints of chest pressure-like sensation was eval by cardiology EKG showed sinus rhythm with low QRS voltage complexes, troponins are negative patient was eval by cardiology. Patient chest pain is worse with palpation appears to be musculoskeletal cardiology evaluated the patient and they are recommending an echocardiogram if that is negative patient is cleared from their perspective patient has a tracheostomy which has purulent drainage foul-smelling. Chest x-ray did not show any pneumonia but there may be bronchitis will obtain a sputum cultures and infectious disease will be consulted. Patient was also complaining of shortness of breath although there is no wheezing on exam. 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 Patient D-dimer is within normal limits no evidence of pneumonia on the chest x-ray patient does have leukocytosis without any fever. Patient is also complaining of generalized weakness lives by herself and wanted to be evaluated by physical therapy. 07/01/2023 Changes seen and evaluated in room at bedside; continues to climb plaint of uncontrolled pain; Duragesic patch was increased up to 75 mcg; oncology adding IV Dilaudid CT scan completed on 06/07/2023 was reviewed with patient and ; oncology doubting change in the size of the mass -- Given persistent pain oncology is recommending to repeat CT of the neck and jaw which has been ordered -- Continue with aggressive pain regimen Further recommendations once CT of the neck/joints completed -ID on board and recommended to continue current antibiotic therapy 07/14/2023 Patient is seen and evaluated with nursing staff at bedside; reports blood with blood tinged sputum from tracheostomy site; patient self suctions with concern of causing some trauma with deep suctioning Vital signs are reviewed and remained stable Blood work reveals WBC of 8.4, hemoglobin of 10.7 and platelet count of 312 --We will consult pulmonary for further evaluation of hemoptysis 07/15/2023 Patient is seen and evaluated in room at bedside; no further episodes of hemoptysis or blood-tinged sputum from tracheostomy tube Vital sign review reveals temperature of 98.1, pulse 109, respiration 19 and blood pressure 101/67 Lab review reveals WBC of 9.1, hemoglobin of 10.5 and platelet count of 324 Patient has been evaluated by pulmonary service; chest x-ray completed this morning reveals right upper lobe infiltrate; initial sputum culture reveals Klebsiella; patient has been placed on Levaquin 500 mg IV daily per pulmonary recommendations 07/16/2023 Patient seen in follow-up today continues to report pain 8/10 on the pain scale and is scheduled for possibly receiving nerve block from pain management sometim e today. Pulmonary following as well with oncology recommending follow-up chest x-ray as it continues to show right upper lobe density. Patient is continued on Levaquin with infectious disease following as well. Sputum culture did show Klebsiella. Plan initially was for rehab on discharge for continued strength and mobility although family is now possibly discussing considering hospice. Case management consulted and following. Review of systems: Unable to completely assess as patient has tracheostomy Physical exam: Gen: This is a 63-year-old female who is awake alert and oriented x 2-3, thin built, cachectic, elderly appearing, extremely ill-appearing, significant muscle wasting noted HEENT: Head is atraumatic, normocephalic. Pupils equal, round. Sclerae is anicteric. NECK: Supple. No JVD. No lymphadenopathy. No thyromegaly. Tracheostomy with significant copious amounts of thick purulent drainage LUNGS: Diminished breath sounds bilaterally with coarse bronchial congestion and scattered rhonchi. No intercostal retractions. HEART: S1, S2 are muffled ABDOMEN: Soft. Bowel sounds are present. No masses. No tenderness. PEG tube noted with some minimal leaking surrounding EXTREMITIES: No pedal edema. No calf tenderness. NEUROLOGICAL: Patient is awake, alert and oriented x3. Cranial nerves 2 through 12 are grossly intact. 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 -Laryngeal cancer with tracheostomy as mentioned before -Hyperlipidemia -Hypertension -COPD without any acute exacerbation -DVT prophylaxis: Lovenox -GI prophylaxis -Do Not Resuscitate/Do Not Intubate Plan: Continue with multiple medical consultations following including oncology, pulmonary, and pain management. Pain management apparently scheduled tentatively to doing nerve block today for continued pain control Patient did have Klebsiella in the sputum and is maintained on Levaquin with infectious disease following Patient continues to report 8/10 on the pain scale with no significant relief Pulmonary following continue on treatments along with frequent suctioning with respiratory of tracheostomy as there continues to be thick copious amounts of purulent drainage noted. Recommend repeat chest x-ray in a.m. Initial plans were for rehab on discharge for continued strength and mobility although family and patient now discussing possible hospice Hospice is appropriate at this point. Given significant comorbidities, overall prognosis is poor and guarded The impression and plan of care has been dictated by Jenae Tony, Nurse Practitioner as directed. Dr. Adam MD I have performed a history and examination and MDM of this patient, discussed the same with the dictator, and agree with the dictator's assessment and plan as written ,documented as a scribe. Based on total visit time, I have performed more than 50% of the visit. Objective - Vital Signs Vital signs: Vital Signs Temp 98.6 F 07/17/23 00:25 Pulse 88 07/17/23 03:04 Resp 16 07/17/23 00:25 BP 114/75 07/17/23 03:32 Pulse Ox 94 L 07/17/23 03:04 FiO2 60 07/15/23 15:18 Intake & Output 07/16/23 07/16/23 07/17/23 06:59 18:59 06:59 Intake Total 804 712 Balance 804 712 Weight 45.5 kg 45.5 kg 45.5 kg Intake: Tube Feeding 804 712 Other: Voiding Method Bedside Commode Bedside Commode # Voids 3 2 3 - Labs CBC & Chem 7: 07/15/23 06:30 07/10/23 07:09 Labs: Abnormal Lab Results - Last 24 Hours (Table) 07/16/23 07/16/23 07/16/23 Range/Units 06:24 12:12 17:14 POC Glucose (mg/dL) 161 H 127 H 121 H (70-110) mg/dL 07/17/23 Range/Units 00:02 POC Glucose (mg/dL) 191 H (70-110) mg/dL
[2023-07-17 05:59] LABS: Glucose,Whole Blood 126 mg/dL (70-110)
--- NOTE | 2023-07-17 09:16 | XR ---
EXAMINATION TYPE: XR chest 1V DATE OF EXAM: 07/17/2023 HISTORY: Pneumonia COMPARISON: 07/15/2023 TECHNIQUE: Single view of the chest is submitted. FINDINGS: Demonstrated are scattered senescent parenchymal change. Moderate-sized coarse infiltrate right upper lobe persists and appears essentially unchanged. Tracheo stomy tube and MediPort catheter are in place. The heart is stable. Hilar and mediastinal structures are within normal limits. Degenerative changes are seen of the dorsal spine. IMPRESSION: 1. Moderate-sized coarse infiltrate right upper lobe persists and appears essentially unchanged.
[2023-07-17 12:09] LABS: Glucose,Whole Blood 184 mg/dL (70-110)
[2023-07-17] MEDS: HYDROmorphone 1 MG/ML 1 ML SYRINGE IVP SCH (12:29)
[2023-07-17] MEDS ORDERED: fentaNYL (PF) 50 MCG/ML 2 ML AMP ONE (12:41)
[2023-07-17] MEDS ORDERED: IOPAMIDOL M200 10 ML VIAL ONE (12:41)
[2023-07-17] MEDS ORDERED: DEXAMETHASONE SOD PHOSPHATE 10 MG/ML 1 ML VIAL ONE (12:41)
[2023-07-17] MEDS ORDERED: MIDAZOLAM 2 MG/2 ML VIAL ONE (12:41)
--- NOTE | 2023-07-17 13:03 | P.PCN ---
Date of Procedure: 07/17/23 Description of Procedure: preop diagnosis is left-sided trigeminal neuralgia Postop diagnosis same Procedure left-sided trigeminal nerve block under fluoroscopy All questions were answered for the patient and consent was signed. She was able to write down questions regarding the procedure before we proceeded to move her over to the bed. At that time 2 mg of IV Versed were given for relaxation. Moderate sedation was used by the nurse. Sedation supervision time from 1244 through 1257 The patient was reevaluated prior to anesthesia given Patient was placed in supine position with the head turned slightly to the right. Oxygen was placed over the trach. At that time the face was cleansed with chlorhexidine solution. X-ray was brought in to identify the mandible as well as a foraminal valve. At that time a 25-gauge spinal needle was introduced through 1 mL of local anesthetic 1% lidocaine in the left side of the face. As the needle was advanced towards the foraminal ovale, a finger was placed in the mouth to ensure that the needle did not penetrate the oropharynx. After advancing a 25-gauge spinal needle to the foraminal cell 1 mL of Isovue-200 was used to identify the surrounding structures and avoid any neurovascular spread. At that time 1 mL of 10 mg dexamethasone was used after negative aspiration. At that time a picture was saved successfully. Patient was discharged back to her room in stable condition. All questions were answered again. She could restart her blood thinning medications.
--- NOTE | 2023-07-17 13:04 | P.PN ---
Subjective Progress Note Date: 07/16/23 Principal diagnosis: Reason for follow-up is leukocytosis and tracheobronchitis Patient is a 63-year-old female past medical history significant for hypertension hyperlipidemia coronary artery disease patient has a history of left tonsil cancer and did have a tracheostomy patient presented to [facility] ER for evaluation of chest pain and difficulty in breathing also noticed to have some purulent drainage through the trach and there was concern for possible trach site cellulitis prompting this consultation. On today's evaluation that is 07/16/2023,the patient remains to be afebrile, patient is on room air not requiring supplemental oxygen has been complaining of some shortness of breath and also having left-sided neck pain denies any worsening cough or chest no vomiting or diarrhea has been reported. Patient did not have any lab draw today Objective - Vital Signs Vital signs: Vital Signs Temp 97.4 F L 07/16/23 08:00 Pulse 99 07/16/23 08:00 Resp 17 07/16/23 08:00 BP 106/70 07/16/23 08:00 Pulse Ox 95 07/16/23 08:37 FiO2 60 07/15/23 15:18 Intake & Output 07/15/23 07/16/23 07/16/23 18:59 06:59 18:59 Intake Total 804 Balance 804 Weight 45.5 kg Intake: Tube Feeding 804 Other: Voiding Method Bedside Commode # Voids 1 3 - Exam Middle-aged female lying in bed in no distress Unlabored breathing decreased breath sound at the base Abdomin soft no tenderness Awake and alert Exam completed with the help of [employer] - Labs CBC & Chem 7: 07/15/23 06:30 07/10/23 07:09 Labs: Abnormal Lab Results - Last 24 Hours (Table) 07/15/23 07/15/23 07/15/23 Range/Units 06:30 12:31 17:26 Hgb 10.5 L (11.4-16.0) gm/dL MCHC 30.5 L (31.0-37.0) g/dL RDW 16.1 H (11.5-15.5) % Neutrophils # 8.1 H (1.3-7.7) k/uL Lymphocytes # 0.4 L (1.0-4.8) k/uL POC Glucose (mg/dL) 132 H 183 H (70-110) mg/dL 07/16/23 07/16/23 Range/Units 00:08 06:24 Hgb (11.4-16.0) gm/dL MCHC (31.0-37.0) g/dL RDW (11.5-15.5) % Neutrophils # (1.3-7.7) k/uL Lymphocytes # (1.0-4.8) k/uL POC Glucose (mg/dL) 180 H 161 H (70-110) mg/dL Assessment and Plan (1) Leukocytosis Current Visit: Yes Status: Acute Code(s): D72.829 - ELEVATED WHITE BLOOD CELL COUNT, UNSPECIFIED SNOMED Code(s): 093974290 (2) Tracheobronchitis Current Visit: Yes Status: Acute Priority: High Code(s): J40 - BRONCHITIS, NOT SPECIFIED ACUTE OR CHRONIC SNOMED Code(s): 58249526 (3) Penicillin allergy Current Visit: Yes Status: Acute Code(s): Z88.0 - ALLERGY STATUS TO PENICILLIN SNOMED Code(s): 74416898 (4) Positive blood culture Current Visit: Yes Status: Acute Priority: High Code(s): R78.81 - BACTEREMIA SNOMED Code(s): 602248129 Plan: This is a telehealth visit 1patient presenting to the hospital with increasing shortness of breath chest pain also have a cough purulent drainage concerning for tracheobronchitis possible bacterial and question of pseudomonal with a greenish drainage from the trach site did have elevated white count though chest x-ray reported negative for acute infiltrate, no significant redness around the trach site was noticed 2-penicillin allergy that will limit the number of antibiotics safe to use 3-patient did have a mild elevated procalcitonin 0.32 sputum cultures did grow Klebsiella that is a sensitive pathogen 4-blood culture with staph epi possible skin contamination blood culture repeated has been negative 4-patient remains to be afebrile white count has been normal, patient seem to have some bloodstained sputum attributed to possible aggressive aspiration patient did have mildly elevated procalcitonin, patient is currently on Levaquin and monitor clinical course closely Dictation was produced using [employer] dictation software. please excuse any gra mmatical, word or spelling errors. Time with Patient: Less than 30
--- NOTE | 2023-07-17 13:05 | P.PN ---
Subjective Progress Note Date: 07/17/23 Principal diagnosis: Reason for follow-up is leukocytosis and tracheobronchitis Patient is a 63-year-old female past medical history significant for hypertension hyperlipidemia coronary artery disease patient has a history of left tonsil cancer and did have a tracheostomy patient presented to [facility] ER for evaluation of chest pain and difficulty in breathing also noticed to have some purulent drainage through the trach and there was concern for possible trach site cellulitis prompting this consultation. On today's evaluation that is 07/17/2023, the patient continues to be afebrile, the patient is on room air and breathing comfortably, the Pt has been complaining of some chest pain and shortness of breath and also pain to the left side of the neck no vomiting or diarrhea has been reported. No new labs has been repeated today Objective - Vital Signs Vital signs: Vital Signs Temp 97.5 F L 07/17/23 07:19 Pulse 105 H 07/17/23 07:19 Resp 18 07/17/23 07:19 BP 101/67 07/17/23 07:19 Pulse Ox 95 07/17/23 07:19 FiO2 60 07/15/23 15:18 Intake & Output 07/16/23 07/17/23 07/17/23 18:59 06:59 18:59 Intake Total 712 Balance 712 Weight 45.5 kg 45.5 kg Intake: Tube Feeding 712 Other: Voiding Method Bedside Commode # Voids 2 3 1 - Exam Middle-aged female lying in bed in no distress Unlabored breathing decreased breath sound at the base Abdomin soft no tenderness Awake and alert Exam completed with the help of MANAGER SYSTEMS - Labs CBC & Chem 7: 07/15/23 06:30 07/10/23 07:09 Labs: Abnormal Lab Results - Last 24 Hours (Table) 07/16/23 07/16/23 07/17/23 Range/Units 12:12 17:14 00:02 POC Glucose (mg/dL) 127 H 121 H 191 H (70-110) mg/dL 07/17/23 Range/Units 05:57 POC Glucose (mg/dL) 126 H (70-110) mg/dL Assessment and Plan (1) Leukocytosis Current Visit: Yes Status: Acute Code(s): D72.829 - ELEVATED WHITE BLOOD CELL COUNT, UNSPECIFIED SNOMED Code(s): 081056836 (2) Tracheobronchitis Current Visit: Yes Status: Acute Priority: High Code(s): J40 - BRONCHITIS, NOT SPECIFIED ACUTE OR CHRONIC SNOMED Code(s): 52098449 (3) Penicillin allergy Current Visit: Yes Status: Acute Code(s): Z88.0 - ALLERGY STATUS TO PENICILLIN SNOMED Code(s): 02769926 (4) Positive blood culture Current Visit: Yes Status: Acute Priority: High Code(s): R78.81 - BACTEREMIA SNOMED Code(s): 996164404 Plan: This is a telehealth visit 1patient presenting to the hospital with increasing shortness of breath chest pain also have a cough purulent drainage concerning for tracheobronchitis possible bacterial and question of pseudomonal with a greenish drainage from the trach site did have elevated white count though chest x-ray reported negative for acute infiltrate, no significant redness around the trach site was noticed 2-penicillin allergy that will limit the number of antibiotics safe to use 3-patient did have a mild elevated procalcitonin 0.32 sputum cultures did grow Klebsiella that is a sensitive pathogen 4-blood culture with staph epi possible skin contamination blood culture repeated has been negative 4-patient remains to be afebrile white count has been normal, patient seem to have some bloodstained sputum attributed to possible aggressive aspiration patient did have mildly elevated procalcitonin, patient is currently on Levaquin await pain management evaluation for possible nerve block also considering hospice which may be appropriate for her questions answered Dictation was produced using [employer] dictation software. please excuse any grammatical, word or spelling errors. Time with Patient: Less than 30
[2023-07-17] MEDS: MORPHINE ORAL SOLN 10 MG/5 ML CUP PEG/G-TUBE SCH (13:39)
--- NOTE | 2023-07-17 13:41 | FL ---
Fluoroscopy History: PAIN .[id number] DAP 25 SEC
--- NOTE | 2023-07-17 14:41 | P.PN ---
Subjective Progress Note Date: 07/17/23 This is a 63-year-old female who was initially admitted on June 26, 2023, through the emergency department, for chest pain and shortness of breath. We were just consulted on this patient, this morning. The patient has a history of multiple medical problems including tonsillar cancer, status post tracheostomy and PEG tube placement, hypertension, hyperlipidemia, coronary artery disease, with stent placement. We saw her back in March 2023, and did bronchoscopy on her, because of secretions. The patient is seen today in room 517. She is on room air. She is not receiving any IV fluids. He is getting tube feedings, with TwoCal HN at 30 cc an hour. The patient is currently on DuoNebs, and bud esonide. No antibiotic. She did test positive for Klebsiella species, and was on Rocephin as per infectious diseases. Previously, her procalcitonin level was mildly elevated at 0.23, back on June 27. The patient's most recent labs show a white count of 9.3, hemoglobin 10.5, hematocrit 33.5, and platelet count is normal. Glucose was 129. The patient's sputum sample, on June 26, was positive for Klebsiella variicola. The patient is currently not on antibiotic. The nurse, who is taking care of the patient, believes that the patient who was self suctioning herself, is traumatizing her trachea, which is why she has got some blood in her sputum. Her sputum does look a bit purulent. A repeat procalcitonin level will be done. My recommendation is for her suctioning to be done by respiratory therapy, and nursing, and not allow the patient to suction herself, if they believe that is the cause of the bleeding. The patient is seen today July 15, 2023 in follow-up on the regular medical fl oor. She is currently awake and alert in no acute distress. She was having some issues with shortness of breath while laying flat in bed. She is currently sitting upright and feeling better. She continues to gently suction secretions out of her tracheostomy tube. No noted hemoptysis throughout the night or this morning. Today's chest x-ray continues to show a right upper lobe infiltrate. Her initial sputum was positive for Klebsiella variicola. She had completed a course of ceftriaxone. Procalcitonin was 0.29. Glucose 119. She is maintaining O2 saturations in the 90s on 40% trach collar. She is afebrile. Tachycardic. She remains on DuoNeb inhalations, Decadron. She is being no urished with TwoCal HN at 30 MLS per hour which is goal. 07/16/2023, the patient continues to be short of breath. She has diffuse rhonchi heard throughout the lung stewart more so on the right upper lobe area. The patient has been hospitalized back in 06/26/2023 and the patient has been in the hospital since. I reviewed the records. There is a evolution of right upper lobe pulmonary consolidation with scattered pulmonary nodules in addition to the consolidation of the right upper lobe. 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 She was started on immunotherapy in July 2022. She had recurrent disease in October 07 023 given further chemotherapy with carboplatinum and Taxol with some good response. Most recent PET/CT that was done on this patient on 04/20/2023 revealed positive response along the mucosa of the left side of neoplasm and no significant metabolic activity involving the lungs. No osseous metastases. Nevertheless, the follow-up CAT scan of the neck and the chest that was done on 07/01/2023 revealed a Pulmonary nodules throughout the lung stewart in addition to an area of consolidation in the right upper lobe. No mediastinal or hilar lymphadenopathy. Presence of multiple nodules was suspicious for metastatic disease in addition to a extensive right upper lobe consolidation. Since that admission, the sputum sample that was collected on 06/27/2023 turned out to be positive for Klebsiella. As such, the patient was covered with broad-spectrum antibiotics under the care of infectious disease. Patient was initially on cefepime. The procalcitonin levels were mildly elevated. She is currently on Levaquin. Repeat chest x-ray shows a stable right upper lobe consolidation and the patient continues to be symptomatic at this point in time. CAT scan of the abdomen and pelvis that was done on 07/12/2023 again confirmed the presence of bilateral pulmonary nodules right more than left and the PEG tube was in the stomach and the patient continues to receive enteral feeding for nutritional support and she is currently on TwoCal running at the rate of 30 cc an hour. Most recent blood work shows a WBC count 9.1, hemoglobin of 10.5, and a platelet count of 324. Okay he has x-ray looks fine on today's evaluation of 07/17/2023, I am seeing the patient for a follow-up. The patient had a pain shot to her left face and the patient is having significant amount of left facial pain. At same time, she is on room air oxygen and she is having copious amount of respiratory secretions. Repeat chest x-ray was done today and the chest x-ray showed an extensive area of pneumonia/consolidation in the right upper lobe. The patient remains on Levaquin. She remains on bronchodilators. I was talking to her about the possibility of a bronchoscopy and she opted for hospice care. meanwhile, the patient continues to receive enteral feeding for nutritional support. No nausea or vomiting. No emesis. No new labs. Objective - Vital Signs Vital signs: Vital Signs Temp 97.5 F L 07/17/23 07:19 Pulse 90 07/17/23 09:23 Resp 18 07/17/23 07:19 BP 101/67 07/17/23 07:19 Pulse Ox 94 L 07/17/23 09:14 FiO2 60 07/15/23 15:18 Intake & Output 07/16/23 07/17/23 07/17/23 18:59 06:59 18:59 Intake Total 712 Balance 712 Weight 45.5 kg 45.5 kg Intake: Tube Feeding 712 Other: Voiding Method Bedside Commode # Voids 2 3 1 - Exam GENERAL EXAM: Alert, pleasant 63-year-old female, on 40% trach collar, in no apparent distress. HEAD: Normocephalic. EYES: Normal reaction of pupils, equal size. NOSE: Clear with pink turbinates. THROAT: Tracheostomy tube secured in place. No erythema or exudates. NECK: No masses, no JVD. CHEST: No chest wall deformity. LUNGS: Equal air entry with scattered rhonchi more so on the right upper lung. CVS: S1 and S2 normal with no audible murmur, regular rhythm. ABDOMEN: PEG tube exit site clean and dry. No hepatosplenomegaly, normal bowel sounds, no guarding or rigidity. SPINE: No scoliosis or deformity SKIN: No rashes CENTRAL NERVOUS SYSTEM: No focal deficits, tone is normal in all 4 extremities. EXTREMITIES: There is no peripheral edema. No clubbing, no cyanosis. Peripheral pulses are intact. - Labs CBC & Chem 7: 07/15/23 06:30 07/10/23 07:09 Labs: Abnormal Lab Results - Last 24 Hours (Table) 07/16/23 07/16/23 07/17/23 Range/Units 12:12 17:14 00:02 POC Glucose (mg/dL) 127 H 121 H 191 H (70-110) mg/dL 07/17/23 Range/Units 05:57 POC Glucose (mg/dL) 126 H (70-110) mg/dL Assessment and Plan Plan: Right upper lobe pneumonia with an extensive right upper lobe consolidation and purulent/bloody sputum, noted from tracheostomy site, may relate to the patient suctioning herself, and traumatizing her trachea. The patient is currently on 40% trach collar. Chest x-ray shows unchanged stable consolidation of the right upper lobe. She is currently on Levaquin. Most recent cultures indicating Klebsiella. Acute hypoxic respiratory failure secondary to above Scattered bilateral pulmonary nodules consistent with metastatic disease History of tonsillar cancer, status post tracheostomy tube, treated with chemoradiation therapy followed by immunotherapy. Please refer to the oncology note regarding the details of her previous treatment. Her disease was able based on the most recent PET/CT that was done in April 2023. Nevertheless, the follow-up CAT scan shows evidence of bilateral pulmonary nodules which could be potentially indicate of of metastatic disease. History of PEG tube placement, the patient is receiving enteral feeding for nutritional support. History of CAD with previous stent placement History of hypertension History of hyperlipidemia Plan: Repeat chest x-ray in the morning ID, And there is extensive right upper lobe consolidation.the patient needs a bronchoscopy endobronchial lavage to rule out any resistant microorganism and opportunistic microorganisms affecting the right upper lobe. The patient seems to be interested in hospice care at this point in time. Hospice been consulted. As such, no need for bronchoscopy at this point. Continue Levaquin 500 mg IV daily Continue trach collar at 40% FiO2 Titrate down the FiO2 as tolerated Continue bronchodilators, steroids Continue enteral feeding for nutritional support. Continue supportive care. Hospice team following.
--- NOTE | 2023-07-17 15:20 | P.PN ---
Subjective Progress Note Date: 07/17/23 Principal diagnosis: Head/neck malignancy, progressive lt facial pain In f/u today pt pain in the left face cont to be 8/10. Awaiting nerve block to see if that helps with pain. She is expectorating thick, prasad sputum from trach. at bedside had numerous questions and concerns Objective - Vital Signs Vital signs: Vital Signs Temp 98.1 F 07/17/23 13:15 Pulse 116 H 07/17/23 13:15 Resp 14 07/17/23 13:15 BP 105/71 07/17/23 13:15 Pulse Ox 93 L 07/17/23 13:15 FiO2 60 07/15/23 15:18 Intake & Output 07/16/23 07/17/23 07/17/23 18:59 06:59 18:59 Intake Total 712 Balance 712 Weight 45.5 kg 45.5 kg Intake: Tube Feeding 712 Other: Voiding Method Bedside Commode Bedside Commode # Voids 2 3 1 - Constitutional General appearance: Present: cooperative, no acute distress, thin - EENT Eyes: Present: anicteric sclerae, EOMI ENT: Present: hearing grossly normal - Respiratory Details: resp even and unlabored at rest - Peripheral edema leg Peripheral Edema: bilateral: None - Integumentary Integumentary: Present: normal - Musculoskeletal Musculoskeletal: Present: generalized weakness - Psychiatric Psychiatric: Present: A&O x's 3, appropriate affect, intact judgment & insight - Labs CBC & Chem 7: 07/15/23 06:30 07/10/23 07:09 Labs: Abnormal Lab Results - Last 24 Hours (Table) 07/16/23 07/17/23 07/17/23 Range/Units 17:14 00:02 05:57 POC Glucose (mg/dL) 121 H 191 H 126 H (70-110) mg/dL 07/17/23 Range/Units 12:08 POC Glucose (mg/dL) 184 H (70-110) mg/dL Assessment and Plan (1) Acute facial pain Current Visit: Yes Status: Acute Priority: High Code(s): R51.9 - HEADACHE, UNSPECIFIED SNOMED Code(s): 147557055 (2) Head and neck cancer Current Visit: Yes Status: Chronic Priority: High Code(s): C76.0 - MALIGNANT NEOPLASM OF HEAD, FACE AND NECK SNOMED Code(s): 235234036 (3) Positive blood culture Current Visit: Yes Status: Acute Priority: High Code(s): R78.81 - BACTEREMIA SNOMED Code(s): 579860831 Plan: Intractable left facial pain, Hx head/neck malignancy -Patient has marked increase in pain in the face, intractable, 8+/10. Adjustments to pain meds and oral steroids have not made any impact on pain. No further increases in narcotics at this time. Gabapentin, Dex cont -Based on review of the CT scans/MRI neck, there is nothing that is seen that can account for the acute change in pain. Pain Mgmt consulted. Hope nerve block can help ease pain. HELD plavix 07/10. ASA held 07/11 (holding per recommendations for holding aspirin and Plavix in pain management notes). Confirmed that Pt is on sched for nerve block 1245 today. -Reviewed case extensively with today. Reviewed all his concerns and a ddressed them to his satisfaction. -Plans for hospice after nerve block, hope pain better controlled. -Focus of care right now is pain management. Positive blood and sputum cultures -abx cont per ID/Pulm Time with Patient: Greater than 30
[2023-07-17 18:05] LABS: Glucose,Whole Blood 145 mg/dL (70-110)
[2023-07-18 00:02] LABS: Glucose,Whole Blood 168 mg/dL (70-110)
[2023-07-18 05:54] LABS: Glucose,Whole Blood 98 mg/dL (70-110)
--- NOTE | 2023-07-18 06:01 | P.PN ---
Subjective Progress Note Date: 07/17/23 63-year-old female came with complaints of chest pressure-like sensation was eval by cardiology EKG showed sinus rhythm with low QRS voltage complexes, troponins are negative patient was eval by cardiology. Patient chest pain is worse with palpation appears to be musculoskeletal cardiology evaluated the patient and they are recommending an echocardiogram if that is negative patient is cleared from their perspective patient has a tracheostomy which has purulent drainage foul-smelling. Chest x-ray did not show any pneumonia but there may be bronchitis will obtain a sputum cultures and infectious disease will be consulted. Patient was also complaining of shortness of breath although there is no wheezing on exam. 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 Patient D-dimer is within normal limits no evidence of pneumonia on the chest x-ray patient does have leukocytosis without any fever. Patient is also complaining of generalized weakness lives by herself and wanted to be evaluated by physical therapy. 07/01/2023 Changes seen and evaluated in room at bedside; continues to climb plaint of uncontrolled pain; Duragesic patch was increased up to 75 mcg; oncology adding IV Dilaudid CT scan completed on 06/07/2023 was reviewed with patient and ; oncology doubting change in the size of the mass -- Given persistent pain oncology is recommending to repeat CT of the neck and jaw which has been ordered -- Continue with aggressive pain regimen Further recommendations once CT of the neck/joints completed -ID on board and recommended to continue current antibiotic therapy 07/14/2023 Patient is seen and evaluated with nursing staff at bedside; reports blood with blood tinged sputum from tracheostomy site; patient self suctions with concern of causing some trauma with deep suctioning Vital signs are reviewed and remained stable Blood work reveals WBC of 8.4, hemoglobin of 10.7 and platelet count of 312 --We will consult pulmonary for further evaluation of hemoptysis 07/15/2023 Patient is seen and evaluated in room at bedside; no further episodes of hemoptysis or blood-tinged sputum from tracheostomy tube Vital sign review reveals temperature of 98.1, pulse 109, respiration 19 and blood pressure 101/67 Lab review reveals WBC of 9.1, hemoglobin of 10.5 and platelet count of 324 Patient has been evaluated by pulmonary service; chest x-ray completed this morning reveals right upper lobe infiltrate; initial sputum culture reveals Klebsiella; patient has been placed on Levaquin 500 mg IV daily per pulmonary recommendations 07/16/2023 Patient seen in follow-up today continues to report pain 8/10 on the pain scale and is scheduled for possibly receiving nerve block from pain management sometim e today. Pulmonary following as well with oncology recommending follow-up chest x-ray as it continues to show right upper lobe density. Patient is continued on Levaquin with infectious disease following as well. Sputum culture did show Klebsiella. Plan initially was for rehab on discharge for continued strength and mobility although family is now possibly discussing considering hospice. Case management consulted and following. 07/17/2023 Patient is seen in follow-up today with at the bedside. Patient continues to report pain in his severe and 9/10. Pain management following and patient will be receiving nerve block sometime today in hopes of possible pain relief. Discussing hospice with [facility] following and will reevaluate tomorrow if patient meets criteria or if plans are to return home with this is following. Patient continues on scheduled and as needed IV narcotics and reports no relief. Patient continues with thick amounts of copious secretions from the tracheostomy and is maintained on IV antibiotics in the form of Levaquin. Patient with significant weakness recommend getting up more often and sitting in the chair. Continue tube feeds Review of systems: Unable to completely assess as patient has tracheostomy and mumbles Physical exam: Gen: This is a 63-year-old female who is awake alert and oriented x 2-3, thin built, cachectic, elderly appearing, extremely ill-appearing, significant muscle wasting noted HEENT: Head is atraumatic, normocephalic. Pupils equal, round. Sclerae is anicteric. NECK: Supple. No JVD. No lymphadenopathy. No thyromegaly. Tracheostomy with significant copious amounts of thick purulent drainage LUNGS: Diminished breath sounds bilaterally with coarse bronchial congestion and scattered rhonchi. No intercostal retractions. HEART: S1, S2 are muffled ABDOMEN: Soft. Bowel sounds are present. No masses. No tenderness. PEG tube noted with some minimal leaking surrounding EXTREMITIES: No pedal edema. No calf tenderness. NEUROLOGICAL: Patient is awake, alert and oriented x3. Cranial nerves 2 through 12 are grossly intact. 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 -Laryngeal cancer with tracheostomy as mentioned before -Hyperlipidemia -Hypertension -COPD without any acute exacerbation -DVT prophylaxis: Lovenox -GI prophylaxis -Do Not Resuscitate/Do Not Intubate Plan: Continue with multiple medical consultations following including oncology, pulmonary, and pain management. Pain management apparently scheduled tentativel y to doing nerve block today for continued pain control. Hopeful for some pain relief as patient continues to report 9/10 on the pain scale and is maintained on [id number] IV narcotics. at the bedside multiple questions and concerns reporting her pain is not managed here as she has scheduled medications that she is not receiving on time due to nursing issues. was extremely upset with overall care and lack of pain management. Of note patient is currently on 100 mcg of fentanyl, oral morphine, 2 mg of Dilaudid every 2 hours IV and reporting no relief. Patient did have Klebsiella in the sputum and is maintained on Levaquin with infectious disease following To [facility] hospice following and will reevaluate after nerve block for improvements in pain controlif patient meets criteria for inpatient or possibly home Pulmonary following continue on treatments along with frequent suctioning with respiratory of tracheostomy as there continues to be thick copious amounts of purulent drainage noted. Hospice is appropriate at this point. Given significant comorbidities, overall prognosis is poor and guarded The impression and plan of care has been dictated by Jenae Tony, Nurse Practitioner as directed. Dr. Adam MD I have performed a history and examination and MDM of this patient, discussed the same with the dictator, and agree with the dictator's assessment and plan as written ,documented as a scribe. Based on total visit time, I have performed more than 50% of the visit. Objective - Vital Signs Vital signs: Vital Signs Temp 98 F 07/18/23 01:36 Pulse 91 07/18/23 01:36 Resp 16 07/18/23 01:36 BP 115/75 07/18/23 01:36 Pulse Ox 92 L 07/18/23 03:39 FiO2 60 07/17/23 20:10 Intake & Output 07/17/23 07/17/23 07/18/23 06:59 18:59 06:59 Intake Total 712 600 Output Total 200 Balance 712 400 Weight 45.5 kg 46 kg Intake: Tube Feeding 712 600 Output: Urine 200 Other: Voiding Method Bedside Commode Bedside Commode Bedside Commode # Voids 3 1 3 - Labs CBC & Chem 7: 07/15/23 06:30 07/10/23 07:09 Labs: Abnormal Lab Results - Last 24 Hours (Table) 07/17/23 07/17/23 07/17/23 Range/Units 05:57 12:08 18:03 POC Glucose (mg/dL) 126 H 184 H 145 H (70-110) mg/dL 07/18/23 Range/Units 00:00 POC Glucose (mg/dL) 168 H (70-110) mg/dL
[2023-07-18] MEDS ORDERED: LORazepam 2 MG/ML INJ IV PRN (12:02)
[2023-07-18 12:09] LABS: Glucose,Whole Blood 204 mg/dL (70-110)
[2023-07-18] MEDS ORDERED: ZINC OXIDE PASTE (Z-GUARD) 1 APPLIC TOPICAL PRN (12:19)
[2023-07-18 12:20] VITALS: RESP 17
[2023-07-18 14:17] VITALS: BP 99/61; PULSE 120; TEMP 98.2
--- NOTE | 2023-07-19 15:30 | P.DS ---
Providers Date of admission: 06/28/23 09:45 Expected date of discharge: 07/18/23 Attending physician: Billy Montana Consults: 06/27/23 11:42 Consult Physician Routine Consulting Provider: Alonso Will Consult Reason/Comments: Possible trach/resp infection Do you want consulting provider notified?: Yes 06/29/23 13:49 Consult Physician Routine Consulting Provider: Samira Camejo Consult Reason/Comments: Oropharyngeal mass Do you want consulting provider notified?: Yes 07/04/23 15:01 Consult Physician Routine Consulting Provider: Aly Moise Consult Reason/Comments: hx laryngeal cancer, left sided ear,face,neck pain Do you want consulting provider notified?: Yes 07/05/23 13:15 Consult Physician Routine Consulting Provider: Cj Hunt Consult Reason/Comments: intractable pain, despite multiple adjustments to pain regimen Do you want consulting provider notified?: Yes 07/13/23 14:49 Consult Physician Routine Consulting Provider: Barney Menard Consult Reason/Comments: bloody sputum through trach Do you want consulting provider notified?: Yes Primary care physician: Rell Arreola Hospital Course: Final diagnosis -Acute tracheobronchitis Infection , patient has a tracheostomy: Culture showing Klebsiella, present on admission -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 Patient will continue with pain control and management with adjustments to medications. Total time taken is greater than 35 minutes. Hospital course This is a 63-year-old female who was recently admitted with increased purulence and increased shortness of breath with concerns of acute tracheobronchitis. Culture showing Klebsiella and also noted to have recurrence of left neck neoplasm with increasing pain and severe left facial pain. Patient undergoing extensive workup and prolonged hospitalization with no improvements and continues to be 10/10 on the pain. Family has discussed and opted for hospice and met with [facility] and has been flipped to inpatient. Patient is on a number of narcotics and continues to report uncontrolled pain and currently working with hospice regarding a possible pump in the outpatient setting to go home with family to care for her. Currently patient is having severe pain with continued symptoms and fearful of going home with no effective pain control regimen. Oncology has been following and making adjustments to medications. Patient will be monitored in the hospital and work on discharge planning including possible pain pump for discharge home. Please refer to other consultation notes for further HPI. Currently no reports of chest pain, reports continuous shortness of breath, or palpitations. Patient is afebrile. reports of nausea with vomiting and and intermittent abdominal pain maintained on tube feeds. Given significant comorbidities, overall prognosis is poor and guarded. We will follow with hospice during hospitalization. Physical exam: Gen: This is a 63-year-old female who is awake, alert and oriented x 2-3, thin built, cachectic, elderly appearing, ill-appearing, emaciated with significant muscle wasting noted throughout HEENT: Head is atraumatic, normocephalic. Pupils equal, round. Sclerae is anicteric. NECK: Supple. No JVD. No lymphadenopathy. No thyromegaly. LUNGS: Diminished breath sounds bilaterally with coarse scattered rhonchi and crackles noted, significant congestion and secretions noted in the tracheostomy. No intercostal retractions. HEART: Regular rate and rhythm. No murmur. ABDOMEN: Soft. Bowel sounds are present. No masses. No tenderness. EXTREMITIES: No pedal edema. No calf tenderness. NEUROLOGICAL: Patient is awake, alert and oriented x3. Cranial nerves 2 through 12 are grossly intact. Please refer to medication reconciliation sheet for a list of medications. The impression and plan of care has been dictated by Jenae Tony, Nurse Practitioner as directed. Dr. Adam MD I have performed a history and examination and MDM of this patient, discussed the same with the dictator, and agree with the dictator's assessment and plan as written ,documented as a scribe. Based on total visit time, I have performed more than 50% of the visit. Patient Condition at Discharge: Poor Plan - Discharge Summary New Discharge Prescriptions: New fentaNYL 100MCG/HR PATCH [Duragesic 100MCG/HR] 100 mcg TRANSDERM Q72H 3 Days #1 patch MORPHINE ORAL JEFFRY 2mg/mL [Morphine Oral Soln 2 MG/ML] 20 mg PEG/G-TUBE Q6H PRN 3 Days #120 ml PRN Reason: Pain Discontinued Morphine Sulfate [Morphine Sulfate 10 MG/5 ML] 10 - 20 mg PEG/G-TUBE Q3H PRN PRN Reason: Pain No Action Aspirin 81 mg PEG/G-TUBE DAILY@1000 Ipratropium-Albuterol Nebulize [Duoneb 0.5 mg-3 mg/3 ml Soln] 3 ml INHALATION RT-Q2H PRN #90 dose PRN Reason: Shortness Of Breath Or Wheezing dexAMETHasone [Decadron] 8 mg PEG/G-TUBE DAILY Ondansetron Odt [Zofran ODT] 8 mg PO QID PRN PRN Reason: Nausea Metoprolol Succinate [Kapspargo Sprinkle] 100 mg PEG/G-TUBE DAILY@1000 Clopidogrel [Plavix] 75 mg PEG/G-TUBE DAILY@1000 fentaNYL 25MCG/HR PATCH [Duragesic 25MCG/HR] 2 patch TRANSDERM Q72H Sennosides-Docusate Sodium [Senokot-S] 1 tab PO DAILY Prochlorperazine [Compazine] 5 mg PEG/G-TUBE Q6HR PRN PRN Reason: Nausea And Vomiting Acetaminophen Oral Susp [Tylenol] 320 mg PEG/G-TUBE Q6HR PRN PRN Reason: Fever Discharge Medication List Ondansetron Odt [Zofran ODT] 8 mg PO QID PRN 04/03/22 [History] Metoprolol Succinate [Kapspargo Sprinkle] 100 mg PEG/G-TUBE DAILY@1000 08/15/22 [History] Clopidogrel [Plavix] 75 mg PEG/G-TUBE DAILY@1000 11/16/22 [History] Aspirin 81 mg PEG/G-TUBE DAILY@1000 11/25/22 [History] Ipratropium-Albuterol Nebulize [Duoneb 0.5 mg-3 mg/3 ml Soln] 3 ml INHALATION RT-Q2H PRN #90 dose 12/10/22 [Rx] Acetaminophen Oral Susp [Tylenol] 320 mg PEG/G-TUBE Q6HR PRN 06/26/23 [History] Prochlorperazine [Compazine] 5 mg PEG/G-TUBE Q6HR PRN 06/26/23 [History] Sennosides-Docusate Sodium [Senokot-S] 1 tab PO DAILY 06/26/23 [History] dexAMETHasone [Decadron] 8 mg PEG/G-TUBE DAILY 06/26/23 [History] fentaNYL 25MCG/HR PATCH [Duragesic 25MCG/HR] 2 patch TRANSDERM Q72H 06/26/23 [History] MORPHINE ORAL JEFFRY 2mg/mL [Morphine Oral Soln 2 MG/ML] 20 mg PEG/G-TUBE Q6H PRN 3 Days #120 ml 07/05/23 [Rx] fentaNYL 100MCG/HR PATCH [Duragesic 100MCG/HR] 100 mcg TRANSDERM Q72H 3 Days #1 patch 07/05/23 [Rx] Follow up Appointment(s)/Referral(s): [facility] [NON-STAFF] - As Needed Rell Arreola DO [Primary Care Provider] - 1-2 days Donnie Camejo MD [STAFF PHYSICIAN] - 07/25/23 10:00 am Activity/Diet/Wound Care/Special Instructions: PT HAS HOME MED IN HER BIN IN MED ROOM. PLEASE RETURN TO HER UPON DISCHARGE. Discharge/Stand Alone Forms: [facility] Instructions Discharge Disposition: STILL PT- FOR INTERIM BILLING
--- NOTE | 2023-07-19 18:38 | CDI ---
Documentation Clarification Form Date: 07/19/2023 06:26:55 PM From: Rama Madrigal Phone: Admit Date: 06/28/2023 09:45:00 AM Patient Name: Janice Sue Visit Number: [id number] Discharge Date: 07/18/2023 12:50:00 PM ATTENTION: The Clinical Documentation Specialists (CDI) and [facility] Coding Staff appreciate your assistance in clarifying documentation. Please respond to the clarification below the line at the bottom and electronically sign. The CDI & [facility] Coding staff will review the response and follow-up if needed. Please note: Queries are made part of the Legal Health Record. If you have any questions, please contact the author of this message via ITS. Dr. Billy Montana There is documentation of cachectic significantmuscle wasting per Progress Note / and DC Summary. Additional clarification is requested. History/Risk Factors: 63yo F, recurrent parapharangeal Cx w chronic pain, Hx laryngeal cancer w tracheostomy w infection, ICM, left-sided trigeminalneuralgia, CAD HTN, HLD, COPD, PEG Clinical Indicators: thin built,cachectic, elderly appearing, extremely ill- appearing, significantmuscle wastingnoted Treatment: Pt on PEG feeds, DNR and transitioned to Hospice IP Can you please clarify etiology of muscle wasting? [ x ] Muscle wasting due to malignancy [ ] Other, please specify [ ] Unable to determine (Template Last Revised: April 2020) MTDD
--- NOTE | 2023-08-02 14:05 | CDI ---
Documentation Clarification Form Date: 08/02/2023 01:34:52 PM From: Randa Levin RN, CCDS Phone: [phone] Admit Date: 06/28/2023 09:45:00 AM Patient Name: Janice Sue Visit Number: [id number] Discharge Date: 07/18/2023 12:50:00 PM ATTENTION: The Clinical Documentation Specialists (CDI) and [facility] Coding Staff appreciate your assistance in clarifying documentation. Please respond to the clarification below the line at the bottom and electronically sign. The CDI & [facility] Coding staff will review the response and follow-up if needed. Please note: Queries are made part of the Legal Health Record. If you have any questions, please contact the author of this message via ITS. Dr. Billy Montana Pneumonia is documented in several progress notes. Additional clarification is requested. History/Risk Factors: CAD, Cancer with tracheostomy and self-suctioning at home. Presents with chest pain and SOB. Clinical Indicators: H&P: "Possible infection or bronchitis, patient has a tracheostomy: Will obtain sputum cultures. Patient will be empirically started on Zosyn covering for Pseudomonas." 07/08 IM: "Possible infection, bronchitis, right upper lobe pneumonia, with Klebsiella variicola." 07/16 Pulmonary: "Right upper lobe pneumonia with an extensive right upper lobe consolidation and purulent/bloody sputum noted from tracheostomy site, may relate to the patient suctioning herself, and traumatizing her trachea." 06/25 WBC: 16.3, Procalcitonin 0.32 06/26 Sputum: Klebsiella variicola 07/05 CXR: Developing right upper lobe consolidation. Correlate for pneumonia 06/27 Lung/Breathing assessment: decreased breath sounds at bases Treatment: Antibiotics: IV Cefepime 2gm Q8H 06/26-07/02; IV Rocephin 2gm Q24H 07/02-07/11; IV Decadron 4mg TID 07/10-07/17; IV Levaquin 500mg Q24H 07/14-07/17 O2: 5-10L trach collar Breathing Tx: Duonebs Q2H prn 06/27-07/17; Duonebs Q4H scheduled 07/06-07/17 Please clarify if pneumonia was ruled in or out: [ ] Pneumonia, Due to Klebsiella variicola POA ruled in [ ] Pneumonia, ruled out [ ] Other [ ] Unable to determine please give to dr payton MAGUIRE
--- NOTE | 2023-08-07 12:04 | CDI ---
Documentation Clarification Form Date: 08/07/2023 11:33:00 AM From: Ry Rosario, JAEL, RN, CCDS Phone: [phone] Admit Date: 06/28/2023 09:45:00 AM Patient Name: Janice Sue Visit Number: [id number] Discharge Date: 07/18/2023 12:50:00 PM ATTENTION: The Clinical Documentation Specialists (CDI) and [facility] Coding Staff appreciate your assistance in clarifying documentation. Please respond to the clarification below the line at the bottom and electronically sign. The CDI & [facility] Coding staff will review the response and follow-up if needed. Please note: Queries are made part of the Legal Health Record. If you have any questions, please contact the author of this message via ITS. Pneumonia is documented in several progress notes during the stay, but is not noted as a discharge diagnosis. Additional clarification is requested to determine if this condition was ruled in or ruled out after work up and study. History/Risk Factors: CAD, Cancer with tracheostomy and self-suctioning at home. Presents with chest pain and SOB. Clinical Indicators: H&P 06/25: "CXR did not show any pneumonia, but there may be bronchitis, patient has a tracheostomy: Will obtain sputum cultures. Patient will be empirically started on Zosyn covering for Pseudomonas." ID Consult 06/26 presented with SOB, chest pain, cough and purulent drainage. assessment leukocytosis, tracheobronchitis, add cefepime empirically while waiting for work up to be completed. PN 07/06, 07/07, 07/08, 07/15, 07/16 possible infection with bronchitis, RUL pneumonia, empiric antibiotics with Klebsiella variicola 07/16 Pulmonary: "Right upper lobe pneumonia with an extensive right upper lobe consolidation and purulent/bloody sputum noted from tracheostomy site, may relate to the patient suctioning herself, and traumatizing her trachea." 06/25 WBC: 16.3, Procalcitonin 0.32 06/26 Sputum: Klebsiella variicola 07/05 CXR: Developing right upper lobe consolidation. Correlate for pneumonia 06/27 Lung/Breathing assessment: decreased breath sounds at bases Treatment: Consult ID 06/26 for trach/respiratory infection Antibiotics: IV Cefepime 2gm Q8H 06/26-07/02; IV Rocephin 2gm Q24H 07/02-07/11; IV Decadron 4mg TID 07/10-07/17; IV Levaquin 500mg Q24H 07/14-07/17 O2: 5-10L trach collar Breathing Tx: Duonebs Q2H prn 06/27-07/17; Duonebs Q4H scheduled 07/06-07/17 Please clarify if pneumonia was ruled in or out: [x ] Pneumonia, Due to Klebsiella varicella ruled in, present on admission [ ] Pneumonia, Due to Klebsiella varicella ruled in, not present on admission [ ] Pneumonia, ruled out [ ] Other [ ] Unable to determine MTDD
== END 2023-07-18 12:50 | disposition hospice, inpatient (51) | DRG 177 ==
LOC: EC 13:16 → 6NMEDSUR 17:29 → OBSVTOIN 06-28 09:45 → 6NMEDSUR 07-04 23:21 → 5NMEDONC 07-11 14:36
PROVIDERS: ADMIT Hospitalist; ATTEND Hospitalist
PROC: 3E0H76Z Introduction of Nutritional Substance into Lower GI, Via Natural or Artificial Opening (ICD-10-PCS; 2023-06-30)
PROC: 3E0T33Z Introduction of Anti-inflammatory into Peripheral Nerves and Plexi, Percutaneous Approach (ICD-10-PCS; 2023-07-17)
PROC: 3E0T3BZ Introduction of Anesthetic Agent into Peripheral Nerves and Plexi, Percutaneous Approach (ICD-10-PCS; principal; 2023-07-17 12:45)
DX: J15.69 Pneumonia due to other Gram-negative bacteria (principal); J96.01 Acute respiratory failure with hypoxia; J95.01 Hemorrhage from tracheostomy stoma; K94.23 Gastrostomy malfunction; R78.81 Bacteremia; R04.2 Hemoptysis; J20.8 Acute bronchitis due to other specified organisms; C11.1 Malignant neoplasm of posterior wall of nasopharynx; Z66 Do not resuscitate; Z51.5 Encounter for palliative care; E88.A Wasting disease (syndrome) due to underlying condition; J44.89 Other specified chronic obstructive pulmonary disease; I10 Essential (primary) hypertension; B96.1 Klebsiella pneumoniae [K. pneumoniae] as the cause of diseases classified elsewhere; G50.0 Trigeminal neuralgia; I25.5 Ischemic cardiomyopathy; R07.81 Pleurodynia; E86.1 Hypovolemia; G89.3 Neoplasm related pain (acute) (chronic); K59.00 Constipation, unspecified; I25.10 Atherosclerotic heart disease of native coronary artery without angina pectoris; E78.5 Hyperlipidemia, unspecified; R19.7 Diarrhea, unspecified; Z87.891 Personal history of nicotine dependence; Z79.02 Long term (current) use of antithrombotics/antiplatelets; Z79.82 Long term (current) use of aspirin; Z80.1 Family history of malignant neoplasm of trachea, bronchus and lung; Z79.891 Long term (current) use of opiate analgesic; Z88.0 Allergy status to penicillin; Z88.5 Allergy status to narcotic agent; Z95.5 Presence of coronary angioplasty implant and graft; I25.2 Old myocardial infarction; Z87.11 Personal history of peptic ulcer disease; Z85.818 Personal history of malignant neoplasm of other sites of lip, oral cavity, and pharynx; Z80.3 Family history of malignant neoplasm of breast; Z92.3 Personal history of irradiation; Z92.21 Personal history of antineoplastic chemotherapy; Z85.21 Personal history of malignant neoplasm of larynx; Z85.89 Personal history of malignant neoplasm of other organs and systems
CPT/HCPCS: 36415; 64400; 70491; 70540; 71045; 71046; 71260; 74019; 74176; 80048; 80053; 80061; 83605; 83735; 83880; 84145; 84484; 85025; 85027; 85379; 85610; 85730; 87040; 87045; 87046; 87070; 87077; 87186; 87205; 93005; 93306; 94640; 94760; 96374; 96375; 96376; 99152; 99285

== ENCOUNTER 2023-07-18 12:26 | Inpatient (IN) | payer OTHER ==
[2023-07-18] MEDS ORDERED: PROCHLORPERAZINE 5 MG TAB PEG/G-TUBE PRN (14:49)
[2023-07-18] MEDS ORDERED: ACETAMINOPHEN ORAL SUSP (PEDS) 3,840 MG/120 ML BOTTLE PEG/G-TUBE PRN (14:49)
[2023-07-18] MEDS ORDERED: ONDANSETRON ODT 8 MG TAB.RAPDIS PO PRN (14:49)
[2023-07-18] MEDS ORDERED: IPRATROPIUM-ALBUTEROL 3 ML NEB INHALATION PRN (14:49)
[2023-07-18] MEDS ORDERED: MORPHINE ORAL SOLN 10 MG/5 ML CUP PEG/G-TUBE SCH (15:00)
[2023-07-18] MEDS: MORPHINE ORAL SOLN 10 MG/5 ML CUP PEG/G-TUBE SCH (15:36)
[2023-07-18] MEDS: HYDROmorphone 1 MG/ML 1 ML SYRINGE IVP SCH (15:37)
[2023-07-18] MEDS ORDERED: ATROPINE OPHTH SOLN 1% 5ML BTL SUBLINGUAL PRN (15:59)
[2023-07-18] MEDS ORDERED: LORazepam 1 MG TAB PO PRN (16:00)
[2023-07-18] MEDS ORDERED: bisacodyL 10 MG SUPP RECTAL PRN (16:00)
[2023-07-18 16:12] VITALS: BP 99/61; PULSE 120; TEMP 98.2
[2023-07-18 19:57] VITALS: RESP 16
[2023-07-19] MEDS: SENNOSIDES-DOCUSATE SODIUM 1 EACH TAB PO SCH (08:55)
[2023-07-19 10:53] VITALS: BMI 20.5
[2023-07-19] MEDS: METOPROLOL SUCCINATE (ER) 100 MG TAB.ER.24H PO SCH (11:32)
--- NOTE | 2023-07-19 15:48 | P.HPIM ---
History of Present Illness H&P Date: 07/19/23 63-year-old female came with complaints of chest pressure-like sensation was eval by cardiology EKG showed sinus rhythm with low QRS voltage complexes, troponins are negative patient was eval by cardiology. Patient chest pain is worse with palpation appears to be musculoskeletal cardiology evaluated the patient and they are recommending an echocardiogram if that is negative patient is cleared from their perspective patient has a tracheostomy which has purulent drainage foul-smelling. Chest x-ray did not show any pneumonia but there may be bronchitis will obtain a sputum cultures and infectious disease will be consulted. Patient was also complaining of shortness of breath although there is no wheezing on exam. 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 Patient D-dimer is within normal limits no evidence of pneumonia on the chest x-ray patient does have leukocytosis without any fever. Patient is also complaining of generalized weakness lives by herself and wanted to be evaluated by physical therapy. 07/01/2023 Changes seen and evaluated in room at bedside; continues to climb plaint of uncontrolled pain; Duragesic patch was increased up to 75 mcg; oncology adding IV Dilaudid CT scan completed on 06/07/2023 was reviewed with patient and ; oncology doubting change in the size of the mass -- Given persistent pain oncology is recommending to repeat CT of the neck and jaw which has been ordered -- Continue with aggressive pain regimen Further recommendations once CT of the neck/joints completed -ID on board and recommended to continue current antibiotic therapy 07/14/2023 Patient is seen and evaluated with nursing staff at bedside; reports blood with blood tinged sputum from tracheostomy site; patient self suctions with concern of causing some trauma with deep suctioning Vital signs are reviewed and remained stable Blood work reveals WBC of 8.4, hemoglobin of 10.7 and platelet count of 312 --We will consult pulmonary for further evaluation of hemoptysis 07/15/2023 Patient is seen and evaluated in room at bedside; no further episodes of hemoptysis or blood-tinged sputum from tracheostomy tube Vital sign review reveals temperature of 98.1, pulse 109, respiration 19 and blood pressure 101/67 Lab review reveals WBC of 9.1, hemoglobin of 10.5 and platelet count of 324 Patient has been evaluated by pulmonary service; chest x-ray completed this morning reveals right upper lobe infiltrate; initial sputum culture reveals Klebsiella; patient has been placed on Levaquin 500 mg IV daily per pulmonary recommendations 07/16/2023 Patient seen in follow-up today continues to report pain 8/10 on the pain scale and is scheduled for possibly receiving nerve block from pain management sometime today. Pulmonary following as well with oncology recommending follow- up chest x-ray as it continues to show right upper lobe density. Patient is continued on Levaquin with infectious disease following as well. Sputum culture did show Klebsiella. Plan initially was for rehab on discharge for continued strength and mobility although family is now possibly discussing considering hospice. Case management consulted and following. 07/17/2023 Patient is seen in follow-up today with at the bedside. Patient continues to report pain in his severe and 9/10. Pain management following and patient will be receiving nerve block sometime today in hopes of possible pain relief. Discussing hospice with [facility] following and will reevaluate tomorrow if patient meets criteria or if plans are to return home with this is following. Patient continues on scheduled and as needed IV narcotics and reports no relief. Patient continues with thick amounts of copious secretions from the tracheostomy and is maintained on IV antibiotics in the form of Levaquin. Patient with significant weakness recommend getting up more often and sitting in the chair. Continue tube feeds 07/18/2023 Patient was seen and evaluated and met with [facility] with and has agreed to sign on with hospice meeting GIP criteria due to uncontrolled pain. Patient continues on multiple narcotic medications at high doses with continued severe 10/10 pain and no relief. Patient has been transition to scheduled pain regimen with no improvements noted. Patient and family have discussed further regarding possibly going home with hospice once pain is better controlled. [facility] will continue to follow and make adjustments accordingly to pain regimen. Continue bowel regimen and supportive care. Review of systems: Unable to completely assess as patient has tracheostomy and mumbles Physical exam: Gen: This is a 63-year-old female who is awake alert and oriented x 2-3, thin built, cachectic, elderly appearing, extremely ill-appearing, significant muscle wasting noted HEENT: Head is atraumatic, normocephalic. Pupils equal, round. Sclerae is anicteric. NECK: Supple. No JVD. No lymphadenopathy. No thyromegaly. Tracheostomy with significant copious amounts of thick purulent drainage LUNGS: Diminished breath sounds bilaterally with coarse bronchial congestion and scattered rhonchi. No intercostal retractions. HEART: S1, S2 are muffled ABDOMEN: Soft. Bowel sounds are present. No masses. No tenderness. PEG tube noted with some minimal leaking surrounding EXTREMITIES: No pedal edema. No calf tenderness. NEUROLOGICAL: Patient is awake, alert and oriented x3. Cranial nerves 2 through 12 are grossly intact. 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 -Laryngeal cancer with tracheostomy as mentioned before -Hyperlipidemia -Hypertension -COPD without any acute exacerbation -DVT prophylaxis: Lovenox -GI prophylaxis -Do Not Resuscitate/Do Not Intubate Plan: Patient is continued on a number of narcotic medications with no significant relief reporting 10/10 on the pain. Patient and family have met with [facility] and meets inpatient criteria and currently working on a pain management regimen and possibly a Dilaudid pain pump on discharge. Patient will be monitored over the next few days for supportive care and symptomatic relief in pain management and will discuss further regarding discharge planning with [facility] Hospice house has been discussed although family does not want to pay [id number] for this. Will discuss with hospice on a daily basis and continue to follow with them during hospitalization Overall prognosis is extremely poor and guarded. Continue supportive care and also discussed with the patient about if having continued abdominal pain or GI issues may need to discontinue PEG tube feedings. Will continue with bowel regimen and supportive care The impression and plan of care has been dictated by Jenae Tony, Nurse Practitioner as directed. Dr. Adam MD I have performed a history and examination and MDM of this patient, discussed the same with the dictator, and agree with the dictator's assessment and plan as written ,documented as a scribe. Based on total visit time, I have performed more than 50% of the visit. Past Medical History Past Medical History: Coronary Artery Disease (CAD), Cancer, Hyperlipidemia, Hypertension, Myocardial Infarction (CA) Additional Past Medical History / Comment(s): hx stomach ulcer, left tonsil cancer Last Myocardial Infarction Date:: 08/19/21 History of Any Multi-Drug Resistant Organisms: None Reported Past Surgical History: Heart Catheterization With Stent, Hysterectomy, Tubal Ligation Additional Past Surgical History / Comment(s): egd, Trach, right chest port, peg Past Anesthesia/Blood Transfusion Reactions: No Reported Reaction Date of Last Stent Placement:: 08/19/21 Past Psychological History: No Psychological Hx Reported Smoking Status: Former smoker Past Alcohol Use History: None Reported Past Drug Use History: None Reported Additional Drug Use History / Comment(s): occasional marijuana use - Past Family History Mother Family Medical History: Cancer Additional Family Medical History / Comment(s): lung cancer Sister(s) Family Medical History: Cancer Additional Family Medical History / Comment(s): breast cancer Medications and Allergies Home Medications Medication Instructions Recorded Confirmed Type Ondansetron Odt [Zofran ODT] 8 mg PO QID PRN 04/03/22 07/18/23 History Metoprolol Succinate [Kapspargo 100 mg PEG/G-TUBE DAILY@1000 08/15/22 07/18/23 History Sprinkle] Clopidogrel [Plavix] 75 mg PEG/G-TUBE DAILY@1000 11/16/22 07/18/23 History Aspirin 81 mg PEG/G-TUBE DAILY@1000 11/25/22 07/18/23 History Ipratropium-Albuterol Nebulize 3 ml INHALATION RT-Q2H PRN #90 dose 12/10/22 07/18/23 Rx [Duoneb 0.5 mg-3 mg/3 ml Soln] Acetaminophen Oral Susp [Tylenol] 320 mg PEG/G-TUBE Q6HR PRN 06/26/23 07/18/23 History Prochlorperazine [Compazine] 5 mg PEG/G-TUBE Q6HR PRN 06/26/23 07/18/23 History Sennosides-Docusate Sodium 1 tab PO DAILY 06/26/23 07/18/23 History [Senokot-S] dexAMETHasone [Decadron] 8 mg PEG/G-TUBE DAILY 06/26/23 07/18/23 History fentaNYL 25MCG/HR PATCH [Duragesic 2 patch TRANSDERM Q72H 06/26/23 07/18/23 History 25MCG/HR] MORPHINE ORAL JEFFRY 2mg/mL [Morphine 20 mg PEG/G-TUBE Q6H PRN 3 Days 07/05/23 07/18/23 Rx Oral Soln 2 MG/ML] #120 ml fentaNYL 100MCG/HR PATCH 100 mcg TRANSDERM Q72H 3 Days #1 07/05/23 07/18/23 Rx [Duragesic 100MCG/HR] patch Allergies Allergy/AdvReac Type Severity Reaction Status Date / Time Penicillins AdvReac Severe nausea/vomi Verified 06/26/23 16:59 ting codeine AdvReac Nausea & Verified 06/26/23 16:59 Vomiting & Diarrhea Physical Exam Vitals: Intake and Output 07/17/23 07/18/23 07/18/23 22:59 06:59 14:59 Other: Weight 49.42 kg
[2023-07-20] MEDS: ZINC OXIDE PASTE (Z-GUARD) 1 APPLIC TOPICAL PRN (06:00)
--- NOTE | 2023-07-20 16:50 | P.PN ---
Subjective Progress Note Date: 07/20/23 63-year-old female came with complaints of chest pressure-like sensation was eval by cardiology EKG showed sinus rhythm with low QRS voltage complexes, troponins are negative patient was eval by cardiology. Patient chest pain is worse with palpation appears to be musculoskeletal cardiology evaluated the patient and they are recommending an echocardiogram if that is negative patient is cleared from their perspective patient has a tracheostomy which has purulent drainage foul-smelling. Chest x-ray did not show any pneumonia but there may be bronchitis will obtain a sputum cultures and infectious disease will be consulted. Patient was also complaining of shortness of breath although there is no wheezing on exam. 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 Patient D-dimer is within normal limits no evidence of pneumonia on the chest x-ray patient does have leukocytosis without any fever. Patient is also complaining of generalized weakness lives by herself and wanted to be evaluated by physical therapy. 07/01/2023 Changes seen and evaluated in room at bedside; continues to climb plaint of uncontrolled pain; Duragesic patch was increased up to 75 mcg; oncology adding IV Dilaudid CT scan completed on 06/07/2023 was reviewed with patient and ; oncology doubting change in the size of the mass -- Given persistent pain oncology is recommending to repeat CT of the neck and jaw which has been ordered -- Continue with aggressive pain regimen Further recommendations once CT of the neck/joints completed -ID on board and recommended to continue current antibiotic therapy 07/14/2023 Patient is seen and evaluated with nursing staff at bedside; reports blood with blood tinged sputum from tracheostomy site; patient self suctions with concern of causing some trauma with deep suctioning Vital signs are reviewed and remained stable Blood work reveals WBC of 8.4, hemoglobin of 10.7 and platelet count of 312 --We will consult pulmonary for further evaluation of hemoptysis 07/15/2023 Patient is seen and evaluated in room at bedside; no further episodes of hemoptysis or blood-tinged sputum from tracheostomy tube Vital sign review reveals temperature of 98.1, pulse 109, respiration 19 and blood pressure 101/67 Lab review reveals WBC of 9.1, hemoglobin of 10.5 and platelet count of 324 Patient has been evaluated by pulmonary service; chest x-ray completed this morning reveals right upper lobe infiltrate; initial sputum culture reveals Klebsiella; patient has been placed on Levaquin 500 mg IV daily per pulmonary recommendations 07/16/2023 Patient seen in follow-up today continues to report pain 8/10 on the pain scale and is scheduled for possibly receiving nerve block from pain management sometime today. Pulmonary following as well with oncology recommending follow- up chest x-ray as it continues to show right upper lobe density. Patient is continued on Levaquin with infectious disease following as well. Sputum culture did show Klebsiella. Plan initially was for rehab on discharge for continued strength and mobility although family is now possibly discussing considering hospice. Case management consulted and following. 07/17/2023 Patient is seen in follow-up today with at the bedside. Patient continues to report pain in his severe and 9/10. Pain management following and patient will be receiving nerve block sometime today in hopes of possible pain relief. Discussing hospice with [facility] following and will reevaluate tomorrow if patient meets criteria or if plans are to return home with this is following. Patient continues on scheduled and as needed IV narcotics and reports no relief. Patient continues with thick amounts of copious secretions from the tracheostomy and is maintained on IV antibiotics in the form of Levaquin. Patient with significant weakness recommend getting up more often and sitting in the chair. Continue tube feeds 07/19/2023 Patient was seen and evaluated and met with [facility] with and has agreed to sign on with hospice meeting GIP criteria due to uncontrolled pain. Patient continues on multiple narcotic medications at high doses with continued severe 10/10 pain and no relief. Patient has been transition to scheduled pain regimen with no improvements noted. Patient and family have discussed further regarding possibly going home with hospice once pain is better controlled. [facility] will continue to follow and make adjustments accordingly to pain regimen. Continue bowel regimen and supportive care. 07/20/2023 Patient is seen in follow-up maintained on hospice for pain management control currently working on obtaining a Dilaudid pain pump for discharge. Patient was noted to be resting comfortably on initial exam prior to waking up and reporting her pain was 10/10 with no significant relief. Will continue current regimen and continue supportive care as well. [facility] following and will be arranging for discharge planning as patient remains relatively stable. Review of systems: Unable to completely assess as patient has tracheostomy and mumbles Physical exam: Gen: This is a 63-year-old female who is asleep although arousable, alert and oriented x 2-3, thin built, cachectic, elderly appearing, extremely ill- appearing, significant muscle wasting noted HEENT: Head is atraumatic, normocephalic. Pupils equal, round. Sclerae is anicteric. NECK: Supple. No JVD. No lymphadenopathy. No thyromegaly. Tracheostomy with significant copious amounts of thick purulent drainage LUNGS: Diminished breath sounds bilaterally with coarse bronchial congestion and scattered rhonchi. No intercostal retractions. HEART: S1, S2 are muffled ABDOMEN: Soft. Bowel sounds are present. No masses. No tenderness. PEG tube noted with some minimal leaking surrounding EXTREMITIES: No pedal edema. No calf tenderness. NEUROLOGICAL: Patient is awake, alert and oriented x3. Cranial nerves 2 through 12 are grossly intact. 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 -Laryngeal cancer with tracheostomy as mentioned before -Hyperlipidemia -Hypertension -COPD without any acute exacerbation -DVT prophylaxis: Lovenox -GI prophylaxis -Do Not Resuscitate/Do Not Intubate Plan: Patient is continued on a number of narcotic medications with no significant relief reporting 10/10 on the pain. Patient and family have met with [facility] and meets inpatient criteria and currently working on a pain management regimen and possibly a Dilaudid pain pump on discharge. Patient will be monitored over the next few days for supportive care and symptomatic relief in pain management and will discuss further regarding discharge planning with [facility] Hospice house has been discussed although family does not want to pay [id number] for this. Will discuss with hospice on a daily basis and continue to follow with them during hospitalization Overall prognosis is extremely poor and guarded. Continue supportive care and also discussed with the patient about if having continued abdominal pain or GI issues may need to discontinue PEG tube feedings. Will continue with bowel regimen and supportive care Possible discharge planning per [facility] to home with hospice services in the next 24 to 48 hours The impression and plan of care has been dictated by Jenae Tony, Nurse Practitioner as directed. Dr. Adam MD I have performed a history and examination and MDM of this patient, discussed the same with the dictator, and agree with the dictator's assessment and plan as written ,documented as a scribe. Based on total visit time, I have performed more than 50% of the visit. Objective - Vital Signs Vital signs: Vital Signs Temp 98.2 F 07/18/23 14:17 Pulse 120 H 07/18/23 14:17 Resp 16 07/19/23 08:00 BP 99/61 07/18/23 14:17 Pulse Ox 93 L 07/18/23 14:17 FiO2 Intake & Output 07/19/23 07/20/23 07/20/23 18:59 06:59 18:59 Weight 49.42 kg Other: Voiding Method Toilet Toilet Bedside Commode Bedside Commode Bedside Commode # Voids 1 3 1 # Bowel Movements 1 2
[2023-07-21] MEDS: MORPHINE ORAL SOLN 10 MG/5 ML CUP PEG/G-TUBE PRN (08:34)
== END 2023-07-21 15:00 | disposition hospice, home (50) | DRG 202 ==
LOC: 5NMEDONC 12:51
PROVIDERS: ADMIT Hospitalist; ATTEND Hospitalist
DX: J20.9 Acute bronchitis, unspecified (principal); J44.0 Chronic obstructive pulmonary disease with (acute) lower respiratory infection; R64 Cachexia; B96.1 Klebsiella pneumoniae [K. pneumoniae] as the cause of diseases classified elsewhere; I25.5 Ischemic cardiomyopathy; Z66 Do not resuscitate; C09.9 Malignant neoplasm of tonsil, unspecified; C32.9 Malignant neoplasm of larynx, unspecified; Z68.20 Body mass index [BMI] 20.0-20.9, adult; E78.5 Hyperlipidemia, unspecified; I10 Essential (primary) hypertension; I25.10 Atherosclerotic heart disease of native coronary artery without angina pectoris; I25.2 Old myocardial infarction; Z79.02 Long term (current) use of antithrombotics/antiplatelets; Z93.0 Tracheostomy status; Z95.5 Presence of coronary angioplasty implant and graft; Z79.82 Long term (current) use of aspirin; Z88.5 Allergy status to narcotic agent; Z88.0 Allergy status to penicillin; Z80.1 Family history of malignant neoplasm of trachea, bronchus and lung; Z87.891 Personal history of nicotine dependence